=== PATIENT | male | born 2000 | race Caucasian/White ===

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

== ENCOUNTER 2021-01-05 10:45 | Inpatient (IN) | payer MEDICAID ==
[2021-01-05] VITALS (8 sets, daily range): BP systolic 90–137; BP diastolic 51–86
[~2021-01-05] VITALS: Ht 170 cm; Wt 56.5 kg
[~2021-01-05 10:45] MED LIST changes: +ONDA4TAB11 PO
--- NOTE | 2021-01-05 10:53 | ED General ---
General Chief Complaint: Glucose Problems Stated Complaint: DM,N/V Source of Information: Patient, EMS Exam Limitations: No Limitations History of Present Illness Date Seen by Provider: Jan 05, 2021 Time Seen by Provider: 10:45 Initial Comments Patient is a 20-year-old male, type I diabetic who has multiple previous visits to the emergency department with subsequent AMA discharges. Presents today with a chief complaint of epigastric abdominal discomfort, nausea vomiting and blood sugars that are "too high to read". Patient states that his last dose of insulin was missed last evening. He woke up at 4 AM with the above-stated symptoms. Is not Covid vaccinated. Denies any recent URI symptoms/cough/shortness of breath. He states he does have a little chest discomfort but he believes this is from dry heaving. Upon entering the room the patient immediately is asking for ice chips or sips of water. He was not given any antiemetics per EMS. He was started on a liter of normal saline. EMS reports blood sugar 404. Patient denies chronic alcohol use. He does occasionally smoke marijuana. He vapes. No prior abdominal surgeries. Follows with [facility] but does not currently have a provider there as his just left. Denies burning with urination, urinary frequency or hematuria. No concerns for STI. Denies problems with bowel or bladder. No rashes joint pain or swelling. All other review of systems reviewed and negative except as stated. Timing/Duration: 4-6 Hours Severity: Severe Associated Systoms: Chest Pain ("discomfort"), Malaise, Nausea/Vomiting Allergies and Home Medications Allergies Coded Allergies: No Known Drug Allergies (Unverified , 02/10/14) Patient Home Medication List Home Medication List Reviewed: Yes Acetaminophen (Tylenol) 325 Mg Tablet, 650 MG PO Q6H PRN for PAIN-MILD (1-4), (Reported) Entered as Reported by: SANTI MATSON on 01/06/21 100 Last Action: Reviewed Insulin Aspart (Novolog Flexpen) 300 Units/3 Ml Solution, 10-20 UNIT SC TIDWM, (Reported) Entered as Reported by: SANTI MATSON on 01/06/211005 Last Action: Held Insulin Glargine,Hum.rec.anlog (Lantus Solostar) 100 Unit/1 Ml Insuln.pen, 50 UNITS SC DAILY, (Reported) Entered as Reported by: DEJUAN ABURTO on 09/12/18 1228 Last Action: Held Discontinued Medications Glucagon,Human Recombinant (Glucagon Emergency Kit) 1 Mg/Kit Soln, UD PRN for BLOOD SUGAR, (Reported) Discontinued Reason: No Longer Taking Entered as Reported by: DEJUAN ABURTO on 09/12/18 1228 Last Action: Discontinued Insulin Aspart (Insulin Aspart Flexpen) 100 Unit/1 Ml Insuln.pen, 10-20 UNIT SQ 3-4 X DAILY W/ MEALS, (Reported) Discontinued Reason: Duplicate Order Entered as Reported by: PITO WALL on 08/22/19 1328 Last Action: Discontinued Insulin Aspart (Novolog) 300 Units/3 Ml Cartridge, 0 SQ AC, (Reported) Discontinued Reason: Duplicate Order Entered as Reported by: STEPHANIE RAMIREZ on 06/28/20 1349 Last Action: Discontinued Ondansetron (Ondansetron Odt) 4 Mg Tab.rapdis, 4 MG PO Q6H PRN for NA USEA/VOMITING Discontinued Reason: No Longer Taking Prescribed by: FLEX MORAES on 11/02/20 1353 Last Action: Discontinued Review of Systems Review of Systems Constitutional: see HPI, malaise, weakness EENTM: no symptoms reported Respiratory: no symptoms reported Cardiovascular: chest pain Gastrointestinal: nausea, vomiting Genitourinary: no symptoms reported Musculoskeletal: no symptoms reported Skin: no symptoms reported All Other Systems Reviewed Negative Unless Noted: Yes Past Kecruyy-Vmbcff-Qnxtwq Hx Immunizations Up To Date Tetanus Booster (TDap): Less than 5yrs PED Vaccines UTD: Yes Seasonal Allergies Seasonal Allergies: No Past Medical History Surgeries: No Respiratory: No Cardiac: No Neurological: No Genitourinary: No Gastrointestinal: No Musculoskeletal: No Endocrine: Yes (POORLY CONTROLLED TYPE 1 DIABETES) Diabetes, Insulin dep HEENT: No Cancer: No Psychosocial: No Integumentary: No Blood Disorders: No Family Medical History No Pertinent Family Hx Physical Exam Vital Signs Vital Signs - First Documented 01/05/21 10:50 Temp 36.2 Pulse 90 Resp 24 B/P (MAP) 143/84 (103) Capillary Refill : Height, Weight, BMI Height: 5'8.00" Weight: 124lbs. 4.8oz. 56.658302ty; 19.00 BMI Method:Stated General Appearance: Cachetic, Mild Distress Eyes: Bilateral Eye Normal Inspection, Bilateral Eye PERRL, Bilateral Eye EOMI HEENT: Other (DRY oral mucosa) Neck: Full Range of Motion, Normal Inspection, Non Tender, Supple Respiratory: Lungs Clear, Normal Breath Sounds, No Accessory Muscle Use, No Respiratory Distress, Other (borderline Kussmaul breathing) Cardiovascular: Regular Rate, Rhythm, Tachycardia Gastrointestinal: Soft, Tenderness (diffuse mild abdominal tenderness - patient states palpation of the spigastrum makse hoim feel like he needs to vomit.) Back: Normal Inspection Extremity: Normal Capillary Refill, Normal Inspection, Normal Range of Motion Neurologic/Psychiatric: Alert, Oriented x3, No Motor/Sensory Deficits, Normal Mood/Affect Skin: Normal Color, Warm/Dry Progress/Results/Core Measures Suspected Sepsis SIRS Temperature: Pulse: Respiratory Rate: Blood Pressure / Mean: Laboratory Tests 01/05/21 11:41: Total Bilirubin 0.2 Results/Orders Lab Results Laboratory Tests Test 01/05/21 11:00 01/05/21 11:15 01/05/21 11:41 Range/Units White Blood Count 22.3 H 4.3-11.0 10^3/uL Red Blood Count 4.71 4.30-5.52 10^6/uL Hemoglobin 14.4 13.3-17.7 g/dL Hematocrit 45 40-54 % Mean Corpuscular Volume 95 80-99 fL Mean Corpuscular Hemoglobin 31 25-34 pg Mean Corpuscular Hemoglobin Concent 32 32-36 g/dL Red Cell Distribution Width 13.0 10.0-14.5 % Platelet Count 362 130-400 10^3/uL Mean Platelet Volume 12.0 9.0-12.2 fL Immature Granulocyte % (Auto) 8 % Neutrophils (%) (Auto) 75 42-75 % Lymphocytes (%) (Auto) 8 L 12-44 % Monocytes (%) (Auto) 6 0-12 % Eosinophils (%) (Auto) 0 0-10 % Basophils (%) (Auto) 2 0-10 % Neutrophils # (Auto) 16.8 H 1.8-7.8 10^3/uL Lymphocytes # (Auto) 1.8 1.0-4.0 10^3/uL Monocytes # (Auto) 1.4 H 0.0-1.0 10^3/uL Eosinophils # (Auto) 0.1 0.0-0.3 10^3/uL Basophils # (Auto) 0.4 H 0.0-0.1 10^3/uL Immature Granulocyte # (Auto) 1.8 H 0.0-0.1 10^3/uL Neutrophils % (Manual) 68 % Lymphocytes % (Manual) 12 % Monocytes % (Manual) 7 % Metamyelocytes % 4 % Myelocytes % 4 % Band Neutrophils 5 % Blood Morphology Comment NORMAL Urine Color YELLOW Urine Clarity CLEAR Urine pH 5.5 5-9 Urine Specific Holliday >=1.030 1.016-1.022 Urine Protein TRACE H NEGATIVE Urine Glucose (UA) 3+ H NEGATIVE Urine Ketones 3+ H NEGATIVE Urine Nitrite NEGATIVE NEGATIVE Urine Bilirubin NEGATIVE NEGATIVE Urine Urobilinogen 0.2 < = 1.0 MG/DL Urine Leukocyte Esterase NEGATIVE NEGATIVE Urine RBC (Auto) TRACE-I H NEGATIVE Urine RBC NONE /HPF Urine WBC NONE /HPF Urine Squamous Epithelial Cells RARE /HPF Urine Crystals NONE /LPF Urine Bacteria NEGATIVE /HPF Urine Casts PRESENT /LPF Urine Granular Casts RARE /LPF Urine Mucus NEGATIVE /LPF Urine Culture Indicated NO Urine Opiates Screen NEGATIVE NEGATIVE Urine Oxycodone Screen NEGATIVE NEGATIVE Urine Methadone Screen NEGATIVE NEGATIVE Urine Propoxyphene Screen NEGATIVE NEGATIVE Urine Barbiturates Screen NEGATIVE NEGATIVE Ur Tricyclic Antidepressants Screen NEGATIVE NEGATIVE Urine Phencyclidine Screen NEGATIVE NEGATIVE Urine Amphetamines Screen NEGATIVE NEGATIVE Urine Methamphetamines Screen NEGATIVE NEGATIVE Urine Benzodiazepines Screen NEGATIVE NEGATIVE Urine Cocaine Screen NEGATIVE NEGATIVE Urine Cannabinoids Screen POSITIVE H NEGATIVE Blood Gas Puncture Site NA Blood Gas Patient Temperature 36.2 Arterial Blood pH 7.01 *L 7.37-7.43 Arterial Blood Partial Pressure CO2 12 *L 35-45 MMHG Arterial Blood Partial Pressure O2 118 H 79-93 MMHG Arterial Blood HCO3 3 *L 23-27 MMOL/L Arterial Blood Total CO2 3.2 *L 21.0-31.0 MMOL/L Arterial Blood Oxygen Saturation 97 94-100 % Arterial Blood Base Excess -26.5 L -2.5-2.5 MMOL/L Spenser Test NA Blood Gas Ventilator Setting NO Blood Gas Inspired Oxygen NA Sodium Level 133 L 135-145 MMOL/L Potassium Level 5.8 H 3.6-5.0 MMOL/L Chloride Level 101 98-107 MMOL/L Carbon Dioxide Level < 5 *L 21-32 MMOL/L Anion Gap 27 H 5-14 MMOL/L Blood Urea Nitrogen 13 7-18 MG/DL Creatinine 1.41 H 0.60-1.30 MG/DL Estimat Glomerular Filtration Rate 65 BUN/Creatinine Ratio 9 Glucose Level 594 *H 70-105 MG/DL Calcium Level 8.7 8.5-10.1 MG/DL Corrected Calcium 8.5 8.5-10.1 MG/DL Total Bilirubin 0.2 0.1-1.0 MG/DL Aspartate Amino Transf (AST/SGOT) 58 H 5-34 U/L Alanine Aminotransferase (ALT/SGPT) 40 0-55 U/L Alkaline Phosphatase 180 H 40-136 U/L Total Protein 7.5 6.4-8.2 GM/DL Albumin 4.3 3.2-4.5 GM/DL Lipase 10 8-78 U/L Beta-Hydroxybutyrate (Chem panel) 11.50 H 0.00-0.27 MMOL/L My Orders Orders - REMA LIU MD Ed Iv/Invasive Line Start (01/05/21 10:51) Cbc With Automated Diff (01/05/21 10:51) Comprehensive Metabolic Panel (01/05/21 10:51) Lipase (01/05/21 10:51) Ua Culture If Indicated (01/05/21 10:51) Drug Screen Stat (Urine) (01/05/21 10:51) Beta Hydroxybutyrate (01/05/21 10:51) Arterial Blood Gas (01/05/21 10:51) Chest 1 View, Ap/Pa Only (01/05/21 10:51) Ondansetron Injection (Zofran Injectio (01/05/21 11:00) Ns Iv 1000 Ml (Sodium Chloride 0.9%) (01/05/21 11:15) Manual Differential (01/05/21 11:00) Medications Given in ED Vital Signs/I&O 01/05/21 10:50 Temp 36.2 Pulse 90 Resp 24 B/P (MAP) 143/84 (103) Capillary Refill : Progress Note : Time: 11:48 Progress Note Patient's labs rolling back and at this time, white blood cell count 22,000, patient's not anemic, normal platelets. ABG reveals a pH of 7.01 with PCO2 of 12 bicarb of 3. Chemistry still pending at this time. I had a discussion with the patient regarding admission, he states at this time he will not leave AMA and is agreeable for admission. Will bolus him 5 units of regular insulin IV and start him on a drip at 5 units an hour. He is completing 2 L of normal saline IV fluid bolus. We'll switch him to half-normal saline at 250 an hour after this. Will discuss the case with Dr. Squires who is on for [facility]. Admission to the ICU. Diagnostic Imaging Diagonstic Imaging: Xray Plain Films/CT/US/NM/MRI: chest Comments [facility] [place], [place] NAME: RAJIV HARTMANN [facility] REC#: [id number] PT STATUS: REG ER : 2000 PHYSICIAN: REMA LIU MD ADMIT DATE: 01/05/21/ER Draft Date of Exam:01/05/21 CHEST 1 VIEW, AP/PA ONLY EXAM: Portable erect AP chest at 11:21 AM INDICATION: Nausea and vomiting COMPARISON: 12/07/2018. FINDINGS: The heart size is stable when compared to the prior exam. The lungs are clear. There is no evidence for failure, pneumonia or for a pleural effusion. The mediastinum is not widened. The osseous structures are intact. IMPRESSION: There is no evidence for active disease. Dictated on workstation # [id number] Dict: 01/05/21 1134 Trans: 01/05/21 1138 [facility] [id number] Interpreted by: EDWINA MURPHY MD Electronically signed by: Critical Care Note Critical Care Start Time: 10:45 Stop Time: 11:52 Total Time (minutes) 40 minutes critical care time in the evaluation and management of this patient who presents with DKA. Time includes initial fluid resuscitation with normal saline, review and interpretation of laboratory studies, review of the medical record, discussion with admitting provider, management of insulin bolus and insulin drip Departure Communication (Admissions) Time/Spoke to Admitting Phy: 12:[address] Squires Impression Primary Impression: Diabetic ketoacidosis Qualified Codes: E10.10 - Type 1 diabetes mellitus with ketoacidosis without coma Disposition: ADMITTED INPATIENT Condition: Critical Admissions Decision to Admit Reason: Admit from ER (General) Decision to Admit/Date: Jan 05, 2021 Time/Decision to Admit Time: 11:53 Departure-Patient Inst. Referrals: [facility] ([place]P/Family) Primary Care Physician REMA LIU MD Jan 05, 2021 10:53
[2021-01-05] MEDS ORDERED: ONDANSETRON 4 MG/2 ML (SDV) Z0FRAN IVP ONE (11:00)
[2021-01-05] MEDS ORDERED: NS IV 1000 ML 1,000 ML IV SCH (11:15)
[2021-01-05 11:20] LABS: BASOPHILS # (AUTO) 0.4 10^3/uL (0.0-0.1); BASOPHILS % (AUTO) 2 % (0-10); EOSINOPHILS # (AUTO) 0.1 10^3/uL (0.0-0.3); EOSINOPHILS % (AUTO) 0 % (0-10); HEMATOCRIT 45 % (40-54); HEMOGLOBIN 14.4 g/dL (13.3-17.7); LYMPHOCYTES # (AUTO) 1.8 10^3/uL (1.0-4.0); LYMPHOCYTES % (AUTO) 8 % (12-44); MEAN CORPUSCULAR HEMOGLOBIN 31 pg (25-34); MEAN CORPUSCULAR HGB CONC 32 g/dL (32-36); MEAN CORPUSCULAR VOLUME 95 fL (80-99); MONOCYTES # (AUTO) 1.4 10^3/uL (0.0-1.0); MONOCYTES % (AUTO) 6 % (0-12); NEUTROPHILS # (AUTO) 16.8 10^3/uL (1.8-7.8); NEUTROPHILS % (AUTO) 75 % (42-75); PLATELET COUNT 362 10^3/uL (130-400); WHITE BLOOD COUNT 22.3 10^3/uL (4.3-11.0)
[2021-01-05 11:26] LABS: ABG BASE EXCESS -26.5 MMOL/L (-2.5-2.5); ABG OXYGEN SATURATION 97 % (94-100); ABG PO2 118 MMHG (79-93)
[2021-01-05 11:39] LABS: BILIRUBIN,URINE NEGATIVE (NEGATIVE); CLARITY,URINE CLEAR; COLOR,URINE YELLOW; GLUCOSE, URINE (UA) 3+ (NEGATIVE); KETONES,URINE 3+ (NEGATIVE); LEUKOCYTE ESTERASE ,URINE NEGATIVE (NEGATIVE); NITRITE,URINE NEGATIVE (NEGATIVE); PH,URINE 5.5 (5-9); PROTEIN,URINE TRACE (NEGATIVE)
--- NOTE | 2021-01-05 11:39 | Diagnostic Imaging Report ---
EXAM: Portable erect AP chest at 11:21 AM INDICATION: Nausea and vomiting COMPARISON: 12/07/2018. FINDINGS: The heart size is stable when compared to the prior exam. The lungs are clear. There is no evidence for failure, pneumonia or for a pleural effusion. The mediastinum is not widened. The osseous structures are intact. IMPRESSION: There is no evidence for active disease. Dictated by: Dictated on workstation # [id number]
[2021-01-05 11:42] LABS: ABG PCO2 12 MMHG (35-45); ABG TCO2 3.2 MMOL/L (21.0-31.0)
[2021-01-05 11:43] LABS: ABG PH 7.01 (7.37-7.43); PATIENT TEMP 36.2; VENTILATOR NO
[2021-01-05 11:46] LABS: BACTERIA,URINE NEGATIVE /HPF; GRANULAR CASTS,URINE RARE /LPF; SQUAMOUS EPITHELIAL CELL,UR RARE /HPF
[2021-01-05] MEDS ORDERED: inSUlin (REGULAR) HUMAN 1 UNIT/0.01 ML (CHARGE PER UNIT) IV STA (11:50)
[2021-01-05 11:52] LABS: AMPHETAMINE SCREEN, URINE NEGATIVE (NEGATIVE); BARBITURATE SCREEN URINE NEGATIVE (NEGATIVE); BENZODIAZEPINES SCREEN URINE NEGATIVE (NEGATIVE); CANNABINOID SCREEN, URINE POSITIVE (NEGATIVE); COCAINE SCREEN URINE NEGATIVE (NEGATIVE); METHADONE STAT NEGATIVE (NEGATIVE); METHAMPHETAMINE SCREEN URINE S NEGATIVE (NEGATIVE); OPIATE SCREEN URINE NEGATIVE (NEGATIVE); OXYCODONE STAT NEGATIVE (NEGATIVE); PROPOXYPHENE STAT NEGATIVE (NEGATIVE); TRICYCLIC ANTIDEPRESSANTS SCRE NEGATIVE (NEGATIVE)
[2021-01-05 11:59] LABS: ALBUMIN 4.3 GM/DL (3.2-4.5); CHLORIDE 101 MMOL/L (98-107); SODIUM 133 MMOL/L (135-145)
[2021-01-05 12:00] LABS: CALCIUM 8.7 MG/DL (8.5-10.1)
[2021-01-05 12:01] LABS: TOTAL PROTEIN 7.5 GM/DL (6.4-8.2)
[2021-01-05 12:03] LABS: BILIRUBIN,TOTAL 0.2 MG/DL (0.1-1.0)
[2021-01-05 12:05] LABS: ALKALINE PHOSPHATASE 180 U/L (40-136); CREATININE SERUM 1.41 MG/DL (0.60-1.30); GFR ESTIMATED 65
[2021-01-05 12:06] LABS: BUN/CREATININE RATIO 9; CARBON DIOXIDE < 5 MMOL/L (21-32); GLUCOSE 594 MG/DL (70-105)
[2021-01-05 12:07] LABS: POTASSIUM 5.8 MMOL/L (3.6-5.0)
[2021-01-05 12:08] LABS: ALANINE AMINOTRANSFERASE 40 U/L (0-55); LIPASE 10 U/L (8-78)
[2021-01-05 12:16] LABS: BAND NEUTROPHILS 5 %; LYMPHOCYTES % (MANUAL) 12 %; METAMYELOCYTES % 4 %; MONOCYTES % (MANUAL) 7 %; MYELOCYTES % 4 %; NEUTROPHILS % (MANUAL) 68 %; RBC MORPH NORMAL
[2021-01-05] MEDS ORDERED: 1/2 NS IV SOLUTION 1,000 ML IV SCH (13:15)
[2021-01-05] MEDS ORDERED: ONDANSETRON 4 MG/2 ML (SDV) Z0FRAN IV PRN (15:30)
[2021-01-05 15:32] LABS: HEMATOCRIT 47 % (40-54); MEAN CORPUSCULAR HEMOGLOBIN 30 pg (25-34); MEAN CORPUSCULAR HGB CONC 32 g/dL (32-36); MEAN CORPUSCULAR VOLUME 95 fL (80-99); MEAN PLATELET VOLUME 11.2 fL (9.0-12.2); PLATELET COUNT 319 10^3/uL (130-400); WHITE BLOOD COUNT 28.6 10^3/uL (4.3-11.0)
[2021-01-05 15:42] LABS: CHLORIDE 108 MMOL/L (98-107); POTASSIUM 4.5 MMOL/L (3.6-5.0); SODIUM 135 MMOL/L (135-145)
[2021-01-05 15:44] LABS: GLUCOSE 251 MG/DL (70-105)
[2021-01-05 15:48] LABS: GFR ESTIMATED 71
[2021-01-05 15:49] LABS: BUN/CREATININE RATIO 8
[2021-01-05 15:55] LABS: CARBON DIOXIDE < 5 MMOL/L (21-32)
[2021-01-05] MEDS: 1/2 NS IV SOLUTION 1,000 ML IV SCH ×3 (16:00→23:45)
[2021-01-05] MEDS ORDERED: D5 1/2 NS 1000 ML IV SOLUTION 1,000 ML IV ONE (16:44)
[2021-01-05] MEDS: D5 1/2 NS 1000 ML IV SOLUTION 1,000 ML IV SCH ×2 (17:04→21:14)
[2021-01-05 17:33] LABS: POTASSIUM 4.3 MMOL/L (3.6-5.0)
[2021-01-05 17:34] LABS: CALCIUM 8.9 MG/DL (8.5-10.1)
[2021-01-05 17:38] LABS: CREATININE SERUM 1.19 MG/DL (0.60-1.30)
[2021-01-05] MEDS ORDERED: ACETAMINOPHEN 325 MG TABLET ONE (18:05)
[2021-01-05] MEDS ORDERED: ACETAMINOPHEN 325 MG TABLET PO PRN (18:15)
[2021-01-05 18:19] LABS: CLARITY,URINE CLEAR; COLOR,URINE YELLOW; GLUCOSE, URINE (UA) 2+ (NEGATIVE); KETONES,URINE 3+ (NEGATIVE); LEUKOCYTE ESTERASE ,URINE NEGATIVE (NEGATIVE); NITRITE,URINE NEGATIVE (NEGATIVE); PH,URINE 5.5 (5-9); PROTEIN,URINE 1+ (NEGATIVE)
[2021-01-05 18:29] LABS: BACTERIA,URINE NEGATIVE /HPF; BILIRUBIN,URINE 1+ (NEGATIVE); SQUAMOUS EPITHELIAL CELL,UR RARE /HPF
--- NOTE | 2021-01-05 19:45 | History & Physical-Hospitalist ---
History of Present Illness HPI/Chief Complaint Scott Keenan is a 20 year old male with T1DM who presented with nausea and vomiting. He reports that he was feeling sick for a few hours before he came to the ER. He had been in his normal state of health until last night. He has not taken his Lantus for several days. He has a history of nonadherence and diabetic ketoacidosis. He denies fevers and chills. He denies shortness of breath and cough. He denies chest pain. He has had abdominal pain. He denies diarrhea. He uses a vape. He does not drink alcohol. Source: patient Exam Limitations: no limitations Date Seen 01/05/21 Time Seen by a Provider: 14:00 Attending Physician Livan Dean MD [facility]/Replaced By [facility] Referring Physician Date of Admission Jan 05, 2021 at 11:48 Home Medications & Allergies Home Medications Reviewed patient Home Medication Reconciliation performed by pharmacy medication reconciliations critical systems technician and/or nursing. Patients Allergies have been reviewed. Allergies Allergies Coded Allergies No Known Drug Allergies ([id number]/15/14) Past Qjfdhal-Tlcsfi-Aaatkr Hx Patient Social History Tobacco Use?: Yes Use of E-Cig and/or Vaping dev: Yes E-Cig or Vaping type used: Nicotine, Marijuana Use of E-Cig and/or Vaping John: Current Everyday User Substance use?: Yes Substance type: Marijuana Substance frequency: Couple times a week Alcohol Use?: Yes Alcohol type: Beer, Hard Liquor Alcohol Frequency: Rarely Pt feels they are or have been: No Immunizations Up To Date Date of Influenza Vaccine: Jan 29, 2020 Tetanus Booster (TDap): Unknown Hepatitis A: No Hepatitis B: No PED Vaccines UTD: Yes Seasonal Allergies Seasonal Allergies: No Current Status Advance Directives: No Communicates: Verbally Primary Language: Korean Preferred Spoken Language: Korean Is interpretation needed?: No Past Medical History Diabetes, Insulin dep Blood Disorders: No PMHx: DMI Family Medical History No Pertinent Family Hx Review of Systems Constitutional: see HPI EENTM: no symptoms reported Respiratory: no symptoms reported Cardiovascular: no symptoms reported Gastrointestinal: nausea, vomiting Genitourinary: no symptoms reported Musculoskeletal: no symptoms reported Skin: no symptoms reported Psychiatric/Neurological: No Symptoms Reported Physical Exam Physical Exam Vital Signs Vital Signs - First Documented 01/05/21 01/05/21 10:50 13:40 Temp 36.2 Pulse 90 Resp 24 B/P (MAP) 143/84 (103) Pulse Ox 100 O2 Delivery Room Air Capillary Refill : Less Than 3 Seconds Height, Weight, BMI Height: 5'8.00" Weight: 124lbs. 4.8oz. 56.264616sa; 18.68 BMI Method:Stated General Appearance: Mild Distress (tachypnea), Thin HEENT: PERRL/EOMI, Pharynx Normal Neck: Normal Inspection, Supple Respiratory: Lungs Clear, Normal Breath Sounds, No Respiratory Distress Cardiovascular: Regular Rate, Rhythm, No Edema, No Murmur Gastrointestinal: Normal Bowel Sounds, Non Tender, Soft Extremity: Normal Inspection, Non Tender, No Pedal Edema Neurologic/Psychiatric: Alert, Oriented x3, No Motor/Sensory Deficits, Other (irritable) Skin: Normal Color, Warm/Dry Results Results/Procedures Labs Laboratory Tests 01/05/21 11:00 01/05/21 11:41 01/05/21 12:48 01/05/21 15:22 01/05/21 17:16 Patient resulted labs reviewed. Imaging: Reviewed Imaging Report Assessment/Plan Admission Diagnosis T1DM with ketoacidosis Admission Status: Inpatient Order (span 2 midnights) Reason for Inpatient Admission: Insulin drip Assessment and Plan T1DM with ketoacidosis HAY ABG with pH 7, CO2 <5, betahydroxybutyrate 11, blood sugar 594 Started on insulin gtt DKA protocol IV fluids Monitor electrolytes TeleICU consulted DVT prophylaxis: Lovenox Critical Care Critically Ill Patient Diagnosis/Problems Diagnosis/Problems (1) T1DM (type 1 diabetes mellitus) Status: Acute Qualifiers: Diabetes mellitus complication status: with ketoacidosis Diabetes mellitus complication detail: without coma Qualified Codes: E10.10 - Type 1 diabetes mellitus with ketoacidosis without coma (2) HAY (acute kidney injury) Status: Acute LIVAN DEAN MD Jan 05, 2021 19:45
[2021-01-05] MEDS: ENOXAPARIN 30 MG/0.3 ML (LOVENOX) SYR SC SCH (21:14)
[2021-01-05] MEDS ORDERED: POTASSIUM CL 10MEQ/50ML IVPB 50 ML IV ONE (23:39)
[2021-01-06] VITALS (23 sets, daily range): BP systolic 112–142; BP diastolic 69–96
[2021-01-06] MEDS: POTASSIUM CL 10MEQ/50ML IVPB 50 ML IV SCH ×13 (00:13→23:37)
[2021-01-06 00:42] LABS: POTASSIUM 3.6 MMOL/L (3.6-5.0)
[2021-01-06 00:44] LABS: CALCIUM 8.5 MG/DL (8.5-10.1)
[2021-01-06 00:48] LABS: CREATININE SERUM 1.07 MG/DL (0.60-1.30)
[2021-01-06] MEDS: D5 1/2 NS 1000 ML IV SOLUTION 1,000 ML IV SCH ×7 (02:25→23:37)
[2021-01-06] MEDS: 1/2 NS IV SOLUTION 1,000 ML IV SCH ×5 (04:43→19:32)
[2021-01-06 05:01] LABS: POTASSIUM 3.8 MMOL/L (3.6-5.0)
[2021-01-06 05:02] LABS: CALCIUM 8.5 MG/DL (8.5-10.1)
[2021-01-06 05:06] LABS: CREATININE SERUM 1.09 MG/DL (0.60-1.30)
[2021-01-06 05:08] LABS: MAGNESIUM 1.6 MG/DL (1.6-2.4)
[2021-01-06] MEDS: KCL 20 MEQ TAB (K-DUR) PO SCH (05:11)
[2021-01-06] MEDS: MAGNESIUM 1 GM/100 ML IVPB 100 ML IV SCH ×3 (05:54→06:34)
--- NOTE | 2021-01-06 09:30 | Tele-ICU Progress Note ---
Subjective Date Seen by a Provider: Jan 06, 2021 Time Seen by a Provider: 09:30 Sepsis Event Evaluation Height, Weight, BMI Height: 5'8.00" Weight: 124lbs. 4.8oz. 56.675826az; 18.68 BMI Method:Stated Exam Exam Patient acknowledged, consented, and participated in this virtual visit which was conducted using real time audio/video Vital Signs Date Time Temp Pulse Resp B/P (MAP) Pulse Ox O2 Delivery O2 Flow Rate FiO2 01/06/21 09:00 83 15 121/81 (94) 96 Room Air 01/06/21 08:30 Room Air 01/06/21 08:00 82 14 120/75 (90) Room Air 01/06/21 07:52 37.4 01/06/21 07:00 90 15 124/73 (90) Room Air 01/06/21 06:50 86 01/06/21 06:00 85 15 128/82 (97) Room Air 01/06/21 05:00 92 16 127/82 (97) Room Air 01/06/21 04:00 90 15 127/80 (92) Room Air 01/06/21 04:00 99 Room Air 01/06/21 03:00 93 14 115/70 (84) Room Air 01/06/21 02:00 93 16 124/82 (95) Room Air 01/06/21 01:00 94 15 115/73 (84) 98 Room Air 01/06/21 01:00 94 01/06/21 00:00 95 16 120/72 (88) 98 Room Air 01/05/21 23:59 99 Room Air 01/05/21 23:23 36.6 01/05/21 23:00 97 16 123/71 (88) 98 Room Air 01/05/21 22:00 97 16 120/68 (85) 98 Room Air 01/05/21 21:00 99 16 90/51 (60) 98 Room Air 01/05/21 20:00 99 15 109/64 (80) 99 Room Air 01/05/21 20:00 99 Room Air 01/05/21 19:43 36.8 01/05/21 19:00 101 01/05/21 19:00 101 16 125/72 (89) 99 Room Air 01/05/21 18:00 117 19 122/60 (80) 99 Room Air 01/05/21 17:00 107 18 137/78 (97) 99 Room Air 01/05/21 15:59 106 38 132/86 (101) 99 Room Air 01/05/21 15:57 37.4 01/05/21 15:16 109 01/05/21 14:37 37.0 56 22 145/88 100 Room Air 01/05/21 13:40 37.0 56 22 145/88 100 Room Air 01/05/21 10:50 36.2 90 24 143/84 (103) I & O 01/06/21 07:00 Intake Total 5850 ml Output Total 2400 ml Balance 3450 ml Height & Weight Height: 5'8.00" Weight: 124lbs. 4.8oz. 56.071957ns; 18.68 BMI Method:Stated General Appearance: Mild Distress (tachypnea), Thin HEENT: PERRL/EOMI, Pharynx Normal Neck: Normal Inspection, Supple Respiratory: Lungs Clear, Normal Breath Sounds, No Respiratory Distress Cardiovascular: Regular Rate, Rhythm, No Edema, No Murmur Capillary Refill: Less Than 3 Seconds Extremity: Normal Inspection, Non Tender, No Pedal Edema Neurologic/Psychiatric: Alert, Oriented x3, No Motor/Sensory Deficits, Other (irritable) Skin: Normal Color, Warm/Dry Results Lab Laboratory Tests 01/05/21 11:00 01/05/21 11:41 01/05/21 12:48 01/05/21 15:22 01/05/21 17:16 01/06/21 00:25 01/06/21 04:38 Assessment/Plan Assessment/Plan (Tele-ICU Physician , Progress Note ) Available chart/ vitals / labs / Images reviewed Video assessment done using teleICU camera, rest of exam as per RN Discussed with RN , EXAM PER RN Events overnight : Afebrile I/O = pos Drips: insulin gtt Pressors: , hemodynamically stable Consultants: Hospital course: 01/05 - from ER to ICU - DKA A/P DKA *Insulin drip continue to monitor for resolution of acidosis, AG and electrolytes. Continue hydration. *Tx Gastroparesis DM type I HAY - dehydration - normalized - cont IVF - follow closely Hyperkalemia due to HAY - resolved - follow closely Leukocytosis - suspect reactive, chest x-ray was normal , UA unremarkable >off ABX , follow Cannabioids positive Lines : periph (Central Line Necessity Reviewed) [place]: OG: Nutrition: npo Analgesia: Anxiety/ delirim VTE Prophylaxis: lovenox 40 Stress Ulcer Prophylaxis: stating po soon Plans in collaboration with bedside consultants and IM MDs. Discussed with RN to reach out if any questions or concerns A total of 20 minutes of critical care time was devoted to this patient today, required to treat and/or prevent further deterioration of critical care condition ( as above) . JOSE G LOPES MD Jan 06, 2021 09:30
[2021-01-06 09:34] LABS: BASOPHILS # (AUTO) 0.1 10^3/uL (0.0-0.1); BASOPHILS % (AUTO) 1 % (0-10); EOSINOPHILS # (AUTO) 0.1 10^3/uL (0.0-0.3); EOSINOPHILS % (AUTO) 1 % (0-10); HEMATOCRIT 38 % (40-54); LYMPHOCYTES # (AUTO) 1.2 10^3/uL (1.0-4.0); LYMPHOCYTES % (AUTO) 12 % (12-44); MEAN CORPUSCULAR HEMOGLOBIN 31 pg (25-34); MEAN CORPUSCULAR HGB CONC 35 g/dL (32-36); MEAN CORPUSCULAR VOLUME 89 fL (80-99); MEAN PLATELET VOLUME 10.8 fL (9.0-12.2); MONOCYTES # (AUTO) 1.3 10^3/uL (0.0-1.0); MONOCYTES % (AUTO) 12 % (0-12); NEUTROPHILS # (AUTO) 7.4 10^3/uL (1.8-7.8); NEUTROPHILS % (AUTO) 70 % (42-75); PLATELET COUNT 183 10^3/uL (130-400); WHITE BLOOD COUNT 10.5 10^3/uL (4.3-11.0)
[2021-01-06 09:47] LABS: POTASSIUM 3.9 MMOL/L (3.6-5.0)
[2021-01-06 09:48] LABS: CALCIUM 8.5 MG/DL (8.5-10.1)
[2021-01-06] MEDS ORDERED: INSU100I14 SC (10:06)
[2021-01-06] MEDS ORDERED: ACET325T38 PO (10:06)
--- NOTE | 2021-01-06 10:19 | Progress Note ---
Subjective Subjective/Events-last exam States he is feeling much better, is hungry and would like to eat. Objective Exam Last Set of Vital Signs Vital Signs Date Time Temp Pulse Resp B/P (MAP) Pulse Ox O2 Delivery O2 Flow Rate FiO2 01/06/21 09:00 83 15 121/81 (94) 96 Room Air 01/06/21 07:52 37.4 Capillary Refill : Less Than 3 Seconds I&O Intake and Output 01/06/21 00:00 Intake Total 2900 ml Output Total 1075 ml Balance 1825 ml Intake Oral 100 ml IV Total 2800 ml Output Urine Total 1075 ml Daily Weight Change Unsure General: Alert, No Acute Distress Lungs: Clear to Auscultation, Normal Air Movement Heart: Regular Rate, No Murmurs Abdomen: Normal Bowel Sounds, Soft Extremities: No Edema Psych/Mental Status: Other (flat affect) Results/Procedures Lab Laboratory Tests 01/05/21 11:00: White Blood Count 22.3H, Red Blood Count 4.71, Hemoglobin 14.4, Hematocrit 45, Mean Corpuscular Volume 95, Mean Corpuscular Hemoglobin 31, Mean Corpuscular Hemoglobin Concent 32, Red Cell Distribution Width 13.0, Platelet Count 362, Mean Platelet Volume 12.0, Immature Granulocyte % (Auto) 8, Neutrophils (%) (Auto) 75, Lymphocytes (%) (Auto) 8L, Monocytes (%) (Auto) 6, Eosinophils (%) (Auto) 0, Basophils (%) (Auto) 2, Neutrophils # (Auto) 16.8H, Lymphocytes # (Auto) 1.8, Monocytes # (Auto) 1.4H, Eosinophils # (Auto) 0.1, Basophils # (Auto) 0.4H, Immature Granulocyte # (Auto) 1.8H, Neutrophils % (Manual) 68, Lymphocytes % (Manual) 12, Monocytes % (Manual) 7, Metamyelocytes % 4, Myelocytes % 4, Band Neutrophils 5, Blood Morphology Comment NORMAL, Urine Color YELLOW, Urine Clarity CLEAR, Urine pH 5.5, Urine Specific [place] >=1.030, Urine Protein TRACEH, Urine Glucose (UA) 3+H, Urine Ketones 3+H, Urine Nitrite NEGATIVE, Urine Bilirubin NEGATIVE, Urine Urobilinogen 0.2, Urine Leukocyte Esterase NEGATIVE, Urine RBC (Auto) TRACE-IH, Urine RBC NONE, Urine WBC NONE, Urine Squamous Epithelial Cells RARE, Urine Crystals NONE, Urine Bacteria NEGATIVE, Urine Casts PRESENT, Urine Granular Casts RARE, Urine Mucus NEGATIVE, Urine Culture Indicated NO, Urine Opiates Screen NEGATIVE, Urine Oxycodone Screen NEGATIVE, Urine Methadone Screen NEGATIVE, Urine Propoxyphene Screen NEGATIVE, Urine Barbiturates Screen NEGATIVE, Ur Tricyclic Antidepressants Screen NEGATIVE, Urine Phencyclidine Screen NEGATIVE, Urine Amphetamines Screen NEGATIVE, Urine Methamphetamines Screen NEGATIVE, Urine Benzodiazepines Screen NEGATIVE, Urine Cocaine Screen NEGATIVE, Urine Cannabinoids Screen POSITIVEH 01/05/21 11:15: Blood Gas Puncture Site NA, Blood Gas Patient Temperature 36.2, Arterial Blood pH 7.01*L, Arterial Blood Partial Pressure CO2 12*L, Arterial Blood Partial Pressure O2 118H, Arterial Blood HCO3 3*L, Arterial Blood Total CO2 3.2*L, Arterial Blood Oxygen Saturation 97, Arterial Blood Base Excess -26.5L, Spenser Test NA, Blood Gas Ventilator Setting NO, Blood Gas Inspired Oxygen NA 01/05/21 11:41: Sodium Level 133L, Potassium Level 5.8H, Chloride Level 101, Carbon Dioxide L evel < 5*L, Anion Gap 27H, Blood Urea Nitrogen 13, Creatinine 1.41H, Estimat Glomerular Filtration Rate 65, BUN/Creatinine Ratio 9, Glucose Level 594*H, Calcium Level 8.7, Corrected Calcium 8.5, Total Bilirubin 0.2, Aspartate Amino Transf (AST/SGOT) 58H, Alanine Aminotransferase (ALT/SGPT) 40, Alkaline Phosphatase 180H, Total Protein 7.5, Albumin 4.3, Lipase 10, Beta- Hydroxybutyrate (Chem panel) 11.50H 01/05/21 12:48: Potassium Level 5.5H 01/05/21 13:27: Glucometer 167H 01/05/21 14:24: Glucometer 290H 01/05/21 15:21: Glucometer 243H 01/05/21 15:22: White Blood Count 28.6H, Red Blood Count 4.94, Hemoglobin 15.0, Hematocrit 47, Mean Corpuscular Volume 95, Mean Corpuscular Hemoglobin 30, Mean Corpuscular Hemoglobin Concent 32, Red Cell Distribution Width 13.4, Platelet Count 319, Mean Platelet Volume 11.2, Sodium Level 135, Potassium Level 4.5, Chloride Level 108H, Carbon Dioxide Level < 5*L, Anion Gap 22H, Blood Urea Nitrogen 11, Creatinine 1.30, Estimat Glomerular Filtration Rate 71, BUN/Creatinine Ratio 8, Glucose Level 251H, Calcium Level 9.0, Beta-Hydroxybutyrate (Chem panel) 9.10H 01/05/21 16:17: Glucometer 218H 01/05/21 17:16: Glucometer 156H, Sodium Level 134L, Potassium Level 4.3, Chloride Level 110H, Carbon Dioxide Level 5*L, Anion Gap 19H, Blood Urea Nitrogen 10, Creatinine 1.19, Estimat Glomerular Filtration Rate 79, BUN/Creatinine Ratio 8, Glucose Level 156H, Calcium Level 8.9 01/05/21 18:10: Urine Color YELLOW, Urine Clarity CLEAR, Urine pH 5.5, Urine Specific [place] >=1.030, Urine Protein 1+H, Urine Glucose (UA) 2+H, Urine Ketones 3+H, Urine Nitrite NEGATIVE, Urine Bilirubin 1+H, Urine Urobilinogen 0.2, Urine Leukocyte Esterase NEGATIVE, Urine RBC (Auto) TRACE-IH, Urine RBC NONE, Urine WBC NONE, Urine Squamous Epithelial Cells RARE, Urine Crystals NONE, Urine Bacteria NEGATIVE, Urine Casts PRESENT, Urine Granular Casts 2-5H, Urine Mucus NEGATIVE, Urine Culture Indicated NO 01/05/21 18:32: Glucometer 207H 01/05/21 19:11: Glucometer 196H 01/05/21 20:13: Glucometer 203H 01/05/21 21:15: Glucometer 176H 01/05/21 22:20: Glucometer 157H 01/05/21 23:07: Glucometer 141H 01/06/21 00:11: Glucometer 135H 01/06/21 00:25: Sodium Level 134L, Potassium Level 3.6, Chloride Level 111H, Carbon Dioxide Level 14L, Anion Gap 9, Blood Urea Nitrogen 8, Creatinine 1.07, Estimat Glomerular Filtration Rate 89, BUN/Creatinine Ratio 7, Glucose Level 118H, Calcium Level 8.5 01/06/21 01:04: Glucometer 99 01/06/21 02:13: Glucometer 123H 01/06/21 03:03: Glucometer 116H 01/06/21 04:18: Glucometer 147H 01/06/21 04:38: Sodium Level 133L, Potassium Level 3.8, Chloride Level 110H, Carbon Dioxide Level 14L, Anion Gap 9, Blood Urea Nitrogen 8, Creatinine 1.09, Estimat Glomerular Filtration Rate 87, BUN/Creatinine Ratio 7, Glucose Level 142H, Calc ium Level 8.5, Magnesium Level 1.6 01/06/21 06:14: Glucometer 161H 01/06/21 07:28: Glucometer 186H 01/06/21 08:27: Glucometer 174H 01/06/21 09:25: White Blood Count 10.5, Red Blood Count 4.22L, Hemoglobin 13.0L, Hematocrit 38L, Mean Corpuscular Volume 89, Mean Corpuscular Hemoglobin 31, Mean Corpuscular Hemoglobin Concent 35, Red Cell Distribution Width 12.6, Platelet Count 183, Mean Platelet Volume 10.8, Immature Granulocyte % (Auto) 4, Neutrophils (%) (Auto) 70, Lymphocytes (%) (Auto) 12, Monocytes (%) (Auto) 12, Eosinophils (%) (Auto) 1, Basophils (%) (Auto) 1, Neutrophils # (Auto) 7.4, Lymphocytes # (Auto) 1.2, Monocytes # (Auto) 1.3H, Eosinophils # (Auto) 0.1, Basophils # (Auto) 0.1, Immature Granulocyte # (Auto) 0.5H, Sodium Level 133L, Potassium Level 3.9, Chloride Level 109H, Carbon Dioxide Level 15L, Anion Gap 9, Blood Urea Nitrogen 6L, Creatinine 1.00, Estimat Glomerular Filtration Rate 96, BUN/Creatinine Ratio 6, Glucose Level 196H, Calcium Level 8.5 01/06/21 09:29: Glucometer 200H Microbiology 01/05/21 MRSA Screen - Final, Complete MRSA not isolated Assessment/Plan Assessment/Plan (1) T1DM (type 1 diabetes mellitus) Status: Chronic Assessment & Plan: Anion gap closed, CO2 improved but still low. Beta hydroxybutyrate still high last check, will continue drip, repeat lab. Diabetic diet. Qualifiers: Qualified Codes: E10.10 - Type 1 diabetes mellitus with ketoacidosis without coma (2) Diabetic ketoacidosis Status: Acute Qualifiers: Qualified Codes: E10.10 - Type 1 diabetes mellitus with ketoacidosis without coma (3) Hyponatremia Status: Acute Assessment & Plan: Due to hyperglycemia (4) Leukocytosis Status: Resolved (5) HAY (acute kidney injury) Status: Resolved (6) DVT prophylaxis Status: Acute Assessment & Plan: Enoxaparin COURTNEY COLES MD Jan 06, 2021 10:19
[2021-01-06 17:25] LABS: POTASSIUM 3.1 MMOL/L (3.6-5.0)
[2021-01-06 17:26] LABS: CALCIUM 8.7 MG/DL (8.5-10.1)
[2021-01-06 17:31] LABS: CREATININE SERUM 0.98 MG/DL (0.60-1.30)
[2021-01-06] MEDS: ENOXAPARIN 30 MG/0.3 ML (LOVENOX) SYR SC SCH (19:34)
[2021-01-07] VITALS (13 sets, daily range): BP systolic 114–141; BP diastolic 69–97
[2021-01-07] MEDS: 1/2 NS IV SOLUTION 1,000 ML IV SCH ×3 (00:19→07:30)
[2021-01-07] MEDS: POTASSIUM CL 10MEQ/50ML IVPB 50 ML IV SCH ×4 (02:16→06:27)
[2021-01-07] MEDS: D5 1/2 NS 1000 ML IV SOLUTION 1,000 ML IV SCH ×2 (03:55→07:47)
[2021-01-07 05:01] LABS: HEMATOCRIT 38 % (40-54); HEMOGLOBIN 12.9 g/dL (13.3-17.7); MEAN CORPUSCULAR HEMOGLOBIN 30 pg (25-34); MEAN CORPUSCULAR HGB CONC 34 g/dL (32-36); MEAN CORPUSCULAR VOLUME 88 fL (80-99); MEAN PLATELET VOLUME 11.6 fL (9.0-12.2); PLATELET COUNT 162 10^3/uL (130-400); WHITE BLOOD COUNT 5.9 10^3/uL (4.3-11.0)
[2021-01-07 05:12] LABS: POTASSIUM 3.4 MMOL/L (3.6-5.0)
[2021-01-07 05:13] LABS: CALCIUM 8.5 MG/DL (8.5-10.1)
[2021-01-07] MEDS: KCL 20 MEQ TAB (K-DUR) PO SCH (05:15)
[2021-01-07 05:17] LABS: CREATININE SERUM 0.75 MG/DL (0.60-1.30)
[2021-01-07 05:20] LABS: MAGNESIUM 1.5 MG/DL (1.6-2.4)
[2021-01-07] MEDS: MAGNESIUM 1 GM/100 ML IVPB 100 ML IV SCH ×3 (06:41→08:06)
[2021-01-07] MEDS ORDERED: KCL 20 MEQ TAB (K-DUR) PO ONE (07:30)
--- NOTE | 2021-01-07 10:39 | Tele-ICU Progress Note ---
Subjective Date Seen by a Provider: Jan 07, 2021 Time Seen by a Provider: 10:36 Sepsis Event Evaluation Height, Weight, BMI Height: 5'8.00" Weight: 124lbs. 4.8oz. 56.032617do; 18.68 BMI Method:Stated Exam Exam Patient acknowledged, consented, and participated in this virtual visit which was conducted using real time audio/video Vital Signs Date Time Temp Pulse Resp B/P (MAP) Pulse Ox O2 Delivery O2 Flow Rate FiO2 01/07/21 08:00 Room Air 01/07/21 07:56 37.0 01/07/21 07:00 81 01/07/21 06:00 77 16 119/75 (90) 94 Room Air 01/07/21 05:00 64 16 124/76 (91) 96 Room Air 01/07/21 04:00 Room Air 01/07/21 04:00 36.6 01/07/21 04:00 80 16 140/78 (103) 89 Room Air 01/07/21 03:00 70 15 135/84 (95) 95 Room Air 01/07/21 02:00 77 38 133/69 (94) 94 Room Air 01/07/21 01:00 80 01/07/21 01:00 80 16 139/82 (94) 97 Room Air 01/07/21 00:00 70 27 114/89 (97) 96 Room Air 01/07/21 00:00 36.4 01/06/21 23:59 Room Air 01/06/21 23:00 79 16 116/76 (89) 93 Room Air 01/06/21 22:00 80 18 128/87 (96) 99 Room Air 01/06/21 21:00 90 18 132/77 (91) 96 Room Air 01/06/21 20:00 84 20 142/92 (107) 97 Room Air 01/06/21 20:00 Room Air 01/06/21 19:44 36.7 01/06/21 19:00 82 17 142/90 (107) 98 Room Air 01/06/21 19:00 82 01/06/21 18:00 80 16 128/78 (95) 98 Room Air 01/06/21 17:00 96 14 136/96 (109) 100 Room Air 01/06/21 16:45 37.2 01/06/21 16:08 Room Air 01/06/21 16:00 82 17 96 Room Air 01/06/21 15:00 78 15 112/69 (83) 96 Room Air 01/06/21 14:00 82 15 118/75 (89) 96 Room Air 01/06/21 13:11 37.4 01/06/21 13:00 81 16 121/74 (90) 97 Room Air 01/06/21 12:43 Room Air 01/06/21 12:38 84 01/06/21 12:00 94 13 124/82 (96) 99 Room Air 01/06/21 11:00 79 132/89 (103) 100 Room Air I & O 01/07/21 07:00 Intake Total 18505 ml Output Total 5775 ml Balance 4520 ml Height & Weight Height: 5'8.00" Weight: 124lbs. 4.8oz. 56.632115tl; 18.68 BMI Method:Stated General Appearance: Cachetic, Mild Distress HEENT: Other (DRY oral mucosa) Neck: Full Range of Motion, Normal Inspection, Non Tender, Supple Respiratory: Lungs Clear, Normal Breath Sounds, No Accessory Muscle Use, No R espiratory Distress, Other (borderline Kussmaul breathing) Cardiovascular: Regular Rate, Rhythm, Tachycardia Capillary Refill: Less Than 3 Seconds Extremity: Normal Capillary Refill, Normal Inspection, Normal Range of Motion Neurologic/Psychiatric: Alert, Oriented x3, No Motor/Sensory Deficits, Normal Mood/Affect Skin: Normal Color, Warm/Dry Results Lab Laboratory Tests 01/05/21 11:00 01/05/21 11:41 01/05/21 12:48 01/05/21 15:22 01/05/21 17:16 01/06/21 00:25 01/06/21 04:38 01/06/21 09:25 01/06/21 17:10 01/07/21 04:34 Assessment/Plan Assessment/Plan (Tele-ICU Physician , Progress Note ) Available chart/ vitals / labs / Images reviewed Video assessment done using teleICU camera, rest of exam as per RN Discussed with RN , EXAM PER RN Events overnight : febrile 37 I/O = pos 5L Drips: insulin gtt Pressors: , hemodynamically stable Consultants: Hospital course: 01/05 - from ER to ICU - DKA A/P DKA *Insulin drip to stop , resume long acting DM type I HAY - dehydration - normalized - cont IVF - follow closely Hyperkalemia due to HAY - resolved - follow closely Leukocytosis - suspect reactive, chest x-ray was normal , UA unremarkable >off ABX , follow Cannabioids positive Lines : periph (Central Line Necessity Reviewed) [place]: OG: Nutrition: npo Analgesia: Anxiety/ delirim VTE Prophylaxis: lovenox 40 Stress Ulcer Prophylaxis: stating po soon Plans in collaboration with bedside consultants and IM MDs. Discussed with RN to reach out if any questions or concerns A total of 10 minutes of critical care time was devoted to this patient today, required to treat and/or prevent further deterioration of critical care condition ( as above) . JOSE G LOPES MD Jan 07, 2021 10:39
[2021-01-07] MEDS ORDERED: inSUlin ASPART (NovoLOG) 1 UNIT/0.01 ML (CHARGE PER UNIT) SC SCH ×2 (11:00→12:00)
[2021-01-07 12:28] LABS: POTASSIUM 3.2 MMOL/L (3.6-5.0)
[2021-01-07 12:29] LABS: CALCIUM 8.5 MG/DL (8.5-10.1)
[2021-01-07 12:33] LABS: CREATININE SERUM 0.75 MG/DL (0.60-1.30)
[2021-01-07] MEDS ORDERED: KCL 20 MEQ TAB (K-DUR) PO NR (13:15)
--- NOTE | 2021-01-07 13:26 | Discharge Summary ---
Discharge Summary Hospital Course Problems/Diagnosis: (1) T1DM (type 1 diabetes mellitus) Status: Chronic Assessment & Plan: Insulin drip initiated, Anion gap closed, CO2 improved to 20 by time of d/c. Beta hydroxybutyrate still slightly elevated, but patient strongly requesting discharge and tolerating diet and with no hyperglycemia off of insulin drip. Resumed home insulin. Qualifiers: Qualified Codes: E10.10 - Type 1 diabetes mellitus with ketoacidosis without coma (2) Diabetic ketoacidosis Status: Resolved Resolution Date/Time: 01/07/21 @ 13:25 Qualifiers: Qualified Codes: E10.10 - Type 1 diabetes mellitus with ketoacidosis without coma (3) Hyponatremia Status: Resolved Resolution Date/Time: 01/07/21 @ 13:25 Assessment & Plan: Due to hyperglycemia (4) Leukocytosis Status: Resolved Resolution Date/Time: 01/06/21 @ 13:54 (5) HAY (acute kidney injury) Status: Resolved Resolution Date/Time: 01/05/21 @ 13:54 Hospital Course Date of Admission: Jan 05, 2021 at 11:48 Admission Diagnosis : See problem list Family [facility] Date of Discharge: 01/07/21 Discharge Diagnosis: See problem list Hospital Course: See problem list Labs and Pending Lab Test: Laboratory Tests 01/06/21 13:28: Glucometer 168H 01/06/21 14:37: Glucometer 159H 01/06/21 15:26: Glucometer 152H 01/06/21 16:05: Glucometer 138H 01/06/21 17:10: Sodium Level 135, Potassium Level 3.1L, Chloride Level 108H, Carbon Dioxide Level 17L, Anion Gap 10, Blood Urea Nitrogen 4L, Creatinine 0.98, Estimat Glomerular Filtration Rate 99, BUN/Creatinine Ratio 4, Glucose Level 115H, Calcium Level 8.7 01/06/21 17:19: Glucometer 113H 01/06/21 18:19: Glucometer 137H 01/06/21 19:22: Glucometer 145H 01/06/21 20:21: Glucometer 160H 01/06/21 21:21: Glucometer 171H 01/06/21 22:26: Glucometer 188H 01/06/21 23:17: Glucometer 183H 01/07/21 00:21: Glucometer 117H 01/07/21 01:17: Glucometer 185H 01/07/21 02:14: Glucometer 174H 01/07/21 03:48: Glucometer 126H 01/07/21 04:27: Glucometer 169H 01/07/21 04:34: White Blood Count 5.9, Red Blood Count 4.30, Hemoglobin 12.9L, Hematocrit 38L, Mean Corpuscular Volume 88, Mean Corpuscular Hemoglobin 30, Mean Corpuscular Hemoglobin Concent 34, Red Cell Distribution Width 12.6, Platelet Count 162, Mean Platelet Volume 11.6, Sodium Level 136, Potassium Level 3.4L, Chloride Level 108H, Carbon Dioxide Level 16L, Anion Gap 12, Blood Urea Nitrogen 3L, Creatinine 0.75, Estimat Glomerular Filtration Rate 134, BUN/Creatinine Ratio 4, Glucose Level 185H, Calcium Level 8.5, Phosphorus Level 2.0L, Magnesium Level 1.5L, Beta-Hydroxybutyrate (Chem panel) 0.82H 01/07/21 05:31: Glucometer 197H 01/07/21 06:25: Glucometer 172H 01/07/21 07:16: Glucometer 155H 01/07/21 08:17: Glucometer 157H 01/07/21 09:18: Glucometer 144H 01/07/21 10:34: Glucometer 141H 01/07/21 11:18: Glucometer 127H 01/07/21 12:00: Sodium Level 135, Potassium Level 3.2L, Chloride Level 105, Carbon Dioxide Level 20L, Anion Gap 10, Blood Urea Nitrogen 2L, Creatinine 0.75, Estimat Glomerular Filtration Rate 134, BUN/Creatinine Ratio 3, Glucose Level 141H, Calcium Level 8.5 01/07/21 12:16: Glucometer 123H Microbiology 01/05/21 MRSA Screen - Final, Complete MRSA not isolated Home Meds Active Reported Tylenol (Acetaminophen) 325 Mg Tablet 650 Mg PO Q6H PRN Novolog Flexpen (Insulin Aspart) 300 Units/3 Ml Solution 10-20 Unit SC TIDWM Lantus Solostar (Insulin Glargine,Hum.rec.anlog) 100 Unit/1 Ml Insuln.pen 50 Units SC DAILY Assessment/Pt DC Instructions Follow up with primary provider within a few days of discharge. Discharge Diet: ADA Diet Activity as Tolerated: Yes Discharge Physical Examination Allergies: Coded Allergies: No Known Drug Allergies (Unverified , 02/10/14) General Appearance: No Apparent Distress, WD/WN Respiratory: Lungs Clear, Normal Breath Sounds Cardiovascular: Regular Rate, Rhythm, No Murmur Gastrointestinal: Normal Bowel Sounds, Non Tender, Soft Extremity: No Pedal Edema Skin: Normal Color, Warm/Dry Neurologic/Psychiatric: Alert, Normal Mood/Affect COURTNEY COLES MD Jan 07, 2021 13:26
[2021-01-07] MEDS ORDERED: ENOXAPARIN 40 MG/0.4 ML (LOVENOX) SYR SC SCH (20:00)
== END 2021-01-07 14:16 | disposition home or self-care (01) | DRG 638 ==
LOC: ER 10:45 → ICU 11:48
PROVIDERS: ADMIT Internal Medicine; ATTEND Family Medicine
DX: E10.10 Type 1 diabetes mellitus with ketoacidosis without coma (principal); N17.9 Acute kidney failure, unspecified; E87.1 Hypo-osmolality and hyponatremia; E87.5 Hyperkalemia; Z79.4 Long term (current) use of insulin; F17.290 Nicotine dependence, other tobacco product, uncomplicated; F12.90 Cannabis use, unspecified, uncomplicated
CPT/HCPCS: 36415; 71045; 80048; 80053; 80306; 81000; 82010; 82805; 82947; 83036; 83690; 83735; 84100; 84132; 85007; 85025; 85027; 87081; 99291

== ENCOUNTER 2021-01-23 09:47 | Inpatient (IN) | payer MEDICAID ==
[~2021-01-23] VITALS: Ht 170 cm; Wt 59.6 kg
[~2021-01-23 09:47] MED LIST changes: +ACET325T38 PO
[2021-01-23] MEDS ORDERED: inSUlin (REGULAR) HUMAN 1 UNIT/0.01 ML (CHARGE PER UNIT) SC ONE (10:00)
[2021-01-23] MEDS ORDERED: NS IV 1000 ML 1,000 ML IV SCH (10:00)
--- NOTE | 2021-01-23 10:04 | ED General ---
General Chief Complaint: Glucose Problems Stated Complaint: HIGH BLOOD SUGAR Source of Information: Patient Exam Limitations: No Limitations History of Present Illness Date Seen by Provider: Jan 23, 2021 Time Seen by Provider: 09:46 Initial Comments Patient to the ER by EMS from home with his mother accompanying him. He has chief complaint of shortness of air and being in DKA, his sugar read high. He missed 1 dose of NovoLog. He says he started becoming symptomatic about 3:00 in the morning with nausea vomiting. He has not had any fevers or sick contacts. He has not been vaccinated for COVID-19 or influenza. He is not having a cough. He was recently in the ICU and dismissed less than 2 weeks ago for DKA. He is working on setting up for a pump for his insulin however it has been 30 days since he was told it would be sent and he has not received it. He states he does not know who his primary care doctor is. EMS reports that he was initially not wanting to come to the emergency room despite their's and his mother's insistence. He did finally agreed to come as long as she could go with him. His mother relates that it has been 6 months without a pump. He was following with a Yolanda at the [facility] however she does not know if he has been there since that time. She does not know the status of his pump and since he has cut her out of his healthcare decisions when he turned 19 she has not been able to help him follow-up to get the pump. He used to have a Dexcom glucose monitor which was helping him maintain regular blood sugars however he removed it himself several months ago and since then has been challenged with multiple episodes of DKA and poor control of his blood sugars. She is not sure if he is actually taking or logging his blood sugar on a routine basis. She says he is delirious as he has been talking about how he is in the competition with his [id number]-cug to see which one of them can get first and other bizarre statements. His mother states he does not know what day of the week it is. She does not think he has ever bounced back from his last inpatient admission from 2 weeks ago. He does not have an time study technician. Allergies and Home Medications Allergies Coded Allergies: No Known Drug Allergies (Unverified , 02/10/14) Patient Home Medication List Home Medication List Reviewed: Yes Acetaminophen (Tylenol) 325 Mg Tablet, 650 MG PO Q6H PRN for PAIN-MILD (1-4), (Reported) Entered as Reported by: SANTI MATSON on 01/06/21 1006 Insulin Aspart (Novolog Flexpen) 300 Units/3 Ml Solution, 10-20 UNIT SC TIDWM, (Reported) Entered as Reported by: SANTI MATSON on 01/06/21 1006 Insulin Glargine,Hum.rec.anlog (Lantus Solostar) 100 Unit/1 Ml Insuln.pen, 50 UNITS SC DAILY, (Reported) Entered as Reported by: DEJUAN ABURTO on 09/12/18 1228 Review of Systems Review of Systems Constitutional: No chills, No diaphoresis EENTM: No ear discharge, No ear pain Respiratory: see HPI; No cough; short of breath Cardiovascular: No chest pain, No palpitations Gastrointestinal: abdominal pain, nausea, vomiting Genitourinary: No discharge, No dysuria Musculoskeletal: see HPI (Body ache); No back pain, No joint pain Skin: No pruritus, No rash Psychiatric/Neurological: Denies Headache, Denies Numbness All Other Systems Reviewed Negative Unless Noted: Yes Past Gyzwhpl-Squnmb-Xzltxw Hx Patient Social History Tobacco Use?: No Use of E-Cig and/or Vaping dev: No Substance use?: No Immunizations Up To Date Tetanus Booster (TDap): Less than 5yrs PED Vaccines UTD: Yes Seasonal Allergies Seasonal Allergies: No Past Medical History Surgeries: No Respiratory: No Cardiac: No Neurological: No Genitourinary: No Gastrointestinal: No Musculoskeletal: No Endocrine: Yes (POORLY CONTROLLED TYPE 1 DIABETES) Diabetes, Insulin dep HEENT: No Cancer: No Psychosocial: No Integumentary: No Blood Disorders: No Family Medical History No Pertinent Family Hx Physical Exam Vital Signs Vital Signs - First Documented 01/23/21 09:50 Temp 36.6 Pulse 134 Resp 36 B/P (MAP) 148/97 (114) Pulse Ox 100 Capillary Refill : Height, Weight, BMI Height: 5'8.00" Weight: 124lbs. 4.8oz. [id number]; 18.68 BMI Method:Stated General Appearance: Chronically ill, Severe Distress, Thin, Other (Cool to touch) Eyes: Bilateral Eye Normal Inspection, Bilateral Eye PERRL, Bilateral Eye EOMI HEENT: PERRL/EOMI, Pharynx Normal, Moist Mucous Membranes Neck: Full Range of Motion, Normal Inspection, Non Tender, Supple Respiratory: Lungs Clear, Normal Breath Sounds, Accessory Muscle Use, Respirat ory Distress (Kussmaul breathing) Cardiovascular: Regular Rate, Rhythm, No Edema, Normal Peripheral Pulses Gastrointestinal: No Organomegaly, No Pulsatile Mass; No Guarding; Tenderness (All 4 quadrants mildly tender to palpation) Extremity: Normal Capillary Refill, Normal Inspection, No Pedal Edema Neurologic/Psychiatric: Alert, Other (Irritable but more or less cooperative. Oriented times person and place.) Reflexes: 4+ Bicep (R), 4+ Bicep (L), 4+ Tricep (R) Skin: Normal Color, Warm/Dry Progress/Results/Core Measures Suspected Sepsis SIRS Temperature: Pulse: Respiratory Rate: Laboratory Tests 01/23/21 10:20: White Blood Count 34.6*H Blood Pressure / Mean: Laboratory Tests 01/23/21 10:20: Creatinine 0.78, Platelet Count 269, Total Bilirubin 0.2 Results/Orders Lab Results Laboratory Tests Test 01/23/21 10:20 01/23/21 10:25 01/23/21 11:42 Range/Units White Blood Count 34.6 *H 4.3-11.0 10^3/uL Red Blood Count 3.46 L 4.30-5.52 10^6/uL Hemoglobin 10.5 L 13.3-17.7 g/dL Hematocrit 33 L 40-54 % Mean Corpuscular Volume 96 80-99 fL Mean Corpuscular Hemoglobin 30 25-34 pg Mean Corpuscular Hemoglobin Concent 32 32-36 g/dL Red Cell Distribution Width 12.6 10.0-14.5 % Platelet Count 269 130-400 10^3/uL Mean Platelet Volume 11.9 9.0-12.2 fL Immature Granulocyte % (Auto) 10 % Neutrophils (%) (Auto) 60 42-75 % Lymphocytes (%) (Auto) 19 12-44 % Monocytes (%) (Auto) 10 0-12 % Eosinophils (%) (Auto) 0 0-10 % Basophils (%) (Auto) 1 0-10 % Neutrophils # (Auto) 20.7 H 1.8-7.8 10^3/uL Lymphocytes # (Auto) 6.6 H 1.0-4.0 10^3/uL Monocytes # (Auto) 3.3 H 0.0-1.0 10^3/uL Eosinophils # (Auto) 0.1 0.0-0.3 10^3/uL Basophils # (Auto) 0.5 H 0.0-0.1 10^3/uL Immature Granulocyte # (Auto) 3.5 H 0.0-0.1 10^3/uL Neutrophils % (Manual) 56 % Lymphocytes % (Manual) 15 % Monocytes % (Manual) 4 % Eosinophils % (Manual) 0 % Basophils % (Manual) 0 % Metamyelocytes % 10 % Myelocytes % 4 % Band Neutrophils 11 % Blood Morphology Comment NORMAL Sodium Level 131 L 135-145 MMOL/L Potassium Level 3.7 3.6-5.0 MMOL/L Chloride Level 108 H 98-107 MMOL/L Carbon Dioxide Level < 5 *L 21-32 MMOL/L Anion Gap 18 H 5-14 MMOL/L Blood Urea Nitrogen 13 7-18 MG/DL Creatinine 0.78 0.60-1.30 MG/DL Estimat Glomerular Filtration Rate 128 BUN/Creatinine Ratio 17 Glucose Level 620 *H 70-105 MG/DL Calcium Level 5.3 *L 8.5-10.1 MG/DL Corrected Calcium 6.5 L 8.5-10.1 MG/DL Magnesium Level 1.2 L 1.6-2.4 MG/DL Total Bilirubin 0.2 0.1-1.0 MG/DL Aspartate Amino Transf (AST/SGOT) 29 5-34 U/L Alanine Aminotransferase (ALT/SGPT) 25 0-55 U/L Alkaline Phosphatase 90 40-136 U/L C-Reactive Protein High Sensitivity 0.03 0.00-0.50 MG/DL Total Protein 4.0 L 6.4-8.2 GM/DL Albumin 2.5 L 3.2-4.5 GM/DL Lipase 8 8-78 U/L Urine Color YELLOW Urine Clarity CLEAR Urine pH 5.5 5-9 Urine Specific Perley 1.020 1.016-1.022 Urine Protein TRACE H NEGATIVE Urine Glucose (UA) 3+ H NEGATIVE Urine Ketones 2+ H NEGATIVE Urine Nitrite NEGATIVE NEGATIVE Urine Bilirubin NEGATIVE NEGATIVE Urine Urobilinogen 0.2 < = 1.0 MG/DL Urine Leukocyte Esterase NEGATIVE NEGATIVE Urine RBC (Auto) TRACE-I H NEGATIVE Urine RBC NONE /HPF Urine WBC NONE /HPF Urine Squamous Epithelial Cells NONE /HPF Urine Crystals NONE /LPF Urine Bacteria NEGATIVE /HPF Urine Casts NONE /LPF Urine Mucus NEGATIVE /LPF Urine Culture Indicated NO Influenza Type A (RT-PCR) Not Detected Not Detecte Influenza Type B (RT-PCR) Not Detected Not Detecte SARS-CoV-2 RNA (RT-PCR) Not Detected Not Detecte My Orders Orders - CAMILLE SHAH Ed Iv/Invasive Line Start (01/23/21 09:54) Ns Iv 1000 Ml (Sodium Chloride 0.9%) (01/23/21 10:00) Chest 1 View, Ap/Pa Only (01/23/21 09:54) Cbc With Automated Diff (01/23/21 09:54) Comprehensive Metabolic Panel (01/23/21 09:54) Hs C Reactive Protein (01/23/21 09:54) Ua Culture If Indicated (01/23/21 09:54) Aubree Valdez (01/23/21 09:54) Covid 19 Inhouse Test (01/23/21 09:54) Influenza A And B By Pcr (01/23/21 09:54) Insulin (Regular) Human (Novolin R (Per (01/23/21 10:00) Lipase (01/23/21 09:54) Magnesium (01/23/21 10:00) Fentanyl Inj (Sublimaze Injection) (01/23/21 10:15) Ondansetron Injection (Zofran Injectio (01/23/21 10:15) Accucheck Stat ONCE (01/23/21 10:09) Manual Differential (01/23/21 10:20) Ionized Calcium (01/23/21 11:09) Medications Given in ED Current Medications Medications Dose Ordered Sig/Francisco Javier Route Start Time Stop Time Status Last Admin Dose Admin Fentanyl Citrate 75 mcg ONCE ONCE IVP 01/23/21 10:15 01/23/21 10:16 DC 01/23/21 10:19 75 MCG Insulin Human Regular 5 unit ONCE ONCE SC 01/23/21 10:00 01/23/21 10:01 DC 01/23/21 10:17 5 UNIT Ondansetron HCl 8 mg ONCE ONCE IVP 01/23/21 10:15 01/23/21 10:16 DC 01/23/21 10:18 8 MG Vital Signs/I&O 01/23/21 09:50 Temp 36.6 Pulse 134 Resp 36 B/P (MAP) 148/97 (114) Pulse Ox 100 Capillary Refill : Progress Note : Time: 10:07 Progress Note Patient appears to be in diabetic ketoacidosis with a CBG reading high. We will give him 5 units of regular insulin and a second liter of fluids in addition to the first liter of fluids initiated by EMS. He is cool so we put a aubree hugger on him. Covid and influenza swabs, chest x-ray. The patient has declined an ABG. Diagnostic Imaging Diagonstic Imaging: Xray Plain Films/CT/US/NM/MRI: chest Comments NAME: RAJIV HARTMANN MED REC#: [id number] PT STATUS: REG ER : 2001 PHYSICIAN: CAMILLE SHAH MD ADMIT DATE: 01/23/21/ER Draft Date of Exam:01/23/21 CHEST 1 VIEW, AP/PA ONLY INDICATION: Dyspnea. COMPARISON: 01/05/2021. TECHNIQUE/COMPARISON: An AP view of the chest was obtained with comparison made to the study of 01/05/2021. FINDINGS: Heart size and pulmonary vascularity are within normal limits. The lungs are clear bilaterally. IMPRESSION: Unremarkable chest. Dictated on workstation # [id number] Dict: 01/23/21 1035 Trans: 01/23/21 1037 [id number] Interpreted by: GLORIA FERGUSON MD Electronically signed by: Reviewed: Reviewed by Me Departure Communication (Admissions) Time/Spoke to Admitting Phy: 11:[address] Best. 1145: Discussed the case with Dr. Best who is in agreement with admission to the ICU on an insulin drip for DKA. Impression Primary Impression: DKA, type 1 Qualified Codes: E10.10 - Type 1 diabetes mellitus with ketoacidosis without coma Disposition: HOME, SELF-CARE Condition: Stable Admissions Decision to Admit Reason: Admit from ER (General) Decision to Admit/Date: Jan 23, 2021 Time/Decision to Admit Time: 10:08 Departure-Patient Inst. Referrals: [facility] (PCP/Family) Primary Care Physician CAMILLE SHAH Jan 23, 2021 10:04
[2021-01-23] MEDS ORDERED: fentaNYL INJ 100 MCG/2 ML AMP IVP ONE (10:15)
[2021-01-23] MEDS ORDERED: ONDANSETRON 4 MG/2 ML (SDV) Z0FRAN IVP ONE (10:15)
[2021-01-23 10:33] LABS: BASOPHILS # (AUTO) 0.5 10^3/uL (0.0-0.1); BASOPHILS % (AUTO) 1 % (0-10); EOSINOPHILS # (AUTO) 0.1 10^3/uL (0.0-0.3); EOSINOPHILS % (AUTO) 0 % (0-10); HEMATOCRIT 33 % (40-54); HEMOGLOBIN 10.5 g/dL (13.3-17.7); LYMPHOCYTES # (AUTO) 6.6 10^3/uL (1.0-4.0); LYMPHOCYTES % (AUTO) 19 % (12-44); MEAN CORPUSCULAR HEMOGLOBIN 30 pg (25-34); MEAN CORPUSCULAR HGB CONC 32 g/dL (32-36); MEAN CORPUSCULAR VOLUME 96 fL (80-99); MEAN PLATELET VOLUME 11.9 fL (9.0-12.2); MONOCYTES # (AUTO) 3.3 10^3/uL (0.0-1.0); MONOCYTES % (AUTO) 10 % (0-12); NEUTROPHILS # (AUTO) 20.7 10^3/uL (1.8-7.8); NEUTROPHILS % (AUTO) 60 % (42-75); PLATELET COUNT 269 10^3/uL (130-400)
[2021-01-23 10:36] LABS: WHITE BLOOD COUNT 34.6 10^3/uL (4.3-11.0)
[2021-01-23 10:37] LABS: BILIRUBIN,URINE NEGATIVE (NEGATIVE); CLARITY,URINE CLEAR; COLOR,URINE YELLOW; GLUCOSE, URINE (UA) 3+ (NEGATIVE); KETONES,URINE 2+ (NEGATIVE); LEUKOCYTE ESTERASE ,URINE NEGATIVE (NEGATIVE); NITRITE,URINE NEGATIVE (NEGATIVE); PH,URINE 5.5 (5-9); PROTEIN,URINE TRACE (NEGATIVE)
--- NOTE | 2021-01-23 10:38 | Diagnostic Imaging Report ---
INDICATION: Dyspnea. COMPARISON: 01/05/2021. TECHNIQUE/COMPARISON: An AP view of the chest was obtained with comparison made to the study of 01/05/2021. FINDINGS: Heart size and pulmonary vascularity are within normal limits. The lungs are clear bilaterally. IMPRESSION: Unremarkable chest. Dictated by: Dictated on workstation # [id number]
[2021-01-23 10:46] LABS: BACTERIA,URINE NEGATIVE /HPF
[2021-01-23 10:48] LABS: ALBUMIN 2.5 GM/DL (3.2-4.5)
[2021-01-23 10:49] LABS: CHLORIDE 108 MMOL/L (98-107); POTASSIUM 3.7 MMOL/L (3.6-5.0); SODIUM 131 MMOL/L (135-145)
[2021-01-23 10:52] LABS: BAND NEUTROPHILS 11 %; BASOPHILS % (MANUAL) 0 %; EOSINOPHILS % (MANUAL) 0 %; LYMPHOCYTES % (MANUAL) 15 %; METAMYELOCYTES % 10 %; MONOCYTES % (MANUAL) 4 %; MYELOCYTES % 4 %; NEUTROPHILS % (MANUAL) 56 %; RBC MORPH NORMAL
[2021-01-23 10:53] LABS: BILIRUBIN,TOTAL 0.2 MG/DL (0.1-1.0)
[2021-01-23 10:55] LABS: ALKALINE PHOSPHATASE 90 U/L (40-136); CREATININE SERUM 0.78 MG/DL (0.60-1.30); GFR ESTIMATED 128
[2021-01-23 10:56] LABS: BUN/CREATININE RATIO 17
[2021-01-23 10:58] LABS: ALANINE AMINOTRANSFERASE 25 U/L (0-55); MAGNESIUM 1.2 MG/DL (1.6-2.4)
[2021-01-23 10:59] LABS: LIPASE 8 U/L (8-78)
[2021-01-23 11:06] LABS: CALCIUM 5.3 MG/DL (8.5-10.1); CARBON DIOXIDE < 5 MMOL/L (21-32); GLUCOSE 620 MG/DL (70-105)
[2021-01-23 12:26] VITALS: BP 151/80
[2021-01-23] MEDS ORDERED: fentaNYL INJ 100 MCG/2 ML AMP IV PRN (12:45)
[2021-01-23] MEDS ORDERED: 1/2 NS IV SOLUTION 1,000 ML IV ONE (12:45)
[2021-01-23] MEDS ORDERED: LORazepam INJ 2 MG/ML (ATIVAN) VIAL IV PRN (12:45)
[2021-01-23] MEDS ORDERED: POTASSIUM CL 10MEQ/50ML IVPB 50 ML IV ONE (12:45)
[2021-01-23] MEDS ORDERED: PROMETHAZINE INJ 25 MG/ML (PHENERGAN) AMP IV PRN (12:45)
[2021-01-23] MEDS ORDERED: ONDANSETRON 4 MG/2 ML (SDV) Z0FRAN IVP PRN (12:45)
[2021-01-23] MEDS ORDERED: ACETAMINOPHEN 500 MG TAB (TYLENOL) PO PRN (12:45)
[2021-01-23] MEDS: POTASSIUM CL 10MEQ/50ML IVPB 50 ML IV SCH ×3 (13:13→21:05)
[2021-01-23] MEDS: 1/2 NS IV SOLUTION 1,000 ML IV SCH ×2 (13:13→18:55)
[2021-01-23 14:16] LABS: BASOPHILS # (AUTO) 0.4 10^3/uL (0.0-0.1); BASOPHILS % (AUTO) 1 % (0-10); EOSINOPHILS # (AUTO) 0.1 10^3/uL (0.0-0.3); EOSINOPHILS % (AUTO) 0 % (0-10); HEMATOCRIT 41 % (40-54); HEMOGLOBIN 13.6 g/dL (13.3-17.7); LYMPHOCYTES # (AUTO) 5.3 10^3/uL (1.0-4.0); LYMPHOCYTES % (AUTO) 15 % (12-44); MEAN CORPUSCULAR HEMOGLOBIN 30 pg (25-34); MEAN CORPUSCULAR HGB CONC 33 g/dL (32-36); MEAN CORPUSCULAR VOLUME 91 fL (80-99); MEAN PLATELET VOLUME 11.7 fL (9.0-12.2); MONOCYTES # (AUTO) 3.2 10^3/uL (0.0-1.0); MONOCYTES % (AUTO) 9 % (0-12); NEUTROPHILS # (AUTO) 22.3 10^3/uL (1.8-7.8); NEUTROPHILS % (AUTO) 63 % (42-75); PLATELET COUNT 286 10^3/uL (130-400)
[2021-01-23 14:29] LABS: POTASSIUM 4.5 MMOL/L (3.6-5.0)
[2021-01-23 14:30] LABS: CALCIUM 8.6 MG/DL (8.5-10.1)
[2021-01-23 14:35] LABS: CREATININE SERUM 1.37 MG/DL (0.60-1.30)
[2021-01-23 14:42] LABS: WHITE BLOOD COUNT 35.2 10^3/uL (4.3-11.0)
--- NOTE | 2021-01-23 15:52 | Tele-ICU Progress Note ---
Progress Note Video assessment done , Hemodynamically stable Available charting reviewed NO TELE-ICU CONSULT REQUESTED CONTINUE TO MONITOR PER USUAL TELE-ICU PROTOCOL No need for Tele-ICU interventions Plans as delineated by bedside physicians / consultants DKA *Insulin drip DM type I HAY - dehydration - cont IVF - follow closely Leukocytosis - suspect reactive, chest x-ray was normal , UA unremarkable >off ABX Focused Exam Height, Weight, BMI Height: 5'8.00" Weight: 124lbs. 4.8oz. [id number]; 18.68 BMI Method:Stated JOSE G LOPES MD Jan 23, 2021 15:52
[2021-01-23] MEDS: D5 1/2 NS 1000 ML IV SOLUTION 1,000 ML IV SCH ×2 (15:55→21:06)
[2021-01-23 18:00] LABS: POTASSIUM 5.2 MMOL/L (3.6-5.0)
[2021-01-23 18:01] LABS: CALCIUM 8.5 MG/DL (8.5-10.1)
[2021-01-23 18:06] LABS: CREATININE SERUM 1.09 MG/DL (0.60-1.30)
[2021-01-23 21:22] LABS: POTASSIUM 4.4 MMOL/L (3.6-5.0)
[2021-01-23 21:23] LABS: CALCIUM 8.3 MG/DL (8.5-10.1)
[2021-01-23 21:27] LABS: CREATININE SERUM 1.16 MG/DL (0.60-1.30)
[2021-01-24] MEDS: 1/2 NS IV SOLUTION 1,000 ML IV SCH ×4 (00:59→11:43)
[2021-01-24] MEDS: POTASSIUM CL 10MEQ/50ML IVPB 50 ML IV SCH ×2 (04:10→09:47)
[2021-01-24 04:58] LABS: BASOPHILS % (AUTO) 0 % (0-10); EOSINOPHILS # (AUTO) 0.1 10^3/uL (0.0-0.3); EOSINOPHILS % (AUTO) 0 % (0-10); HEMATOCRIT 34 % (40-54); HEMOGLOBIN 12.1 g/dL (13.3-17.7); LYMPHOCYTES # (AUTO) 1.6 10^3/uL (1.0-4.0); LYMPHOCYTES % (AUTO) 13 % (12-44); MEAN CORPUSCULAR HEMOGLOBIN 30 pg (25-34); MEAN CORPUSCULAR HGB CONC 35 g/dL (32-36); MEAN CORPUSCULAR VOLUME 86 fL (80-99); MEAN PLATELET VOLUME 11.4 fL (9.0-12.2); MONOCYTES # (AUTO) 1.4 10^3/uL (0.0-1.0); MONOCYTES % (AUTO) 11 % (0-12); NEUTROPHILS # (AUTO) 8.8 10^3/uL (1.8-7.8); NEUTROPHILS % (AUTO) 72 % (42-75); PLATELET COUNT 183 10^3/uL (130-400); WHITE BLOOD COUNT 12.4 10^3/uL (4.3-11.0)
[2021-01-24 05:18] LABS: POTASSIUM 3.5 MMOL/L (3.6-5.0)
[2021-01-24 05:19] LABS: CALCIUM 8.2 MG/DL (8.5-10.1)
[2021-01-24 05:24] LABS: CREATININE SERUM 0.83 MG/DL (0.60-1.30)
[2021-01-24 09:35] LABS: POTASSIUM 3.9 MMOL/L (3.6-5.0)
[2021-01-24 09:36] LABS: CALCIUM 8.3 MG/DL (8.5-10.1)
[2021-01-24 09:40] LABS: CREATININE SERUM 0.86 MG/DL (0.60-1.30)
[2021-01-24] MEDS: inSUlin ASPART (NovoLOG) 1 UNIT/0.01 ML (CHARGE PER UNIT) SC SCH ×3 (11:44→20:58)
--- NOTE | 2021-01-24 12:49 | History & Physical ---
HPI History of Present Illness: 20 yo M with known DMI that presented with DKA. Patient states that he had not been taking his insulin appropriately. States that he is suppose to be getting a pump and CGM but has not got it yet. Denies any fever or chills. This AM states that he feels much better and would like to eat. Source: patient Date seen by provider: Jan 24, 2021 Time Seen by Provider: 09:45 Attending Physician Nba Best MD [facility] [place] Consult Date of Admission Jan 23, 2021 at 11:54 Home Medications Home Medications Reviewed patient Home Medication Reconciliation performed by pharmacy medication reconciliations reuse technician and/or nursing. Patients Allergies have been reviewed. Allergies Coded Allergies: No Known Drug Allergies (Unverified , 02/10/14) YUA-Mqmzeh-Fqxuhm Hx Patient Social History Drug of Choice: THC Smoking Status: Never a Smoker Recent Hopitalizations: No Alcohol Use?: Yes Have you traveled recently?: No Immunizations Up To Date Tetanus Booster (TDap): Less than 5yrs Date of Influenza Vaccine: Jan 29, 2020 Past Medical History PMHx: DMI Family Medical History Significant Family History: No Pertinent Family Hx Review of Systems ([facility]C) Constitutional: No chills, No fever; malaise, weakness EENTM: no symptoms reported Respiratory: no symptoms reported; No cough, No dyspnea on exertion, No short of breath Cardiovascular: no symptoms reported; No chest pain, No edema, No palpitations Gastrointestinal: abdominal pain; No constipation, No diarrhea, No loss of appetite, No nausea, No vomiting Genitourinary: No dysuria; frequency; No hematuria Musculoskeletal: no symptoms reported; No back pain, No joint pain, No muscle pain Skin: no symptoms reported Psychiatric/Neurological: No Symptoms Reported Reviewed Test Results Reviewed Test Results Lab Laboratory Tests Test 01/23/21 13:35 01/23/21 13:53 01/23/21 14:39 01/23/21 15:40 Range/Units White Blood Count 35.2 *H 4.3-11.0 10^3/uL Red Blood Count 4.52 4.30-5.52 10^6/uL Hemoglobin 13.6 # 13.3-17.7 g/dL Hematocrit 41 40-54 % Mean Corpuscular Volume 91 80-99 fL Mean Corpuscular Hemoglobin 30 25-34 pg Mean Corpuscular Hemoglobin Concent 33 32-36 g/dL Red Cell Distribution Width 12.4 10.0-14.5 % Platelet Count 286 130-400 10^3/uL Mean Platelet Volume 11.7 9.0-12.2 fL Immature Granulocyte % (Auto) 11 % Neutrophils (%) (Auto) 63 42-75 % Lymphocytes (%) (Auto) 15 12-44 % Monocytes (%) (Auto) 9 0-12 % Eosinophils (%) (Auto) 0 0-10 % Basophils (%) (Auto) 1 0-10 % Neutrophils # (Auto) 22.3 H 1.8-7.8 10^3/uL Lymphocytes # (Auto) 5.3 H 1.0-4.0 10^3/uL Monocytes # (Auto) 3.2 H 0.0-1.0 10^3/uL Eosinophils # (Auto) 0.1 0.0-0.3 10^3/uL Basophils # (Auto) 0.4 H 0.0-0.1 10^3/uL Immature Granulocyte # (Auto) 3.9 H 0.0-0.1 10^3/uL Sodium Level 130 L 135-145 MMOL/L Potassium Level 4.5 3.6-5.0 MMOL/L Chloride Level 101 98-107 MMOL/L Carbon Dioxide Level 5 *L 21-32 MMOL/L Anion Gap 24 H 5-14 MMOL/L Blood Urea Nitrogen 15 7-18 MG/DL Creatinine 1.37 H 0.60-1.30 MG/DL Estimat Glomerular Filtration Rate 67 BUN/Creatinine Ratio 11 Glucose Level 414 *H 70-105 MG/DL Mean Blood Glucose 387 H <=126 mg/dL Hemoglobin A1c 15.1 H 4.0-5.6 % Calcium Level 8.6 8.5-10.1 MG/DL Glucometer 325 H 289 H 191 H 70-110 MG/DL Test 01/23/21 16:42 01/23/21 17:35 01/23/21 17:43 01/23/21 18:31 Range/Units Glucometer 280 H 183 H 246 H 70-110 MG/DL Sodium Level 131 L 135-145 MMOL/L Potassium Level 5.2 H 3.6-5.0 MMOL/L Chloride Level 105 98-107 MMOL/L Carbon Dioxide Level 10 L 21-32 MMOL/L Anion Gap 16 H 5-14 MMOL/L Blood Urea Nitrogen 11 7-18 MG/DL Creatinine 1.09 0.60-1.30 MG/DL Estimat Glomerular Filtration Rate 87 BUN/Creatinine Ratio 10 Glucose Level 196 H 70-105 MG/DL Calcium Level 8.5 8.5-10.1 MG/DL Test 01/23/21 19:39 01/23/21 20:48 01/23/21 21:04 01/24/21 00:28 Range/Units Glucometer 300 H 200 H 422 *H 70-110 MG/DL Sodium Level 131 L 135-145 MMOL/L Potassium Level 4.4 3.6-5.0 MMOL/L Chloride Level 104 98-107 MMOL/L Carbon Dioxide Level 15 L 21-32 MMOL/L Anion Gap 12 5-14 MMOL/L Blood Urea Nitrogen 8 7-18 MG/DL Creatinine 1.16 0.60-1.30 MG/DL Estimat Glomerular Filtration Rate 81 BUN/Creatinine Ratio 7 Glucose Level 223 H 70-105 MG/DL Calcium Level 8.3 L 8.5-10.1 MG/DL Test 01/24/21 04:32 01/24/21 05:10 01/24/21 07:22 01/24/21 08:26 Range/Units White Blood Count 12.4 H 4.3-11.0 10^3/uL Red Blood Count 3.98 L 4.30-5.52 10^6/uL Hemoglobin 12.1 L 13.3-17.7 g/dL Hematocrit 34 L 40-54 % Mean Corpuscular Volume 86 80-99 fL Mean Corpuscular Hemoglobin 30 25-34 pg Mean Corpuscular Hemoglobin Concent 35 32-36 g/dL Red Cell Distribution Width 12.1 10.0-14.5 % Platelet Count 183 130-400 10^3/uL Mean Platelet Volume 11.4 9.0-12.2 fL Immature Granulocyte % (Auto) 4 % Neutrophils (%) (Auto) 72 42-75 % Lymphocytes (%) (Auto) 13 12-44 % Monocytes (%) (Auto) 11 0-12 % Eosinophils (%) (Auto) 0 0-10 % Basophils (%) (Auto) 0 0-10 % Neutrophils # (Auto) 8.8 H 1.8-7.8 10^3/uL Lymphocytes # (Auto) 1.6 1.0-4.0 10^3/uL Monocytes # (Auto) 1.4 H 0.0-1.0 10^3/uL Eosinophils # (Auto) 0.1 0.0-0.3 10^3/uL Basophils # (Auto) 0.0 0.0-0.1 10^3/uL Immature Granulocyte # (Auto) 0.5 H 0.0-0.1 10^3/uL Sodium Level 133 L 135-145 MMOL/L Potassium Level 3.5 L 3.6-5.0 MMOL/L Chloride Level 105 98-107 MMOL/L Carbon Dioxide Level 15 L 21-32 MMOL/L Anion Gap 13 5-14 MMOL/L Blood Urea Nitrogen 7 7-18 MG/DL Creatinine 0.83 0.60-1.30 MG/DL Estimat Glomerular Filtration Rate 119 BUN/Creatinine Ratio 8 Glucose Level 174 H 70-105 MG/DL Calcium Level 8.2 L 8.5-10.1 MG/DL Glucometer 125 H 337 H 217 H 70-110 MG/DL Test 01/24/21 09:00 01/24/21 10:03 01/24/21 11:00 Range/Units Sodium Level 130 L 135-145 MMOL/L Potassium Level 3.9 3.6-5.0 MMOL/L Chloride Level 102 98-107 MMOL/L Carbon Dioxide Level 15 L 21-32 MMOL/L Anion Gap 13 5-14 MMOL/L Blood Urea Nitrogen 7 7-18 MG/DL Creatinine 0.86 0.60-1.30 MG/DL Estimat Glomerular Filtration Rate 115 BUN/Creatinine Ratio 8 Glucose Level 202 H 70-105 MG/DL Calcium Level 8.3 L 8.5-10.1 MG/DL Glucometer 222 H 183 H 70-110 MG/DL Physical Exam-(CHC) Physical Exam Vital Signs VS - Last 72 Hours, by Label 01/23/21 01/23/21 01/23/21 01/23/21 09:50 12:26 12:39 13:00 Temp 36.6 37.3 Pulse 134 133 122 125 Resp 36 25 22 B/P (MAP) 148/97 (114) 151/80 146/76 Pulse Ox 100 97 99 O2 Delivery Room Air Room Air 10/2801/23/21 01/23/21 01/23/21 13:00 13:17 14:00 15:00 Pulse 124 128 130 Resp 21 44 22 B/P (MAP) 121/68 104/52 108/59 Pulse Ox 98 98 99 100 O2 Delivery Room Air Room Air Room Air Room Air 01/23/21 01/23/21 01/23/21 01/23/21 16:00 16:02 16:05 17:00 Temp 37.7 Pulse 117 123 Resp 17 12 B/P (MAP) 117/62 116/61 Pulse Ox 97 97 98 O2 Delivery Room Air Room Air Room Air 01/23/21 01/23/21 01/23/21 01/23/21 18:00 18:00 19:00 19:00 Pulse 108 108 118 118 Resp 30 30 21 B/P (MAP) 118/73 118/73 132/68 Pulse Ox 98 98 99 O2 Delivery Room Air Room Air Room Air 01/23/21 01/23/21 01/23/21 01/23/21 19:48 20:00 21:00 21:00 Temp 38.6 Pulse 112 114 104 Resp 28 26 18 B/P (MAP) 105/68 102/58 97/49 Pulse Ox 98 100 100 97 O2 Delivery Room Air Room Air Room Air Room Air 01/23/21 01/23/21 01/24/21 01/24/21 22:00 23:00 00:00 01:00 Pulse 102 100 95 100 Resp 17 16 18 B/P (MAP) 112/71 110/59 95/57 Pulse Ox 100 97 99 O2 Delivery Room Air Room Air Room Air 01/24/21 01/24/21 01/24/21 01/24/21 01:00 02:00 03:00 04:00 Pulse 99 94 95 92 Resp 18 16 15 21 B/P (MAP) 106/56 95/55 101/63 106/61 Pulse Ox 100 97 98 97 O2 Delivery Room Air Room Air Room Air Room Air 01/24/21 01/24/21 01/24/21 01/24/21 04:00 05:00 06:00 07:00 Pulse 106 93 98 Resp 16 16 16 B/P (MAP) 126/75 102/63 112/71 Pulse Ox 97 99 97 97 O2 Delivery Room Air Room Air Room Air Room Air 10/2901/24/21 01/24/21 01/24/21 07:00 07:44 08:00 08:52 Temp 37.3 Pulse 91 85 Resp 16 B/P (MAP) 116/76 Pulse Ox 98 98 O2 Delivery Room Air Room Air 01/24/21 01/24/21 01/24/21 01/24/21 09:00 10:00 11:00 12:00 Pulse 80 89 92 96 Resp 20 02 06 29 B/P (MAP) 113/63 118/85 121/81 123/81 Pulse Ox 98 97 100 99 O2 Delivery Room Air Room Air Room Air Room Air Capillary Refill : Less Than 3 Seconds General Appearance: WD/WN, thin HEENT: PERRL/EOMI Neck: non-tender, full range of motion, supple Respiratory: chest non-tender, lungs clear, normal breath sounds, no respiratory distress, no accessory muscle use Cardiovascular: normal peripheral pulses, regular rate, rhythm, no edema, no murmur Gastrointestinal: normal bowel sounds, non tender, soft Back: no CVA tenderness, no vertebral tenderness Extremities: normal range of motion, non-tender, normal inspection, no pedal edema, no calf tenderness, normal capillary refill Neurologic/Psychiatric: oven tender bagels II-XII nml as tested, no motor/sensory deficits, alert, normal mood/affect, oriented x 3 Skin: normal color, warm/dry Lymphatic: no adenopathy Assessment/Plan Assessment/Plan Admission Status: Inpatient Order (span 2 midnights) Reason for Inpatient Admission: Needs close monitoring and labs in ICU (1) DKA, type 1 Status: Acute Assessment & Plan: - Admit to ICU, started on insulin drip, Gap 15 this AM, patient wanting to try and eat lunch, will transition to subcutaneous insulin and then turn off drip 1 hr after levemir given, start SSI C, labs ordered for AM Qualifiers: Qualified Codes: E10.10 - Type 1 diabetes mellitus with ketoacidosis without coma (2) Hyperglycemia due to type 1 diabetes mellitus Status: Acute Assessment & Plan: - A1c 15.1, patient is severely uncontrolled (3) Nausea and vomiting Status: Resolved NBA BEST MD Jan 24, 2021 12:49
[2021-01-24] MEDS: NS IV 1000 ML 1,000 ML IV SCH ×2 (13:05→22:42)
[2021-01-24] MEDS ORDERED: ACETAMINOPHEN 325 MG TABLET PO PRN (18:30)
[2021-01-25 06:37] LABS: BASOPHILS # (AUTO) 0.1 10^3/uL (0.0-0.1); BASOPHILS % (AUTO) 1 % (0-10); EOSINOPHILS # (AUTO) 0.1 10^3/uL (0.0-0.3); EOSINOPHILS % (AUTO) 1 % (0-10); HEMATOCRIT 34 % (40-54); HEMOGLOBIN 11.8 g/dL (13.3-17.7); LYMPHOCYTES # (AUTO) 1.8 10^3/uL (1.0-4.0); LYMPHOCYTES % (AUTO) 25 % (12-44); MEAN CORPUSCULAR HEMOGLOBIN 31 pg (25-34); MEAN CORPUSCULAR HGB CONC 35 g/dL (32-36); MEAN CORPUSCULAR VOLUME 88 fL (80-99); MEAN PLATELET VOLUME 11.1 fL (9.0-12.2); MONOCYTES # (AUTO) 0.8 10^3/uL (0.0-1.0); MONOCYTES % (AUTO) 11 % (0-12); NEUTROPHILS # (AUTO) 4.4 10^3/uL (1.8-7.8); NEUTROPHILS % (AUTO) 61 % (42-75); PLATELET COUNT 145 10^3/uL (130-400); WHITE BLOOD COUNT 7.3 10^3/uL (4.3-11.0)
[2021-01-25 06:51] LABS: ALBUMIN 3.2 GM/DL (3.2-4.5)
[2021-01-25 06:53] LABS: CALCIUM 8.2 MG/DL (8.5-10.1)
[2021-01-25 06:54] LABS: TOTAL PROTEIN 5.2 GM/DL (6.4-8.2)
[2021-01-25 06:55] LABS: BILIRUBIN,TOTAL 0.5 MG/DL (0.1-1.0)
[2021-01-25 06:57] LABS: CREATININE SERUM 0.66 MG/DL (0.60-1.30)
[2021-01-25] MEDS: inSUlin ASPART (NovoLOG) 1 UNIT/0.01 ML (CHARGE PER UNIT) SC SCH (06:57)
[2021-01-25] MEDS ORDERED: MAGNESIUM 1 GM/100 ML IVPB 100 ML IV ONE (07:00)
[2021-01-25] MEDS ORDERED: POTASSIUM CL 10MEQ/50ML IVPB 50 ML IV SCH (07:00)
[2021-01-25] MEDS: NS IV 1000 ML 1,000 ML IV SCH (08:12)
--- NOTE | 2021-01-25 12:19 | Discharge Summary ---
Discharge Summary Hospital Course Was the Problem List Reviewed?: Yes Problems/Dx: (1) Diabetic ketoacidosis Status: Resolved (2) HAY (acute kidney injury) Status: Resolved Hospital Course Date of Admission: Jan 23, 2021 at 11:54 Admission Diagnosis : Family Physician/Provider: [facility] Date of Discharge: 01/25/21 Discharge Diagnosis: DKA Hospital Course: Patient had a brief hospital course when he was admitted to the ICU for DKA. Insulin infusion and IV fluids initiated. Patient left AGAINST MEDICAL ADVICE. Labs and Pending Lab Test: Laboratory Tests 01/24/21 15:24: Glucometer 113H 01/24/21 17:24: Glucometer 64L 01/24/21 18:00: Glucometer 109 01/24/21 20:43: Glucometer 170H 01/25/21 06:04: White Blood Count 7.3, Red Blood Count 3.86L, Hemoglobin 11.8L, Hematocrit 34L, Mean Corpuscular Volume 88, Mean Corpuscular Hemoglobin 31, Mean Corpuscular Hemoglobin Concent 35, Red Cell Distribution Width 12.7, Platelet Count 145, Mean Platelet Volume 11.1, Immature Granulocyte % (Auto) 1, Neutrophils (%) (Auto) 61, Lymphocytes (%) (Auto) 25, Monocytes (%) (Auto) 11, Eosinophils (%) (Auto) 1, Basophils (%) (Auto) 1, Neutrophils # (Auto) 4.4, Lymphocytes # (Auto) 1.8, Monocytes # (Auto) 0.8, Eosinophils # (Auto) 0.1, Basophils # (Auto) 0.1, Immature Granulocyte # (Auto) 0.1, Sodium Level 137, Potassium Level 3.0L, Chloride Level 102, Carbon Dioxide Level 24, Anion Gap 11, Blood Urea Nitrogen 6L, Creatinine 0.66, Estimat Glomerular Filtration Rate 155, BUN/Creatinine Ratio 9, Glucose Level 105, Calcium Level 8.2L, Corrected Calcium 8.8, Magnesium Level 1.6, Total Bilirubin 0.5, Aspartate Amino Transf (AST/SGOT) 31, Alanine Aminotransferase (ALT/SGPT) 24, Alkaline Phosphatase 77, Total Protein 5.2L, Albumin 3.2, Beta-Hydroxybutyrate (Chem panel) 0.94H 01/25/21 06:46: Glucometer 136H Microbiology 01/23/21 MRSA Screen - Final, Complete MRSA not isolated Home Meds Active Reported Tylenol (Acetaminophen) 325 Mg Tablet 650 Mg PO Q6H PRN Novolog Flexpen (Insulin Aspart) 300 Units/3 Ml Solution 10-20 Unit SC AC Lantus Solostar (Insulin Glargine,Hum.rec.anlog) 100 Unit/1 Ml Insuln.pen 50 Units SC HS Assessment/Pt Instructions Left AGAINST MEDICAL ADVICE Discharge Planning: <30 minutes discharge planning Discharge Instructions Discharge Diet: ADA Diet Discharge Physical Examination Vital Signs Vital Signs Date Time Temp Pulse Resp B/P (MAP) Pulse Ox O2 Delivery O2 Flow Rate FiO2 01/25/21 04:48 100 Room Air 01/25/21 04:00 37.2 88 20 133/82 General Appearance: No Apparent Distress, WD/WN Allergies: Coded Allergies: No Known Drug Allergies (Unverified , 02/10/14) Discharge Summary Date of Admission Jan 23, 2021 at 11:54 Date of Discharge Jan 25, 2021 at 09:45 ANDREW HUFF DO Jan 25, 2021 12:19
== END 2021-01-25 09:45 | disposition left against medical advice (07) | DRG 638 ==
LOC: EDUNIT# 09:47 → ER 09:49 → ICU 11:54
PROVIDERS: ADMIT Family Medicine; ATTEND Family Medicine
DX: E10.10 Type 1 diabetes mellitus with ketoacidosis without coma (principal); N17.9 Acute kidney failure, unspecified; E86.0 Dehydration; D72.829 Elevated white blood cell count, unspecified; Z79.4 Long term (current) use of insulin; Z20.822 Contact with and (suspected) exposure to COVID-19
CPT/HCPCS: 36415; 71045; 80048; 80053; 81000; 82010; 82330; 82947; 83036; 83690; 83735; 85007; 85025; 85027; 86141; 87081; 87636; 96372; 96374; 96375

== ENCOUNTER 2021-04-19 13:42 | Emergency (ER) | payer MEDICAID ==
[~2021-04-19] VITALS: Ht 170 cm; Wt 54.0 kg
[2021-04-19 14:15] LABS: BILIRUBIN,URINE NEGATIVE (NEGATIVE); CLARITY,URINE CLEAR; COLOR,URINE YELLOW; GLUCOSE, URINE (UA) 3+ (NEGATIVE); KETONES,URINE 3+ (NEGATIVE); LEUKOCYTE ESTERASE ,URINE NEGATIVE (NEGATIVE); NITRITE,URINE NEGATIVE (NEGATIVE); PH,URINE 5.5 (5-9); PROTEIN,URINE NEGATIVE (NEGATIVE)
[2021-04-19] MEDS ORDERED: NS IV 1000 ML 1,000 ML IV SCH (14:15)
[2021-04-19] MEDS ORDERED: inSUlin (REGULAR) HUMAN 1 UNIT/0.01 ML (CHARGE PER UNIT) IV STA (14:24)
--- NOTE | 2021-04-19 14:29 | ED General ---
General Chief Complaint: Glucose Problems Stated Complaint: DKA Nursing Triage Note: ARRIVED VIA EMS FROM HOME. PT'S BLOOD SUGAR READING HIGH. PT LETHARGIC ET KUSSMAUL RESPERATIONS NOTED. ALERT ET TALKING. SHIVERING. Source of Information: Patient Exam Limitations: No Limitations History of Present Illness Date Seen by Provider: Apr 19, 2021 Time Seen by Provider: 14:10 Initial Comments 20-year-old male with history of type 1 diabetes for the last 5 years presents to the emergency room by EMS with a chief complaint of diffuse abdominal cramping/discomfort, nausea and vomiting onset this morning, Blood sugar "to high to read".. Patient states that he took one of his doses of insulin this morning but did not take his regular acting insulin. He denies any associated illness complaints such as runny nose, fevers, headache. No sore throat, cough or congestion. No diarrhea. He is nauseous. Has been unable to hold down fluids. No difficulty urinating no burning with urination. No rashes, joints or swelling. No open sores. Denies recent alcohol use. Occasionally smokes marijuana. Is not vaccinated for COVID. But no known positive contacts. Has had multiple visits to the emergency department in the past for similar complaints, frequently signed out AGAINST MEDICAL ADVICE. 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 Heart rate in the 130s. Oxygen saturations 100% on room air. Appears to be in some distress Timing/Duration: 1-3 Hours Severity: Severe Associated Systoms: Fever/Chills (chills), Nausea/Vomiting, Shortness of Air, Weakness Allergies and Home Medications Allergies Coded Allergies: No Known Drug Allergies (Unverified , 02/10/14) Patient Home Medication List Home Medication List Reviewed: Yes Acetaminophen (Tylenol) 325 Mg Tablet, 650 MG PO Q6H PRN for PAIN-MILD (1-4), (Reported) Entered as Reported by: SANTI MATSON on 01/06/211005 Insulin Aspart (Novolog Flexpen) 300 Units/3 Ml Solution, 10-20 UNIT SC AC, (Reported) Entered as Reported by: SANTI MATSON on 01/06/211005 Insulin Glargine,Hum.rec.anlog (Lantus Solostar) 100 Unit/1 Ml Insuln.pen, 50 UNITS SC HS, (Reported) Entered as Reported by: DEJUAN ABURTO on 09/12/18 1228 Review of Systems Review of Systems Constitutional: see HPI EENTM: other (dry mouth) Respiratory: short of breath Cardiovascular: no symptoms reported Gastrointestinal: no symptoms reported Genitourinary: no symptoms reported Musculoskeletal: no symptoms reported Skin: no symptoms reported All Other Systems Reviewed Negative Unless Noted: Yes Past Cbhogqq-Tnqfvw-Umnudr Hx Patient Social History Tobacco Use?: No Substance use?: No Alcohol Use?: No Immunizations Up To Date Tetanus Booster (TDap): Less than 5yrs PED Vaccines UTD: Yes Seasonal Allergies Seasonal Allergies: No Past Medical History Surgeries: No Respiratory: No Cardiac: No Neurological: No Genitourinary: No Gastrointestinal: No Musculoskeletal: No Endocrine: Yes (POORLY CONTROLLED TYPE 1 DIABETES) Diabetes, Insulin dep HEENT: No Cancer: No Psychosocial: No Integumentary: No Blood Disorders: No Family Medical History No Pertinent Family Hx Physical Exam Vital Signs Vital Signs - First Documented 04/19/21 13:42 Temp 36.5 Pulse 129 Resp 16 B/P (MAP) 121/68 (85) Pulse Ox 100 O2 Delivery Room Air Capillary Refill : Less Than 3 Seconds Height, Weight, BMI Height: 5'8.00" Weight: 124lbs. 4.8oz. 56.271237en; 18.00 BMI Method:Stated General Appearance: Anxious, Moderate Distress Eyes: Bilateral Eye Normal Inspection, Bilateral Eye PERRL, Bilateral Eye EOMI HEENT: Other (dry oral mucosa) Neck: Normal Inspection Respiratory: Lungs Clear, Normal Breath Sounds, No Accessory Muscle Use, No Respiratory Distress, Other (kussmaul respirations) Cardiovascular: Regular Rate, Rhythm, Tachycardia (130's) Gastrointestinal: Non Tender, Soft, Abnormal Bowel Sounds (hyperactive) Extremity: Normal Inspection, Normal Range of Motion, Non Tender, No Calf Tenderness Neurologic/Psychiatric: Alert, Oriented x3, No Motor/Sensory Deficits, 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 Norm as Tested, Other (anxious) Skin: Normal Color, Warm/Dry Progress/Results/Core Measures Suspected Sepsis SIRS Temperature: Pulse: 129 Respiratory Rate: 16 Laboratory Tests 04/19/21 14:30: White Blood Count 60.3*H Blood Pressure 121 /68 Mean: 85 Laboratory Tests 04/19/21 14:30: Creatinine 2.50H, Platelet Count 378, Total Bilirubin 0.3 04/19/21 16:48: Creatinine 2.03H Results/Orders Lab Results Laboratory Tests Test 04/19/21 13:49 04/19/21 14:12 04/19/21 14:30 04/19/21 15:10 Range/Units Glucometer > 600 *H 70-110 MG/DL Urine Color YELLOW Urine Clarity CLEAR Urine pH 5.5 5-9 Urine Specific Lowry 1.015 L 1.016-1.022 Urine Protein NEGATIVE NEGATIVE Urine Glucose (UA) 3+ H NEGATIVE Urine Ketones 3+ H NEGATIVE Urine Nitrite NEGATIVE NEGATIVE Urine Bilirubin NEGATIVE NEGATIVE Urine Urobilinogen 0.2 < = 1.0 MG/DL Urine Leukocyte Esterase NEGATIVE NEGATIVE Urine RBC (Auto) TRACE-I H NEGATIVE Urine RBC NONE /HPF Urine WBC 2-5 /HPF Urine Crystals PRESENT H /LPF Urine Amorphous Sediment FEW LILIANA URATES H /LPF Urine Bacteria TRACE /HPF Urine Casts NONE /LPF Urine Mucus NEGATIVE /LPF Urine Culture Indicated NO White Blood Count 60.3 *H 4.3-11.0 10^3/uL Red Blood Count 5.05 4.30-5.52 10^6/uL Hemoglobin 15.0 13.3-17.7 g/dL Hematocrit 49 40-54 % Mean Corpuscular Volume 97 80-99 fL Mean Corpuscular Hemoglobin 30 25-34 pg Mean Corpuscular Hemoglobin Concent 31 L 32-36 g/dL Red Cell Distribution Width 11.9 10.0-14.5 % Platelet Count 378 130-400 10^3/uL Mean Platelet Volume 12.9 H 9.0-12.2 fL Immature Granulocyte % (Auto) 10 % Neutrophils (%) (Auto) 60 42-75 % Lymphocytes (%) (Auto) 19 12-44 % Monocytes (%) (Auto) 10 0-12 % Eosinophils (%) (Auto) 0 0-10 % Basophils (%) (Auto) 0 0-10 % Neutrophils # (Auto) 36.4 H 1.8-7.8 10^3/uL Lymphocytes # (Auto) 11.6 H 1.0-4.0 10^3/uL Monocytes # (Auto) 5.7 H 0.0-1.0 10^3/uL Eosinophils # (Auto) 0.2 0.0-0.3 10^3/uL Basophils # (Auto) 0.2 H 0.0-0.1 10^3/uL Immature Granulocyte # (Auto) 6.3 H 0.0-0.1 10^3/uL Neutrophils % (Manual) 56 % Lymphocytes % (Manual) 16 % Monocytes % (Manual) 10 % Metamyelocytes % 4 % Myelocytes % 8 % Band Neutrophils 6 % Percent Immature Platelet Fraction 10.5 H 0.0-7.6 % Blood Morphology Comment NORMAL Absolute Reticulocyte Count 113 H 24-90 10e9/uL Percent Reticulocyte Count 2.25 0.50-2.40 % Sodium Level 112 *L 135-145 MMOL/L Potassium Level 7.1 #*H 3.6-5.0 MMOL/L Chloride Level 74 L 98-107 MMOL/L Carbon Dioxide Level < 5 *L 21-32 MMOL/L Anion Gap 33 H 5-14 MMOL/L Blood Urea Nitrogen 29 H 7-18 MG/DL Creatinine 2.50 H 0.60-1.30 MG/DL Estimat Glomerular Filtration Rate 37 BUN/Creatinine Ratio 12 Glucose Level 1001 *H 70-105 MG/DL Calcium Level 8.8 8.5-10.1 MG/DL Corrected Calcium 8.4 L 8.5-10.1 MG/DL Total Bilirubin 0.3 0.1-1.0 MG/DL Aspartate Amino Transf (AST/SGOT) 39 H 5-34 U/L Alanine Aminotransferase (ALT/SGPT) 24 0-55 U/L Alkaline Phosphatase 173 H 40-136 U/L Total Protein 7.9 6.4-8.2 GM/DL Albumin 4.5 3.2-4.5 GM/DL Lipase 104 H 8-78 U/L Beta-Hydroxybutyrate (Chem panel) 13.81 H 0.00-0.27 MMOL/L Smear Scan Influenza Type A (RT-PCR) Not Detected Not Detecte Influenza Type B (RT-PCR) Not Detected Not Detecte SARS-CoV-2 RNA (RT-PCR) Not Detected Not Detecte Test 04/19/21 15:24 04/19/21 16:48 Range/Units Blood Gas Puncture Site RIGHT RADIAL Blood Gas Patient Temperature 36.5 Arterial Blood pH 7.05 *L 7.37-7.43 Arterial Blood Partial Pressure CO2 18 *L 35-45 MMHG Arterial Blood Partial Pressure O2 57 L 79-93 MMHG Arterial Blood HCO3 5 *L 23-27 MMOL/L Arterial Blood Total CO2 5.2 *L 21.0-31.0 MMOL/L Arterial Blood Oxygen Saturation 82 L 94-100 % Arterial Blood Base Excess -23.9 L -2.5-2.5 MMOL/L Spenser Test YES-POS Blood Gas Ventilator Setting NO Blood Gas Inspired Oxygen ROOM AIR Sodium Level 128 L 135-145 MMOL/L Potassium Level 4.9 3.6-5.0 MMOL/L Chloride Level 95 L 98-107 MMOL/L Carbon Dioxide Level < 5 *L 21-32 MMOL/L Anion Gap 28 H 5-14 MMOL/L Blood Urea Nitrogen 26 H 7-18 MG/DL Creatinine 2.03 H 0.60-1.30 MG/DL Estimat Glomerular Filtration Rate 48 BUN/Creatinine Ratio 13 Glucose Level 608 *H 70-105 MG/DL Calcium Level 8.9 8.5-10.1 MG/DL My Orders Orders - REMA LIU MD Ed Iv/Invasive Line Start (04/19/21 14:06) Cbc With Automated Diff (04/19/21 14:06) Comprehensive Metabolic Panel (04/19/21 14:06) Lipase (04/19/21 14:06) Ua Culture If Indicated (04/19/21 14:06) Chest 1 View, Ap/Pa Only (04/19/21 14:06) Beta Hydroxybutyrate (04/19/21 14:06) Ns Iv 1000 Ml (Sodium Chloride 0.9%) (04/19/21 14:15) Insulin (Regular) Human (Novolin R (Per (04/19/21 14:24) Insulin Regular Drip (Myxredlin 100 Unit (04/19/21 14:30) Covid 19 Inhouse Test (04/19/21 15:05) Influenza A And B By Pcr (04/19/21 15:05) Isolation Central Supply Req (04/19/21 15:05) Ekg Tracing (04/19/21 15:13) Cbc And Manual Diff (04/19/21 14:30) Immature Platelet Fraction (04/19/21 14:30) Reticulocyte Count (04/19/21 14:30) Arterial Blood Gas (04/19/21 15:17) 1/2 Ns Iv Solution (0.45% Sodium Chlorid (04/19/21 15:45) Basic Metabolic Panel (04/19/21 16:32) Vital Signs/I&O 04/19/21 13:42 Temp 36.5 Pulse 129 Resp 16 B/P (MAP) 121/68 (85) Pulse Ox 100 O2 Delivery Room Air Capillary Refill : Less Than 3 Seconds Blood Pressure Mean: 85 Point of Care Testing Finger Stick Blood Glucose: 600 Blood Glucose Action Taken: >600, METER READ HIGH, RN NOTIFIED Progress Note #1: Time: 14:[address] took call from the lab on critical WBC in this patient - 60K. I called the lab to enquire about a peripheral smear - it has to be ordered separately from the manual diff. is not automatically plated. Progress Note #2: Time: 15:50 Progress Note Spoke with Dr Costello at 1505 - she declines secondary to new onset renal failure and critical labs Spoke with Alfonzo in [place] @ 1508 no availability Spoke with Karen Eduardo/Trey @ 1511 no availability Spoke with @ 1514 They will review and call back. XI called back at 1547, they will accept - accepting physician is Dr Turner; I advised we will fly him. She stated they will call back with a room number at which time we can arrange flight. Talked with the patient again, he refuses to let me talk to his mother. He states he will call her. I advised him of the extremely critical nature of his current situation, and at first he stated he would not go to ; I advised him he was to sick to stay here and he could possibly without more specialized care for his DM and kidneys, He consents to transfer. Progress Note #3: Time: 17:32 Progress Note second chemistry reviewed - sodium has improved. Potassium is much improved. Slight improvement in creatinine. He still has CO2<5 on chem. Getting 1/2NS at 250/hr. on insulin drip at the moment at 5u/hr. Patient seems to be acting a little better; states he feels better. ECG Initial ECG Impression Date: Apr 19, 2021 Initial ECG Impression Time: 15:55 Initial ECG Rate: 135 Initial ECG Rhythm: S.Tach Initial ECG Intervals MS 139 QRS 93 QTc 434 Comment peaked T waves noted anterior leads Diagnostic Imaging Diagonstic Imaging: Xray Plain Films/CT/US/NM/MRI: chest Comments NAME: RAJIV HARTMANN MED REC#: [id number] PT STATUS: REG ER : 2001 PHYSICIAN: REMA LIU MD ADMIT DATE: 04/19/21/ER Draft Date of Exam:04/19/21 CHEST 1 VIEW, AP/PA ONLY INDICATION: Shortness of breath. COMPARISON: 01/15/2021. FINDINGS: The heart size, mediastinal configuration, and pulmonary vascularity are within normal limits. There is no pleural effusion, pneumothorax, or pneumonia. The osseous structures are unremarkable. IMPRESSION: No acute cardiopulmonary abnormality. Dictated on workstation # [id number] Dict: 04/19/21 1438 Trans: 04/19/21 1444 [facility] [id number] Interpreted by: TRAE MORRELL MD Electronically signed by: Critical Care Note Critical Care Start Time: 14:10 Departure Impression Primary Impression: DKA, type 1 Qualified Codes: E10.10 - Type 1 diabetes mellitus with ketoacidosis without coma Additional Impressions: Neutrophilia Acute renal failure Qualified Codes: N17.9 - Acute kidney failure, unspecified Disposition: SHT-TRM HOSP Condition: Critical Transfer Transfer Reason: Exceeds level of care Time Spoke to Accepting Phy: 15:47 Transfer Progress Notes Spoke with transfer Center - Dr Turner accepting Transfer Facility: [facility] Method of Transfer: Air Departure-Patient Inst. Referrals: [facility] (PCP/Family) Primary Care Physician REMA LIU MD Apr 19, 2021 14:29
[2021-04-19 14:33] LABS: BACTERIA,URINE TRACE /HPF
[2021-04-19 14:35] LABS: AMORPHOUS SEDIMENT,UR FEW AMOR URATES /LPF
[2021-04-19 14:43] LABS: BASOPHILS # (AUTO) 0.2 10^3/uL (0.0-0.1); BASOPHILS % (AUTO) 0 % (0-10); EOSINOPHILS # (AUTO) 0.2 10^3/uL (0.0-0.3); EOSINOPHILS % (AUTO) 0 % (0-10); HEMATOCRIT 49 % (40-54); LYMPHOCYTES # (AUTO) 11.6 10^3/uL (1.0-4.0); LYMPHOCYTES % (AUTO) 19 % (12-44); MEAN CORPUSCULAR HEMOGLOBIN 30 pg (25-34); MEAN CORPUSCULAR HGB CONC 31 g/dL (32-36); MEAN CORPUSCULAR VOLUME 97 fL (80-99); MEAN PLATELET VOLUME 12.9 fL (9.0-12.2); MONOCYTES # (AUTO) 5.7 10^3/uL (0.0-1.0); MONOCYTES % (AUTO) 10 % (0-12); NEUTROPHILS # (AUTO) 36.4 10^3/uL (1.8-7.8); NEUTROPHILS % (AUTO) 60 % (42-75); PLATELET COUNT 378 10^3/uL (130-400)
[2021-04-19 14:44] LABS: WHITE BLOOD COUNT 60.3 10^3/uL (4.3-11.0)
--- NOTE | 2021-04-19 14:45 | Diagnostic Imaging Report ---
INDICATION: Shortness of breath. COMPARISON: 01/15/2021. FINDINGS: The heart size, mediastinal configuration, and pulmonary vascularity are within normal limits. There is no pleural effusion, pneumothorax, or pneumonia. The osseous structures are unremarkable. IMPRESSION: No acute cardiopulmonary abnormality. Dictated by: Dictated on workstation # [id number]
[2021-04-19 14:54] LABS: ALBUMIN 4.5 GM/DL (3.2-4.5); CHLORIDE 74 MMOL/L (98-107)
[2021-04-19 14:56] LABS: CALCIUM 8.8 MG/DL (8.5-10.1)
[2021-04-19 14:57] LABS: TOTAL PROTEIN 7.9 GM/DL (6.4-8.2)
[2021-04-19 14:59] LABS: BILIRUBIN,TOTAL 0.3 MG/DL (0.1-1.0)
[2021-04-19 15:00] LABS: ALKALINE PHOSPHATASE 173 U/L (40-136); GFR ESTIMATED 37
[2021-04-19 15:01] LABS: BUN/CREATININE RATIO 12
[2021-04-19 15:03] LABS: ALANINE AMINOTRANSFERASE 24 U/L (0-55); SODIUM 112 MMOL/L (135-145)
[2021-04-19 15:04] LABS: CARBON DIOXIDE < 5 MMOL/L (21-32); LIPASE 104 U/L (8-78); POTASSIUM 7.1 MMOL/L (3.6-5.0)
[2021-04-19 15:07] LABS: GLUCOSE 1001 MG/DL (70-105)
[2021-04-19 15:25] LABS: BAND NEUTROPHILS 6 %; LYMPHOCYTES % (MANUAL) 16 %; METAMYELOCYTES % 4 %; MONOCYTES % (MANUAL) 10 %; MYELOCYTES % 8 %; NEUTROPHILS % (MANUAL) 56 %; RBC MORPH NORMAL
[2021-04-19 15:30] LABS: ABSOLUTE RETIC # 113 10e9/uL (24-90); RETICULOCYTE % 2.25 % (0.50-2.40)
[2021-04-19 15:33] LABS: ABG BASE EXCESS -23.9 MMOL/L (-2.5-2.5); ABG OXYGEN SATURATION 82 % (94-100); ABG PO2 57 MMHG (79-93)
[2021-04-19 15:38] LABS: ABG PCO2 18 MMHG (35-45); ABG PH 7.05 (7.37-7.43); ABG TCO2 5.2 MMOL/L (21.0-31.0)
[2021-04-19 15:39] LABS: ALLENS TEST YES-POS; INSPIRED O2 ROOM AIR; PATIENT TEMP 36.5; VENTILATOR NO
[2021-04-19] MEDS ORDERED: 1/2 NS IV SOLUTION 1,000 ML IV SCH (15:45)
[2021-04-19 17:09] LABS: CHLORIDE 95 MMOL/L (98-107); POTASSIUM 4.9 MMOL/L (3.6-5.0); SODIUM 128 MMOL/L (135-145)
[2021-04-19 17:10] LABS: CALCIUM 8.9 MG/DL (8.5-10.1)
[2021-04-19 17:14] LABS: CREATININE SERUM 2.03 MG/DL (0.60-1.30); GFR ESTIMATED 48
[2021-04-19 17:15] LABS: BUN/CREATININE RATIO 13
[2021-04-19 17:22] LABS: CARBON DIOXIDE < 5 MMOL/L (21-32); GLUCOSE 608 MG/DL (70-105)
[2021-04-19 18:30] VITALS: BP 128/91
== END 2021-04-19 18:30 | disposition short-term general hospital (02) ==
LOC: ER 13:42
DX: E10.10 Type 1 diabetes mellitus with ketoacidosis without coma (principal); D72.0 Genetic anomalies of leukocytes; N17.9 Acute kidney failure, unspecified; Z20.822 Contact with and (suspected) exposure to COVID-19
CPT/HCPCS: 36415; 71045; 80048; 80053; 81000; 82010; 82805; 82947; 83690; 85007; 85027; 85045; 85055; 87636; 93005

== ENCOUNTER 2021-08-22 13:10 | Inpatient (IN) | payer MEDICAID ==
[~2021-08-22] VITALS: Ht 172.7 cm; Wt 53.6 kg
[2021-08-22] MEDS ORDERED: LACTATED RINGERS 1,000 ML IV STA ×2 (13:16→15:05)
--- NOTE | 2021-08-22 13:28 | ED General ---
General Chief Complaint: Glucose Problems Stated Complaint: HYPERGLYCEMIA Source of Information: Patient Exam Limitations: No Limitations History of Present Illness Date Seen by Provider: August 22, 2021 Time Seen by Provider: 13:13 Initial Comments 21-year-old male with type 1 diabetes coming in via EMS from home because he is concerned he is in DKA. He started vomiting around 18 hours ago nonbloody nonbilious. He says this is typically what happens when he is in DKA. He has 27 units of Lantus at night that he felt last night. He gives us 8 units of short acting earlier today. He has had nothing to eat today. EMS reports his glucose was too high to read. He says he has been able to keep anything down and he feels very dehydrated. Denies any chest pain, shortness of breath, abdominal pain, fever, weakness, numbness, dysuria, or any other concerns. Allergies and Home Medications Allergies Coded Allergies: No Known Drug Allergies (Unverified , 02/10/14) Patient Home Medication List Home Medication List Reviewed: Yes Acetaminophen (Tylenol) 325 Mg Tablet, 650 MG PO Q6H PRN for PAIN-MILD (1-4), ( Reported) Entered as Reported by: SANTI MATSON on 01/06/21 1006 Insulin Aspart (Novolog Flexpen) 300 Units/3 Ml Solution, 10-20 UNIT SC AC, (Reported) Entered as Reported by: SANTI MATSON on 01/06/21 1006 Insulin Glargine,Hum.rec.anlog (Lantus Solostar) 100 Unit/1 Ml Insuln.pen, 50 UNITS SC HS, (Reported) Entered as Reported by: DEJUAN ABURTO on 09/12/18 1228 Review of Systems Review of Systems Constitutional: No chills, No fever EENTM: No blurred vision Respiratory: No cough Cardiovascular: No chest pain Gastrointestinal: nausea, vomiting Genitourinary: no symptoms reported Musculoskeletal: no symptoms reported Skin: no symptoms reported Psychiatric/Neurological: No Symptoms Reported Hematologic/Lymphatic: No Symptoms Reported Immunological/Allergic: no symptoms reported All Other Systems Reviewed Negative Unless Noted: Yes Past Leamxty-Hturrh-Uybnvo Hx Patient Social History Tobacco Use?: No Use of E-Cig and/or Vaping dev: Yes E-Cig or Vaping type used: Nicotine Use of E-Cig and/or Vaping John: Current Everyday User Substance use?: No Alcohol Use?: No Pt feels they are or have been: No Immunizations Up To Date Tetanus Booster (TDap): Less than 5yrs PED Vaccines UTD: Yes Seasonal Allergies Seasonal Allergies: No Past Medical History Surgery/Hospitalization HX: TYPE 1 DM, Surgeries: No Respiratory: No Cardiac: No Neurological: No Genitourinary: No Gastrointestinal: No Musculoskeletal: No Endocrine: Yes (POORLY CONTROLLED TYPE 1 DIABETES) Diabetes, Insulin dep HEENT: No Cancer: No Psychosocial: No Integumentary: No Blood Disorders: No Family Medical History No Pertinent Family Hx Physical Exam Vital Signs Vital Signs - First Documented 08/22/21 13:23 Temp 37.6 Pulse 137 Resp 22 B/P (MAP) 124/65 (84) Pulse Ox 99 O2 Delivery Room Air Capillary Refill : Height, Weight, BMI Height: 5'8.00" Weight: 124lbs. 4.8oz. 56.110522ll; 18.00 BMI Method:Stated General Appearance: Thin, Other (Actively vomiting) Eyes: Bilateral Eye Normal Inspection HEENT: PERRL/EOMI, Normal ENT Inspection, Pharynx Normal Neck: Full Range of Motion, Normal Inspection, Non Tender, Supple Respiratory: Chest Non Tender, Lungs Clear, Normal Breath Sounds, No Accessory Muscle Use, No Respiratory Distress Cardiovascular: Regular Rate, Rhythm, No Edema, Normal Peripheral Pulses Gastrointestinal: Normal Bowel Sounds, Non Tender, Soft Back: Normal Inspection, No CVA Tenderness, No Vertebral Tenderness Extremity: Normal Capillary Refill, Normal Inspection, Normal Range of Motion, Non Tender, No Calf Tenderness, No Pedal Edema Neurologic/Psychiatric: Alert, Oriented x3, No Motor/Sensory Deficits, Normal Mood/Affect Skin: Normal Color, Warm/Dry Lymphatic: No Adenopathy Progress/Results/Core Measures Suspected Sepsis SIRS Temperature: Pulse: Respiratory Rate: Laboratory Tests 08/22/21 13:25: White Blood Count 43.6*H Blood Pressure / Mean: Laboratory Tests 08/22/21 13:25: Creatinine 2.11H, Platelet Count 333, Total Bilirubin 0.5 08/22/21 14:57: Creatinine 1.66H Results/Orders Lab Results Laboratory Tests Test 08/22/21 13:25 08/22/21 13:35 08/22/21 13:50 08/22/21 14:04 Range/Units White Blood Count 43.6 *H 4.3-11.0 10^3/uL Red Blood Count 5.23 4.30-5.52 10^6/uL Hemoglobin 15.5 13.3-17.7 g/dL Hematocrit 46 40-54 % Mean Corpuscular Volume 89 80-99 fL Mean Corpuscular Hemoglobin 30 25-34 pg Mean Corpuscular Hemoglobin Concent 33 32-36 g/dL Red Cell Distribution Width 11.8 10.0-14.5 % Platelet Count 333 130-400 10^3/uL Mean Platelet Volume 12.0 9.0-12.2 fL Immature Granulocyte % (Auto) 8 % Neutrophils (%) (Auto) 66 42-75 % Lymphocytes (%) (Auto) 15 12-44 % Monocytes (%) (Auto) 9 0-12 % Eosinophils (%) (Auto) 0 0-10 % Basophils (%) (Auto) 1 0-10 % Neutrophils # (Auto) 28.8 H 1.8-7.8 10^3/uL Lymphocytes # (Auto) 6.6 H 1.0-4.0 10^3/uL Monocytes # (Auto) 4.0 H 0.0-1.0 10^3/uL Eosinophils # (Auto) 0.1 0.0-0.3 10^3/uL Basophils # (Auto) 0.6 H 0.0-0.1 10^3/uL Immature Granulocyte # (Auto) 3.6 H 0.0-0.1 10^3/uL Neutrophils % (Manual) 57 % Lymphocytes % (Manual) 18 % Monocytes % (Manual) 1 % Eosinophils % (Manual) 1 % Basophils % (Manual) 1 % Metamyelocytes % 4 % Myelocytes % 6 % Band Neutrophils 12 % Smudge Cells MOD Blood Morphology Comment NORMAL Sodium Level 119 *L 135-145 MMOL/L Potassium Level 6.3 H 3.6-5.0 MMOL/L Chloride Level 80 L 98-107 MMOL/L Carbon Dioxide Level 6 *L 21-32 MMOL/L Anion Gap 33 H 5-14 MMOL/L Blood Urea Nitrogen 21 H 7-18 MG/DL Creatinine 2.11 H 0.60-1.30 MG/DL Estimat Glomerular Filtration Rate 45 BUN/Creatinine Ratio 10 Glucose Level 788 *H 70-105 MG/DL Calcium Level 10.1 8.5-10.1 MG/DL Corrected Calcium 8.5-10.1 MG/DL Total Bilirubin 0.5 0.1-1.0 MG/DL Aspartate Amino Transf (AST/SGOT) 29 5-34 U/L Alanine Aminotransferase (ALT/SGPT) 27 0-55 U/L Alkaline Phosphatase 151 H 40-136 U/L Total Protein 8.1 6.4-8.2 GM/DL Albumin 4.8 H 3.2-4.5 GM/DL Lipase 14 8-78 U/L Beta-Hydroxybutyrate (Chem panel) 12.43 H 0.00-0.27 MMOL/L Blood Gas Puncture Site LT RADIAL Blood Gas Patient Temperature 37.6 Arterial Blood pH 7.17 *L 7.37-7.43 Arterial Blood Partial Pressure CO2 20 L 35-45 MMHG Arterial Blood Partial Pressure O2 35 *L 79-93 MMHG Arterial Blood HCO3 7 *L 23-27 MMOL/L Arterial Blood Total CO2 7.6 *L 21.0-31.0 MMOL/L Arterial Blood Oxygen Saturation 48 L 94-100 % Arterial Blood Base Excess -20.0 L -2.5-2.5 MMOL/L Spenser Test YES-POS Blood Gas Ventilator Setting NO Blood Gas Inspired Oxygen ROOM AIR Influenza Type A (RT-PCR) Not Detected Not Detecte Influenza Type B (RT-PCR) Not Detected Not Detecte SARS-CoV-2 RNA (RT-PCR) Not Detected Not Detecte Urine Color YELLOW Urine Clarity CLEAR Urine pH 5.0 5-9 Urine Specific [place] 1.015 L 1.016-1.022 Urine Protein NEGATIVE NEGATIVE Urine Glucose (UA) 3+ H NEGATIVE Urine Ketones 3+ H NEGATIVE Urine Nitrite NEGATIVE NEGATIVE Urine Bilirubin NEGATIVE NEGATIVE Urine Urobilinogen 0.2 < = 1.0 MG/DL Urine Leukocyte Esterase NEGATIVE NEGATIVE Urine RBC (Auto) NEGATIVE NEGATIVE Urine RBC NONE /HPF Urine WBC RARE /HPF Urine Squamous Epithelial Cells RARE /HPF Urine Crystals NONE /LPF Urine Bacteria NEGATIVE /HPF Urine Casts NONE /LPF Urine Mucus NEGATIVE /LPF Urine Other FEW SPERM H /HPF Urine Culture Indicated NO Test 08/22/21 14:57 Range/Units Sodium Level 125 *L 135-145 MMOL/L Potassium Level 5.3 H 3.6-5.0 MMOL/L Chloride Level 90 L 98-107 MMOL/L Carbon Dioxide Level 8 *L 21-32 MMOL/L Anion Gap 27 H 5-14 MMOL/L Blood Urea Nitrogen 21 H 7-18 MG/DL Creatinine 1.66 H 0.60-1.30 MG/DL Estimat Glomerular Filtration Rate 60 BUN/Creatinine Ratio 13 Glucose Level 630 *H 70-105 MG/DL Calcium Level 9.4 8.5-10.1 MG/DL My Orders Orders - NEENA GUAJARDO MD Arterial Blood Gas (08/22/21 13:16) Cbc With Automated Diff (08/22/21 13:16) Comprehensive Metabolic Panel (08/22/21 13:16) Lipase (08/22/21 13:16) Ua Culture If Indicated (08/22/21 13:16) Influenza A And B By Pcr (08/22/21 13:16) Ondansetron Injection (Zofran Injectio (08/22/21 13:30) Lactated Ringers (Lr 1000 Ml Iv Solution (08/22/21 13:16) Ed Iv/Invasive Line Start (08/22/21 13:16) Covid 19 Inhouse Test (08/22/21 13:16) Beta Hydroxybutyrate (08/22/21 13:23) Manual Differential (08/22/21 13:25) Insulin (Regular) Human (Novolin R (Per (08/22/21 13:54) Lactated Ringers (Lr 1000 Ml Iv Solution (08/22/21 13:54) Ekg Tracing (08/22/21 13:54) Basic Metabolic Panel (08/22/21 14:45) Promethazine Injection (Phenergan Injec (08/22/21 14:45) Lactated Ringers (Lr 1000 Ml Iv Solution (08/22/21 15:05) Medications Given in ED Current Medications Medications Dose Ordered Sig/Francisco Javier Route Start Time Stop Time Status Last Admin Dose Admin Ondansetron HCl 4 mg ONCE ONCE IVP 08/22/21 13:30 08/22/21 13:31 DC 08/22/21 13:30 4 MG Promethazine HCl 25 mg ONCE PRN IVP 08/22/21 14:45 08/22/21 15:03 25 MG Vital Signs/I&O 08/22/21 13:23 Temp 37.6 Pulse 137 Resp 22 B/P (MAP) 124/65 (84) Pulse Ox 99 O2 Delivery Room Air Capillary Refill : Progress Note : Progress Note 21-year-old male with above history coming in in DKA. He was tachycardic on presentation but vitals otherwise stable with normal blood pressure. An IV was placed and basic labs obtained and are consistent with DKA. Glucose greater than 700 initially, potassium greater than 6, creatinine greater than 2, bicarb 5, and ketones in his urine. His pH was 7.17. He was given 2 L of IV fluids followed by 10 units of insulin regular. Repeat glucose in the 600s, bicarb 8, potassium has come down around 5-1/2, creatinine has improved significantly less than 2. Contacted Dr. Costello who will admit him under inpatient status to the intensive care unit for further evaluation and management ECG Initial ECG Impression Date: August 22, 2021 Initial ECG Impression Time: 14:26 Initial ECG Rate: 132 Initial ECG Rhythm: S.Tach Comment Narrow QRS, normal axis, no significant ST changes or T wave inversions, tall T waves in the precordial leads Departure Impression Primary Impression: Diabetic ketoacidosis Qualified Codes: E10.10 - Type 1 diabetes mellitus with ketoacidosis without coma Disposition: ADMITTED INPATIENT Condition: Stable Admissions Decision to Admit Reason: Admit from ER (General) Decision to Admit/Date: August 22, 2021 Time/Decision to Admit Time: 14:50 Departure-Patient Inst. Referrals: [facility] (PCP/Family) Primary Care Physician NEENA GUAJARDO MD August 22, 2021 13:28
[2021-08-22 13:30] LABS: BASOPHILS # (AUTO) 0.6 10^3/uL (0.0-0.1); BASOPHILS % (AUTO) 1 % (0-10); EOSINOPHILS # (AUTO) 0.1 10^3/uL (0.0-0.3); EOSINOPHILS % (AUTO) 0 % (0-10); HEMATOCRIT 46 % (40-54); HEMOGLOBIN 15.5 g/dL (13.3-17.7); LYMPHOCYTES # (AUTO) 6.6 10^3/uL (1.0-4.0); LYMPHOCYTES % (AUTO) 15 % (12-44); MEAN CORPUSCULAR HEMOGLOBIN 30 pg (25-34); MEAN CORPUSCULAR HGB CONC 33 g/dL (32-36); MEAN CORPUSCULAR VOLUME 89 fL (80-99); MONOCYTES % (AUTO) 9 % (0-12); NEUTROPHILS # (AUTO) 28.8 10^3/uL (1.8-7.8); NEUTROPHILS % (AUTO) 66 % (42-75); PLATELET COUNT 333 10^3/uL (130-400)
[2021-08-22] MEDS ORDERED: ONDANSETRON 4 MG/2 ML (SDV) Z0FRAN IVP ONE (13:30)
[2021-08-22 13:35] LABS: WHITE BLOOD COUNT 43.6 10^3/uL (4.3-11.0)
[2021-08-22 13:44] LABS: ALBUMIN 4.8 GM/DL (3.2-4.5); CHLORIDE 80 MMOL/L (98-107); POTASSIUM 6.3 MMOL/L (3.6-5.0)
[2021-08-22 13:45] LABS: CALCIUM 10.1 MG/DL (8.5-10.1)
[2021-08-22 13:46] LABS: ABG OXYGEN SATURATION 48 % (94-100); ABG PCO2 20 MMHG (35-45)
[2021-08-22 13:47] LABS: TOTAL PROTEIN 8.1 GM/DL (6.4-8.2)
[2021-08-22 13:48] LABS: BILIRUBIN,TOTAL 0.5 MG/DL (0.1-1.0)
[2021-08-22 13:49] LABS: ABG PH 7.17 (7.37-7.43); ABG PO2 35 MMHG (79-93)
[2021-08-22 13:50] LABS: ABG TCO2 7.6 MMOL/L (21.0-31.0); ALLENS TEST YES-POS; INSPIRED O2 ROOM AIR; PATIENT TEMP 37.6; VENTILATOR NO
[2021-08-22 13:50] LABS: ALKALINE PHOSPHATASE 151 U/L (40-136); CREATININE SERUM 2.11 MG/DL (0.60-1.30); GFR ESTIMATED 45
[2021-08-22 13:51] LABS: BUN/CREATININE RATIO 10
[2021-08-22 13:53] LABS: ALANINE AMINOTRANSFERASE 27 U/L (0-55)
[2021-08-22 13:54] LABS: LIPASE 14 U/L (8-78)
[2021-08-22] MEDS ORDERED: inSUlin (REGULAR) HUMAN 1 UNIT/0.01 ML (CHARGE PER UNIT) IV STA (13:54)
[2021-08-22 14:02] LABS: CARBON DIOXIDE 6 MMOL/L (21-32); GLUCOSE 788 MG/DL (70-105); SODIUM 119 MMOL/L (135-145)
[2021-08-22 14:11] LABS: BILIRUBIN,URINE NEGATIVE (NEGATIVE); CLARITY,URINE CLEAR; COLOR,URINE YELLOW; GLUCOSE, URINE (UA) 3+ (NEGATIVE); KETONES,URINE 3+ (NEGATIVE); LEUKOCYTE ESTERASE ,URINE NEGATIVE (NEGATIVE); NITRITE,URINE NEGATIVE (NEGATIVE); PROTEIN,URINE NEGATIVE (NEGATIVE)
[2021-08-22] MEDS: LACTATED RINGERS 1,000 ML IV STA (14:19)
[2021-08-22 14:22] LABS: BACTERIA,URINE NEGATIVE /HPF; SQUAMOUS EPITHELIAL CELL,UR RARE /HPF; URINE OTHER FEW SPERM /HPF; WBC,URINE RARE /HPF
[2021-08-22 14:33] LABS: BAND NEUTROPHILS 12 %; BASOPHILS % (MANUAL) 1 %; EOSINOPHILS % (MANUAL) 1 %; LYMPHOCYTES % (MANUAL) 18 %; METAMYELOCYTES % 4 %; MONOCYTES % (MANUAL) 1 %; MYELOCYTES % 6 %; NEUTROPHILS % (MANUAL) 57 %; RBC MORPH NORMAL
[2021-08-22] MEDS ORDERED: PROMETHAZINE INJ 25 MG/ML (PHENERGAN) AMP IVP PRN (14:45)
[2021-08-22 15:11] LABS: POTASSIUM 5.3 MMOL/L (3.6-5.0)
[2021-08-22 15:12] LABS: CALCIUM 9.4 MG/DL (8.5-10.1)
[2021-08-22 15:16] LABS: CREATININE SERUM 1.66 MG/DL (0.60-1.30)
[2021-08-22] MEDS ORDERED: PROMETHAZINE INJ 25 MG/ML (PHENERGAN) AMP IM PRN (16:30)
[2021-08-22] MEDS ORDERED: BISACODYL 10 MG SUPP (DULCOLAX) PR PRN (16:30)
[2021-08-22] MEDS ORDERED: ONDANSETRON 4 MG/2 ML (SDV) Z0FRAN IV PRN (16:30)
[2021-08-22] MEDS ORDERED: ONDANSETRON 4 MG (ZOFRAN) ORAL DISSOLVE TAB PO PRN (16:30)
[2021-08-22] MEDS ORDERED: diphenhydrAMINE 25 MG TAB (BENADRYL) PO PRN (16:30)
[2021-08-22] MEDS ORDERED: NS IV 1000 ML 1,000 ML IV SCH (16:30)
[2021-08-22] MEDS ORDERED: ACETAMINOPHEN 325 MG TABLET PO PRN (16:30)
[2021-08-22] MEDS ORDERED: diphenhydrAMINE 50 MG/ML INJ (BENADRYL) IVP PRN (16:30)
[2021-08-22] MEDS ORDERED: LORazepam INJ 2 MG/ML (ATIVAN) VIAL IVP PRN (16:30)
[2021-08-22] MEDS ORDERED: MELATONIN 3 MG TABLET PO PRN (16:30)
[2021-08-22] MEDS ORDERED: HYDROmorphone 2 MG/ML VIAL (DILAUDID) IVP PRN (16:30)
[2021-08-22] MEDS ORDERED: PATIENT MAY USE OWN MEDS, ALL PO SCH (16:30)
[2021-08-22] MEDS ORDERED: LACTULOSE SYRUP 10GM/15ML (ENULOSE) 30ML UDC PO PRN (16:30)
[2021-08-22] MEDS ORDERED: polyethylene glycoL POWDER 17 GM (MIRALAX) PACK PO PRN (16:30)
[2021-08-22] MEDS ORDERED: MILK OF MAGNESIA 400 MG/5 ML 30 ML UDC PO PRN (16:30)
[2021-08-22] MEDS ORDERED: CALCIUM CARBONATE 500 MG (TUMS) TAB.CHEW PO PRN (16:30)
[2021-08-22] MEDS ORDERED: ANTACID SUSP 30 ML UDC (MYLANTA) PO PRN (16:30)
[2021-08-22 16:40] VITALS: BP 132/77
[2021-08-22] MEDS ORDERED: RT-ALBUTEROL SULF 2.5 MG/3 ML PRE-MIX VIAL INH PRN (16:45)
[2021-08-22 16:58] LABS: ABG BASE EXCESS -17.1 MMOL/L (-2.5-2.5); ABG OXYGEN SATURATION 89 % (94-100); ABG PO2 59 MMHG (79-93)
[2021-08-22 17:01] LABS: ABG PCO2 19 MMHG (35-45); ABG PH 7.28 (7.37-7.43)
[2021-08-22 17:02] LABS: ABG TCO2 9.1 MMOL/L (21.0-31.0); ALLENS TEST YES-POS; INSPIRED O2 ROOM AIR; PATIENT TEMP 37.1; VENTILATOR NO
[2021-08-22] MEDS: 1/2 NS IV SOLUTION 1,000 ML IV SCH ×2 (17:28→21:32)
[2021-08-22 17:30] LABS: POTASSIUM 5.5 MMOL/L (3.6-5.0)
[2021-08-22 17:35] LABS: CREATININE SERUM 1.69 MG/DL (0.60-1.30)
[2021-08-22] MEDS: POTASSIUM CL 10MEQ/50ML IVPB 50 ML IV SCH ×5 (17:37→22:38)
[2021-08-22] MEDS ORDERED: SODIUM BICARB 8.4% 50 MEQ/50 ML (ABBOTT) SYR IV ONE ×2 (18:30→19:00)
--- NOTE | 2021-08-22 18:51 | Diagnostic Imaging Report ---
Indication: Leukocytosis Single AP view of the chest is obtained with comparison made study of 04/19/2021 FINDINGS: Heart size and pulmonary vasculature are within normal limits, and the lungs are clear, bilaterally. IMPRESSION: Unremarkable chest. Dictated by: Dictated on workstation # [id number]
[2021-08-22] MEDS ORDERED: SODIUM BICARB 8.4% 50 MEQ/50 ML (ABBOTT) SYR ONE ×2 (19:47→19:55)
[2021-08-22] MEDS: PANTOPRAZOLE 40 MG (PROTONIX) VIAL IV SCH (20:05)
[2021-08-22] MEDS: SENNOSIDES 8.6 MG (SENOKOT) TAB PO SCH (20:07)
[2021-08-22] MEDS: DOCUSATE SODIUM 100 MG (COLACE) CAP PO SCH (20:07)
[2021-08-22 20:41] LABS: POTASSIUM 4.3 MMOL/L (3.6-5.0)
[2021-08-22 20:42] LABS: CALCIUM 9.3 MG/DL (8.5-10.1)
[2021-08-22 20:47] LABS: CREATININE SERUM 1.35 MG/DL (0.60-1.30)
[2021-08-22] MEDS: D5 1/2 NS 1000 ML IV SOLUTION 1,000 ML IV SCH (21:32)
[2021-08-23] MEDS: POTASSIUM CL 10MEQ/50ML IVPB 50 ML IV SCH ×3 (00:31→08:50)
[2021-08-23] MEDS: D5 1/2 NS 1000 ML IV SOLUTION 1,000 ML IV SCH ×5 (00:31→18:05)
[2021-08-23 05:07] LABS: BASOPHILS # (AUTO) 0.1 10^3/uL (0.0-0.1); BASOPHILS % (AUTO) 0 % (0-10); EOSINOPHILS % (AUTO) 0 % (0-10); HEMATOCRIT 38 % (40-54); HEMOGLOBIN 13.5 g/dL (13.3-17.7); LYMPHOCYTES # (AUTO) 1.8 10^3/uL (1.0-4.0); LYMPHOCYTES % (AUTO) 9 % (12-44); MEAN CORPUSCULAR HEMOGLOBIN 29 pg (25-34); MEAN CORPUSCULAR HGB CONC 35 g/dL (32-36); MEAN CORPUSCULAR VOLUME 83 fL (80-99); MEAN PLATELET VOLUME 11.6 fL (9.0-12.2); MONOCYTES # (AUTO) 1.8 10^3/uL (0.0-1.0); MONOCYTES % (AUTO) 9 % (0-12); NEUTROPHILS # (AUTO) 16.6 10^3/uL (1.8-7.8); NEUTROPHILS % (AUTO) 80 % (42-75); PLATELET COUNT 237 10^3/uL (130-400); WHITE BLOOD COUNT 20.9 10^3/uL (4.3-11.0)
[2021-08-23] MEDS: 1/2 NS IV SOLUTION 1,000 ML IV SCH ×2 (05:12→08:51)
[2021-08-23 05:17] LABS: ALBUMIN 3.7 GM/DL (3.2-4.5); POTASSIUM 3.7 MMOL/L (3.6-5.0)
[2021-08-23 05:18] LABS: CALCIUM 9.2 MG/DL (8.5-10.1)
[2021-08-23 05:20] LABS: TOTAL PROTEIN 6.2 GM/DL (6.4-8.2)
[2021-08-23 05:21] LABS: BILIRUBIN,TOTAL 0.4 MG/DL (0.1-1.0)
[2021-08-23 05:23] LABS: CREATININE SERUM 1.02 MG/DL (0.60-1.30); PHOSPHORUS 1.9 MG/DL (2.3-4.7)
[2021-08-23 05:26] LABS: MAGNESIUM 1.7 MG/DL (1.6-2.4)
[2021-08-23] MEDS ORDERED: MAGNESIUM 1 GM/100 ML IVPB 100 ML IV SCH (06:00)
[2021-08-23] MEDS ORDERED: KCL 20 MEQ TAB (K-DUR) PO SCH (06:00)
[2021-08-23] MEDS ORDERED: POTASSIUM CL 10MEQ/50ML IVPB 50 ML IV SCH (06:00)
--- NOTE | 2021-08-23 06:43 | History & Physical-Hospitalist ---
History of Present Illness HPI/Chief Complaint Chief complaint: DKA History of present illness: This is a 21-year-old male known to me from multiple hospital stays for DKA who presented to the ER with complaints of nausea and vomiting found to be in DKA. He reports he is unsure really what happened and caused DKA but he was started on insulin drip per protocol and now much improved. Source: patient Exam Limitations: clinical condition Date Seen 08/23/21 Time Seen by a Provider: 09:45 Attending Physician [facility] PCP Admitting Physician: Pepper Costello DO Attending Physician: Pepper Costello DO Referring Physician Date of Admission August 22, 2021 at 15:36 Home Medications & Allergies Home Medications Reviewed patient Home Medication Reconciliation performed by pharmacy medication reconciliations testing and regulating technician and/or nursing. Patients Allergies have been reviewed. Allergies Allergies Coded Allergies No Known Drug Allergies (Axkfbzldjq54/15/14) Past Jnfhzsl-Jsoreb-Fdonmd Hx Patient Social History Marrital Status: single Employed/Student: unemployed Tobacco Use?: No Use of E-Cig and/or Vaping dev: Yes E-Cig or Vaping type used: Nicotine Use of E-Cig and/or Vaping John: Current Everyday User Substance use?: No Alcohol Use?: Yes Alcohol Frequency: Couple times a week Pt feels they are or have been: No Immunizations Up To Date Date of Influenza Vaccine: Jan 29, 2020 Tetanus Booster (TDap): Unknown Hepatitis A: No Hepatitis B: No PED Vaccines UTD: Yes Seasonal Allergies Seasonal Allergies: No Current Status Advance Directives: No Communicates: Verbally Primary Language: Prydeinig Preferred Spoken Language: Prydeinig Is interpretation needed?: No Implanted or Applied Medical D: None Past Medical History Diabetes, Insulin dep Blood Disorders: No PMHx: DMI Family Medical History No Pertinent Family Hx Review of Systems Constitutional: see HPI Physical Exam Physical Exam Vital Signs Vital Signs - First Documented 08/22/21 08/23/21 13:23 08:01 Temp 37.6 Pulse 137 Resp 22 B/P (MAP) 124/65 (84) Pulse Ox 99 O2 Delivery Room Air O2 Flow Rate 0.00 Capillary Refill : Less Than 3 Seconds Height, Weight, BMI Height: 5'8.00" Weight: 124lbs. 4.8oz. 56.806118qn; 18.03 BMI Method:Stated General Appearance: No Apparent Distress, Chronically ill, Thin Respiratory: Lungs Clear, Normal Breath Sounds Cardiovascular: Regular Rate, Rhythm Neurologic/Psychiatric: Alert, Oriented x3 Results Results/Procedures Labs Laboratory Tests 08/22/21 13:25 08/22/21 14:57 08/22/21 17:09 08/22/21 20:23 08/23/21 04:12 08/23/21 08:00 08/24/21 05:14 Patient resulted labs reviewed. Assessment/Plan Admission Diagnosis Assessment: DKA Leukocytosis without septic source Acute kidney injury Plan: Insulin protocol Transfer to fourth floor Supportive care Admission Status: Inpatient Order (span 2 midnights) Reason for Inpatient Admission: DKA Diagnosis/Problems Diagnosis/Problems (1) Diabetic ketoacidosis Status: Resolved Qualifiers: Diabetes mellitus type: type 1 Diabetes mellitus complication detail: without coma Qualified Codes: E10.10 - Type 1 diabetes mellitus with ketoacidosis without coma Resolution Date/Time: 01/07/21 @ 13:25 (2) HAY (acute kidney injury) Status: Resolved Resolution Date/Time: 01/05/21 @ 13:54 (3) Nausea and vomiting Status: Resolved Resolution Date/Time: 01/24/21 @ 12:49 (4) Leukocytosis Status: Resolved Resolution Date/Time: 01/06/21 @ 13:54 (5) Hyponatremia Status: Resolved Resolution Date/Time: 01/07/21 @ 13:25 (6) DVT prophylaxis Status: Acute PEPPER COSTELLO DO August 23, 2021 06:43
[2021-08-23 08:18] LABS: POTASSIUM 3.6 MMOL/L (3.6-5.0)
[2021-08-23 08:19] LABS: CALCIUM 8.8 MG/DL (8.5-10.1)
--- NOTE | 2021-08-23 08:22 | Diagnostic Imaging Report ---
INDICATION: Dyspnea COMPARISON: 08/22/2021 TECHNIQUE: Single radiograph of the chest dated 08/23/2021. FINDINGS: The cardiac silhouette is within normal limits in size. No significant pulmonary vascular congestion. The lungs are hyperinflated though clear. No pleural effusion. No pneumothorax. No acute osseous abnormality. IMPRESSION: Mild pulmonary hyperinflation without additional superimposed acute cardiopulmonary abnormality. Dictated by: Dictated on workstation # [id number]
[2021-08-23 08:23] LABS: CREATININE SERUM 0.9 MG/DL (0.60-1.30)
[2021-08-23] MEDS: PANTOPRAZOLE 40 MG (PROTONIX) VIAL IV SCH (08:50)
[2021-08-23] MEDS: SENNOSIDES 8.6 MG (SENOKOT) TAB PO SCH ×2 (08:51→20:44)
[2021-08-23] MEDS: DOCUSATE SODIUM 100 MG (COLACE) CAP PO SCH ×2 (08:51→20:44)
--- NOTE | 2021-08-23 09:02 | Tele-ICU Progress Note ---
Progress Note video rounds completed 21 y/o male with DKA On insulin drip Overall doing well VSS CO2 20 Glu 164 PLAN: transition to sliding scale and normal diabetic regimin Focused Exam Height, Weight, BMI Height: 5'8.00" Weight: 124lbs. 4.8oz. 56.159889si; 18.03 BMI Method:Stated Laboratory Tests 08/22/21 13:25 08/22/21 14:57 08/22/21 17:09 08/22/21 20:23 08/23/21 04:12 08/23/21 08:00 Results Results/Procedures Lab Laboratory Tests 08/22/21 13:25 08/22/21 14:57 08/22/21 17:09 08/22/21 20:23 08/23/21 04:12 08/23/21 08:00 Results Labs Labs Laboratory Tests 08/22/21 13:25: White Blood Count 43.6*H, Red Blood Count 5.23, Hemoglobin 15.5, Hematocrit 46, Mean Corpuscular Volume 89, Mean Corpuscular Hemoglobin 30, Mean Corpuscular Hemoglobin Concent 33, Red Cell Distribution Width 11.8, Platelet Count 333, Mean Platelet Volume 12.0, Immature Granulocyte % (Auto) 8, Neutrophils (%) (Auto) 66, Lymphocytes (%) (Auto) 15, Monocytes (%) (Auto) 9, Eosinophils (%) (Auto) 0, Basophils (%) (Auto) 1, Neutrophils # (Auto) 28.8H, Lymphocytes # (Auto) 6.6H, Monocytes # (Auto) 4.0H, Eosinophils # (Auto) 0.1, Basophils # (Auto) 0.6H, Immature Granulocyte # (Auto) 3.6H, Neutrophils % (Manual) 57, Lymphocytes % (Manual) 18, Monocytes % (Manual) 1, Eosinophils % (Manual) 1, Basophils % (Manual) 1, Metamyelocytes % 4, Myelocytes % 6, Band Neutrophils 12, Smudge Cells MOD, Blood Morphology Comment NORMAL, Sodium Level 119*L, Potassium Level 6.3H, Chloride Level 80L, Carbon Dioxide Level 6*L, Anion Gap 33H, Blood Urea Nitrogen 21H, Creatinine 2.11H, Estimat Glomerular Filtration Rate 45, BUN/Creatinine Ratio 10, Glucose Level 788*H, Calcium Level 10.1, Corrected Calcium , Total Bilirubin 0.5, Aspartate Amino Transf (AST/SGOT) 29, Alanine Aminotransferase (ALT/SGPT) 27, Alkaline Phosphatase 151H, Total Protein 8.1, Albumin 4.8H, Lipase 14, Beta-Hydroxybutyrate (Chem panel) 12.43H 08/22/21 13:35: Blood Gas Puncture Site LT RADIAL, Blood Gas Patient Temperature 37.6, Arterial Blood pH 7.17*L, Arterial Blood Partial Pressure CO2 20L, Arterial Blood Partial Pressure O2 35*L, Arterial Blood HCO3 7*L, Arterial Blood Total CO2 7.6*L, Arterial Blood Oxygen Saturation 48L, Arterial Blood Base Excess -20.0L, Spenser Test YES-POS, Blood Gas Ventilator Setting NO, Blood Gas Inspired Oxygen ROOM AIR 08/22/21 13:50: Influenza Type A (RT-PCR) Not Detected, Influenza Type B (RT-PCR) Not Detected, SARS-CoV-2 RNA (RT-PCR) Not Detected 08/22/21 14:04: Urine Color YELLOW, Urine Clarity CLEAR, Urine pH 5.0, Urine Specific [place] 1.015L, Urine Protein NEGATIVE, Urine Glucose (UA) 3+H, Urine Ketones 3+H, Urine Nitrite NEGATIVE, Urine Bilirubin NEGATIVE, Urine Urobilinogen 0.2, Urine Leukocyte Esterase NEGATIVE, Urine RBC (Auto) NEGATIVE, Urine RBC NONE, Urine WBC RARE, Urine Squamous Epithelial Cells RARE, Urine Crystals NONE, Urine Bacteria NEGATIVE, Urine Casts NONE, Urine Mucus NEGATIVE, Urine Other FEW SPERMH, Urine Culture Indicated NO 08/22/21 14:57: Sodium Level 125*L, Potassium Level 5.3H, Chloride Level 90L, Carbon Dioxide Level 8*L, Anion Gap 27H, Blood Urea Nitrogen 21H, Creatinine 1.66H, Estimat Glomerular Filtration Rate 60, BUN/Creatinine Ratio 13, Glucose Level 630*H, Calcium Level 9.4 08/22/21 16:47: Glucometer 487*H 08/22/21 16:50: Blood Gas Puncture Site L RADIAL, Blood Gas Patient Temperature 37.1, Arterial Blood pH 7.28*L, Arterial Blood Partial Pressure CO2 19*L, Arterial Blood Partial Pressure O2 59L, Arterial Blood HCO3 9*L, Arterial Blood Total CO2 9.1*L , Arterial Blood Oxygen Saturation 89L, Arterial Blood Base Excess -17.1L, Spenser Test YES-POS, Blood Gas Ventilator Setting NO, Blood Gas Inspired Oxygen ROOM AIR 08/22/21 17:09: Sodium Level 131L, Potassium Level 5.5H, Chloride Level 94L, Carbon Dioxide Level 9*L, Anion Gap 28H, Blood Urea Nitrogen 19H, Creatinine 1.69H, Estimat Glomerular Filtration Rate 59, BUN/Creatinine Ratio 11, Glucose Level 588*H, Calcium Level 10.0, Beta-Hydroxybutyrate (Chem panel) 11.25H 08/22/21 17:30: Glucometer 489*H 08/22/21 18:33: Glucometer 471*H 08/22/21 19:27: Glucometer 392H 08/22/21 20:23: Glucometer 307H, Sodium Level 135, Potassium Level 4.3, Chloride Level 100, Carbon Dioxide Level 11L, Anion Gap 24H, Blood Urea Nitrogen 16, Creatinine 1.35H, Estimat Glomerular Filtration Rate 77, BUN/Creatinine Ratio 12, Glucose Level 309H, Calcium Level 9.3 08/22/21 21:24: Glucometer 204H 08/22/21 22:33: Glucometer 262H 08/22/21 23:31: Glucometer 291H 08/23/21 00:26: Glucometer 240H 08/23/21 01:25: Glucometer 209H 08/23/21 02:34: Glucometer 164H 08/23/21 04:11: Glucometer 124H 08/23/21 04:12: White Blood Count 20.9H, Red Blood Count 4.61, Hemoglobin 13.5, Hematocrit 38L, Mean Corpuscular Volume 83, Mean Corpuscular Hemoglobin 29, Mean Corpuscular Hemoglobin Concent 35, Red Cell Distribution Width 11.6, Platelet Count 237, Mean Platelet Volume 11.6, Immature Granulocyte % (Auto) 3, Neutrophils (%) (Auto) 80H, Lymphocytes (%) (Auto) 9L, Monocytes (%) (Auto) 9, Eosinophils (%) (Auto) 0, Basophils (%) (Auto) 0, Neutrophils # (Auto) 16.6H, Lymphocytes # (Auto) 1.8, Monocytes # (Auto) 1.8H, Eosinophils # (Auto) 0.0, Basophils # (Auto) 0.1, Immature Granulocyte # (Auto) 0.6H, Sodium Level 137, Potassium Level 3.7, Chloride Level 105, Carbon Dioxide Level 19L, Anion Gap 13, Blood Urea Nitrogen 9, Creatinine 1.02, Estimat Glomerular Filtration Rate 108, BUN/Creatinine Ratio 9, Glucose Level 114H, Calcium Level 9.2, Corrected Calcium 9.4, Phosphorus Level 1.9L, Magnesium Level 1.7, Total Bilirubin 0.4, Aspartate Amino Transf (AST/SGOT) 20, Alanine Aminotransferase (ALT/SGPT) 20, Alkaline Phosphatase 93, Total Protein 6.2L, Albumin 3.7, Beta-Hydroxybutyrate (Chem panel) 0.81H 08/23/21 05:31: Glucometer 151H 08/23/21 06:41: Glucometer 176H 08/23/21 07:16: Glucometer 173H 08/23/21 08:00: Sodium Level 135, Potassium Level 3.6, Chloride Level 104, Carbon Dioxide Level 20L, Anion Gap 11, Blood Urea Nitrogen 7, Creatinine 0.90, Estimat Glomerular Filtration Rate 125, BUN/Creatinine Ratio 8, Glucose Level 192H, Calcium Level 8.8 08/23/21 08:33: Glucometer 164H SAMANTHA NEVES MD August 23, 2021 09:02
[2021-08-23] MEDS ORDERED: inSUlin ASPART (NovoLOG) 1 UNIT/0.01 ML (CHARGE PER UNIT) SC SCH (12:00)
[2021-08-23] MEDS: inSUlin ASPART (NovoLOG) 1 UNIT/0.01 ML (CHARGE PER UNIT) SC SCH ×2 (16:28→20:44)
[2021-08-24 05:38] LABS: BASOPHILS % (AUTO) 0 % (0-10); EOSINOPHILS % (AUTO) 0 % (0-10); HEMATOCRIT 35 % (40-54); HEMOGLOBIN 12.5 g/dL (13.3-17.7); LYMPHOCYTES # (AUTO) 2.1 10^3/uL (1.0-4.0); LYMPHOCYTES % (AUTO) 21 % (12-44); MEAN CORPUSCULAR HEMOGLOBIN 30 pg (25-34); MEAN CORPUSCULAR HGB CONC 35 g/dL (32-36); MEAN CORPUSCULAR VOLUME 84 fL (80-99); MEAN PLATELET VOLUME 11.7 fL (9.0-12.2); MONOCYTES # (AUTO) 0.8 10^3/uL (0.0-1.0); MONOCYTES % (AUTO) 8 % (0-12); NEUTROPHILS # (AUTO) 6.7 10^3/uL (1.8-7.8); NEUTROPHILS % (AUTO) 69 % (42-75); PLATELET COUNT 161 10^3/uL (130-400); WHITE BLOOD COUNT 9.8 10^3/uL (4.3-11.0)
[2021-08-24 05:42] LABS: ALBUMIN 3.3 GM/DL (3.2-4.5); POTASSIUM 3.2 MMOL/L (3.6-5.0)
[2021-08-24 05:45] LABS: TOTAL PROTEIN 5.6 GM/DL (6.4-8.2)
[2021-08-24 05:46] LABS: BILIRUBIN,TOTAL 0.5 MG/DL (0.1-1.0)
[2021-08-24 05:48] LABS: CREATININE SERUM 0.74 MG/DL (0.60-1.30); PHOSPHORUS 2.5 MG/DL (2.3-4.7)
[2021-08-24 05:51] LABS: MAGNESIUM 1.8 MG/DL (1.6-2.4)
[2021-08-24] MEDS: inSUlin ASPART (NovoLOG) 1 UNIT/0.01 ML (CHARGE PER UNIT) SC SCH ×2 (06:06→11:49)
[2021-08-24] MEDS ORDERED: POTASSIUM CL 10MEQ/50ML IVPB 50 ML IV SCH ×3 (06:45→13:30)
[2021-08-24] MEDS ORDERED: MAGNESIUM 1 GM/100 ML IVPB 100 ML IV ONE (06:45)
--- NOTE | 2021-08-24 06:59 | Progress Note - Hospitalist ---
Subjective HPI/CC On Admission Date Seen by Provider: August 24, 2021 Time Seen by Provider: 11:00 Chief complaint: DKA History of present illness: This is a 21-year-old male known to me from multiple hospital stays for DKA who presented to the ER with complaints of nausea and vomiting found to be in DKA. He reports he is unsure really what happened and caused DKA but he was started on insulin drip per protocol and now much improved. Objective Exam Vital Signs Vital Signs Date Time Temp Pulse Resp B/P (MAP) Pulse Ox O2 Delivery O2 Flow Rate FiO2 08/24/21 11:35 37.4 89 16 134/87 98 Room Air 08/23/21 08:01 0.00 Capillary Refill : Less Than 3 Seconds Results/Procedures Lab Laboratory Tests 08/24/21 05:14 08/24/21 12:35 Patient resulted labs reviewed. Diagnosis/Problems Diagnosis/Problems (1) Diabetic ketoacidosis Status: Resolved Qualifiers: Diabetes mellitus type: type 1 Diabetes mellitus complication detail: without coma Qualified Codes: E10.10 - Type 1 diabetes mellitus with ketoacidosis without coma Resolution Date/Time: 01/07/21 @ 13:25 (2) HAY (acute kidney injury) Status: Resolved Resolution Date/Time: 01/05/21 @ 13:54 (3) Nausea and vomiting Status: Resolved Resolution Date/Time: 01/24/21 @ 12:49 (4) Leukocytosis Status: Resolved Resolution Date/Time: 01/06/21 @ 13:54 (5) Hyponatremia Status: Resolved Resolution Date/Time: 01/07/21 @ 13:25 (6) DVT prophylaxis Status: Acute ANDREW HUFF DO August 24, 2021 06:59
[2021-08-24] MEDS: D5 1/2 NS 1000 ML IV SOLUTION 1,000 ML IV SCH (08:49)
[2021-08-24] MEDS ORDERED: PANTOPRAZOLE 40 MG (PROTONIX) TAB PO SCH (09:00)
[2021-08-24] MEDS: SENNOSIDES 8.6 MG (SENOKOT) TAB PO SCH (09:14)
[2021-08-24] MEDS: DOCUSATE SODIUM 100 MG (COLACE) CAP PO SCH (09:14)
[2021-08-24] MEDS ORDERED: KCL 20 MEQ TAB (K-DUR) PO ONE ×2 (09:15→12:00)
[2021-08-24 12:50] LABS: POTASSIUM 3.2 MMOL/L (3.6-5.0)
--- NOTE | 2021-08-24 12:54 | Discharge Summary ---
Discharge Summary Hospital Course Was the Problem List Reviewed?: Yes Problems/Dx: (1) Diabetic ketoacidosis Status: Resolved Qualifiers: Qualified Codes: E10.10 - Type 1 diabetes mellitus with ketoacidosis without coma (2) HAY (acute kidney injury) Status: Resolved (3) Nausea and vomiting Status: Resolved (4) Leukocytosis Status: Resolved (5) Hyponatremia Status: Resolved (6) DVT prophylaxis Status: Acute Hospital Course Date of Admission: August 22, 2021 at 15:36 Admission Diagnosis : Family Physician/Provider: [facility] Date of Discharge: 08/24/21 Discharge Diagnosis: DKA Hospital Course: Brief course after admitted for DKA. Protocol maintained. Patient left AMA after he was found to be back in DKA and refused to be moved to ICU. Labs and Pending Lab Test: Laboratory Tests 08/23/21 16:24: Glucometer 125H 08/23/21 20:37: Glucometer 84 08/24/21 00:03: Glucometer 120H 08/24/21 05:14: White Blood Count 9.8, Red Blood Count 4.21L, Hemoglobin 12.5L, Hematocrit 35L, Mean Corpuscular Volume 84, Mean Corpuscular Hemoglobin 30, Mean Corpuscular Hemoglobin Concent 35, Red Cell Distribution Width 11.9, Platelet Count 161, Mean Platelet Volume 11.7, Immature Granulocyte % (Auto) 1, Neutrophils (%) (Auto) 69, Lymphocytes (%) (Auto) 21, Monocytes (%) (Auto) 8, Eosinophils (%) (Auto) 0, Basophils (%) (Auto) 0, Neutrophils # (Auto) 6.7, Lymphocytes # (Auto) 2.1, Monocytes # (Auto) 0.8, Eosinophils # (Auto) 0.0, Basophils # (Auto) 0.0, Immature Granulocyte # (Auto) 0.1, Sodium Level 137, Potassium Level 3.2L, Chloride Level 101, Carbon Dioxide Level 24, Anion Gap 12, Blood Urea Nitrogen 5L, Creatinine 0.74, Estimat Glomerular Filtration Rate 133, BUN/Creatinine Ratio 7, Glucose Level 168H, Calcium Level 9.0, Corrected Calcium 9.6, Phosphorus Level 2.5, Magnesium Level 1.8, Total Bilirubin 0.5, Aspartate Amino Transf (AST/SGOT) 35H, Alanine Aminotransferase (ALT/SGPT) 22, Alkaline Phosphatase 81, Total Protein 5.6L, Albumin 3.3 08/24/21 05:42: Glucometer 189H 08/24/21 11:22: Glucometer 402*H 08/24/21 11:24: Glucometer 399H 08/24/21 12:35: Sodium Level 132L, Potassium Level 3.2L, Chloride Level 93L, Carbon Dioxide Level 23, Anion Gap 16H, Blood Urea Nitrogen [Pending], Creatinine [Pending], BUN/Creatinine Ratio [Pending], Glucose Level 385H, Calcium Level 9.0, Beta- Hydroxybutyrate (Chem panel) [Pending] Home Meds Active Reported Tylenol (Acetaminophen) 325 Mg Tablet 650 Mg PO Q6H PRN Novolog Flexpen (Insulin Aspart) 300 Units/3 Ml Solution 10-20 Unit SC AC Lantus Solostar (Insulin Glargine,Hum.rec.anlog) 100 Unit/1 Ml Insuln.pen 50 Units SC HS Assessment/Pt Instructions PCP 1 week Discharge Planning: <30 minutes discharge planning Discharge Instructions Discharge Diet: ADA Diet Discharge Physical Examination Vital Signs Vital Signs Date Time Temp Pulse Resp B/P (MAP) Pulse Ox O2 Delivery O2 Flow Rate FiO2 08/24/21 11:35 37.4 89 16 134/87 98 Room Air 08/23/21 08:01 0.00 General Appearance: No Apparent Distress, WD/WN, Chronically ill Allergies: Coded Allergies: No Known Drug Allergies (Unverified , 02/10/14) Discharge Summary Date of Admission August 22, 2021 at 15:36 Date of Discharge Discharge Date: August 24, 2021 Admission Diagnosis Assessment: DKA Leukocytosis without septic source Acute kidney injury Plan: Insulin protocol Transfer to fourth floor Supportive care Discharge Diagnosis (1) Diabetic ketoacidosis Status: Resolved Qualifiers: Qualified Codes: E10.10 - Type 1 diabetes mellitus with ketoacidosis without coma (2) HAY (acute kidney injury) Status: Resolved (3) Nausea and vomiting Status: Resolved (4) Leukocytosis Status: Resolved (5) Hyponatremia Status: Resolved (6) DVT prophylaxis Status: Acute ANDREW HUFF DO August 24, 2021 12:54
[2021-08-24 12:55] LABS: CREATININE SERUM 0.85 MG/DL (0.60-1.30)
[2021-08-24] MEDS ORDERED: NS IV 1000 ML 1,000 ML IV SCH (13:30)
[2021-08-24] MEDS ORDERED: 1/2 NS IV SOLUTION 1,000 ML IV SCH (13:30)
[2021-08-24] MEDS ORDERED: D5 1/2 NS 1000 ML IV SOLUTION 1,000 ML IV SCH (13:30)
== END 2021-08-24 13:50 | disposition left against medical advice (07) | DRG 638 ==
LOC: EDUNIT# 13:10 → ER 13:12 → ICU 15:36 → 4TH 08-23 14:38
PROVIDERS: ADMIT Internal Medicine; ATTEND Internal Medicine
DX: E10.10 Type 1 diabetes mellitus with ketoacidosis without coma (principal); N17.9 Acute kidney failure, unspecified; E87.1 Hypo-osmolality and hyponatremia; R11.2 Nausea with vomiting, unspecified; D72.829 Elevated white blood cell count, unspecified; F17.210 Nicotine dependence, cigarettes, uncomplicated; Z79.4 Long term (current) use of insulin; Z20.822 Contact with and (suspected) exposure to COVID-19
CPT/HCPCS: 36415; 71045; 80048; 80053; 81000; 82010; 82805; 82947; 83036; 83690; 83735; 84100; 84145; 85007; 85025; 85027; 87636; 99291

== ENCOUNTER 2021-11-21 20:49 | Emergency (ER) | payer MEDICAID ==
[~2021-11-21] VITALS: Ht 173 cm; Wt 56.7 kg
[2021-11-21 20:56] VITALS: BP 106/83
[2021-11-21] MEDS ORDERED: INSU100I76 (21:04)
[2021-11-21] MEDS ORDERED: GABA100C PO (21:42)
--- NOTE | 2021-11-21 21:43 | ED Lower Extremity ---
General Chief Complaint: Lower Extremity Stated Complaint: FEET/LEG PAIN, DIABETIC Nursing Triage Note: c/o worsening bilateral leg/feet pain x 1.5 months. denies injury. also c/o difficulty starting urinary stream this week. Source: patient Exam Limitations: no limitations History of Present Illness Date Seen by Provider: Nov 21, 2021 Time Seen by Provider: 21:39 Initial Comments To ER with reports of bilateral lower extremity pain that is symmetric. This is a deep aching burning pain. He is a poorly controlled diabetic and has had multiple admissions for DKA. He has had symptoms for 1.5 months. Has had some troubles initiating urine stream as well. Denies any burning denies any nu mbness of his genitals. Onset: just prior to arrival Severity: moderate Pain/Injury Location: bilateral foot, bilateral ankle, bilateral heel Method of Injury: unknown Allergies and Home Medications Allergies Coded Allergies: No Known Drug Allergies (Unverified , 02/10/14) Patient Home Medication List Home Medication List Reviewed: Yes Acetaminophen (Tylenol) 325 Mg Tablet, 650 MG PO Q6H PRN for PAIN-MILD (1-4), (Reported) Entered as Reported by: SANTI MATSON on 01/06/21 1006 Gabapentin (Neurontin) 100 Mg Capsule, 200 MG PO BID Prescribed by: MILTON BOOTHE on 11/21/212141 Insulin Aspart (Novolog Flexpen) 300 Units/3 Ml Solution, 10-20 UNIT SC AC, (Reported) Entered as Reported by: SANTI MATSON on 01/06/21 1006 Insulin Glargine,Hum.rec.anlog (Lantus Solostar) 100 Unit/1 Ml Insuln.pen, 50 UNITS SC HS, (Reported) Entered as Reported by: DEJUAN ABURTO on 09/12/18 1228 Insulin Glargine-Yfgn (Insulin Glargine-Yfgn) 100 Unit/Ml (3 Ml) Insuln.pen, (Reported) Entered as Reported by: RAJIV OVIEDO on 11/21/212103 Last Action: New Order Review of Systems Constitutional: see HPI EENTM: see HPI Respiratory: no symptoms reported Cardiovascular: no symptoms reported Genitourinary: no symptoms reported Musculoskeletal: see HPI Skin: no symptoms reported Psychiatric/Neurological: No Symptoms Reported Past Uynktvg-Efuomb-Lmdggk Hx Patient Social History Tobacco Use?: Yes Substance use?: No Alcohol Use?: No Pt feels they are or have been: No Immunizations Up To Date Tetanus Booster (TDap): Less than 5yrs PED Vaccines UTD: Yes First/Initial COVID19 Vaccinat: na Seasonal Allergies Seasonal Allergies: No Past Medical History Surgery/Hospitalization HX: iddm, Surgeries: No Respiratory: No Cardiac: No Neurological: No Genitourinary: No Gastrointestinal: No Musculoskeletal: No Endocrine: Yes (POORLY CONTROLLED TYPE 1 DIABETES) Diabetes, Insulin dep HEENT: No Cancer: No Psychosocial: No Integumentary: No Blood Disorders: No Family Medical History No Pertinent Family Hx Physical Exam Vital Signs Vital Signs - First Documented 11/21/21 20:56 Temp 36.8 Pulse 116 Resp 12 B/P (MAP) 106/83 (91) Pulse Ox 96 O2 Delivery Room Air Capillary Refill : Less Than 3 Seconds Height, Weight, BMI Height: 5'8.00" Weight: 124lbs. 4.8oz. 56.047580wq; 18.00 BMI Method:Stated General Appearance: WD/WN, no apparent distress HEENT: PERRL/EOMI, normal ENT inspection Neck: non-tender, full range of motion Respiratory: no respiratory distress, no accessory muscle use Hips: bilateral hip non-tender, bilateral hip normal inspection, bilateral hip normal range of motion Legs: bilateral leg non-tender, bilateral leg normal inspection, bilateral leg normal range of motion Knees: bilateral knee non-tender, bilateral knee normal inspection, bilateral knee normal range of motion Ankles: bilateral ankle non-tender, bilateral ankle normal inspection, bilateral ankle normal range of motion Feet: bilateral foot non-tender, bilateral foot normal inspection, bilateral foot normal range of motion Neurologic/Psychiatric: alert, normal mood/affect, oriented x 3 Skin: normal color, warm/dry Bilateral lower extremities are pink warm and well-perfused. Progress/Results/Core Measures Results/Orders My Orders Orders - MILTON BOOTHE APRN Ua Culture If Indicated (11/21/21 21:11) Drug Screen Stat (Urine) (11/21/21 21:22) Gabapentin Capsule/Tablet (Neurontin Cap (11/21/21 21:45) Vital Signs/I&O 11/21/21 20:56 Temp 36.8 Pulse 116 Resp 12 B/P (MAP) 106/83 (91) Pulse Ox 96 O2 Delivery Room Air Blood Pressure Mean: 91 Departure Impression Primary Impression: Peripheral neuropathy Disposition: 01 HOME, SELF-CARE Condition: Stable Departure-Patient Inst. Decision time for Depature: 21:41 Referrals: [facility] (PCP/Family) Primary Care Physician Patient Instructions: Peripheral Neuropathy Add. Discharge Instructions: 1. Medication as directed. Return to ER for any concerns. Follow-up with your doctor next week. All discharge instructions reviewed with patient and/or family. Voiced understanding. Scripts Gabapentin (Neurontin) 100 Mg Capsule 200 MG PO BID, #30 CAP Prov: MILTON BOOTHE APRN 11/21/21 MILTON BOOTHE APRN Nov 21, 2021 21:42
[2021-11-21] MEDS ORDERED: GABAPENTIN 100 MG (NEURONTIN) CAP PO ONE (21:45)
== END 2021-11-21 21:55 | disposition home or self-care (01) ==
LOC: EDUNIT# 20:49 → ER 20:51
DX: E10.42 Type 1 diabetes mellitus with diabetic polyneuropathy (principal); E10.65 Type 1 diabetes mellitus with hyperglycemia; Z72.0 Tobacco use; Z28.310 Unvaccinated for COVID-19; Z79.4 Long term (current) use of insulin
CPT/HCPCS: 99283

== ENCOUNTER 2021-11-23 16:20 | Emergency (ER) | payer MEDICAID ==
[~2021-11-23] VITALS: Ht 172.7 cm; Wt 56.6 kg
[~2021-11-23 16:20] MED LIST changes: +GABA100C PO; +INSU100I76
[2021-11-23] MEDS ORDERED: fentaNYL INJ 100 MCG/2 ML AMP IVP ONE (17:15)
[2021-11-23] MEDS ORDERED: ONDANSETRON 4 MG/2 ML (SDV) Z0FRAN IVP ONE (17:15)
--- NOTE | 2021-11-23 17:17 | ED Lower Extremity ---
General Chief Complaint: Lower Extremity Stated Complaint: BILAT FEET PAIN Nursing Triage Note: PT ARRIVED WITH MOTHER VIA WHEELCHAIR WITH COMPLAINTS OF FEET AND LEG PAIN. PT STATES HE IS A TYPE 1 DIABETIC. Source: patient, old records Exam Limitations: no limitations History of Present Illness Date Seen by Provider: Nov 23, 2021 Time Seen by Provider: 17:04 Initial Comments This is a 21-year-old male with a history of poorly controlled type 1 diabetes who presented to the ER with complaints of bilateral feet pain x1 month. States that over the past month he has been having increasing pain in both of his feet, describes as tingling, "hammering" pain. he was diagnosed approxi-5 years ago with type 1 diabetes, states that he had decent control for the first 2 years and then he "let himself go and has had poorly controlled diabetes with significant weight loss. 5 months ago he changed to Dexcom for diabetes monitoring and he is working toward improving his overall health and managing his diabetes. He has follow-up with [facility] on December 03 for his feet pain. However he states the pain is so significant he is unable to walk around at home and is requiring assistance from his mother and spouse due to severity of symptoms. He was evaluated and treated here for peripheral neuropathy about 2 days ago. He was started on gabapentin at that time. States he has been taking 200 mg of gabapentin twice a day and has not seen any improvement of his symptoms. Over the past 3 days he has had poor oral intake and generalized not feeling well. States his blood sugar is currently reading high. Mother is concerned he may be going into DKA. States that he took his long-acting insulin around noon and has taken his short acting insulin twice thus far with the last dose approximately 5 hours ago. States he is only been able to eat small amounts of food due to nausea. He denies any fever, chills, cough, shortness of breath, emesis, abdominal pain, dysuria or hematuria. No falls or injury to his lower extremity. Allergies and Home Medications Allergies Coded Allergies: No Known Drug Allergies (Unverified , 02/10/14) Patient Home Medication List Home Medication List Reviewed: Yes Acetaminophen (Tylenol) 325 Mg Tablet, 650 MG PO Q6H PRN for PAIN-MILD (1-4), (Reported) Entered as Reported by: SANTI MATSON on 01/06/21 1006 Gabapentin (Neurontin) 100 Mg Capsule, 200 MG PO BID Prescribed by: MILTON BOOTHE on 11/21/212141 Insulin Aspart (Novolog Flexpen) 300 Units/3 Ml Solution, 10-20 UNIT SC AC, (Reported) Entered as Reported by: SANTI MATSON on 01/06/21 1006 Insulin Glargine,Hum.rec.anlog (Lantus Solostar) 100 Unit/1 Ml Insuln.pen, 50 UNITS SC HS, (Reported) Entered as Reported by: DEJUAN ABURTO on 09/12/18 1228 Insulin Glargine-Yfgn (Insulin Glargine-Yfgn) 100 Unit/Ml (3 Ml) Insuln.pen, (Reported) Entered as Reported by: RAJIV OVIEDO on 11/21/212103 Review of Systems Constitutional: see HPI EENTM: no symptoms reported Respiratory: no symptoms reported Cardiovascular: no symptoms reported Gastrointestinal: see HPI Genitourinary: no symptoms reported Musculoskeletal: see HPI Skin: see HPI Psychiatric/Neurological: See HPI Past Fciwqwd-Yxgtzp-Zbzwon Hx Patient Social History Tobacco Use?: Yes E-Cig or Vaping type used: Nicotine Substance use?: Yes Substance type: Marijuana Alcohol Use?: No Immunizations Up To Date Tetanus Booster (TDap): Less than 5yrs PED Vaccines UTD: Yes Influenza Vaccine Up-to-Date: Yes; Up-to-Date First/Initial COVID19 Vaccinat: na Second COVID19 Vaccination [place]: na Third COVID19 Vaccination Date: na Seasonal Allergies Seasonal Allergies: No Past Medical History Surgery/Hospitalization HX: iddm, Surgeries: No Respiratory: No Cardiac: No Neurological: No Genitourinary: No Gastrointestinal: No Musculoskeletal: No Endocrine: Yes (POORLY CONTROLLED TYPE 1 DIABETES) Diabetes, Insulin dep HEENT: No Cancer: No Psychosocial: No Integumentary: No Blood Disorders: No Family Medical History No Pertinent Family Hx Physical Exam Vital Signs Vital Signs - First Documented 11/23/21 16:32 Temp 37.1 Pulse 89 Resp 16 B/P (MAP) 121/86 (98) Pulse Ox 97 O2 Delivery Room Air Capillary Refill : Less Than 3 Seconds Height, Weight, BMI Height: 5'8.00" Weight: 124lbs. 4.8oz. 56.057372ps; 18.00 BMI Method:Stated General Appearance: WD/WN, thin HEENT: normal ENT inspection, pharynx normal Neck: full range of motion, normal inspection Cardiovascular: regular rate, rhythm, no murmur Respiratory: lungs clear, normal breath sounds, no respiratory distress, no accessory muscle use Gastrointestinal: normal bowel sounds, non tender, soft (flat) Back: normal inspection, no vertebral tenderness Hips: bilateral hip non-tender, bilateral hip normal inspection, bilateral hip normal range of motion Legs: bilateral leg non-tender, bilateral leg normal inspection, bilateral leg normal range of motion Knees: bilateral knee non-tender, bilateral knee normal inspection, bilateral knee normal range of motion Ankles: bilateral ankle non-tender, bilateral ankle normal inspection, bilateral ankle normal range of motion Feet: bilateral foot pain, bilateral foot other (decreased sensation ) Neurologic/Psychiatric: no motor/sensory deficits, alert, normal mood/affect, oriented x 3 Skin: normal color, warm/dry Progress/Results/Core Measures Results/Orders Lab Results Laboratory Tests Test 11/23/21 17:20 11/23/21 17:30 Range/Units White Blood Count 5.8 4.3-11.0 10^3/uL Red Blood Count 5.14 4.30-5.52 10^6/uL Hemoglobin 14.9 13.3-17.7 g/dL Hematocrit 42 40-54 % Mean Corpuscular Volume 83 80-99 fL Mean Corpuscular Hemoglobin 29 25-34 pg Mean Corpuscular Hemoglobin Concent 35 32-36 g/dL Red Cell Distribution Width 11.9 10.0-14.5 % Platelet Count 206 130-400 10^3/uL Mean Platelet Volume 11.1 9.0-12.2 fL Immature Granulocyte % (Auto) 0 % Neutrophils (%) (Auto) 46 42-75 % Lymphocytes (%) (Auto) 42 12-44 % Monocytes (%) (Auto) 9 0-12 % Eosinophils (%) (Auto) 1 0-10 % Basophils (%) (Auto) 1 0-10 % Neutrophils # (Auto) 2.7 1.8-7.8 10^3/uL Lymphocytes # (Auto) 2.5 1.0-4.0 10^3/uL Monocytes # (Auto) 0.5 0.0-1.0 10^3/uL Eosinophils # (Auto) 0.1 0.0-0.3 10^3/uL Basophils # (Auto) 0.1 0.0-0.1 10^3/uL Immature Granulocyte # (Auto) 0.0 0.0-0.1 10^3/uL Sodium Level 135 135-145 MMOL/L Potassium Level 4.2 3.6-5.0 MMOL/L Chloride Level 96 L 98-107 MMOL/L Carbon Dioxide Level 29 21-32 MMOL/L Anion Gap 10 5-14 MMOL/L Blood Urea Nitrogen 9 7-18 MG/DL Creatinine 0.77 0.60-1.30 MG/DL Estimat Glomerular Filtration Rate 131 BUN/Creatinine Ratio 12 Glucose Level 289 H 70-105 MG/DL Calcium Level 9.3 8.5-10.1 MG/DL Corrected Calcium 9.3 8.5-10.1 MG/DL Total Bilirubin 0.6 0.1-1.0 MG/DL Aspartate Amino Transf (AST/SGOT) 10 5-34 U/L Alanine Aminotransferase (ALT/SGPT) 8 0-55 U/L Alkaline Phosphatase 57 40-136 U/L Total Protein 6.4 6.4-8.2 GM/DL Albumin 4.0 3.2-4.5 GM/DL Urine Color YELLOW Urine Clarity CLEAR Urine pH 6.0 5-9 Urine Specific [place] 1.020 1.016-1.022 Urine Protein NEGATIVE NEGATIVE Urine Glucose (UA) 3+ H NEGATIVE Urine Ketones NEGATIVE NEGATIVE Urine Nitrite NEGATIVE NEGATIVE Urine Bilirubin NEGATIVE NEGATIVE Urine Urobilinogen 2.0 < = 1.0 MG/DL Urine Leukocyte Esterase NEGATIVE NEGATIVE Urine RBC (Auto) NEGATIVE NEGATIVE Urine RBC NONE /HPF Urine WBC 0-2 /HPF Urine Squamous Epithelial Cells 0-2 /HPF Urine Renal Epithelial Cells NONE /HPF Urine Crystals NONE /LPF Urine Bacteria NEGATIVE /HPF Urine Casts NONE /LPF Urine Mucus LARGE H /LPF Urine Culture Indicated NO My Orders Orders - CHERELLE MEDRANO FOSTER CARE THERAPIST Cbc With Automated Diff (11/23/21 17:09) Comprehensive Metabolic Panel (11/23/21 17:09) Ua Culture If Indicated (11/23/21 17:09) Ed Iv/Invasive Line Start (11/23/21 17:09) Accucheck Stat ONCE (11/23/21 17:09) Ondansetron Injection (Zofran Injectio (11/23/21 17:15) Fentanyl Inj (Sublimaze Injection) (11/23/21 17:15) Medications Given in ED Current Medications Medications Dose Ordered Sig/Francisco Javier Route Start Time Stop Time Status Last Admin Dose Admin Fentanyl Citrate 25 mcg ONCE ONCE IVP 11/23/21 17:15 11/23/21 17:16 DC 11/23/21 17:36 25 MCG Ondansetron HCl 4 mg ONCE ONCE IVP 11/23/21 17:15 11/23/21 17:16 DC 11/23/21 17:35 4 MG Vital Signs/I&O 11/23/21 16:32 Temp 37.1 Pulse 89 Resp 16 B/P (MAP) 121/86 (98) Pulse Ox 97 O2 Delivery Room Air Blood Pressure Mean: 98 Progress Progress Note : Progress Note Patient examined and in no acute distress. We will go ahead and check blood gl ucose, CBC, CMP. Orders given for Zofran 4 mg IV push and fentanyl 25 mcg IV push for pain and nausea, will reevaluate. Departure Impression Primary Impression: Hyperglycemia due to type 1 diabetes mellitus Additional Impression: Peripheral neuropathy Disposition: 01 HOME, SELF-CARE Condition: Improved Departure-Patient Inst. Decision time for Depature: 18:15 Referrals: [facility] [place] (PCP/Family) Primary Care Physician Patient Instructions: Peripheral Neuropathy (DC) Add. Discharge Instructions: Plan: 1. Follow up with your primary care provider as previously scheduled. 2. Continue taking your Gabapentin as directed as this will help with your nerve pain. 3. May take Gosai-tab as needed every 6 hours for severe or breakthrough pain. 4. Return for any new, concerning, or worsening symptoms. All discharge instructions reviewed with patient and/or family. Voiced understanding. Scripts Hydrocodone/Acetaminophen (Hydrocodone-Acetamin 5-325 mg) 5 Mg-325 Mg Tablet 1 TAB PO Q6H PRN for PAIN-MODERATE (5-7), #14 TAB 0 Refills Prov: CHERELLE MEDRANO FOSTER CARE THERAPIST 11/23/21 CHERELLE MEDRANO FOSTER CARE THERAPIST Nov 23, 2021 17:17
[2021-11-23 17:27] LABS: BASOPHILS # (AUTO) 0.1 10^3/uL (0.0-0.1); BASOPHILS % (AUTO) 1 % (0-10); EOSINOPHILS # (AUTO) 0.1 10^3/uL (0.0-0.3); EOSINOPHILS % (AUTO) 1 % (0-10); HEMATOCRIT 42 % (40-54); HEMOGLOBIN 14.9 g/dL (13.3-17.7); LYMPHOCYTES # (AUTO) 2.5 10^3/uL (1.0-4.0); LYMPHOCYTES % (AUTO) 42 % (12-44); MEAN CORPUSCULAR HEMOGLOBIN 29 pg (25-34); MEAN CORPUSCULAR HGB CONC 35 g/dL (32-36); MEAN CORPUSCULAR VOLUME 83 fL (80-99); MEAN PLATELET VOLUME 11.1 fL (9.0-12.2); MONOCYTES # (AUTO) 0.5 10^3/uL (0.0-1.0); MONOCYTES % (AUTO) 9 % (0-12); NEUTROPHILS # (AUTO) 2.7 10^3/uL (1.8-7.8); NEUTROPHILS % (AUTO) 46 % (42-75); PLATELET COUNT 206 10^3/uL (130-400); WHITE BLOOD COUNT 5.8 10^3/uL (4.3-11.0)
[2021-11-23 17:36] LABS: POTASSIUM 4.2 MMOL/L (3.6-5.0)
[2021-11-23 17:37] LABS: CALCIUM 9.3 MG/DL (8.5-10.1)
[2021-11-23 17:38] LABS: TOTAL PROTEIN 6.4 GM/DL (6.4-8.2)
[2021-11-23 17:39] LABS: BILIRUBIN,URINE NEGATIVE (NEGATIVE); CLARITY,URINE CLEAR; COLOR,URINE YELLOW; GLUCOSE, URINE (UA) 3+ (NEGATIVE); KETONES,URINE NEGATIVE (NEGATIVE); LEUKOCYTE ESTERASE ,URINE NEGATIVE (NEGATIVE); NITRITE,URINE NEGATIVE (NEGATIVE); PROTEIN,URINE NEGATIVE (NEGATIVE)
[2021-11-23 17:40] LABS: BILIRUBIN,TOTAL 0.6 MG/DL (0.1-1.0)
[2021-11-23 17:42] LABS: CREATININE SERUM 0.77 MG/DL (0.60-1.30)
[2021-11-23 17:46] LABS: BACTERIA,URINE NEGATIVE /HPF; SQUAMOUS EPITHELIAL CELL,UR 0-2 /HPF; WBC,URINE 0-2 /HPF
[2021-11-23] MEDS ORDERED: ACHD5005 PO (18:21)
[2021-11-23 18:43] VITALS: BP 135/92
== END 2021-11-23 18:45 | disposition home or self-care (01) ==
LOC: EDUNIT# 16:20 → ER 16:21
DX: E10.42 Type 1 diabetes mellitus with diabetic polyneuropathy (principal); E11.65 Type 2 diabetes mellitus with hyperglycemia; Z79.4 Long term (current) use of insulin; Z28.310 Unvaccinated for COVID-19
CPT/HCPCS: 36415; 80053; 81000; 85025

== ENCOUNTER 2022-01-05 20:09 | Emergency (ER) | payer MEDICAID ==
[~2022-01-05 20:09] MED LIST changes: +ACHD5005 PO
[2022-01-05] MEDS ORDERED: NS IV 1000 ML 1,000 ML IV ONE (20:15)
[2022-01-05 20:29] LABS: BASOPHILS # (AUTO) 0.1 10^3/uL (0.0-0.1); BASOPHILS % (AUTO) 2 % (0-10); EOSINOPHILS % (AUTO) 1 % (0-10); HEMATOCRIT 46 % (40-54); HEMOGLOBIN 16.2 g/dL (13.3-17.7); LYMPHOCYTES % (AUTO) 22 % (12-44); MEAN CORPUSCULAR HEMOGLOBIN 29 pg (25-34); MEAN CORPUSCULAR HGB CONC 35 g/dL (32-36); MEAN CORPUSCULAR VOLUME 83 fL (80-99); MEAN PLATELET VOLUME 10.5 fL (9.0-12.2); MONOCYTES # (AUTO) 0.6 10^3/uL (0.0-1.0); MONOCYTES % (AUTO) 7 % (0-12); NEUTROPHILS % (AUTO) 68 % (42-75); PLATELET COUNT 263 10^3/uL (130-400); WHITE BLOOD COUNT 8.9 10^3/uL (4.3-11.0)
--- NOTE | 2022-01-05 20:33 | ED General ---
General Stated Complaint: BLOOD SUGAR ISSUES Source of Information: Patient Exam Limitations: No Limitations History of Present Illness Date Seen by Provider: Jan 05, 2022 Time Seen by Provider: 20:14 Initial Comments Here by EMS with report of blood sugar issues and diarrhea. Apparently he is a long-term diabetic type I and has not had his insulin for 3 days because he is moving and could not find it. He did take it this morning. He has not been able to check his blood sugar because his glucometer is missing. Has had history of DKA and is concerned about COVID due to diarrhea and his doctor told him that that may be one of the symptoms. Complains of being cold and having nausea. Blood sugar was 214 by EMS. No ketones noted on glucometer per them. Denies fever, cough, sore throat, runny nose, breathing problems but does feel weak, nauseated and had diarrhea. States he felt like his blood sugar was quite high this morning but does not know what the level was. Timing/Duration: 2-3 Days, Changing Over Time, Getting Worse Severity: Mild, Moderate Associated Systoms: No Chest Pain, No Cough, No Diaphoresis; Nausea/Vomiting; No Shortness of Air; Weakness Allergies and Home Medications Allergies Coded Allergies: No Known Drug Allergies (Unverified , 02/10/14) Patient Home Medication List Home Medication List Reviewed: Yes Acetaminophen (Tylenol) 325 Mg Tablet, 650 MG PO Q6H PRN for PAIN-MILD (1-4), (Reported) Entered as Reported by: SANTI MATSON on 01/06/21 100 Gabapentin (Neurontin) 100 Mg Capsule, 200 MG PO BID Prescribed by: MILTON BOOTHE on 11/21/212141 Hydrocodone/Acetaminophen (Hydrocodone-Acetamin 5-325 mg) 5 Mg-325 Mg Tablet, 1 TAB PO Q6H PRN for PAIN-MODERATE (5-7) Prescribed by: CHERELLE MEDRANO on 11/23/21 182 Insulin Aspart (Novolog Flexpen) 300 Units/3 Ml Solution, 10-20 UNIT SC AC, (Reported) Entered as Reported by: SANTI MATSON on 01/06/21 1006 Insulin Glargine,Hum.rec.anlog (Lantus Solostar) 100 Unit/1 Ml Insuln.pen, 50 UNITS SC HS, (Reported) Entered as Reported by: DEJUAN ABURTO on 09/12/18 1228 Insulin Glargine-Yfgn (Insulin Glargine-Yfgn) 100 Unit/Ml (3 Ml) Insuln.pen, (Reported) Entered as Reported by: RAJIV OVIEDO on 11/21/21 2104 Review of Systems Review of Systems Constitutional: see HPI, chills; No fever; weakness EENTM: No nose congestion, No throat pain Respiratory: No cough, No short of breath Cardiovascular: no symptoms reported Gastrointestinal: diarrhea, nausea; No vomiting Genitourinary: No dysuria, No pain Musculoskeletal: no symptoms reported Skin: no symptoms reported Psychiatric/Neurological: No Symptoms Reported All Other Systems Reviewed Negative Unless Noted: Yes Past Sdnfooo-Svqjdu-Pluzqb Hx Patient Social History Tobacco Use?: No Use of E-Cig and/or Vaping dev: Yes E-Cig or Vaping type used: Nicotine Use of E-Cig and/or Vaping John: Current Everyday User Substance use?: Yes Substance type: Marijuana Substance frequency: Once in a while Alcohol Use?: No Pt feels they are or have been: No Immunizations Up To Date Tetanus Booster (TDap): Less than 5yrs PED Vaccines UTD: Yes First/Initial COVID19 Vaccinat: na Second COVID19 Vaccination [place]: na Third COVID19 Vaccination Date: na Seasonal Allergies Seasonal Allergies: No Past Medical History Surgery/Hospitalization HX: iddm, Surgeries: No Respiratory: No Cardiac: No Neurological: No Genitourinary: No Gastrointestinal: No Musculoskeletal: No Endocrine: Yes (POORLY CONTROLLED TYPE 1 DIABETES) Diabetes, Insulin dep HEENT: No Cancer: No Psychosocial: No Integumentary: No Blood Disorders: No Family Medical History Reviewed Nursing Family Hx No Pertinent Family Hx Physical Exam Vital Signs Vital Signs - First Documented 01/05/22 20:11 Temp 36.5 Pulse 96 Resp 20 B/P (MAP) 148/97 (114) Pulse Ox 100 O2 Delivery Room Air Capillary Refill : Height, Weight, BMI Height: 5'8.00" Weight: 124lbs. 4.8oz. 56.620869hm; 18.00 BMI Method:Stated General Appearance: No Apparent Distress, WD/WN HEENT: PERRL/EOMI, Pharynx Normal Neck: Non Tender, Supple Respiratory: Lungs Clear, Normal Breath Sounds Cardiovascular: Regular Rate, Rhythm, No Murmur Gastrointestinal: Non Tender, Soft Back: Normal Inspection, No CVA Tenderness, No Vertebral Tenderness Extremity: Normal Range of Motion, Non Tender Neurologic/Psychiatric: Alert, Oriented x3 Skin: Normal Color, Warm/Dry Progress/Results/Core Measures Suspected Sepsis SIRS Temperature: Pulse: Respiratory Rate: Laboratory Tests 01/05/22 20:20: White Blood Count 8.9 Blood Pressure / Mean: Laboratory Tests 01/05/22 20:20: Creatinine 0.86, Platelet Count 263, Total Bilirubin 1.3H Results/Orders Lab Results Laboratory Tests Test 01/05/22 20:20 01/05/22 20:30 01/05/22 21:44 Range/Units White Blood Count 8.9 4.3-11.0 10^3/uL Red Blood Count 5.56 H 4.30-5.52 10^6/uL Hemoglobin 16.2 13.3-17.7 g/dL Hematocrit 46 40-54 % Mean Corpuscular Volume 83 80-99 fL Mean Corpuscular Hemoglobin 29 25-34 pg Mean Corpuscular Hemoglobin Concent 35 32-36 g/dL Red Cell Distribution Width 12.4 10.0-14.5 % Platelet Count 263 130-400 10^3/uL Mean Platelet Volume 10.5 9.0-12.2 fL Immature Granulocyte % (Auto) 1 % Neutrophils (%) (Auto) 68 42-75 % Lymphocytes (%) (Auto) 22 12-44 % Monocytes (%) (Auto) 7 0-12 % Eosinophils (%) (Auto) 1 0-10 % Basophils (%) (Auto) 2 0-10 % Neutrophils # (Auto) 6.0 1.8-7.8 10^3/uL Lymphocytes # (Auto) 2.0 1.0-4.0 10^3/uL Monocytes # (Auto) 0.6 0.0-1.0 10^3/uL Eosinophils # (Auto) 0.0 0.0-0.3 10^3/uL Basophils # (Auto) 0.1 0.0-0.1 10^3/uL Immature Granulocyte # (Auto) 0.0 0.0-0.1 10^3/uL Sodium Level 135 135-145 MMOL/L Potassium Level 4.1 3.6-5.0 MMOL/L Chloride Level 96 L 98-107 MMOL/L Carbon Dioxide Level 22 21-32 MMOL/L Anion Gap 17 H 5-14 MMOL/L Blood Urea Nitrogen 16 7-18 MG/DL Creatinine 0.86 0.60-1.30 MG/DL Estimat Glomerular Filtration Rate 127 BUN/Creatinine Ratio 19 Glucose Level 247 H 70-105 MG/DL Calcium Level 9.9 8.5-10.1 MG/DL Corrected Calcium 8.5-10.1 MG/DL Total Bilirubin 1.3 H 0.1-1.0 MG/DL Aspartate Amino Transf (AST/SGOT) 15 5-34 U/L Alanine Aminotransferase (ALT/SGPT) 19 0-55 U/L Alkaline Phosphatase 71 40-136 U/L C-Reactive Protein High Sensitivity 0.01 0.00-0.50 MG/DL Total Protein 7.3 6.4-8.2 GM/DL Albumin 4.6 H 3.2-4.5 GM/DL Influenza Type A (RT-PCR) Not Detected Not Detecte Influenza Type B (RT-PCR) Not Detected Not Detecte SARS-CoV-2 RNA (RT-PCR) Not Detected Not Detecte Urine Color YELLOW Urine Clarity CLEAR Urine pH 5.5 5-9 Urine Specific [place] 1.010 L 1.016-1.022 Urine Protein NEGATIVE NEGATIVE Urine Glucose (UA) 2+ H NEGATIVE Urine Ketones 3+ H NEGATIVE Urine Nitrite NEGATIVE NEGATIVE Urine Bilirubin NEGATIVE NEGATIVE Urine Urobilinogen 0.2 < = 1.0 MG/DL Urine Leukocyte Esterase NEGATIVE NEGATIVE Urine RBC (Auto) TRACE-I H NEGATIVE Urine RBC NONE /HPF Urine WBC 0-2 /HPF Urine Squamous Epithelial Cells RARE /HPF Urine Renal Epithelial Cells NONE /HPF Urine Crystals NONE /LPF Urine Bacteria NEGATIVE /HPF Urine Casts NONE /LPF Urine Mucus NEGATIVE /LPF Urine Culture Indicated NO My Orders Orders - FLEX MORAES MD Cbc With Automated Diff (01/05/22 20:14) Comprehensive Metabolic Panel (01/05/22 20:14) Hs C Reactive Protein (01/05/22 20:14) Ua Culture If Indicated (01/05/22 20:14) Ed Iv/Invasive Line Start (01/05/22 20:14) Ns Iv 1000 Ml (Sodium Chloride 0.9%) (01/05/22 20:15) Influenza A And B By Pcr (01/05/22 20:14) Covid 19 Inhouse Test (01/05/22 20:14) Ns Iv 1000 Ml (Sodium Chloride 0.9%) (01/05/22 21:34) Beta Hydroxybutyrate (01/05/22 22:08) Insulin (Regular) Human (Novolin R (Per (01/05/22 22:08) Arterial Blood Gas (01/05/22 22:10) Medications Given in ED Current Medications Medications Dose Ordered Sig/Francisco Javier Route Start Time Stop Time Status Last Admin Dose Admin Sodium Chloride 1,000 ml @ 0 mls/hr Q0M ONCE IV 01/05/22 20:15 01/05/22 20:17 DC 01/05/22 20:26 0 MLS/HR Vital Signs/I&O 01/05/22 01/05/22 20:11 20:11 Temp 36.5 Pulse 96 Resp 20 B/P (MAP) 148/97 (114) Pulse Ox 100 O2 Delivery Room Air Room Air Capillary Refill : Progress Note : Progress Note Seen and evaluated. IV, labs, UA, normal saline 1 L bolus ordered. Offered Zofran but patient declined for nausea and states that never works. We will see how he does with fluids. There is concerns for DKA. He had no ketones on EMS fingerstick but we will see what that shows and urine. Monitor patient. 2224: UA obtained after second liter of fluid. He does have ketones in his urine. We will recheck his blood sugar now. He had insulin ordered but has not been given yet. We will see what his blood sugars and make decisions from there. Patient does not want ABG and or further blood draws to evaluate for ketones and blood via beta hydroxybutyrate. He just wants to go home. He states he has insulin at home. Discharged home with return precautions. Patient verbalized understanding instructions and agreement with plan. Blood sugar at time of discharge was 142 so we will hold the insulin. Patient informed from Departure Impression Primary Impression: Uncontrolled type 1 diabetes mellitus Qualified Codes: E10.65 - Type 1 diabetes mellitus with hyperglycemia Additional Impression: Dehydration Disposition: 01 HOME, SELF-CARE Condition: Stable Departure-Patient Inst. Decision time for Depature: 22:27 Referrals: [facility] [place]) Primary Care Physician Patient Instructions: Diabetes Type 1, Adult (DC), Dehydration, Adult ED Add. Discharge Instructions: Carefully manage her blood sugars. Check your blood sugar as previously prescribed and continue insulin as previously prescribed. Return for fever, ch ills, nausea, vomiting, weakness, breathing problems, uncontrolled blood sugars or other concerns as needed. Follow-up with your doctor in the next few days for recheck and further evaluation. FLEX MORAES MD Jan 05, 2022 20:32
[2022-01-05 20:46] LABS: ALANINE AMINOTRANSFERASE 19 U/L (0-55); ALBUMIN 4.6 GM/DL (3.2-4.5); ALKALINE PHOSPHATASE 71 U/L (40-136); BILIRUBIN,TOTAL 1.3 MG/DL (0.1-1.0); BUN/CREATININE RATIO 19; CALCIUM 9.9 MG/DL (8.5-10.1); CARBON DIOXIDE 22 MMOL/L (21-32); CHLORIDE 96 MMOL/L (98-107); CREATININE SERUM 0.86 MG/DL (0.60-1.30); GFR ESTIMATED 127; GLUCOSE 247 MG/DL (70-105); POTASSIUM 4.1 MMOL/L (3.6-5.0); SODIUM 135 MMOL/L (135-145); TOTAL PROTEIN 7.3 GM/DL (6.4-8.2)
[2022-01-05] MEDS ORDERED: NS IV 1000 ML 1,000 ML IV STA (21:34)
[2022-01-05 21:49] LABS: BILIRUBIN,URINE NEGATIVE (NEGATIVE); CLARITY,URINE CLEAR; COLOR,URINE YELLOW; GLUCOSE, URINE (UA) 2+ (NEGATIVE); KETONES,URINE 3+ (NEGATIVE); LEUKOCYTE ESTERASE ,URINE NEGATIVE (NEGATIVE); NITRITE,URINE NEGATIVE (NEGATIVE); PH,URINE 5.5 (5-9); PROTEIN,URINE NEGATIVE (NEGATIVE)
[2022-01-05 21:56] LABS: BACTERIA,URINE NEGATIVE /HPF; SQUAMOUS EPITHELIAL CELL,UR RARE /HPF; WBC,URINE 0-2 /HPF
[2022-01-05] MEDS ORDERED: inSUlin (REGULAR) HUMAN 1 UNIT/0.01 ML (CHARGE PER UNIT) IV STA (22:08)
[2022-01-05] MEDS ORDERED: BLOO-1482 MC (22:32)
[2022-01-05 22:35] VITALS: BP 138/88
== END 2022-01-05 22:35 | disposition home or self-care (01) ==
LOC: EDUNIT# 20:09 → ER 20:10
DX: E10.65 Type 1 diabetes mellitus with hyperglycemia (principal); E86.0 Dehydration; R11.0 Nausea; F17.290 Nicotine dependence, other tobacco product, uncomplicated; Z20.822 Contact with and (suspected) exposure to COVID-19; Z28.310 Unvaccinated for COVID-19
CPT/HCPCS: 36415; 80053; 81000; 82010; 82947; 85025; 86141; 87636

== ENCOUNTER 2022-04-01 19:22 | Inpatient (IN) | payer MEDICAID ==
[~2022-04-01] VITALS: Ht 172.7 cm; Wt 47.0 kg
[~2022-04-01 19:22] MED LIST changes: +BLOO-1482 MC
[2022-04-01] MEDS ORDERED: NS IV 1000 ML 1,000 ML IV SCH ×2 (19:30→22:45)
[2022-04-01] MEDS ORDERED: ONDANSETRON 4 MG/2 ML (SDV) Z0FRAN IVP ONE (19:30)
--- NOTE | 2022-04-01 19:35 | ED General ---
General Chief Complaint: Glucose Problems Stated Complaint: HYPERGLYCEMIA Nursing Triage Note: PT TO ED BY EMS WITH C/O HYPERGLYCEMIA, N/V. PT REPORTS HE RAN OUT OF LEVIMIR TWO DAYS AGO, N/V BEGAN TODAY. BG 318 WITH KETONES PER EMS. PT HAS NOT HAD ANYTHING TO EAT TODAY. DENIES FEVER. Source of Information: Patient, EMS, Old Records History of Present Illness Date Seen by Provider: Apr 01, 2022 Time Seen by Provider: 19:24 Initial Comments PT ARRIVES VIA EMS FROM HOME PT IS TYPE 1 DIABETIC, STATES HE RAN OUT OF LEVEMIR 2 DAYS AGO, AND HAS NOT ATTEMPTED TO GET MORE. HAS NOT CHECKED HIS BLOOD SUGAR RECENTLY ACCUCHECK 318 WITH KETONES BY EMS ACCUCHECK 321 ON ARRIVAL TO ER STATES HE HAS HAD NAUSEA AND VOMITING ALL DAY TODAY. HAD 1 LOOSE STOOL THIS AM, STOOL IS NOW SOLID AND NORMAL URINATING NORMALLY NO FEVER NO COUGH OR URI SYMPTOMS NO ABDOMINAL PAIN PT WITH LONG HISTORY OF NON-COMPLIANCE AND A MULTITUDE OF VISITS TO ER, AND ADMITS--ESSENTIALLY ALL FOR DKA/DIABETIC COMPLAINTS. 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 PCP: WERNER MIMS--WAS AT [facility], NOW AT [facility] Allergies and Home Medications Allergies Coded Allergies: No Known Drug Allergies (Unverified , 02/10/14) Patient Home Medication List Home Medication List Reviewed: Yes Acetaminophen (Tylenol) 325 Mg Tablet, 650 MG PO Q6H PRN for PAIN-MILD (1-4), (Reported) Entered as Reported by: SANTI MATSON on 01/06/21 1006 Blood Sugar Diagnostic (Test Strips) 1 Each Strip, 1 EACH MC TID Prescribed by: FLEX MORAES on 01/05/222231 Gabapentin (Neurontin) 100 Mg Capsule, 200 MG PO BID Prescribed by: MILTON BOOTHE on 11/21/212141 Hydrocodone/Acetaminophen (Hydrocodone-Acetamin 5-325 mg) 5 Mg-325 Mg Tablet, 1 TAB PO Q6H PRN for PAIN-MODERATE (5-7) Prescribed by: CHERELLE MEDRANO on 11/23/21 1821 Insulin Aspart (Novolog Flexpen) 300 Units/3 Ml Solution, 10-20 UNIT SC AC, (Reported) Entered as Reported by: SANTI MATSON on 01/06/21 1006 Insulin Glargine,Hum.rec.anlog (Lantus Solostar) 100 Unit/1 Ml Insuln.pen, 50 UNITS SC HS, (Reported) Entered as Reported by: DEJUAN ABURTO on 09/12/18 1228 Insulin Glargine-Yfgn (Insulin Glargine-Yfgn) 100 Unit/Ml (3 Ml) Insuln.pen, (Reported) Entered as Reported by: RAJIV OVIEDO on 11/21/212103 Review of Systems Review of Systems Constitutional: no symptoms reported EENTM: no symptoms reported Respiratory: no symptoms reported Cardiovascular: no symptoms reported Gastrointestinal: see HPI; No abdominal pain; diarrhea, loss of appetite, nausea, vomiting Genitourinary: no symptoms reported Musculoskeletal: no symptoms reported Skin: no symptoms reported Psychiatric/Neurological: No Symptoms Reported Hematologic/Lymphatic: No Symptoms Reported Immunological/Allergic: no symptoms reported Past Tevdngn-Oamjrc-Mgykuf Hx Patient Social History Tobacco Use?: Yes Tobacco type used: Cigarettes Smoking Status: Current Everyday Smoker Use of E-Cig and/or Vaping dev: Yes E-Cig or Vaping type used: Nicotine Use of E-Cig and/or Vaping John: Current Everyday User Substance use?: Yes Substance type: Methamphetamine, Marijuana Substance frequency: Couple times a week Alcohol Use?: No Pt feels they are or have been: No Immunizations Up To Date Tetanus Booster (TDap): Less than 5yrs PED Vaccines UTD: Yes Influenza Vaccine Up-to-Date: Yes; Up-to-Date First/Initial COVID19 Vaccinat: na Second COVID19 Vaccination [place]: na Third COVID19 Vaccination Date: na Seasonal Allergies Seasonal Allergies: No Past Medical History Surgery/Hospitalization HX: TYPE 1 DIABETES Surgeries: No Respiratory: No Cardiac: No Neurological: No Genitourinary: No Gastrointestinal: No Musculoskeletal: No Endocrine: Yes (POORLY CONTROLLED TYPE 1 DIABETES;NON-COMPLIANT; DKA MULT TIMES) Diabetes, Insulin dep HEENT: No Cancer: No Psychosocial: No Integumentary: No Blood Disorders: No Family Medical History No Pertinent Family Hx SOCIAL HISTORY: -SMOKES 1 PPD AND VAPES NICOTINE -ETOH--"OCCASIONAL" USE -DRUGS--ADMITS TO THC USE ON REGULAR BASIS, UDS + FOR METH ON 04/01/22--PT DENIES USE--"MAYBE THEY PUT IT IN MY MARIJUANA" Physical Exam Vital Signs Vital Signs - First Documented 04/01/22 19:25 Temp 36.3 Pulse 103 Resp 18 B/P (MAP) 138/91 (107) Pulse Ox 99 O2 Delivery Room Air Capillary Refill : Less Than 3 Seconds Height, Weight, BMI Height: 5'8.00" Weight: 124lbs. 4.8oz. 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 Norm as Tested Skin: Warm/Dry, Pallor Focused Exam Lactate Level 04/01/22 19:32: Lactic Acid Level 2.33*H Lactic Acid Level Laboratory Tests Test 04/01/22 19:32 Lactic Acid Level 2.33 MMOL/L (0.50-2.00) *H Progress/Results/Core Measures Suspected Sepsis SIRS Temperature: Pulse: 103 Respiratory Rate: 18 Laboratory Tests 04/01/22 19:32: White Blood Count 11.5H Blood Pressure 138 /91 Mean: 107 04/01/22 19:32: Lactic Acid Level 2.33*H Laboratory Tests 04/01/22 19:32: Creatinine 0.90, Platelet Count 299, Total Bilirubin 0.8 Results/Orders Lab Results Laboratory Tests Test 04/01/22 19:32 04/01/22 19:55 04/01/22 20:28 Range/Units White Blood Count 11.5 H 4.3-11.0 10^3/uL Red Blood Count 5.20 4.30-5.52 10^6/uL Hemoglobin 15.1 13.3-17.7 g/dL Hematocrit 45 40-54 % Mean Corpuscular Volume 86 80-99 fL Mean Corpuscular Hemoglobin 29 25-34 pg Mean Corpuscular Hemoglobin Concent 34 32-36 g/dL Red Cell Distribution Width 12.4 10.0-14.5 % Platelet Count 299 130-400 10^3/uL Mean Platelet Volume 11.3 9.0-12.2 fL Immature Granulocyte % (Auto) 1 % Neutrophils (%) (Auto) 85 H 42-75 % Lymphocytes (%) (Auto) 10 L 12-44 % Monocytes (%) (Auto) 4 0-12 % Eosinophils (%) (Auto) 0 0-10 % Basophils (%) (Auto) 1 0-10 % Neutrophils # (Auto) 9.8 H 1.8-7.8 10^3/uL Lymphocytes # (Auto) 1.2 1.0-4.0 10^3/uL Monocytes # (Auto) 0.4 0.0-1.0 10^3/uL Eosinophils # (Auto) 0.0 0.0-0.3 10^3/uL Basophils # (Auto) 0.1 0.0-0.1 10^3/uL Immature Granulocyte # (Auto) 0.1 0.0-0.1 10^3/uL Sodium Level 136 135-145 MMOL/L Potassium Level 4.4 3.6-5.0 MMOL/L Chloride Level 97 L 98-107 MMOL/L Carbon Dioxide Level 17 L 21-32 MMOL/L Anion Gap 22 H 5-14 MMOL/L Blood Urea Nitrogen 18 7-18 MG/DL Creatinine 0.90 0.60-1.30 MG/DL Estimat Glomerular Filtration Rate 125 BUN/Creatinine Ratio 20 Glucose Level 375 H 70-105 MG/DL Lactic Acid Level 2.33 *H 0.50-2.00 MMOL/L Calcium Level 10.2 H 8.5-10.1 MG/DL Corrected Calcium 8.5-10.1 MG/DL Magnesium Level 1.8 1.6-2.4 MG/DL Total Bilirubin 0.8 0.1-1.0 MG/DL Aspartate Amino Transf (AST/SGOT) 19 5-34 U/L Alanine Aminotransferase (ALT/SGPT) 28 0-55 U/L Alkaline Phosphatase 132 40-136 U/L Total Protein 7.8 6.4-8.2 GM/DL Albumin 4.8 H 3.2-4.5 GM/DL Amylase Level 32 25-125 U/L Lipase 4 L 8-78 U/L Serum Alcohol < 10 <10 MG/DL Blood Gas Puncture Site R BRACH Blood Gas Patient Temperature 96.3 Arterial Blood pH 7.36 L 7.37-7.43 Arterial Blood Partial Pressure CO2 31 L 35-45 MMHG Arterial Blood Partial Pressure O2 100 H 79-93 MMHG Arterial Blood HCO3 17 *L 23-27 MMOL/L Arterial Blood Total CO2 18.1 L 21.0-31.0 MMOL/L Arterial Blood Oxygen Saturation 99 94-100 % Arterial Blood Base Excess -7.4 L -2.5-2.5 MMOL/L Spenser Test YES-POS Blood Gas Ventilator Setting NO Blood Gas Inspired Oxygen ROOM AIR Urine Color YELLOW Urine Clarity CLEAR Urine pH 5.5 5-9 Urine Specific [place] >=1.030 1.016-1.022 Urine Protein NEGATIVE NEGATIVE Urine Glucose (UA) 2+ H NEGATIVE Urine Ketones 3+ H NEGATIVE Urine Nitrite NEGATIVE NEGATIVE Urine Bilirubin NEGATIVE NEGATIVE Urine Urobilinogen 0.2 < = 1.0 MG/DL Urine Leukocyte Esterase NEGATIVE NEGATIVE Urine RBC (Auto) NEGATIVE NEGATIVE Urine RBC NONE /HPF Urine WBC NONE /HPF Urine Squamous Epithelial Cells NONE /HPF Urine Crystals NONE /LPF Urine Bacteria TRACE /HPF Urine Casts NONE /LPF Urine Mucus NEGATIVE /LPF Urine Culture Indicated NO Urine Opiates Screen NEGATIVE NEGATIVE Urine Oxycodone Screen NEGATIVE NEGATIVE Urine Methadone Screen NEGATIVE NEGATIVE Urine Propoxyphene Screen NEGATIVE NEGATIVE Urine Barbiturates Screen NEGATIVE NEGATIVE Ur Tricyclic Antidepressants Screen NEGATIVE NEGATIVE Urine Phencyclidine Screen NEGATIVE NEGATIVE Urine Amphetamines Screen NEGATIVE NEGATIVE Urine Methamphetamines Screen POSITIVE H NEGATIVE Urine Benzodiazepines Screen NEGATIVE NEGATIVE Urine Cocaine Screen NEGATIVE NEGATIVE Urine Cannabinoids Screen POSITIVE H NEGATIVE Influenza Type A (RT-PCR) Not Detected Not Detecte Influenza Type B (RT-PCR) Not Detected Not Detecte SARS-CoV-2 RNA (RT-PCR) Not Detected Not Detecte My Orders Orders - DEMIAN MARSHALL DO Accucheck Stat ONCE (04/01/22 19:28) Ed Iv/Invasive Line Start (04/01/22 19:28) Monitor-Rhythm Ecg Trace Only (04/01/22 19:28) Alcohol (04/01/22 19:28) Amylase (04/01/22 19:28) Cbc With Automated Diff (04/01/22 19:28) Comprehensive Metabolic Panel (04/01/22 19:28) Drug Screen Stat (Urine) (04/01/22 19:28) Lactic Acid Analyzer (04/01/22 19:28) Lipase (04/01/22 19:28) Magnesium (04/01/22 19:28) Ua Culture If Indicated (04/01/22 19:28) Ed Iv/Invasive Line Start (04/01/22 19:28) Ns Iv 1000 Ml (Sodium Chloride 0.9%) (04/01/22 19:30) Ondansetron Injection (Zofran Injectio (04/01/22 19:30) Covid 19 Inhouse Test (04/01/22 19:28) Influenza A And B By Pcr (04/01/22 19:28) Isolation Central Supply Req (04/01/22 19:28) Beta Hydroxybutyrate (04/01/22 19:28) Hemoglobin A1c (04/01/22 19:28) Arterial Blood Gas (04/01/22 19:42) Medications Given in ED Current Medications Medications Dose Ordered Sig/Francisco Javier Route Start Time Stop Time Status Last Admin Dose Admin Ondansetron HCl 4 mg ONCE ONCE IVP 04/01/22 19:30 04/01/22 19:31 DC 04/01/22 19:34 4 MG Vital Signs/I&O 04/01/22 19:25 Temp 36.3 Pulse 103 Resp 18 B/P (MAP) 138/91 (107) Pulse Ox 99 O2 Delivery Room Air Capillary Refill : Less Than 3 Seconds Blood Pressure Mean: 107 Progress Note : Progress Note GIVEN IV FLUIDS AND ZOFRAN UNEVENTFUL ER STAY VITALS STABLE, HR COMING DOWN TO AROUND 100. BP STABLE NO FURTHER C/O NAUSEA AND NO VOMITING. NO FURTHER COMPLAINTS DURING ER STAY, OTHER THAN BEING COLD. ADDITIONAL BLANKETS GIVEN. WILL START ON INSULIN DRIP WHEN HE GETS UP TO ICU. REVIEWED MULTIPLE OLD RECORDS, INCLUDING PRIOR H&P'S, CONSULTATIONS, AND DISCHARGE SUMMARIES. Departure Communication (Admissions) 2017--SPOKE WITH DR. COLES, [facility]PER[facility] FOR [facility], ACCEPTS PT FOR ADMIT. Impression Primary Impression: DKA Additional Impressions: Type 1 diabetes mellitus Poorly controlled diabetes mellitus Non-compliance Methamphetamine use Marijuana use Smoker Disposition: 09 ADMITTED INPATIENT Condition: Stable Admissions Decision to Admit Reason: Admit from ER (General) Decision to Admit/Date: Apr 01, 2022 Time/Decision to Admit Time: 20:20 Departure-Patient Inst. Referrals: [facility] (PCP/Family) Primary Care Physician DEMIAN MARSHALL DO Apr 01, 2022 19:35
[2022-04-01 19:50] LABS: BASOPHILS # (AUTO) 0.1 10^3/uL (0.0-0.1); BASOPHILS % (AUTO) 1 % (0-10); EOSINOPHILS % (AUTO) 0 % (0-10); HEMATOCRIT 45 % (40-54); HEMOGLOBIN 15.1 g/dL (13.3-17.7); LYMPHOCYTES # (AUTO) 1.2 10^3/uL (1.0-4.0); LYMPHOCYTES % (AUTO) 10 % (12-44); MEAN CORPUSCULAR HEMOGLOBIN 29 pg (25-34); MEAN CORPUSCULAR HGB CONC 34 g/dL (32-36); MEAN CORPUSCULAR VOLUME 86 fL (80-99); MEAN PLATELET VOLUME 11.3 fL (9.0-12.2); MONOCYTES # (AUTO) 0.4 10^3/uL (0.0-1.0); MONOCYTES % (AUTO) 4 % (0-12); NEUTROPHILS # (AUTO) 9.8 10^3/uL (1.8-7.8); NEUTROPHILS % (AUTO) 85 % (42-75); PLATELET COUNT 299 10^3/uL (130-400); WHITE BLOOD COUNT 11.5 10^3/uL (4.3-11.0)
[2022-04-01 20:02] LABS: ABG BASE EXCESS -7.4 MMOL/L (-2.5-2.5); ABG OXYGEN SATURATION 99 % (94-100); ABG PCO2 31 MMHG (35-45); ABG PH 7.36 (7.37-7.43); ABG PO2 100 MMHG (79-93); ABG TCO2 18.1 MMOL/L (21.0-31.0)
[2022-04-01 20:04] LABS: ALLENS TEST YES-POS; INSPIRED O2 ROOM AIR; PATIENT TEMP 96.3; VENTILATOR NO
[2022-04-01 20:12] LABS: ALANINE AMINOTRANSFERASE 28 U/L (0-55); ALBUMIN 4.8 GM/DL (3.2-4.5); ALKALINE PHOSPHATASE 132 U/L (40-136); AMYLASE 32 U/L (25-125); BILIRUBIN,TOTAL 0.8 MG/DL (0.1-1.0); BUN/CREATININE RATIO 20; CALCIUM 10.2 MG/DL (8.5-10.1); CARBON DIOXIDE 17 MMOL/L (21-32); CHLORIDE 97 MMOL/L (98-107); GFR ESTIMATED 125; GLUCOSE 375 MG/DL (70-105); LIPASE 4 U/L (8-78); MAGNESIUM 1.8 MG/DL (1.6-2.4); POTASSIUM 4.4 MMOL/L (3.6-5.0); SODIUM 136 MMOL/L (135-145); TOTAL PROTEIN 7.8 GM/DL (6.4-8.2)
[2022-04-01 20:36] LABS: BILIRUBIN,URINE NEGATIVE (NEGATIVE); CLARITY,URINE CLEAR; COLOR,URINE YELLOW; GLUCOSE, URINE (UA) 2+ (NEGATIVE); KETONES,URINE 3+ (NEGATIVE); LEUKOCYTE ESTERASE ,URINE NEGATIVE (NEGATIVE); NITRITE,URINE NEGATIVE (NEGATIVE); PH,URINE 5.5 (5-9); PROTEIN,URINE NEGATIVE (NEGATIVE)
[2022-04-01 20:43] LABS: BACTERIA,URINE TRACE /HPF
[2022-04-01 20:49] LABS: AMPHETAMINE SCREEN, URINE NEGATIVE (NEGATIVE); BARBITURATE SCREEN URINE NEGATIVE (NEGATIVE); BENZODIAZEPINES SCREEN URINE NEGATIVE (NEGATIVE); CANNABINOID SCREEN, URINE POSITIVE (NEGATIVE); COCAINE SCREEN URINE NEGATIVE (NEGATIVE); METHADONE STAT NEGATIVE (NEGATIVE); OPIATE SCREEN URINE NEGATIVE (NEGATIVE); OXYCODONE STAT NEGATIVE (NEGATIVE); PROPOXYPHENE STAT NEGATIVE (NEGATIVE); TRICYCLIC ANTIDEPRESSANTS SCRE NEGATIVE (NEGATIVE)
[2022-04-01 22:15] VITALS: BP 123/85
--- NOTE | 2022-04-01 22:15 | Tele-ICU Progress Note ---
Subjective Date Seen by a Provider: Apr 01, 2022 Subjective/Events-last exam This virtual visit was conducted using real time audio/video. Thank you for asking us to see this patient for DKA and urine tox screen positive for cannabis/meth. PMH: DM1/poor compliance. SH: smoking history: current PE: Thin. VSS. O2 sat 99% on RA HEENT: No obvious masses, adenopathy or JVD. Chest: clear to auscultation. CV: RRR S1 S2 No murmur or added sounds. Abd: Non-tender. Bowel sounds Y. : Unremarkable. [place]roal N. FIELD OPERATIONS MANAGER/psychiatric: Grossly intact. No obvious focal findings. Extremities: No edema. Capillary refill < 3 seconds. Skin: unremarkable. Results: Elevated BG 375, AG 22, Lactate 2.33, WCC 11.5. AB.36/31/100 on RA.. Available chart/ vitals / labs / images reviewed. Video assessment done using teleICU camera, rest of exam as per RN. A/P: Critical Care: critically ill patient. Cont. IVF, insulin monitor K. Discussed with RN Brook. Asked RN to reach out to eICU if any questions or concerns later. Time spent with patient/coordination of care with other health professionals (mins): 15 Sepsis Event Evaluation Height, Weight, BMI Height: 5'8.00" Weight: 124lbs. 4.8oz. 56.153635ol; 18.00 BMI Method:Stated Focused Exam Lactate Level 04/01/22 19:32: Lactic Acid Level 2.33*H 04/01/22 21:42: Lactic Acid Level 1.56 Lactic Acid Level Laboratory Tests Test 04/01/22 19:32 04/01/22 21:42 Lactic Acid Level 2.33 MMOL/L (0.50-2.00) *H 1.56 MMOL/L (0.50-2.00) Exam Exam Patient acknowledged, consented, and participated in this virtual visit which was conducted using real time audio/video Vital Signs Date Time Temp Pulse Resp B/P (MAP) Pulse Ox O2 Delivery O2 Flow Rate FiO2 04/01/22 19:25 36.3 103 18 138/91 (107) 99 Room Air Height & Weight Height: 5'8.00" Weight: 124lbs. 4.8oz. 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 Critical Care: Critically Ill Patient KEN DUMONT MD Apr 01, 2022 22:15
[2022-04-01] MEDS ORDERED: ACETAMINOPHEN 500 MG TAB (TYLENOL) PO PRN (22:45)
[2022-04-01] MEDS ORDERED: ONDANSETRON 4 MG/2 ML (SDV) Z0FRAN IV PRN (22:45)
[2022-04-01] MEDS: 1/2 NS IV SOLUTION 1,000 ML IV SCH (23:07)
[2022-04-01] MEDS: D5 1/2 NS 1000 ML IV SOLUTION 1,000 ML IV SCH (23:07)
[2022-04-02] MEDS: POTASSIUM CL 10MEQ/50ML IVPB 50 ML IV SCH ×8 (00:03→14:28)
[2022-04-02 01:22] LABS: CALCIUM 9.2 MG/DL (8.5-10.1); CREATININE SERUM 0.75 MG/DL (0.60-1.30); POTASSIUM 4.2 MMOL/L (3.6-5.0)
[2022-04-02] MEDS: 1/2 NS IV SOLUTION 1,000 ML IV SCH ×3 (03:27→10:48)
[2022-04-02 03:41] LABS: CALCIUM 9.3 MG/DL (8.5-10.1); CREATININE SERUM 0.74 MG/DL (0.60-1.30); POTASSIUM 4.3 MMOL/L (3.6-5.0)
[2022-04-02 05:19] LABS: BASOPHILS # (AUTO) 0.1 10^3/uL (0.0-0.1); BASOPHILS % (AUTO) 1 % (0-10); EOSINOPHILS % (AUTO) 0 % (0-10); HEMATOCRIT 40 % (40-54); HEMOGLOBIN 13.6 g/dL (13.3-17.7); LYMPHOCYTES # (AUTO) 2.1 10^3/uL (1.0-4.0); LYMPHOCYTES % (AUTO) 11 % (12-44); MEAN CORPUSCULAR HEMOGLOBIN 29 pg (25-34); MEAN CORPUSCULAR HGB CONC 34 g/dL (32-36); MEAN CORPUSCULAR VOLUME 85 fL (80-99); MEAN PLATELET VOLUME 10.9 fL (9.0-12.2); MONOCYTES # (AUTO) 1.5 10^3/uL (0.0-1.0); MONOCYTES % (AUTO) 8 % (0-12); NEUTROPHILS # (AUTO) 15.3 10^3/uL (1.8-7.8); NEUTROPHILS % (AUTO) 80 % (42-75); PLATELET COUNT 285 10^3/uL (130-400); WHITE BLOOD COUNT 19.2 10^3/uL (4.3-11.0)
[2022-04-02 05:42] LABS: ALBUMIN 3.9 GM/DL (3.2-4.5); BILIRUBIN,TOTAL 0.5 MG/DL (0.1-1.0); CALCIUM 9.3 MG/DL (8.5-10.1); CREATININE SERUM 0.75 MG/DL (0.60-1.30); MAGNESIUM 1.6 MG/DL (1.6-2.4); PHOSPHORUS 2.7 MG/DL (2.3-4.7); POTASSIUM 4.5 MMOL/L (3.6-5.0); TOTAL PROTEIN 6.1 GM/DL (6.4-8.2)
[2022-04-02 05:43] LABS: BAND NEUTROPHILS 1 %; LYMPHOCYTES % (MANUAL) 15 %; MONOCYTES % (MANUAL) 6 %; NEUTROPHILS % (MANUAL) 78 %
[2022-04-02 05:44] LABS: BURR CELLS SLIGHT; MICROCYTOSIS SLIGHT
[2022-04-02] MEDS: D5 1/2 NS 1000 ML IV SOLUTION 1,000 ML IV SCH ×2 (08:09→12:14)
--- NOTE | 2022-04-02 09:17 | History & Physical ---
HPI History of Present Illness: 21 yo male presented to ER with concern for DKA, he had nausea and vomiting and chest pain yesterday, called ambulance. He feels a lot better this morning, is tolerating clear liquids. He ran out of Levemir, had some family issues and was unable to get his med, has been out for 2 days. Source: patient Date seen by provider: Apr 02, 2022 Time Seen by Provider: 09:12 [facility]ending [facility] PCP Admitting Physician: Shanna Kennedy MD Attending Physician: Shanna Kennedy MD Consult Date of Admission Apr 01, 2022 at 20:18 Home Medications Home Medications Reviewed patient Home Medication Reconciliation performed by pharmacy medication reconciliations bench repair technician and/or nursing. Patients Allergies have been reviewed. Allergies Coded Allergies: No Known Drug Allergies (Unverified , 02/10/14) [id number] Hx Patient Social History Drug of Choice: THC a couple of times per week Smoking Status: Never a Smoker (vapes nicotine, 2 pack of pods lasts about a week) Recent Hopitalizations: No Alcohol Use?: No Substance type: Nicotine, Marijuana Have you traveled recently?: No Immunizations Up To Date Tetanus Booster (TDap): Less than 5yrs Influenza Vaccine Up-to-Date: Yes; Up-to-Date First/Initial COVID19 Vaccinat: na Second COVID19 Vaccination [place]: na Third COVID19 Vaccination Date: na Past Medical History PMHx: DMI SurgHx: Denies Family Medical History Significant Family History: Cancer (mother cervical and breast, grandfather lung, grandmother breast), Diabetes (great aunt type I, paternal grea tgrandfather type I DM), Stroke (Uncle) Other Significan Family Hx: Review of Systems ([facility]) Constitutional: No fever Respiratory: No short of breath Cardiovascular: chest pain (on admission, resolved) Gastrointestinal: abdominal pain, constipation, diarrhea, nausea, vomiting Genitourinary: No dysuria Psychiatric/Neurological: Headache (mild early this morning) Reviewed Test Results Reviewed Test Results Lab Laboratory Tests Test 04/01/22 19:32 04/01/22 19:55 04/01/22 20:28 04/01/22 21:42 Range/Units White Blood Count 11.5 H 4.3-11.0 10^3/uL Red Blood Count 5.20 4.30-5.52 10^6/uL Hemoglobin 15.1 13.3-17.7 g/dL Hematocrit 45 40-54 % Mean Corpuscular Volume 86 80-99 fL Mean Corpuscular Hemoglobin 29 25-34 pg Mean Corpuscular Hemoglobin Concent 34 32-36 g/dL Red Cell Distribution Width 12.4 10.0-14.5 % Platelet Count 299 130-400 10^3/uL Mean Platelet Volume 11.3 9.0-12.2 fL Immature Granulocyte % (Auto) 1 % Neutrophils (%) (Auto) 85 H 42-75 % Lymphocytes (%) (Auto) 10 L 12-44 % Monocytes (%) (Auto) 4 0-12 % Eosinophils (%) (Auto) 0 0-10 % Basophils (%) (Auto) 1 0-10 % Neutrophils # (Auto) 9.8 H 1.8-7.8 10^3/uL Lymphocytes # (Auto) 1.2 1.0-4.0 10^3/uL Monocytes # (Auto) 0.4 0.0-1.0 10^3/uL Eosinophils # (Auto) 0.0 0.0-0.3 10^3/uL Basophils # (Auto) 0.1 0.0-0.1 10^3/uL Immature Granulocyte # (Auto) 0.1 0.0-0.1 10^3/uL Sodium Level 136 135-145 MMOL/L Potassium Level 4.4 3.6-5.0 MMOL/L Chloride Level 97 L 98-107 MMOL/L Carbon Dioxide Level 17 L 21-32 MMOL/L Anion Gap 22 H 5-14 MMOL/L Blood Urea Nitrogen 18 7-18 MG/DL Creatinine 0.90 0.60-1.30 MG/DL Estimat Glomerular Filtration Rate 125 BUN/Creatinine Ratio 20 Glucose Level 375 H 70-105 MG/DL Lactic Acid Level 2.33 *H 1.56 0.50-2.00 MMOL/L Calcium Level 10.2 H 8.5-10.1 MG/DL Corrected Calcium 8.5-10.1 MG/DL Magnesium Level 1.8 1.6-2.4 MG/DL Total Bilirubin 0.8 0.1-1.0 MG/DL Aspartate Amino Transf (AST/SGOT) 19 5-34 U/L Alanine Aminotransferase (ALT/SGPT) 28 0-55 U/L Alkaline Phosphatase 132 40-136 U/L Total Protein 7.8 6.4-8.2 GM/DL Albumin 4.8 H 3.2-4.5 GM/DL Amylase Level 32 25-125 U/L Lipase 4 L 8-78 U/L Beta-Hydroxybutyrate (Chem panel) 5.02 H 0.00-0.27 MMOL/L Serum Alcohol < 10 <10 MG/DL Blood Gas Puncture Site R BRACH Blood Gas Patient Temperature 96.3 Arterial Blood pH 7.36 L 7.37-7.43 Arterial Blood Partial Pressure CO2 31 L 35-45 MMHG Arterial Blood Partial Pressure O2 100 H 79-93 MMHG Arterial Blood HCO3 17 *L 23-27 MMOL/L Arterial Blood Total CO2 18.1 L 21.0-31.0 MMOL/L Arterial Blood Oxygen Saturation 99 94-100 % Arterial Blood Base Excess -7.4 L -2.5-2.5 MMOL/L Spenser Test YES-POS Blood Gas Ventilator Setting NO Blood Gas Inspired Oxygen ROOM AIR Urine Color YELLOW Urine Clarity CLEAR Urine pH 5.5 5-9 Urine Specific [place] >=1.030 1.016-1.022 Urine Protein NEGATIVE NEGATIVE Urine Glucose (UA) 2+ H NEGATIVE Urine Ketones 3+ H NEGATIVE Urine Nitrite NEGATIVE NEGATIVE Urine Bilirubin NEGATIVE NEGATIVE Urine Urobilinogen 0.2 < = 1.0 MG/DL Urine Leukocyte Esterase NEGATIVE NEGATIVE Urine RBC (Auto) NEGATIVE NEGATIVE Urine RBC NONE /HPF Urine WBC NONE /HPF Urine Squamous Epithelial Cells NONE /HPF Urine Crystals NONE /LPF Urine Bacteria TRACE /HPF Urine Casts NONE /LPF Urine Mucus NEGATIVE /LPF Urine Culture Indicated NO Urine Opiates Screen NEGATIVE NEGATIVE Urine Oxycodone Screen NEGATIVE NEGATIVE Urine Methadone Screen NEGATIVE NEGATIVE Urine Propoxyphene Screen NEGATIVE NEGATIVE Urine Barbiturates Screen NEGATIVE NEGATIVE Ur Tricyclic Antidepressants Screen NEGATIVE NEGATIVE Urine Phencyclidine Screen NEGATIVE NEGATIVE Urine Amphetamines Screen NEGATIVE NEGATIVE Urine Methamphetamines Screen POSITIVE H NEGATIVE Urine Benzodiazepines Screen NEGATIVE NEGATIVE Urine Cocaine Screen NEGATIVE NEGATIVE Urine Cannabinoids Screen POSITIVE H NEGATIVE Influenza Type A (RT-PCR) Not Detected Not Detecte Influenza Type B (RT-PCR) Not Detected Not Detecte SARS-CoV-2 RNA (RT-PCR) Not Detected Not Detecte Test 04/01/22 22:28 04/01/22 23:26 04/02/22 00:09 04/02/22 00:51 Range/Units Glucometer 310 H 346 H 260 H 70-110 MG/DL Sodium Level 136 135-145 MMOL/L Potassium Level 4.2 3.6-5.0 MMOL/L Chloride Level 106 98-107 MMOL/L Carbon Dioxide Level 16 L 21-32 MMOL/L Anion Gap 14 5-14 MMOL/L Blood Urea Nitrogen 13 7-18 MG/DL Creatinine 0.75 0.60-1.30 MG/DL Estimat Glomerular Filtration Rate 132 BUN/Creatinine Ratio 17 Glucose Level 268 H 70-105 MG/DL Calcium Level 9.2 8.5-10.1 MG/DL Test 04/02/22 00:56 04/02/22 02:06 04/02/22 03:13 04/02/22 03:14 Range/Units Glucometer 254 H 192 H 152 H 70-110 MG/DL Sodium Level 138 135-145 MMOL/L Potassium Level 4.3 3.6-5.0 MMOL/L Chloride Level 108 H 98-107 MMOL/L Carbon Dioxide Level 19 L 21-32 MMOL/L Anion Gap 11 5-14 MMOL/L Blood Urea Nitrogen 11 7-18 MG/DL Creatinine 0.74 0.60-1.30 MG/DL Estimat Glomerular Filtration Rate 133 BUN/Creatinine Ratio 15 Glucose Level 163 H 70-105 MG/DL Calcium Level 9.3 8.5-10.1 MG/DL Test 04/02/22 04:09 04/02/22 05:07 04/02/22 05:09 04/02/22 06:05 Range/Units Glucometer 116 H 212 H 209 H 70-110 MG/DL White Blood Count 19.2 H 4.3-11.0 10^3/uL Red Blood Count 4.64 4.30-5.52 10^6/uL Hemoglobin 13.6 13.3-17.7 g/dL Hematocrit 40 40-54 % Mean Corpuscular Volume 85 80-99 fL Mean Corpuscular Hemoglobin 29 25-34 pg Mean Corpuscular Hemoglobin Concent 34 32-36 g/dL Red Cell Distribution Width 12.2 10.0-14.5 % Platelet Count 285 130-400 10^3/uL Mean Platelet Volume 10.9 9.0-12.2 fL Immature Granulocyte % (Auto) 1 % Neutrophils (%) (Auto) 80 H 42-75 % Lymphocytes (%) (Auto) 11 L 12-44 % Monocytes (%) (Auto) 8 0-12 % Eosinophils (%) (Auto) 0 0-10 % Basophils (%) (Auto) 1 0-10 % Neutrophils # (Auto) 15.3 H 1.8-7.8 10^3/uL Lymphocytes # (Auto) 2.1 1.0-4.0 10^3/uL Monocytes # (Auto) 1.5 H 0.0-1.0 10^3/uL Eosinophils # (Auto) 0.0 0.0-0.3 10^3/uL Basophils # (Auto) 0.1 0.0-0.1 10^3/uL Immature Granulocyte # (Auto) 0.2 H 0.0-0.1 10^3/uL Neutrophils % (Manual) 78 % Lymphocytes % (Manual) 15 % Monocytes % (Manual) 6 % Band Neutrophils 1 % Microcytosis SLIGHT [place] Cells SLIGHT Sodium Level 136 135-145 MMOL/L Potassium Level 4.5 3.6-5.0 MMOL/L Chloride Level 106 98-107 MMOL/L Carbon Dioxide Level 17 L 21-32 MMOL/L Anion Gap 13 5-14 MMOL/L Blood Urea Nitrogen 10 7-18 MG/DL Creatinine 0.75 0.60-1.30 MG/DL Estimat Glomerular Filtration Rate 132 BUN/Creatinine Ratio 13 Glucose Level 212 H 70-105 MG/DL Calcium Level 9.3 8.5-10.1 MG/DL Corrected Calcium 9.4 8.5-10.1 MG/DL Phosphorus Level 2.7 2.3-4.7 MG/DL Magnesium Level 1.6 1.6-2.4 MG/DL Total Bilirubin 0.5 0.1-1.0 MG/DL Aspartate Amino Transf (AST/SGOT) 13 5-34 U/L Alanine Aminotransferase (ALT/SGPT) 22 0-55 U/L Alkaline Phosphatase 94 40-136 U/L Total Protein 6.1 L 6.4-8.2 GM/DL Albumin 3.9 3.2-4.5 GM/DL Beta-Hydroxybutyrate (Chem panel) 2.36 H 0.00-0.27 MMOL/L Test 04/02/22 07:20 04/02/22 08:07 Range/Units Glucometer 220 H 220 H 70-110 MG/DL Physical Exam-([facility]C) Physical Exam Vital Signs VS - Last 72 Hours, by Label 04/01/22 04/01/22 04/01/22 04/01/22 19:25 22:15 22:25 22:46 Temp 36.3 37.2 Pulse 103 114 122 121 Resp 18 16 20 B/P (MAP) 138/91 (107) 123/85 143/97 (112) Pulse Ox 99 98 99 O2 Delivery Room Air Room Air Room Air 04/01/22 04/02/22 04/02/22 04/02/22 23:00 00:00 00:00 00:00 Temp 37.4 Pulse 124 106 Resp 16 18 B/P (MAP) Pulse Ox 98 99 97 O2 Delivery Room Air Room Air Room Air 04/02/22 04/02/22 04/02/22 04/02/22 00:25 01:00 01:00 02:00 Pulse 113 113 110 Resp 19 18 B/P (MAP) Pulse Ox 99 95 97 O2 Delivery Room Air Room Air Room Air 04/02/22 04/02/22 04/02/22 04/02/22 03:00 04:00 04:00 04:00 Temp 36.8 Pulse 116 108 Resp 17 20 B/P (MAP) 126/77 (93) 124/68 (86) Pulse Ox 96 97 97 O2 Delivery Room Air Room Air Room Air 04/02/22 04/02/22 04/02/22 04/02/22 05:00 06:00 07:00 07:00 Pulse 118 106 105 105 Resp 20 17 40 B/P (MAP) 111/62 (78) 107/63 (78) 109/69 (82) Pulse Ox 96 96 98 O2 Delivery Room Air Room Air Room Air 04/02/22 04/02/22 04/02/22 04/02/22 07:30 08:00 08:00 09:00 Temp 37.5 Pulse 103 99 Resp 18 20 B/P (MAP) 120/67 (84) 126/77 (93) Pulse Ox 99 96 97 O2 Delivery Room Air Room Air Room Air 04/02/22 04/02/22 04/02/22 04/02/22 10:00 11:00 11:54 12:00 Temp 36.6 Pulse 110 112 101 Resp 12 19 17 B/P (MAP) 128/78 (95) 147/111 (123) 120/71 (87) Pulse Ox 97 98 97 O2 Delivery Room Air Room Air Room Air Capillary Refill : Less Than 3 Seconds General Appearance: no apparent distress, thin Respiratory: lungs clear, normal breath sounds Cardiovascular: regular rate, rhythm, no murmur Gastrointestinal: normal bowel sounds, non tender, soft Extremities: no pedal edema Neurologic/Psychiatric: alert, normal mood/affect Skin: normal color, warm/dry Assessment/Plan Assessment/Plan Admission Status: Inpatient Order (span 2 midnights) Reason for Inpatient Admission: DKA requiring insulin drip Assessment & Plan DKA (1) DKA, type 1 Status: Acute Assessment & Plan: Suspect secondary to being out of long acting insulin last 2 days. Gap closed and CO2 near normal, tolerating clear liquids well, will resume home long-acting and d/c drip. Qualifiers: Qualified Codes: E10.10 - Type 1 diabetes mellitus with ketoacidosis without coma (2) Marijuana use Status: Chronic Assessment & Plan: Urine positive for methamphetamines, denies use, discussed possibility of contamination. (3) DVT prophylaxis Status: Acute Assessment & Plan: Enoxaparin SHANNA KENNEDY MD Apr 02, 2022 09:17
[2022-04-02] MEDS ORDERED: INSU100I29 SC (11:18)
[2022-04-02] MEDS ORDERED: ENOXAPARIN INJECTION 30 MG/0.3 ML SYR SC SCH (13:00)
[2022-04-02 13:49] LABS: CREATININE SERUM 0.72 MG/DL (0.60-1.30); POTASSIUM 3.9 MMOL/L (3.6-5.0)
--- NOTE | 2022-04-02 14:55 | Tele-ICU Progress Note ---
Subjective Date Seen by a Provider: Apr 02, 2022 Time Seen by a Provider: 14:54 Subjective/Events-last exam (Tele-ICU Physician , consultation) Available chart/ vitals / labs / Images reviewed H&P is from ER notes Patient's information available about PMH, allergy reviewed in EMR. ROS as per chart and RN report Video assessment done using teleICU camera, rest of exam as per RN Discussed with RN. Mr. Keenan presented via emergency room as he has been having nausea vomiting chest pain yesterday. He admits that he is long-acting insulin for 2 days due to some family issues. He is known to have a type 1 diabetes mellitus. In the emergency room he is found to have a mild diabetic ketoacidosis with dehydration hence he is admitted to ICU and started on insulin drip and IV fluids. Today he is feeling much better. Still slightly tacky cardiac. Denies any abdominal pain. No fever present. He has a history of fall marijuana abuse and nicotine abuse. Impression 1. Diabetic ketoacidosis due to noncompliance with insulin 2. Dehydration. Recommendations 1. At this point his anion gap is closed hence I would suggest to restart on his a long-acting insulin with additional a sliding scale with coverage. 2. Hydration with IV fluids per DKA protocol. From critical care point of view he may be transferred out to medical floor sometime this evening. Sepsis Event Evaluation Height, Weight, BMI Height: 5'8.00" Weight: 124lbs. 4.8oz. 56.433507oz; 15.75 BMI Method:Stated Focused Exam Lactate Level 04/01/22 19:32: Lactic Acid Level 2.33*H 04/01/22 21:42: Lactic Acid Level 1.56 Exam Exam Patient acknowledged, consented, and participated in this virtual visit which was conducted using real time audio/video Vital Signs Date Time Temp Pulse Resp B/P (MAP) Pulse Ox O2 Delivery O2 Flow Rate FiO2 04/02/22 13:00 104 04/02/22 12:00 99 Room Air 04/02/22 12:00 101 17 120/71 (87) 97 Room Air 04/02/22 11:54 36.6 04/02/22 11:00 112 19 147/111 (123) 98 Room Air 04/02/22 10:00 110 12 128/78 (95) 97 Room Air 04/02/22 09:00 99 20 126/77 (93) 97 Room Air 04/02/22 08:00 37.5 04/02/22 08:00 103 18 120/67 (84) 96 Room Air 04/02/22 07:30 99 Room Air 04/02/22 07:00 105 40 109/69 (82) 98 Room Air 04/02/22 07:00 105 04/02/22 06:00 106 17 107/63 (78) 96 Room Air 04/02/22 05:00 118 20 111/62 (78) 96 Room Air 04/02/22 04:00 36.8 04/02/22 04:00 108 20 124/68 (86) 97 Room Air 04/02/22 04:00 97 Room Air 04/02/22 03:00 116 17 126/77 (93) 96 Room Air 04/02/22 02:00 110 18 97 Room Air 04/02/22 01:00 113 04/02/22 01:00 113 19 95 Room Air 04/02/22 00:25 99 Room Air 04/02/22 00:00 106 18 97 Room Air 04/02/22 00:00 99 Room Air 04/02/22 00:00 37.4 04/01/22 23:00 124 16 98 Room Air 04/01/22 22:46 37.2 121 20 143/97 (112) 99 Room Air 04/01/22 22:25 122 04/01/22 22:15 114 16 123/85 98 Room Air 04/01/22 19:25 36.3 103 18 138/91 (107) 99 Room Air I & O 04/02/22 07:00 Intake Total 4480 ml Output Total 820 ml Balance 3660 ml Height & Weight Height: 5'8.00" Weight: 124lbs. 4.8oz. 56.910285hq; 15.75 BMI Method:Stated General Appearance: No Apparent Distress, WD/WN, Thin HEENT: PERRL/EOMI, Other (ORAL MUCOSA MILDLY DRY) Neck: Normal Inspection Respiratory: Normal Breath Sounds, No Accessory Muscle Use, No Respiratory Distress Cardiovascular: No Murmur, Tachycardia Capillary Refill: Less Than 3 Seconds Gastrointestinal: normal bowel sounds, non tender, soft Extremity: Normal Inspection Neurologic/Psychiatric: Alert, Oriented x3, No Motor/Sensory Deficits, Normal M ood/Affect, fitting supervisor II-XII Norm as Tested Skin: Warm/Dry, Pallor Results Lab Laboratory Tests 04/01/22 19:32 04/02/22 00:51 04/02/22 03:14 04/02/22 05:09 04/02/22 13:20 Assessment/Plan Assessment/Plan as above Critical Care: Critically Ill Patient Time spent with patient (mins): 15 DAVE YAP MD Apr 02, 2022 14:55
[2022-04-02] MEDS: inSUlin ASPART (NovoLOG) 1 UNIT/0.01 ML (CHARGE PER UNIT) SC SCH ×3 (15:00→19:57)
[2022-04-03 05:42] LABS: BASOPHILS # (AUTO) 0.1 10^3/uL (0.0-0.1); BASOPHILS % (AUTO) 1 % (0-10); EOSINOPHILS % (AUTO) 0 % (0-10); HEMATOCRIT 45 % (40-54); HEMOGLOBIN 15.4 g/dL (13.3-17.7); LYMPHOCYTES # (AUTO) 1.6 10^3/uL (1.0-4.0); LYMPHOCYTES % (AUTO) 15 % (12-44); MEAN CORPUSCULAR HEMOGLOBIN 29 pg (25-34); MEAN CORPUSCULAR HGB CONC 34 g/dL (32-36); MEAN CORPUSCULAR VOLUME 86 fL (80-99); MEAN PLATELET VOLUME 11.1 fL (9.0-12.2); MONOCYTES # (AUTO) 0.7 10^3/uL (0.0-1.0); MONOCYTES % (AUTO) 7 % (0-12); NEUTROPHILS # (AUTO) 8.2 10^3/uL (1.8-7.8); NEUTROPHILS % (AUTO) 76 % (42-75); PLATELET COUNT 276 10^3/uL (130-400); WHITE BLOOD COUNT 10.7 10^3/uL (4.3-11.0)
[2022-04-03 06:10] LABS: ALBUMIN 4.5 GM/DL (3.2-4.5); BILIRUBIN,TOTAL 0.4 MG/DL (0.1-1.0); CALCIUM 9.8 MG/DL (8.5-10.1); CREATININE SERUM 0.71 MG/DL (0.60-1.30); MAGNESIUM 1.8 MG/DL (1.6-2.4); PHOSPHORUS 3.2 MG/DL (2.3-4.7); POTASSIUM 2.7 MMOL/L (3.6-5.0); TOTAL PROTEIN 7.5 GM/DL (6.4-8.2)
[2022-04-03] MEDS: inSUlin ASPART (NovoLOG) 1 UNIT/0.01 ML (CHARGE PER UNIT) SC SCH ×2 (06:31→06:32)
[2022-04-03] MEDS ORDERED: DEXTROSE 50% 50 ML (IMS) SYR ONE (06:56)
[2022-04-03] MEDS ORDERED: DEXTROSE 50% 50 ML (IMS) SYR IV ONE (07:00)
[2022-04-03] MEDS ORDERED: D5 1/2 NS 1000 ML IV SOLUTION 1,000 ML IV SCH (08:00)
[2022-04-03] MEDS ORDERED: KCL 20 MEQ TAB (K-DUR) PO ONE ×2 (08:00→09:45)
[2022-04-03] MEDS: POTASSIUM CL 10MEQ/50ML IVPB 50 ML IV SCH ×2 (09:39→09:40)
--- NOTE | 2022-04-03 10:02 | Discharge Summary ---
Discharge Summary Hospital Course Problems/Diagnosis: (1) DKA, type 1 Status: Resolved Resolution Date/Time: 04/02/22 @ 15:17 Assessment & Plan: Suspect secondary to being out of long acting insulin last 2 days. Gap closed and CO2 near normal, tolerating clear liquids well, resumed home long-acting and mealtime insulin. He did have very low glucose on morning of d/c and refused food, D50 or IVF fluid and glucose did come up to above 70 before d/c. He stated he would leave AMA if not discharged. Qualifiers: Qualified Codes: E10.10 - Type 1 diabetes mellitus with ketoacidosis without coma (2) Marijuana use Status: Chronic Assessment & Plan: Urine positive for methamphetamines, denies use, discussed possibility of contamination. Hospital Course Date of Admission: Apr 01, 2022 at 20:18 Admission Diagnosis : Family Physician/Provider: [place] Date of Discharge: 04/03/22 Discharge Diagnosis: See problem list Hospital Course: See problem list Labs and Pending Lab Test: Laboratory Tests 04/02/22 11:05: Glucometer 118H 04/02/22 12:12: Glucometer 129H 04/02/22 13:14: Glucometer 146H 04/02/22 13:20: Sodium Level 137, Potassium Level 3.9, Chloride Level 106, Carbon Dioxide Level 26, Anion Gap 5, Blood Urea Nitrogen 6L, Creatinine 0.72, Estimat Glomerular Filtration Rate 134, BUN/Creatinine Ratio 8, Glucose Level 134H, Calcium Level 9.0 04/02/22 14:24: Glucometer 125H 04/02/22 16:58: Glucometer 101 04/02/22 19:30: Glucometer 77 04/03/22 05:07: White Blood Count 10.7, Red Blood Count 5.24, Hemoglobin 15.4, Hematocrit 45, Mean Corpuscular Volume 86, Mean Corpuscular Hemoglobin 29, Mean Corpuscular Hemoglobin Concent 34, Red Cell Distribution Width 12.4, Platelet Count 276, Mean Platelet Volume 11.1, Immature Granulocyte % (Auto) 1, Neutrophils (%) (Auto) 76H, Lymphocytes (%) (Auto) 15, Monocytes (%) (Auto) 7, Eosinophils (%) (Auto) 0, Basophils (%) (Auto) 1, Neutrophils # (Auto) 8.2H, Lymphocytes # (Auto) 1.6, Monocytes # (Auto) 0.7, Eosinophils # (Auto) 0.0, Basophils # (Auto) 0.1, Immature Granulocyte # (Auto) 0.1, Sodium Level 141, Potassium Level 2.7L, Chloride Level 101, Carbon Dioxide Level 28, Anion Gap 12, Blood Urea Nitrogen 6L, Creatinine 0.71, Estimat Glomerular Filtration Rate 135, BUN/Creatinine Ratio 8, Glucose Level 44*L, Calcium Level 9.8, Corrected Calcium 9.4, Phosphorus Level 3.2, Magnesium Level 1.8, Total Bilirubin 0.4, Aspartate Amino Transf (AST/SGOT) 17, Alanine Aminotransferase (ALT/SGPT) 22, Alkaline Phosphatase 93, Total Protein 7.5, Albumin 4.5, Beta-Hydroxybutyrate (Chem panel) 0.58H 04/03/22 07:23: Glucometer 33*L 04/03/22 07:38: Glucometer 38*L 04/03/22 08:44: Glucometer 78 Home Meds Active Reported Levemir Flextouch (Insulin Detemir) 100 Unit/Ml (3 Ml) Insuln.pen 30 Units SC HS Novolog Flexpen (Insulin Aspart) 100 Unit/Ml (3 Ml) Solution Unit SC AC MDD 45 UNITS Assessment/Pt DC Instructions Follow up with primary provider within a week. supervisor metal cans your levemir immediately after discharge. Discharge Diet: ADA Diet Activity as Tolerated: Yes Discharge Physical Examination Allergies: Coded Allergies: No Known Drug Allergies (Unverified , 02/10/14) General Appearance: No Apparent Distress, Thin Respiratory: Lungs Clear, Normal Breath Sounds Cardiovascular: Regular Rate, Rhythm, No Murmur Skin: Warm/Dry Neurologic/Psychiatric: Alert, Other (irritable) COURTNEY COLES MD Apr 03, 2022 10:02
== END 2022-04-03 10:15 | disposition home or self-care (01) | DRG 639 ==
LOC: EDUNIT# 19:22 → ER 19:25 → ICU 20:18 → CSD 04-02 16:30
PROVIDERS: ADMIT Family Medicine; ATTEND Family Medicine
DX: E10.10 Type 1 diabetes mellitus with ketoacidosis without coma (principal); F12.90 Cannabis use, unspecified, uncomplicated; E86.0 Dehydration; F17.210 Nicotine dependence, cigarettes, uncomplicated; F15.90 Other stimulant use, unspecified, uncomplicated; Z20.822 Contact with and (suspected) exposure to COVID-19
CPT/HCPCS: 36415; 80048; 80053; 80306; 80320; 81000; 82010; 82150; 82805; 82947; 83036; 83605; 83690; 83735; 84100; 85007; 85025; 85027; 87636

== ENCOUNTER 2022-06-27 08:33 | Emergency (ER) | payer MEDICAID ==
[~2022-06-27] VITALS: Ht 170.1 cm; Wt 58.9 kg
[~2022-06-27 08:33] MED LIST changes: +INSU100I29 SC
[2022-06-27] MEDS ORDERED: ONDANSETRON 4 MG/2 ML (SDV) Z0FRAN IVP ONE (08:45)
[2022-06-27 08:55] LABS: BASOPHILS # (AUTO) 0.1 10^3/uL (0.0-0.1); BASOPHILS % (AUTO) 1 % (0-10); EOSINOPHILS % (AUTO) 0 % (0-10); HEMATOCRIT 43 % (40-54); HEMOGLOBIN 14.8 g/dL (13.3-17.7); LYMPHOCYTES % (AUTO) 8 % (12-44); MEAN CORPUSCULAR HEMOGLOBIN 29 pg (25-34); MEAN CORPUSCULAR HGB CONC 34 g/dL (32-36); MEAN CORPUSCULAR VOLUME 85 fL (80-99); MEAN PLATELET VOLUME 11.7 fL (9.0-12.2); MONOCYTES # (AUTO) 0.5 10^3/uL (0.0-1.0); MONOCYTES % (AUTO) 4 % (0-12); NEUTROPHILS # (AUTO) 10.7 10^3/uL (1.8-7.8); NEUTROPHILS % (AUTO) 86 % (42-75); PLATELET COUNT 209 10^3/uL (130-400); WHITE BLOOD COUNT 12.3 10^3/uL (4.3-11.0)
[2022-06-27 08:58] LABS: ALBUMIN 4.6 GM/DL (3.2-4.5); CHLORIDE 96 MMOL/L (98-107)
[2022-06-27 08:59] LABS: SODIUM 135 MMOL/L (135-145)
[2022-06-27 09:00] LABS: CALCIUM 9.8 MG/DL (8.5-10.1)
[2022-06-27 09:01] LABS: GLUCOSE 388 MG/DL (70-105); TOTAL PROTEIN 7.3 GM/DL (6.4-8.2)
[2022-06-27 09:02] LABS: CARBON DIOXIDE 20 MMOL/L (21-32)
[2022-06-27 09:04] LABS: ALKALINE PHOSPHATASE 113 U/L (40-136); CREATININE SERUM 0.89 MG/DL (0.60-1.30); GFR ESTIMATED 126
[2022-06-27 09:05] LABS: BUN/CREATININE RATIO 15
[2022-06-27 09:07] LABS: ALANINE AMINOTRANSFERASE 19 U/L (0-55)
[2022-06-27 09:08] LABS: MAGNESIUM 1.7 MG/DL (1.6-2.4)
--- NOTE | 2022-06-27 09:26 | Diagnostic Imaging Report ---
INDICATION: Nausea, abdominal pain, chest pain TECHNIQUE: Single view chest with supine and upright radiograph of the abdomen. CORRELATION STUDY: Chest 08/23/2021 FINDINGS: Frontal radiograph of the chest demonstrates no acute abnormality. Supine and upright radiographs of the abdomen demonstrates the bowel gas pattern to be mild prominent. However, no evidence for obstruction. No free air is seen under the diaphragms. No pathologic intraabdominal calcifications. IMPRESSION: 1. Negative for acute cardiopulmonary abnormality. 2. Prominent gas distention throughout the gastrointestinal track without obstructive feature. Dictated by: Dictated on workstation # [id number]
[2022-06-27 09:56] LABS: BILIRUBIN,URINE NEGATIVE (NEGATIVE); CLARITY,URINE CLEAR; COLOR,URINE YELLOW; GLUCOSE, URINE (UA) 3+ (NEGATIVE); KETONES,URINE 1+ (NEGATIVE); LEUKOCYTE ESTERASE ,URINE NEGATIVE (NEGATIVE); NITRITE,URINE NEGATIVE (NEGATIVE); PROTEIN,URINE NEGATIVE (NEGATIVE)
[2022-06-27] MEDS ORDERED: NS IV 1000 ML 1,000 ML IV SCH (10:00)
[2022-06-27] MEDS ORDERED: inSUlin (REGULAR) HUMAN 1 UNIT/0.01 ML (CHARGE PER UNIT) SC ONE (10:00)
[2022-06-27 10:07] LABS: BACTERIA,URINE NEGATIVE /HPF; SQUAMOUS EPITHELIAL CELL,UR RARE /HPF
--- NOTE | 2022-06-27 10:43 | ED General ---
General Chief Complaint: Glucose Problems Stated Complaint: BLOOD SUGAR ISSUES Nursing Triage Note: ARRIVES VIA EMS TO ROOM 3 WITH C/O NAUSEA AND VOMITING SINCE LAST NIGHT AND ELEVATED GLUCOSE OF 331. Source of Information: Patient Exam Limitations: No Limitations History of Present Illness Date Seen by Provider: Jun 27, 2022 Time Seen by Provider: 08:49 Allergies and Home Medications Allergies Coded Allergies: No Known Drug Allergies (Unverified , 02/10/14) Patient Home Medication List Insulin Aspart (Novolog Flexpen) 100 Unit/Ml (3 Ml) Solution, UNIT SC AC, (Reported) Entered as Reported by: SANTI MATSON on 01/06/21 1006 Insulin Detemir (Levemir Flextouch) 100 Unit/Ml (3 Ml) Insuln.pen, 30 UNITS SC HS, (Reported) Entered as Reported by: PITO WALL on 04/02/22 1118 Past Uwdfaub-Qebogi-Qhikvs Hx Patient Social History Tobacco Use?: No Use of E-Cig and/or Vaping dev: Yes E-Cig or Vaping type used: Nicotine Substance use?: Yes Substance type: Marijuana Alcohol Use?: No Immunizations Up To Date Tetanus Booster (TDap): Less than 5yrs PED Vaccines UTD: Yes Influenza Vaccine Up-to-Date: Yes; Up-to-Date First/Initial COVID19 Vaccinat: declined Second COVID19 Vaccination Irving: na Third COVID19 Vaccination Date: na Seasonal Allergies Seasonal Allergies: No Past Medical History Surgery/Hospitalization HX: IDDM DENIES SX HX Surgeries: No Respiratory: No Cardiac: No Neurological: No Genitourinary: No Gastrointestinal: No Musculoskeletal: No Endocrine: Yes (POORLY CONTROLLED TYPE 1 DIABETES;NON-COMPLIANT; DKA MULT TIMES) Diabetes, Insulin dep HEENT: No Cancer: No Psychosocial: No Integumentary: No Blood Disorders: No Family Medical History Cancer, Diabetes, Stroke Physical Exam Vital Signs Vital Signs - First Documented 06/27/22 08:35 Temp 35.9 Pulse 95 Resp 18 B/P (MAP) 140/82 (101) Pulse Ox 100 O2 Delivery Room Air Capillary Refill : Less Than 3 Seconds Height, Weight, BMI Height: 5'8.00" Weight: 124lbs. 4.8oz. [id number]; 20.00 BMI Method:Stated Focused Exam Lactate Level 06/27/22 09:45: Lactic Acid Level 1.46 Lactic Acid Level Laboratory Tests Test 06/27/22 09:45 Lactic Acid Level 1.46 MMOL/L (0.50-2.00) Progress/Results/Core Measures Suspected Sepsis SIRS Temperature: Pulse: 95 Respiratory Rate: 18 Laboratory Tests 06/27/22 08:40: White Blood Count 12.3H Blood Pressure 140 /82 Mean: 101 06/27/22 09:45: Lactic Acid Level 1.46 Laboratory Tests 06/27/22 08:40: Creatinine 0.89, Platelet Count 209, Total Bilirubin 1.0 Results/Orders Lab Results Laboratory Tests Test 06/27/22 08:38 06/27/22 08:40 06/27/22 09:45 06/27/22 09:51 Range/Units Glucometer 369 H 302 H 70-110 MG/DL White Blood Count 12.3 H 4.3-11.0 10^3/uL Red Blood Count 5.10 4.30-5.52 10^6/uL Hemoglobin 14.8 13.3-17.7 g/dL Hematocrit 43 40-54 % Mean Corpuscular Volume 85 80-99 fL Mean Corpuscular Hemoglobin 29 25-34 pg Mean Corpuscular Hemoglobin Concent 34 32-36 g/dL Red Cell Distribution Width 12.8 10.0-14.5 % Platelet Count 209 130-400 10^3/uL Mean Platelet Volume 11.7 9.0-12.2 fL Immature Granulocyte % (Auto) 1 % Neutrophils (%) (Auto) 86 H 42-75 % Lymphocytes (%) (Auto) 8 L 12-44 % Monocytes (%) (Auto) 4 0-12 % Eosinophils (%) (Auto) 0 0-10 % Basophils (%) (Auto) 1 0-10 % Neutrophils # (Auto) 10.7 H 1.8-7.8 10^3/uL Lymphocytes # (Auto) 1.0 1.0-4.0 10^3/uL Monocytes # (Auto) 0.5 0.0-1.0 10^3/uL Eosinophils # (Auto) 0.0 0.0-0.3 10^3/uL Basophils # (Auto) 0.1 0.0-0.1 10^3/uL Immature Granulocyte # (Auto) 0.1 0.0-0.1 10^3/uL Sodium Level 135 135-145 MMOL/L Potassium Level 4.0 3.6-5.0 MMOL/L Chloride Level 96 L 98-107 MMOL/L Carbon Dioxide Level 20 L 21-32 MMOL/L Anion Gap 19 H 5-14 MMOL/L Blood Urea Nitrogen 13 7-18 MG/DL Creatinine 0.89 0.60-1.30 MG/DL Estimat Glomerular Filtration Rate 126 BUN/Creatinine Ratio 15 Glucose Level 388 H 70-105 MG/DL Calcium Level 9.8 8.5-10.1 MG/DL Corrected Calcium 8.5-10.1 MG/DL Magnesium Level 1.7 1.6-2.4 MG/DL Total Bilirubin 1.0 0.1-1.0 MG/DL Aspartate Amino Transf (AST/SGOT) 13 5-34 U/L Alanine Aminotransferase (ALT/SGPT) 19 0-55 U/L Alkaline Phosphatase 113 40-136 U/L Total Protein 7.3 6.4-8.2 GM/DL Albumin 4.6 H 3.2-4.5 GM/DL Amylase Level 40 25-125 U/L Lipase < 4 L 8-78 U/L Lactic Acid Level 1.46 0.50-2.00 MMOL/L Urine Color YELLOW Urine Clarity CLEAR Urine pH 6.0 5-9 Urine Specific [place] >=1.030 1.016-1.022 Urine Protein NEGATIVE NEGATIVE Urine Glucose (UA) 3+ H NEGATIVE Urine Ketones 1+ H NEGATIVE Urine Nitrite NEGATIVE NEGATIVE Urine Bilirubin NEGATIVE NEGATIVE Urine Urobilinogen 0.2 < = 1.0 MG/DL Urine Leukocyte Esterase NEGATIVE NEGATIVE Urine RBC (Auto) NEGATIVE NEGATIVE Urine RBC NONE /HPF Urine WBC NONE /HPF Urine Squamous Epithelial Cells RARE /HPF Urine Crystals NONE /LPF Urine Bacteria NEGATIVE /HPF Urine Casts NONE /LPF Urine Mucus NEGATIVE /LPF Urine Culture Indicated NO Test 06/27/22 11:01 Range/Units Glucometer 219 H 70-110 MG/DL My Orders Orders - CLAU WASSERMAN MD Cbc With Automated Diff (06/27/22 08:49) Comprehensive Metabolic Panel (06/27/22 08:49) Magnesium (06/27/22 08:49) Ed Iv/Invasive Line Start (06/27/22 08:49) Accucheck Stat ONCE (06/27/22 08:49) Amylase (06/27/22 08:45) Lipase (06/27/22 08:45) Ua Culture If Indicated (06/27/22 08:45) Acute Abd Series (06/27/22 08:45) Ondansetron Injection (Zofran Injectio (06/27/22 08:45) Lactic Acid Analyzer (06/27/22 09:40) Ns Iv 1000 Ml (Sodium Chloride 0.9%) (06/27/22 10:00) Insulin (Regular) Human (Novolin R (Per (06/27/22 10:00) Accucheck Stat ONCE (06/27/22 10:12) Accucheck Prn UD (06/27/22 10:25) Pantoprazole Tablet (Protonix Tablet) (06/27/22 11:30) Medications Given in ED Current Medications Medications Dose Ordered Sig/Francisco Javier Route Start Time Stop Time Status Last Admin Dose Admin Insulin Human Regular 5 unit ONCE ONCE SC 06/27/22 10:00 06/27/22 10:01 DC 06/27/22 10:23 5 UNIT Ondansetron HCl 4 mg ONCE ONCE IVP 06/27/22 08:45 06/27/22 08:52 DC 06/27/22 08:58 4 MG Vital Signs/I&O 06/27/22 08:35 Temp 35.9 Pulse 95 Resp 18 B/P (MAP) 140/82 (101) Pulse Ox 100 O2 Delivery Room Air Capillary Refill : Less Than 3 Seconds Blood Pressure Mean: 101 Point of Care Testing Finger Stick Blood Glucose: 302 Blood Glucose Action Taken: NOTIFIED Progress Note : Progress Note Patient states he smokes marijuana because no one will treat his pain. He states that Woody Jackson at [facility] advised him to continue smoking marijuana and refused to address his pain. I offered him a short-term prescription for gabapentin if he would commit to stopping marijuana use. He declined this offer. Departure Impression Primary Impression: Nausea and vomiting Qualified Codes: R11.2 - Nausea with vomiting, unspecified Additional Impressions: Type 1 diabetes mellitus Qualified Codes: E10.69 - Type 1 diabetes mellitus with other specified complication Hyperglycemia due to type 1 diabetes mellitus Marijuana use Disposition: HOME, SELF-CARE Condition: Improved Departure-Patient Inst. Decision time for Depature: 11:19 Referrals: [facility] (PCP/Family) Primary Care Physician Patient Instructions: Diabetes Type 1, Adult (DC) Add. Discharge Instructions: Start with a clear liquid diet and gradually advance your diet with small quantities of bland food as tolerated. You may need to adjust your insulin doses to accommodate. Monitor your blood sugar very closely today, no less than every 4 hours. Contact your sap bobj developer on Wednesday for further direction. Use the Zofran (ondansetron) as prescribed for nausea or vomiting. Use omeprazole as prescribed for gastroesophageal acid reduction. Discontinue use of marijuana as marijuana is known to cause severe gastrointestinal problems such as persistent vomiting, abdominal pain, bowel cramping, etc. in certain individuals. You must abstain from marijuana for several months to determine if it is a contributing factor. Return to the emergency room if condition is worsening despite following these instructions or if you have any other problems or concerns All discharge instructions reviewed with patient and/or family. Voiced underst anding. Scripts Omeprazole (Omeprazole) 20 Mg Capsule. 20 MG PO DAILY, #30 CAP Prov: CLAU WASSERMAN MD 06/27/22 Ondansetron (Ondansetron Odt) 4 Mg Tab.rapdis 4 MG SL Q4H PRN for NAUSEA/VOMITING, #10 TAB Prov: CLAU WASSERMAN MD 06/27/22 CLAU WASSERMAN MD Jun 27, 2022 10:43
[2022-06-27] MEDS ORDERED: ONDA4TAB11 SL (11:23)
[2022-06-27] MEDS ORDERED: OMEP20CA18 PO (11:23)
[2022-06-27] MEDS ORDERED: PANTOPRAZOLE 40 MG (PROTONIX) TAB PO ONE (11:30)
[2022-06-27 11:33] VITALS: BP 139/85
== END 2022-06-27 11:33 | disposition home or self-care (01) ==
LOC: EDUNIT# 08:33 → ER 08:34
DX: E10.65 Type 1 diabetes mellitus with hyperglycemia (principal); F12.90 Cannabis use, unspecified, uncomplicated; F17.290 Nicotine dependence, other tobacco product, uncomplicated; Z28.310 Unvaccinated for COVID-19
CPT/HCPCS: 36415; 74022; 80053; 81000; 82150; 82947; 83605; 83690; 83735; 85025

== ENCOUNTER 2022-08-12 12:22 | Inpatient (IN) | payer MEDICAID ==
[~2022-08-12] VITALS: Ht 172 cm; Wt 51.0 kg
[~2022-08-12 12:22] MED LIST changes: -INSU100I29 SC; +INSU100I30 SC; +OMEP20CA18 PO; +ONDA4TAB11 SL
[2022-08-12] MEDS ORDERED: NS IV 1000 ML 1,000 ML IV STA (12:28)
--- NOTE | 2022-08-12 12:32 | ED General ---
General Chief Complaint: Glucose Problems Stated Complaint: HIGH BLOOD SUGAR Nursing Triage Note: PT ARRIVED PER EMS, PT SUGAR TOO HIGH TO READ. PT STATES HAS BEEN VOMITING FOR 2 DAYS. PT HAS IV SL #18 IN L AC BY EMS APPROX 700CC NS INFUSED. DENIES PAIN AT THIS X. PT CO OF WEAKNESS AND VOMITING. ZOFRAN 4MG IV BY EMS Source of Information: Patient Exam Limitations: No Limitations History of Present Illness Date Seen by Provider: August 12, 2022 Time Seen by Provider: 12:29 Initial Comments Patient is a 21-year-old male with a history of type 1 diabetes who presents the ED for elevated blood sugar. Patient states his glucometer at home read high. Patient states he took his last dose of Levemir or NovoLog yesterday morning. Has been vomiting since yesterday. Generalized abdominal pain yesterday but that has improved. Has not been able to eat or drink over the past 2 days. Patient contacted EMS was brought to the ER for further evaluation. States he feels like he is in DKA. Denies of any chest pain, shortness of breath, diarrhea, cough, sore throat, visual changes, headache. Reports frequent urination. Denies of any drug use or alcohol use. EMS states glucometer read high. He has associated weakness fatigue. Allergies and Home Medications Allergies Coded Allergies: No Known Drug Allergies (Unverified , 02/10/14) Patient Home Medication List Home Medication List Reviewed: Yes Insulin Aspart (Novolog Flexpen) 100 Unit/Ml (3 Ml) Solution, UNIT SC AC, (Reported) Entered as Reported by: SANTI MATSON on 01/06/21 1006 Insulin Detemir (Levemir Flextouch) 100 Unit/Ml (3 Ml) Insuln.pen, 30 UNITS SC HS, (Reported) Entered as Reported by: PITO WALL on 04/02/22 1118 Omeprazole (Omeprazole) 20 Mg Capsule.dr, 20 MG PO DAILY Prescribed by: CLAU WONG on 06/27/22 1123 Ondansetron (Ondansetron Odt) 4 Mg Tab.rapdis, 4 MG SL Q4H PRN for NAUSEA/VOMITING Prescribed by: CLAU WONG on 06/27/22 1123 Review of Systems Review of Systems Constitutional: No chills, No diaphoresis; malaise, weakness EENTM: No ear pain, No blurred vision, No double vision, No mouth pain Respiratory: No cough, No dyspnea on exertion, No short of breath Gastrointestinal: abdominal pain; No diarrhea; nausea, vomiting Genitourinary: No decreased output, No discharge, No dysuria; frequency Musculoskeletal: No back pain, No joint pain Skin: No change in color, No change in hair/nails All Other Systems Reviewed Negative Unless Noted: Yes Past Zyzkbjr-Sspzrh-Pfdnma Hx Patient Social History Tobacco Use?: No Use of E-Cig and/or Vaping dev: Yes E-Cig or Vaping type used: Nicotine Use of E-Cig and/or Vaping John: Current Everyday User Substance use?: Yes Substance type: Marijuana Substance frequency: Couple times a week Alcohol Use?: No Pt feels they are or have been: No Immunizations Up To Date Tetanus Booster (TDap): Less than 5yrs PED Vaccines UTD: Yes Influenza Vaccine Up-to-Date: No; Not Current First/Initial COVID19 Vaccinat: declined Second COVID19 Vaccination Irving: declined Third COVID19 Vaccination Date: declined Seasonal Allergies Seasonal Allergies: No Past Medical History Surgery/Hospitalization HX: IDDM DENIES SX HX Surgeries: No Respiratory: No Cardiac: No Neurological: No Genitourinary: No Gastrointestinal: No Musculoskeletal: No Endocrine: Yes (POORLY CONTROLLED TYPE 1 DIABETES;NON-COMPLIANT; DKA MULT TI MES) Diabetes, Insulin dep HEENT: No Cancer: No Psychosocial: No Integumentary: No Blood Disorders: No Family Medical History Cancer, Diabetes, Stroke Physical Exam Vital Signs Vital Signs - First Documented 08/12/22 12:23 Temp 35.5 Pulse 111 Resp 18 B/P (MAP) 128/78 (95) Capillary Refill : Less Than 3 Seconds Height, Weight, BMI Height: 5'8.00" Weight: 124lbs. 4.8oz. 56.987659zj; 19.00 BMI Method:Stated General Appearance: No Apparent Distress, WD/WN Eyes: Bilateral Eye Normal Inspection, Bilateral Eye PERRL, Bilateral Eye EOMI HEENT: PERRL/EOMI, TMs Normal, Normal ENT Inspection, Pharynx Normal Neck: Full Range of Motion, Normal Inspection, Non Tender, Supple Respiratory: Chest Non Tender, Lungs Clear, Normal Breath Sounds, No Accessory Muscle Use, No Respiratory Distress Cardiovascular: No Edema, No Gallop, No JVD, Tachycardia Gastrointestinal: Normal Bowel Sounds, No Organomegaly, No Pulsatile Mass, Non Tender, Soft Back: Normal Inspection, No CVA Tenderness, No Vertebral Tenderness Extremity: Normal Capillary Refill, Normal Inspection, Normal Range of Motion, Non Tender Neurologic/Psychiatric: Alert, Oriented x3, No Motor/Sensory Deficits, Normal Mood/Affect, building serviceman II-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 Norm as Tested Skin: Normal Color, Warm/Dry Focused Exam Lactate Level 08/12/22 12:25: Lactic Acid Level 3.31*H Lactic Acid Level Laboratory Tests Test 08/12/22 12:25 Lactic Acid Level 3.31 MMOL/L (0.50-2.00) *H Progress/Results/Core Measures Suspected Sepsis SIRS Temperature: Pulse: 111 Respiratory Rate: 18 Laboratory Tests 08/12/22 12:25: White Blood Count 36.1*H Blood Pressure 128 /78 Mean: 95 08/12/22 12:25: Lactic Acid Level 3.31*H Laboratory Tests 08/12/22 12:25: Creatinine 1.28, Platelet Count 300, Total Bilirubin 0.5 Results/Orders Lab Results Laboratory Tests Test 08/12/22 12:25 08/12/22 12:27 08/12/22 12:43 08/12/22 13:40 Range/Units White Blood Count 36.1 *H 4.3-11.0 10^3/uL Red Blood Count 4.70 4.30-5.52 10^6/uL Hemoglobin 13.8 13.3-17.7 g/dL Hematocrit 42 40-54 % Mean Corpuscular Volume 89 80-99 fL Mean Corpuscular Hemoglobin 29 25-34 pg Mean Corpuscular Hemoglobin Concent 33 32-36 g/dL Red Cell Distribution Width 12.7 10.0-14.5 % Platelet Count 300 130-400 10^3/uL Mean Platelet Volume 12.3 H 9.0-12.2 fL Immature Granulocyte % (Auto) 9 % Neutrophils (%) (Auto) 73 42-75 % Lymphocytes (%) (Auto) 9 L 12-44 % Monocytes (%) (Auto) 8 0-12 % Eosinophils (%) (Auto) 0 0-10 % Basophils (%) (Auto) 1 0-10 % Neutrophils # (Auto) 26.3 H 1.8-7.8 10^3/uL Lymphocytes # (Auto) 3.2 1.0-4.0 10^3/uL Monocytes # (Auto) 2.8 H 0.0-1.0 10^3/uL Eosinophils # (Auto) 0.1 0.0-0.3 10^3/uL Basophils # (Auto) 0.5 H 0.0-0.1 10^3/uL Immature Granulocyte # (Auto) 3.3 H 0.0-0.1 10^3/uL Neutrophils % (Manual) 73 % Lymphocytes % (Manual) 8 % Monocytes % (Manual) 5 % Myelocytes % 6 % Band Neutrophils 6 % Reactive Lymphocytes 2 % Blood Morphology Comment NORMAL Venous Blood pH 7.10 L 7.31-7.41 Venous Blood Partial Pressure CO2 22 L 40-52 MMHG Venous Blood HCO3 7 L 22-28 MMOL/L Sodium Level 130 L 135-145 MMOL/L Potassium Level 5.3 H 3.6-5.0 MMOL/L Chloride Level 96 L 98-107 MMOL/L Carbon Dioxide Level 5 *L 21-32 MMOL/L Anion Gap 29 H 5-14 MMOL/L Blood Urea Nitrogen 19 H 7-18 MG/DL Creatinine 1.28 0.60-1.30 MG/DL Estimat Glomerular Filtration Rate 82 BUN/Creatinine Ratio 15 Glucose Level 623 *H 70-105 MG/DL Lactic Acid Level 3.31 *H 0.50-2.00 MMOL/L Calcium Level 9.1 8.5-10.1 MG/DL Corrected Calcium 8.9 8.5-10.1 MG/DL Magnesium Level 2.0 1.6-2.4 MG/DL Total Bilirubin 0.5 0.1-1.0 MG/DL Aspartate Amino Transf (AST/SGOT) 16 5-34 U/L Alanine Aminotransferase (ALT/SGPT) 20 0-55 U/L Alkaline Phosphatase 118 40-136 U/L Total Protein 6.8 6.4-8.2 GM/DL Albumin 4.3 3.2-4.5 GM/DL Lipase < 4 L 8-78 U/L Beta-Hydroxybutyrate (Chem panel) 10.62 H 0.00-0.27 MMOL/L Glucometer 533 *H 490 *H 70-110 MG/DL Urine Color YELLOW Urine Clarity CLEAR Urine pH 5.5 5-9 Urine Specific [place] 1.025 H 1.016-1.022 Urine Protein NEGATIVE NEGATIVE Urine Glucose (UA) 3+ H NEGATIVE Urine Ketones 3+ H NEGATIVE Urine Nitrite NEGATIVE NEGATIVE Urine Bilirubin NEGATIVE NEGATIVE Urine Urobilinogen 0.2 < = 1.0 MG/DL Urine Leukocyte Esterase NEGATIVE NEGATIVE Urine RBC (Auto) NEGATIVE NEGATIVE Urine RBC RARE /HPF Urine WBC RARE /HPF Urine Squamous Epithelial Cells 5-10 /HPF Urine Crystals NONE /LPF Urine Bacteria FEW H /HPF Urine Casts PRESENT /LPF Urine Granular Casts 0-2 H /LPF Urine Mucus NEGATIVE /LPF Urine Culture Indicated YES Urine Opiates Screen NEGATIVE NEGATIVE Urine Oxycodone Screen NEGATIVE NEGATIVE Urine Methadone Screen NEGATIVE NEGATIVE Urine Propoxyphene Screen NEGATIVE NEGATIVE Urine Barbiturates Screen NEGATIVE NEGATIVE Ur Tricyclic Antidepressants Screen NEGATIVE NEGATIVE Urine Phencyclidine Screen NEGATIVE NEGATIVE Urine Amphetamines Screen NEGATIVE NEGATIVE Urine Methamphetamines Screen NEGATIVE NEGATIVE Urine Benzodiazepines Screen NEGATIVE NEGATIVE Urine Cocaine Screen NEGATIVE NEGATIVE Urine Cannabinoids Screen POSITIVE H NEGATIVE My Orders Orders - NEENA PILLAI Cbc With Automated Diff (08/12/22 12:28) Comprehensive Metabolic Panel (08/12/22 12:28) Ua Culture If Indicated (08/12/22 12:28) Drug Screen Stat (Urine) (08/12/22 12:28) Beta Hydroxybutyrate (08/12/22 12:28) Magnesium (08/12/22 12:28) Lactic Acid Analyzer (08/12/22 12:28) Ns Iv 1000 Ml (Sodium Chloride 0.9%) (08/12/22 12:28) Venous Blood Gas (08/12/22 12:32) Manual Differential (08/12/22 12:25) Urine Culture (08/12/22 12:43) Insulin (Regular) Human (Novolin R (Per (08/12/22 13:15) Ondansetron Injection (Zofran Injectio (08/12/22 13:30) Ed Admission (Communication) (08/12/22 13:35) Lactated Ringers (Lr 1000 Ml Iv Solution (08/12/22 13:36) Lipase (08/12/22 13:38) Medications Given in ED Current Medications Medications Dose Ordered Sig/Francisco Javier Route Start Time Stop Time Status Last Admin Dose Admin Insulin Human Regular 10 unit ONCE ONCE IV 08/12/22 13:15 08/12/22 13:16 DC 08/12/22 13:21 10 UNIT Ondansetron HCl 4 mg ONCE ONCE IVP 08/12/22 13:30 08/12/22 13:31 DC 08/12/22 13:26 4 MG Vital Signs/I&O 08/12/22 12:23 Temp 35.5 Pulse 111 Resp 18 B/P (MAP) 128/78 (95) Capillary Refill : Less Than 3 Seconds Blood Pressure Mean: 95 Critical Care Note Critical Care Start Time: 12:40 Stop Time: 13:10 Total Time (minutes) 30 Progress DKA requiring insulin drip, fluid resuscitation Departure Communication (PCP) Reviewed previous ER visits, H&P, lab testing. History of DKA. Last dose of her insulin was yesterday morning. Vomiting not eating. Patient was given 4 mg IV Zofran in route by EMS. On arrival nauseous was given a second dose of Zofran 4 mg. Started on a liter of fluid normal saline. Patient was slightly tachycardic. Alert and oriented x3. GCS of 15. Did have some abdominal pain yesterday no abdominal pain today. No cough, fever, chest pain, visual changes or headache. General lab work, beta hydroxybutyrate, VBG, urinalysis was ordered. White blood count 36.1 likely reactive. Chemistry showed sodium 130, chloride 96, potassium 5.3, anion gap of 29, bicarb of 7. Normal kidney function. Beta hydroxybutyrate 10. Ketones protein in the urine. Urinalysis was negative for infection. Positive for THC. Was given 10 units of regular insulin. Started on LR second liter. Concern for DKA. Patient was discussed with Dr. Costello hospitalist accepts patient to the ICU for further evaluation. Patient agrees with admission. Patient will be started on a insulin drip. Critical care time 30 minutes total secondary to DKA require fluid resuscitation, insulin drip Impression Primary Impression: DKA, type 1 Disposition: ADMITTED INPATIENT Condition: Stable Admissions Decision to Admit Reason: Admit from ER (General) Decision to Admit/Date: August 12, 2022 Time/Decision to Admit Time: 13:23 Departure-Patient Inst. Referrals: [facility] (PCP/Family) Primary Care Physician NEENA PILLAI August 12, 2022 12:32
[2022-08-12 12:47] LABS: BASOPHILS # (AUTO) 0.5 10^3/uL (0.0-0.1); BASOPHILS % (AUTO) 1 % (0-10); EOSINOPHILS # (AUTO) 0.1 10^3/uL (0.0-0.3); EOSINOPHILS % (AUTO) 0 % (0-10); HEMATOCRIT 42 % (40-54); HEMOGLOBIN 13.8 g/dL (13.3-17.7); LYMPHOCYTES # (AUTO) 3.2 10^3/uL (1.0-4.0); LYMPHOCYTES % (AUTO) 9 % (12-44); MEAN CORPUSCULAR HEMOGLOBIN 29 pg (25-34); MEAN CORPUSCULAR HGB CONC 33 g/dL (32-36); MEAN CORPUSCULAR VOLUME 89 fL (80-99); MEAN PLATELET VOLUME 12.3 fL (9.0-12.2); MONOCYTES # (AUTO) 2.8 10^3/uL (0.0-1.0); MONOCYTES % (AUTO) 8 % (0-12); NEUTROPHILS # (AUTO) 26.3 10^3/uL (1.8-7.8); NEUTROPHILS % (AUTO) 73 % (42-75); PLATELET COUNT 300 10^3/uL (130-400)
[2022-08-12 12:48] LABS: ALBUMIN 4.3 GM/DL (3.2-4.5)
[2022-08-12 12:49] LABS: POTASSIUM 5.3 MMOL/L (3.6-5.0)
[2022-08-12 12:50] LABS: CALCIUM 9.1 MG/DL (8.5-10.1)
[2022-08-12 12:51] LABS: TOTAL PROTEIN 6.8 GM/DL (6.4-8.2)
[2022-08-12 12:51] LABS: BILIRUBIN,URINE NEGATIVE (NEGATIVE); CLARITY,URINE CLEAR; COLOR,URINE YELLOW; GLUCOSE, URINE (UA) 3+ (NEGATIVE); KETONES,URINE 3+ (NEGATIVE); LEUKOCYTE ESTERASE ,URINE NEGATIVE (NEGATIVE); NITRITE,URINE NEGATIVE (NEGATIVE); PH,URINE 5.5 (5-9); PROTEIN,URINE NEGATIVE (NEGATIVE)
[2022-08-12 12:52] LABS: WHITE BLOOD COUNT 36.1 10^3/uL (4.3-11.0)
[2022-08-12 12:53] LABS: BILIRUBIN,TOTAL 0.5 MG/DL (0.1-1.0)
[2022-08-12 12:54] LABS: CREATININE SERUM 1.28 MG/DL (0.60-1.30)
[2022-08-12 13:03] LABS: BACTERIA,URINE FEW /HPF; GRANULAR CASTS,URINE 0-2 /LPF; RBC,URINE RARE /HPF; WBC,URINE RARE /HPF
[2022-08-12 13:04] LABS: AMPHETAMINE SCREEN, URINE NEGATIVE (NEGATIVE); BARBITURATE SCREEN URINE NEGATIVE (NEGATIVE); BENZODIAZEPINES SCREEN URINE NEGATIVE (NEGATIVE); CANNABINOID SCREEN, URINE POSITIVE (NEGATIVE); COCAINE SCREEN URINE NEGATIVE (NEGATIVE); METHADONE STAT NEGATIVE (NEGATIVE); OPIATE SCREEN URINE NEGATIVE (NEGATIVE); OXYCODONE STAT NEGATIVE (NEGATIVE); PROPOXYPHENE STAT NEGATIVE (NEGATIVE); TRICYCLIC ANTIDEPRESSANTS SCRE NEGATIVE (NEGATIVE)
[2022-08-12] MEDS ORDERED: inSUlin (REGULAR) HUMAN 1 UNIT/0.01 ML (CHARGE PER UNIT) IV ONE (13:15)
[2022-08-12 13:19] LABS: BAND NEUTROPHILS 6 %; LYMPHOCYTES % (MANUAL) 8 %; MONOCYTES % (MANUAL) 5 %; MYELOCYTES % 6 %; NEUTROPHILS % (MANUAL) 73 %; RBC MORPH NORMAL; REACTIVE LYMPHOCYTES 2 %
[2022-08-12] MEDS ORDERED: ONDANSETRON 4 MG/2 ML (SDV) Z0FRAN IVP ONE (13:30)
[2022-08-12] MEDS ORDERED: LACTATED RINGERS 1,000 ML IV STA (13:36)
--- NOTE | 2022-08-12 14:04 | History & Physical-Hospitalist ---
History of Present Illness HPI/Chief Complaint CC: DKA HPI: This is a 21yoWM clinic patient of [facility] who has multiple episodes of DKA who presented to the ER with N/V and DKA. IVF initiated along with insulin drip so he will be admitted to ICU. Source: patient Exam Limitations: clinical condition Date Seen 08/12/22 Time Seen by a Provider: 18:00 Attending Physician [place] PCP Admitting Physician: Pepper Costello DO Attending Physician: Pepper Costello DO Referring Physician Date of Admission August 12, 2022 at 14:00 Home Medications & Allergies Home Medications Reviewed patient Home Medication Reconciliation performed by pharmacy medication reconciliations automation technician and/or nursing. Patients Allergies have been reviewed. Allergies Allergies Coded Allergies No Known Drug Allergies (Yhvnilglwz28/15/14) Past Bwurttc-Wstdhv-Nwlqxy Hx Patient Social History Marrital Status: single Employed/Student: unemployed Tobacco Use?: No Smoking Status: Former Smoker Use of E-Cig and/or Vaping dev: Yes E-Cig or Vaping type used: Nicotine Use of E-Cig and/or Vaping John: Current Everyday User Substance use?: Yes Substance type: Marijuana Substance frequency: Couple times a week Alcohol Use?: No Pt feels they are or have been: No Immunizations Up To Date Date of Influenza Vaccine: Jan 29, 2020 First/Initial COVID19 Vaccinat: declined Second COVID19 Vaccination Irving: declined Tetanus Booster (TDap): Unknown Hepatitis A: No Hepatitis B: No PED Vaccines UTD: Yes Seasonal Allergies Seasonal Allergies: No Current Status Advance Directives: No Primary Language: Tamazight Implanted or Applied Medical D: None Past Medical History Diabetes, Insulin dep Blood Disorders: No PMHx: DMI SurgHx: Denies Family Medical History Cancer, Diabetes, Stroke Review of Systems Constitutional: see HPI Gastrointestinal: nausea, vomiting Physical Exam Physical Exam Vital Signs Vital Signs - First Documented 08/12/22 08/12/22 08/12/22 12:23 14:02 15:04 Temp 35.5 Pulse 111 Resp 18 B/P (MAP) 128/78 (95) Pulse Ox 99 O2 Delivery Room Air FiO2 21 Capillary Refill : Less Than 3 Seconds Height, Weight, BMI Height: 5'8.00" Weight: 124lbs. 4.8oz. 56.883011xe; 19.00 BMI Method:Stated General Appearance: No Apparent Distress, Chronically ill, Thin Eyes: Right Eye Normal Inspection, Right Eye PERRL HEENT: PERRL/EOMI, Normal ENT Inspection, Pharynx Normal, Moist Mucous Membranes Neck: Full Range of Motion, Normal Inspection, Non Tender Respiratory: Chest Non Tender, Lungs Clear, Normal Breath Sounds, No Accessory Muscle Use, No Respiratory Distress Cardiovascular: Regular Rate, Rhythm, No Edema, No Gallop, No JVD, No Murmur, Normal Peripheral Pulses Gastrointestinal: Normal Bowel Sounds, No Organomegaly, No Pulsatile Mass, Non Tender, Soft Back: Normal Inspection, No CVA Tenderness, No Vertebral Tenderness Extremity: Normal Capillary Refill, Normal Inspection, Normal Range of Motion, Non Tender, No Calf Tenderness, No Pedal Edema Neurologic/Psychiatric: Alert, Oriented x3, No Motor/Sensory Deficits, Normal Mood/Affect Skin: Normal Color, Warm/Dry Lymphatic: No Adenopathy Results Results/Procedures Labs Laboratory Tests 08/12/22 12:25 08/12/22 14:36 08/12/22 16:11 08/12/22 22:10 08/13/22 04:38 Patient resulted labs reviewed. Assessment/Plan Admission Diagnosis Assessment: DKA HAY Plan: Insulin drip Admission Status: Inpatient Order (span 2 midnights) Reason for Inpatient Admission: dka PEPPER COSTELLO DO August 12, 2022 14:04
[2022-08-12] MEDS ORDERED: ACETAMINOPHEN 325 MG TABLET PO PRN (14:15)
[2022-08-12] MEDS ORDERED: NS IV 1000 ML 1,000 ML IV SCH (14:15)
[2022-08-12] MEDS ORDERED: BISACODYL 10 MG SUPP (DULCOLAX) PR PRN (14:15)
[2022-08-12] MEDS ORDERED: ONDANSETRON 4 MG (ZOFRAN) ORAL DISSOLVE TAB PO PRN (14:15)
[2022-08-12] MEDS ORDERED: CALCIUM CARBONATE 500 MG (TUMS) TAB.CHEW PO PRN (14:15)
[2022-08-12] MEDS ORDERED: LACTULOSE SYRUP 10GM/15ML (ENULOSE) 30ML UDC PO PRN (14:15)
[2022-08-12] MEDS ORDERED: NS IV 500 ML 500 ML IV PRN (14:15)
[2022-08-12] MEDS ORDERED: HYDROmorphone 2 MG/ML VIAL (DILAUDID) IV PRN (14:15)
[2022-08-12] MEDS ORDERED: diphenhydrAMINE 50 MG/ML INJ (BENADRYL) IVP PRN (14:15)
[2022-08-12] MEDS ORDERED: MELATONIN 3 MG TABLET PO PRN (14:15)
[2022-08-12] MEDS ORDERED: ANTACID SUSP 30 ML UDC (MYLANTA) PO PRN (14:15)
[2022-08-12] MEDS ORDERED: MILK OF MAGNESIA 400 MG/5 ML 30 ML UDC PO PRN (14:15)
[2022-08-12] MEDS ORDERED: diphenhydrAMINE 25 MG TAB (BENADRYL) PO PRN (14:15)
[2022-08-12] MEDS ORDERED: ONDANSETRON 4 MG/2 ML (SDV) Z0FRAN IV PRN (14:15)
[2022-08-12] MEDS ORDERED: polyethylene glycoL POWDER 17 GM (MIRALAX) PACK PO PRN (14:15)
[2022-08-12] MEDS: POTASSIUM CL 10MEQ/50ML IVPB 50 ML IV SCH ×7 (15:01→23:52)
[2022-08-12] MEDS: 1/2 NS IV SOLUTION 1,000 ML IV SCH ×3 (15:02→22:48)
[2022-08-12 15:03] LABS: CALCIUM 8.7 MG/DL (8.5-10.1); CREATININE SERUM 1.2 MG/DL (0.60-1.30); POTASSIUM 4.4 MMOL/L (3.6-5.0)
[2022-08-12 15:04] VITALS: BP 128/78
[2022-08-12] MEDS ORDERED: INSU100I88 SC (15:18)
[2022-08-12] MEDS ORDERED: SUCR1TAB PO (15:18)
[2022-08-12] MEDS ORDERED: PANT40TA52 PO (15:18)
[2022-08-12] MEDS ORDERED: RT-ALBUTEROL SULF 2.5 MG/3 ML PRE-MIX VIAL INH PRN (15:30)
[2022-08-12 16:31] LABS: POTASSIUM 4.7 MMOL/L (3.6-5.0)
[2022-08-12 16:32] LABS: CALCIUM 8.5 MG/DL (8.5-10.1)
[2022-08-12 16:36] LABS: CREATININE SERUM 1.01 MG/DL (0.60-1.30)
[2022-08-12] MEDS: D5 1/2 NS 1000 ML IV SOLUTION 1,000 ML IV SCH ×2 (18:14→22:34)
--- NOTE | 2022-08-12 18:33 | Tele-ICU Consult ---
History of Present Illness History of Present Illness Date Seen by Provider: August 12, 2022 Time Seen by Provider: 18:33 Date of Admission History of Present Illness (Tele-ICU Physician , consultation as per request of PCP Service provided via interactive audio and video tele[employer] E-CARE system to a patient admitted to ICU bed in [facility]. Available chart/ vitals / labs / Images reviewed H&P is from ER notes Patient's information available about PMH, Shx, Fhx allergy reviewed inEMR. ROS as per chart and RN report Now in ICU, hemodynamically stable Video assessment done using teleICU camera, rest of exam as per RN Discussed with RN. Hospital course: (08/12) 21 y/o M - DKA - Insulin Drip. A/P DKA ( with DM tI - reports last dose of Levemir or NovoLog yesterday morning) *Insulin drip DM type I HAY - dehydration - cont IVF - follow closely Leukocytosis WBC 36K - suspect reactive, , UA unremarkable >off ABX +cannabioids Lines : , (Central Line Necessity Reviewed) [place]: OG: Nutrition: Analgesia: Anxiety/ delirium VTE Prophylaxis: tristian 40 Stress Ulcer Prophylaxis: Plans in collaboration with bedside consultants and IM MDs. Discussed with RN to reach out if any questions or concerns A total of 15 minutes of critical care time was devoted to this patient today, required to treat and/or prevent further deterioration of critical care condition ( as above ) . I am remotely monitoring this patient from another state. I am unable to do the bedside exam, and history/physical and pertinent information is taken from other notes in the computer and bedside staff. . Allergies and Home Medications Allergies Coded Allergies: No Known Drug Allergies (Unverified , 02/10/14) Home Medications Insulin Aspart 100 Unit/Ml (3 Ml) Solution, UNIT SC AC, (Reported) Insulin Detemir 100 Unit/Ml (3 Ml) Insuln.pen, 30 UNITS SC DAILY, (Reported) Pantoprazole Sodium 40 Mg Tablet.dr, 40 MG PO DAILY, (Reported) Sucralfate 1 Gram Tablet, 1 GM PO TIDAC, (Reported) Past Medical/Social/Family Hx Patient Social History Tobacco Use?: No Smoking Status: Never a Smoker Smokeless Tobacco Frequency: Never a User Use of E-Cig and/or Vaping dev: Yes E-Cig or Vaping type used: Nicotine E-Cig and/or Vaping Freq: Current Everyday User Substance use?: Yes Substance type: Marijuana Substance frequency: Several times a month Alcohol Use?: No Pt stated abuse/neglect: No Immunizations Up To Date Influenza Vaccine Up-to-Date: No; Not Current First/Initial COVID19 Vaccinat: declined Second COVID19 Vaccination [place]: declined Tetanus Booster (TDap): Unknown Hepatitis A: No Hepatitis B: No TB Skin Test: None Current Status Advance Directives: No Communicates: Verbally Primary Language: Polish Preferred Spoken Language: Polish Is interpretation needed?: No Implanted or Applied Medical D: None Past Medical History PMHx: DMI SurgHx: Denies Review of Systems Constitutional: see HPI Focused Exam Lactate Level 08/12/22 12:25: Lactic Acid Level 3.31*H 08/12/22 14:36: Lactic Acid Level 2.42*H 08/12/22 16:11: Lactic Acid Level 1.30 Height, Weight, BMI Height: 5'8.00" Weight: 124lbs. 4.8oz. 56.560420ss; 19.90 BMI Method:Stated Lactic Acid Level Laboratory Tests Test 08/12/22 14:36 08/12/22 16:11 Lactic Acid Level 2.42 MMOL/L (0.50-2.00) *H 1.30 MMOL/L (0.50-2.00) Exam Exam Patient acknowledged, consented, and participated in this virtual visit which was conducted using real time audio/video Vital Signs Date Time Temp Pulse Resp B/P (MAP) Pulse Ox O2 Delivery O2 Flow Rate FiO2 08/12/22 17:00 124 20 109/67 (81) 97 Room Air 08/12/22 16:00 117 19 90/50 (63) 99 Room Air 08/12/22 15:30 116 18 105/53 (72) 97 Room Air 08/12/22 15:25 99 Room Air 08/12/22 15:15 114 22 109/58 (75) 98 Room Air 08/12/22 15:04 35.5 111 99 21 08/12/22 15:00 111 19 104/53 (71) 98 Room Air 08/12/22 14:45 117 13 100/56 (71) 82 Room Air 5/17/23 14:15 36.5 115 17 109/67 (83) 98 Room Air 08/12/22 14:02 35.6 122 18 124/65 99 Room Air 08/12/22 12:23 35.5 111 18 128/78 (95) Height & Weight Height: 5'8.00" Weight: 124lbs. 4.8oz. 56.424933hw; 19.90 BMI Method:Stated General Appearance: No Apparent Distress, WD/WN HEENT: PERRL/EOMI, TMs Normal, Normal ENT Inspection, Pharynx Normal Neck: Full Range of Motion, Normal Inspection, Non Tender, Supple Respiratory: Chest Non Tender, Lungs Clear, Normal Breath Sounds, No Accessory Muscle Use, No Respiratory Distress Cardiovascular: No Edema, No Gallop, No JVD, Tachycardia Capillary Refill: Less Than 3 Seconds Extremity: Normal Capillary Refill, Normal Inspection, Normal Range of Motion, Non Tender Neurologic/Psychiatric: Alert, Oriented x3, No Motor/Sensory Deficits, Normal Mood/Affect, compensation consulting manager II-XII Norm as Tested Skin: Normal Color, Warm/Dry Results Lab Laboratory Tests 08/12/22 12:25 08/12/22 14:36 08/12/22 16:11 Assessment/Plan Assessment/Plan 1 JOSE G LOPES MD August 12, 2022 18:33
[2022-08-12] MEDS: ENOXAPARIN 40 MG/0.4 ML (LOVENOX) SYR SC SCH ×2 (21:20→21:46)
[2022-08-12] MEDS: SENNOSIDES 8.6 MG (SENOKOT) TAB PO SCH (21:46)
[2022-08-12] MEDS: DOCUSATE SODIUM 100 MG (COLACE) CAP PO SCH (21:46)
[2022-08-12 22:30] LABS: POTASSIUM 4.4 MMOL/L (3.6-5.0)
[2022-08-12 22:35] LABS: CREATININE SERUM 0.95 MG/DL (0.60-1.30)
[2022-08-13] MEDS: POTASSIUM CL 10MEQ/50ML IVPB 50 ML IV SCH ×3 (01:56→06:00)
[2022-08-13] MEDS: 1/2 NS IV SOLUTION 1,000 ML IV SCH ×2 (02:15→05:45)
[2022-08-13] MEDS: D5 1/2 NS 1000 ML IV SOLUTION 1,000 ML IV SCH ×2 (02:48→06:38)
[2022-08-13 04:52] LABS: BASOPHILS # (AUTO) 0.1 10^3/uL (0.0-0.1); BASOPHILS % (AUTO) 0 % (0-10); EOSINOPHILS # (AUTO) 0.1 10^3/uL (0.0-0.3); EOSINOPHILS % (AUTO) 0 % (0-10); HEMATOCRIT 35 % (40-54); HEMOGLOBIN 12.2 g/dL (13.3-17.7); LYMPHOCYTES % (AUTO) 11 % (12-44); MEAN CORPUSCULAR HEMOGLOBIN 29 pg (25-34); MEAN CORPUSCULAR HGB CONC 35 g/dL (32-36); MEAN CORPUSCULAR VOLUME 84 fL (80-99); MEAN PLATELET VOLUME 11.2 fL (9.0-12.2); MONOCYTES # (AUTO) 1.6 10^3/uL (0.0-1.0); MONOCYTES % (AUTO) 9 % (0-12); NEUTROPHILS # (AUTO) 13.3 10^3/uL (1.8-7.8); NEUTROPHILS % (AUTO) 76 % (42-75); PLATELET COUNT 234 10^3/uL (130-400); WHITE BLOOD COUNT 17.6 10^3/uL (4.3-11.0)
--- NOTE | 2022-08-13 05:12 | Progress Note - Hospitalist ---
Subjective HPI/CC On Admission Date Seen by Provider: August 13, 2022 Time Seen by Provider: 11:00 CC: DKA HPI: This is a 21yoWM clinic patient of [facility] who has multiple episodes of DKA who presented to the ER with N/V and DKA. IVF initiated along with insulin drip so he will be admitted to ICU. Focused Exam Lactate Level 08/12/22 12:25: Lactic Acid Level 3.31*H 08/12/22 14:36: Lactic Acid Level 2.42*H 08/12/22 16:11: Lactic Acid Level 1.30 Objective Exam Vital Signs Vital Signs Date Time Temp Pulse Resp B/P (MAP) Pulse Ox O2 Delivery O2 Flow Rate FiO2 08/13/22 09:00 100 9 122/82 (95) 99 Room Air 08/13/22 07:37 36.8 08/12/22 15:04 21 Capillary Refill : Less Than 3 Seconds Results/Procedures Lab Laboratory Tests 08/12/22 12:25 08/12/22 14:36 08/12/22 16:11 08/12/22 22:10 08/13/22 04:38 Patient resulted labs reviewed. ANDREW HUFF DO August 13, 2022 05:12
[2022-08-13 05:18] LABS: ALBUMIN 3.7 GM/DL (3.2-4.5); BILIRUBIN,TOTAL 0.5 MG/DL (0.1-1.0); CALCIUM 9.1 MG/DL (8.5-10.1); CREATININE SERUM 0.85 MG/DL (0.60-1.30); MAGNESIUM 1.9 MG/DL (1.6-2.4); PHOSPHORUS 1.6 MG/DL (2.3-4.7); TOTAL PROTEIN 5.7 GM/DL (6.4-8.2)
[2022-08-13] MEDS ORDERED: 1/2 NS IV SOLUTION 1,000 ML IV SCH (05:46)
[2022-08-13] MEDS ORDERED: KCL 20 MEQ TAB (K-DUR) PO SCH (06:00)
[2022-08-13] MEDS ORDERED: POTASSIUM CL 10MEQ/50ML IVPB 50 ML IV SCH (06:00)
[2022-08-13] MEDS ORDERED: MAGNESIUM 1 GM/100 ML IVPB 100 ML IV SCH (06:00)
[2022-08-13] MEDS: inSUlin ASPART (NovoLOG) 1 UNIT/0.01 ML (CHARGE PER UNIT) SQ SCH ×2 (07:31→11:07)
[2022-08-13] MEDS: SENNOSIDES 8.6 MG (SENOKOT) TAB PO SCH (08:37)
[2022-08-13] MEDS: DOCUSATE SODIUM 100 MG (COLACE) CAP PO SCH (08:37)
--- NOTE | 2022-08-13 10:29 | Discharge Summary ---
Discharge Summary Hospital Course Was the Problem List Reviewed?: Yes Problems/Dx: (1) Diabetic ketoacidosis Status: Resolved (2) HAY (acute kidney injury) Status: Resolved Hospital Course Date of Admission: August 12, 2022 at 14:00 Admission Diagnosis : Family Physician/Provider: [facility] Date of Discharge: 08/13/22 Discharge Diagnosis: [ ] Hospital Course: Short course following insulin drip whcih resolved DKA and patient was stable for DC. Labs and Pending Lab Test: Laboratory Tests 08/12/22 12:25: White Blood Count 36.1*H, Red Blood Count 4.70, Hemoglobin 13.8, Hematocrit 42, Mean Corpuscular Volume 89, Mean Corpuscular Hemoglobin 29, Mean Corpuscular Hemoglobin Concent 33, Red Cell Distribution Width 12.7, Platelet Count 300, Mean Platelet Volume 12.3H, Immature Granulocyte % (Auto) 9, Neutrophils (%) (Auto) 73, Lymphocytes (%) (Auto) 9L, Monocytes (%) (Auto) 8, Eosinophils (%) (Auto) 0, Basophils (%) (Auto) 1, Neutrophils # (Auto) 26.3H, Lymphocytes # (Auto) 3.2, Monocytes # (Auto) 2.8H, Eosinophils # (Auto) 0.1, Basophils # (Auto) 0.5H, Immature Granulocyte # (Auto) 3.3H, Neutrophils % (Manual) 73, Lymphocytes % (Manual) 8, Monocytes % (Manual) 5, Myelocytes % 6, Band Neutrophils 6, Reactive Lymphocytes 2, Blood Morphology Comment NORMAL, Venous Blood pH 7.10L, Venous Blood Partial Pressure CO2 22L, Venous Blood HCO3 7L, Sodium Level 130L, Potassium Level 5.3H, Chloride Level 96L, Carbon Dioxide Level 5*L, Anion Gap 29H, Blood Urea Nitrogen 19H, Creatinine 1.28, Estimat Glomerular Filtration Rate 82, BUN/Creatinine Ratio 15, Glucose Level 623*H, Mean Blood Glucose 217H, Hemoglobin A1c 9.2H, Lactic Acid Level 3.31*H, Calcium Level 9.1, Corrected Calcium 8.9, Magnesium Level 2.0, Total Bilirubin 0.5, Aspartate Amino Transf (AST/SGOT) 16, Alanine Aminotransferase (ALT/SGPT) 20, Alkaline Phosphatase 118, Total Protein 6.8, Albumin 4.3, Lipase < 4L, Beta- Hydroxybutyrate (Chem panel) 10.62H 08/12/22 12:27: Glucometer 533*H 08/12/22 12:43: Urine Color YELLOW, Urine Clarity CLEAR, Urine pH 5.5, Urine Specific Section 1.025H, Urine Protein NEGATIVE, Urine Glucose (UA) 3+H, Urine Ketones 3+H, Urine Nitrite NEGATIVE, Urine Bilirubin NEGATIVE, Urine Urobilinogen 0.2, Urine Leukocyte Esterase NEGATIVE, Urine RBC (Auto) NEGATIVE, Urine RBC RARE, Urine WBC RARE, Urine Squamous Epithelial Cells 5-10, Urine Crystals NONE, Urine Bacteria FEWH, Urine Casts PRESENT, Urine Granular Casts 0-2H, Urine Mucus NEGATIVE, Urine Culture Indicated YES, Urine Opiates Screen NEGATIVE, Urine Oxycodone Screen NEGATIVE, Urine Methadone Screen NEGATIVE, Urine Propoxyphene Screen NEGATIVE, Urine Barbiturates Screen NEGATIVE, Ur Tricyclic Antidepressants Screen NEGATIVE, Urine Phencyclidine Screen NEGATIVE, Urine Amphetamines Screen NEGATIVE, Urine Methamphetamines Screen NEGATIVE, Urine Benzodiazepines Screen NEGATIVE, Urine Cocaine Screen NEGATIVE, Urine Canna binoids Screen POSITIVEH 08/12/22 13:40: Glucometer 490*H 08/12/22 14:21: Glucometer 422*H 08/12/22 14:36: Sodium Level 131L, Potassium Level 4.4, Chloride Level 103, Carbon Dioxide Level 9*L, Anion Gap 19H, Blood Urea Nitrogen 18, Creatinine 1.20, Estimat Glomerular Filtration Rate 89, BUN/Creatinine Ratio 15, Glucose Level 411*H, Lactic Acid Level 2.42*H, Calcium Level 8.7, Beta-Hydroxybutyrate (Chem panel) 9.19H 08/12/22 15:18: Glucometer 358H 08/12/22 16:04: Glucometer 270H 08/12/22 16:11: Sodium Level 132L, Potassium Level 4.7, Chloride Level 106, Carbon Dioxide Level 7*L, Anion Gap 19H, Blood Urea Nitrogen 16, Creatinine 1.01, Estimat Glomerular Filtration Rate 109, BUN/Creatinine Ratio 16, Glucose Level 315H, Lactic Acid Level 1.30, Calcium Level 8.5 08/12/22 16:57: Glucometer 257H 08/12/22 18:12: Glucometer 199H 08/12/22 19:20: Glucometer 234H 08/12/22 20:19: Glucometer 228H 08/12/22 21:24: Glucometer 218H 08/12/22 22:10: Sodium Level 134L, Potassium Level 4.4, Chloride Level 106, Carbon Dioxide Level 18L, Anion Gap 10, Blood Urea Nitrogen 9, Creatinine 0.95, Estimat Glomerular Filtration Rate 118, BUN/Creatinine Ratio 9, Glucose Level 202H, Calcium Level 9.0 08/12/22 22:31: Glucometer 188H 08/12/22 23:30: Glucometer 161H 08/13/22 00:31: Glucometer 145H 08/13/22 01:30: Glucometer 130H 08/13/22 02:38: Glucometer 120H 08/13/22 03:41: Glucometer 144H 08/13/22 04:38: White Blood Count 17.6H, Red Blood Count 4.23L, Hemoglobin 12.2L, Hematocrit 35L , Mean Corpuscular Volume 84, Mean Corpuscular Hemoglobin 29, Mean Corpuscular Hemoglobin Concent 35, Red Cell Distribution Width 12.7, Platelet Count 234, Mean Platelet Volume 11.2, Immature Granulocyte % (Auto) 3, Neutrophils (%) (Auto) 76H, Lymphocytes (%) (Auto) 11L, Monocytes (%) (Auto) 9, Eosinophils (%) (Auto) 0, Basophils (%) (Auto) 0, Neutrophils # (Auto) 13.3H, Lymphocytes # (Auto) 2.0, Monocytes # (Auto) 1.6H, Eosinophils # (Auto) 0.1, Basophils # (Auto) 0.1, Immature Granulocyte # (Auto) 0.6H, Sodium Level 136, Potassium Leve l 4.0, Chloride Level 107, Carbon Dioxide Level 21, Anion Gap 8, Blood Urea Nitrogen 7, Creatinine 0.85, Estimat Glomerular Filtration Rate 128, BUN/Creatinine Ratio 8, Glucose Level 144H, Calcium Level 9.1, Corrected Calcium 9.3, Phosphorus Level 1.6L, Magnesium Level 1.9, Total Bilirubin 0.5, Aspartate Amino Transf (AST/SGOT) 11, Alanine Aminotransferase (ALT/SGPT) 9, Alkaline Phosphatase 86, Total Protein 5.7L, Albumin 3.7 08/13/22 04:39: Glucometer 137H 08/13/22 05:38: Glucometer 152H 08/13/22 06:40: Glucometer 164H 08/13/22 07:23: Glucometer 180H 08/13/22 08:25: Glucometer 193H 08/13/22 09:08: Glucometer 194H Home Meds Active Reported Levemir Flexpen (Insulin Detemir) 100 Unit/Ml (3 Ml) Insuln.pen 30 Units SC DAILY Pantoprazole Sodium 40 Mg Tablet.dr 40 Mg PO DAILY Sucralfate 1 Gram Tablet 1 Gm PO TIDAC Novolog Flexpen (Insulin Aspart) 100 Unit/Ml (3 Ml) Solution Unit SC AC Assessment/Pt Instructions PCP 1 week Discharge Planning: <30 minutes discharge planning Discharge Instructions Discharge Diet: ADA Diet Activity as Tolerated: Yes Discharge Physical Examination Vital Signs Vital Signs Date Time Temp Pulse Resp B/P (MAP) Pulse Ox O2 Delivery O2 Flow Rate FiO2 08/13/22 09:00 100 9 122/82 (95) 99 Room Air 08/13/22 07:37 36.8 08/12/22 15:04 21 General Appearance: No Apparent Distress, WD/WN, Chronically ill, Thin Respiratory: Lungs Clear, Normal Breath Sounds Cardiovascular: Regular Rate, Rhythm Neurologic/Psychiatric: Alert, Oriented x3, No Motor/Sensory Deficits, Normal Mood/Affect Allergies: Coded Allergies: No Known Drug Allergies (Unverified , 02/10/14) Discharge Summary Date of Admission August 12, 2022 at 14:00 Date of Discharge Discharge Date: August 13, 2022 Admission Diagnosis Assessment: DKA HAY Plan: Insulin ANDREW Gomes DO August 13, 2022 10:29
--- NOTE | 2022-08-13 10:34 | Tele-ICU Progress Note ---
Subjective Date Seen by a Provider: August 13, 2022 Time Seen by a Provider: 10:33 Subjective/Events-last exam (Tele-ICU Physician , Progress Note ) Service provided via interactive audio and video telecommunications E-CARE system to a patient admitted to ICU bed in [facility]. Patient is seen today due to persistent need of ICU care Available chart/ vitals / labs / Images reviewed Video assessment done using teleICU camera, rest of exam as per RN Discussed with RN Events overnight : Afebrile hemodynamically stable Respiratory - I/O = Drips: Pressors- no Hospital course: (08/12) 21 y/o M - DKA - Insulin Drip. A/P DKA ( with DM tI - reports last dose of Levemir or NovoLog yesterday morning) - resolved *Insulin drip to stop , follow DM type I HAY - very mild - dehydration - resolved Leukocytosis WBC 36K - suspect reactive, , UA unremarkable >off ABX, WBC improving +cannabioids Lines : , (Central Line Necessity Reviewed) [place]: OG: Nutrition: Analgesia: Anxiety/ delirium VTE Prophylaxis: tristian 40 Stress Ulcer Prophylaxis: Plans in collaboration with bedside consultants and IM MDs. Discussed with RN to reach out if any questions or concerns A total of 5 minutes of critical care time was devoted to this patient today, required to treat and/or prevent further deterioration of critical care condition ( as above ) . I am remotely monitoring this patient from another state. I am unable to do the bedside exam, and history/physical and pertinent information is taken from other notes in the computer and bedside staff. . Sepsis Event Evaluation Height, Weight, BMI Height: 5'8.00" Weight: 124lbs. 4.8oz. 56.605470tv; 17.23 BMI Method:Stated Focused Exam Lactate Level 08/12/22 12:25: Lactic Acid Level 3.31*H 08/12/22 14:36: Lactic Acid Level 2.42*H 08/12/22 16:11: Lactic Acid Level 1.30 Exam Exam Patient acknowledged, consented, and participated in this virtual visit which was conducted using real time audio/video Vital Signs Date Time Temp Pulse Resp B/P (MAP) Pulse Ox O2 Delivery O2 Flow Rate FiO2 08/13/22 09:00 100 9 122/82 (95) 99 Room Air 08/13/22 08:00 98 Room Air 08/13/22 08:00 93 12 110/63 (79) 95 Room Air 08/13/22 07:37 36.8 08/13/22 07:35 85 08/13/22 07:00 86 15 122/81 (95) 96 Room Air 08/13/22 06:00 92 15 101/63 (76) 96 Room Air 08/13/22 05:00 89 16 101/60 (74) 97 Room Air 08/13/22 04:00 100 18 118/76 (90) 97 Room Air 08/13/22 03:35 99 Room Air 08/13/22 03:00 96 16 126/79 (95) 97 Room Air 08/13/22 02:00 100 18 112/77 (89) 97 Room Air 08/13/22 01:00 98 15 111/74 (86) 97 Room Air 08/13/22 01:00 100 08/13/22 00:00 37.1 08/13/22 00:00 105 18 116/72 (87) 97 Room Air 08/13/22 00:00 98 Room Air 08/12/22 23:00 108 17 120/71 (87) 97 Room Air 08/12/22 22:00 108 22 116/73 (87) 98 Room Air 08/12/22 21:00 109 17 91/53 (66) 96 Room Air 08/12/22 20:00 100 Room Air 08/12/22 20:00 36.8 08/12/22 20:00 112 12 111/71 (84) 97 Room Air 08/12/22 19:00 111 13 108/58 (75) 96 Room Air 08/12/22 19:00 120 08/12/22 18:00 116 17 106/70 (82) 97 Room Air 08/12/22 17:00 124 20 109/67 (81) 97 Room Air 08/12/22 16:00 117 19 90/50 (63) 99 Room Air 08/12/22 15:30 116 18 105/53 (72) 97 Room Air 08/12/22 15:25 99 Room Air 08/12/22 15:15 114 22 109/58 (75) 98 Room Air 08/12/22 15:04 35.5 111 99 21 08/12/22 15:00 111 19 104/53 (71) 98 Room Air 08/12/22 14:45 117 13 100/56 (71) 82 Room Air 08/12/22 14:15 36.5 115 17 109/67 (83) 98 Room Air 08/12/22 14:02 35.6 122 18 124/65 99 Room Air 08/12/22 12:23 35.5 111 18 128/78 (95) I & O 08/13/22 07:00 Intake Total 9250 ml Output Total 6350 ml Balance 2900 ml Height & Weight Height: 5'8.00" Weight: 124lbs. 4.8oz. 56.876356pw; 17.23 BMI Method:Stated General Appearance: No Apparent Distress, Chronically ill, Thin HEENT: PERRL/EOMI, Normal ENT Inspection, Pharynx Normal, Moist Mucous Membranes Neck: Full Range of Motion, Normal Inspection, Non Tender Respiratory: Chest Non Tender, Lungs Clear, Normal Breath Sounds, No Accessory Muscle Use, No Respiratory Distress Cardiovascular: Regular Rate, Rhythm, No Edema, No Gallop, No JVD, No Murmur, Normal Peripheral Pulses Capillary Refill: Less Than 3 Seconds Extremity: Normal Capillary Refill, Normal Inspection, Normal Range of Motion, Non Tender, No Calf Tenderness, No Pedal Edema Neurologic/Psychiatric: Alert, Oriented x3, No Motor/Sensory Deficits, Normal Mood/Affect Skin: Normal Color, Warm/Dry Lymphatic: No Adenopathy Results Lab Laboratory Tests 08/12/22 12:25 08/12/22 14:36 08/12/22 16:11 08/12/22 22:10 08/13/22 04:38 Assessment/Plan Assessment/Plan 1 JOSE G LOPES MD August 13, 2022 10:33
[2022-08-13] MEDS ORDERED: SUCRALFATE 1 GM (CARAFATE) TAB PO SCH (12:00)
[2022-08-13 12:30] VITALS: BP 132/86
[2022-08-14] MEDS ORDERED: PANTOPRAZOLE 40 MG (PROTONIX) TAB PO SCH (09:00)
== END 2022-08-13 12:30 | disposition home or self-care (01) | DRG 638 ==
LOC: EDUNIT# 12:22 → ER 12:23 → ICU 14:00
PROVIDERS: ADMIT Internal Medicine; ATTEND Internal Medicine
DX: E10.10 Type 1 diabetes mellitus with ketoacidosis without coma (principal); N17.9 Acute kidney failure, unspecified; Z79.4 Long term (current) use of insulin; E86.0 Dehydration; F12.90 Cannabis use, unspecified, uncomplicated; Z87.891 Personal history of nicotine dependence; D72.829 Elevated white blood cell count, unspecified
CPT/HCPCS: 36415; 80048; 80053; 80306; 81000; 82010; 82805; 82947; 83036; 83605; 83690; 83735; 84100; 85007; 85025; 85027; 87088

== ENCOUNTER 2022-09-27 18:00 | Emergency (ER) | payer MEDICAID ==
[~2022-09-27] VITALS: Ht 172 cm; Wt 49.0 kg
[~2022-09-27 18:00] MED LIST changes: +INSU100I88 SC; +PANT40TA52 PO; +SUCR1TAB PO
[2022-09-27 18:23] LABS: BASOPHILS # (AUTO) 0.2 10^3/uL (0.0-0.1); BASOPHILS % (AUTO) 1 % (0-10); EOSINOPHILS % (AUTO) 0 % (0-10); HEMATOCRIT 46 % (40-54); HEMOGLOBIN 15.3 g/dL (13.3-17.7); LYMPHOCYTES # (AUTO) 3.4 10^3/uL (1.0-4.0); LYMPHOCYTES % (AUTO) 15 % (12-44); MEAN CORPUSCULAR HEMOGLOBIN 29 pg (25-34); MEAN CORPUSCULAR HGB CONC 34 g/dL (32-36); MEAN CORPUSCULAR VOLUME 87 fL (80-99); MEAN PLATELET VOLUME 11.8 fL (9.0-12.2); MONOCYTES # (AUTO) 1.3 10^3/uL (0.0-1.0); MONOCYTES % (AUTO) 6 % (0-12); NEUTROPHILS # (AUTO) 16.3 10^3/uL (1.8-7.8); NEUTROPHILS % (AUTO) 74 % (42-75); PLATELET COUNT 305 10^3/uL (130-400); WHITE BLOOD COUNT 22.1 10^3/uL (4.3-11.0)
[2022-09-27] MEDS ORDERED: ONDANSETRON 4 MG/2 ML (SDV) Z0FRAN IVP ONE ×2 (18:30→20:45)
[2022-09-27] MEDS ORDERED: NS IV 1000 ML 1,000 ML IV SCH (18:30)
[2022-09-27] MEDS ORDERED: PANTOPRAZOLE 40 MG (PROTONIX) VIAL IV ONE (18:30)
[2022-09-27 18:33] LABS: ALBUMIN 5.1 GM/DL (3.2-4.5)
[2022-09-27 18:34] LABS: CHLORIDE 95 MMOL/L (98-107); POTASSIUM 4.7 MMOL/L (3.6-5.0); SODIUM 133 MMOL/L (135-145)
--- NOTE | 2022-09-27 18:34 | ED General ---
General Chief Complaint: Abdominal/GI Problems Stated Complaint: VOMITING Nursing Triage Note: ARRIVED VIA EMS FROM HOME WITH VOMITING THAT STARTED AT 1999 YESTERDAY. HX OF DIABETES. EMS REPORTS A BLOOD SUGAR OF 268. Source of Information: Patient Exam Limitations: No Limitations History of Present Illness Date Seen by Provider: Sep 27, 2022 Time Seen by Provider: 18:06 Initial Comments This 22-year-old young man with diabetes type 1 and celiac disease presents to the emergency room with nearly 24 hours of vomiting, nausea, dizziness, and "tunnel vision." He reports blood sugars at home have been in the 400s, but they have been in the 200s for EMS and ER staff. He has been taking his long- acting insulin but not his short acting since he cannot keep any food or fluid down orally. Stools have been loose. He denies any fever or respiratory problems. He does admit to using THC with last use about 4 days ago. He rarely drinks alcohol. He reports abstaining from THC for several months and it did not seem to improve his frequent GI problems. He has celiac disease but does not recall consuming any bleeding products yesterday. He is mildly tachycardic but vital signs are otherwise stable at this time. He has mild epigastric tenderness on palpation. He sees a mid level developer and states he has "perforations all over my stomach." Allergies and Home Medications Allergies Coded Allergies: gluten (Verified Adverse Reaction, Unknown, 09/27/22) Patient Home Medication List Home Medication List Reviewed: Yes Insulin Aspart (Novolog Flexpen) 100 Unit/Ml (3 Ml) Solution, UNIT SC AC, (Reported) Entered as Reported by: SANTI MATSON on 01/06/21 1006 Insulin Detemir (Levemir Flexpen) 100 Unit/Ml (3 Ml) Insuln.pen, 30 UNITS SC DAILY, (Reported) Entered as Reported by: PITO WALL on 08/12/22 1518 Ondansetron (Ondansetron Odt) 4 Mg Tab.rapdis, 4 MG SL Q4H PRN for NAUSEA/VOMITING Prescribed by: CLAU WONG on 09/27/221943 Pantoprazole Sodium (Pantoprazole Sodium) 40 Mg Tablet.dr, 40 MG PO DAILY, (Reported) Entered as Reported by: PITO WALL on 08/12/22 151 Sucralfate (Sucralfate) 1 Gram Tablet, 1 GM PO TIDAC, (Reported) Entered as Reported by: PITO WALL on 08/12/22 1518 Review of Systems Review of Systems Constitutional: no symptoms reported EENTM: no symptoms reported Respiratory: no symptoms reported Cardiovascular: see HPI Gastrointestinal: see HPI Genitourinary: no symptoms reported Musculoskeletal: no symptoms reported Skin: no symptoms reported Psychiatric/Neurological: No Symptoms Reported Hematologic/Lymphatic: No Symptoms Reported Immunological/Allergic: no symptoms reported Past Lgqrosq-Mkbakw-Mjahij Hx Patient Social History Tobacco Use?: No Use of E-Cig and/or Vaping dev: Yes E-Cig or Vaping type used: Nicotine Substance use?: Yes Substance type: Marijuana Alcohol Use?: Yes Alcohol Frequency: Rarely Immunizations Up To Date Tetanus Booster (TDap): Less than 5yrs PED Vaccines UTD: Yes First/Initial COVID19 Vaccinat: declined Second COVID19 Vaccination Irving: declined Third COVID19 Vaccination Date: declined Seasonal Allergies Seasonal Allergies: No Past Medical History Surgery/Hospitalization HX: IDDM DENIES SX HX Surgeries: Yes Abdominal (EGD) Respiratory: No Cardiac: No Neurological: No Genitourinary: No Gastrointestinal: Yes (Celiac disease) Ulcer (Gastric) Musculoskeletal: No Endocrine: Yes (POORLY CONTROLLED TYPE 1 DIABETES;NON-COMPLIANT; DKA MULT TIMES) Diabetes, Insulin dep HEENT: No Cancer: No Psychosocial: No Integumentary: No Blood Disorders: No Family Medical History Cancer, Diabetes, Stroke Physical Exam Vital Signs Vital Signs - First Documented 09/27/22 18:00 Temp 36.4 Pulse 108 Resp 16 B/P (MAP) 111/81 (91) Pulse Ox 99 O2 Delivery Room Air Capillary Refill : Less Than 3 Seconds Height, Weight, BMI Height: 5'8.00" Weight: 124lbs. 4.8oz. [id number]; 16.00 BMI Method:Stated General Appearance: No Apparent Distress, WD/WN, Thin HEENT: PERRL/EOMI, Normal ENT Inspection, Other (Oropharynx dry) Neck: Normal Inspection Respiratory: Lungs Clear, Normal Breath Sounds, No Accessory Muscle Use Cardiovascular: No Edema, No Murmur, Tachycardia (Regular) Gastrointestinal: Soft, Abnormal Bowel Sounds (Decreased); No Distended; Tenderness (Mild in the epigastrium) Extremity: Normal Inspection, No Pedal Edema Neurologic/Psychiatric: Alert, Oriented x3, No Motor/Sensory Deficits, Normal Mood/Affect Skin: Normal Color, Warm/Dry Progress/Results/Core Measures Suspected Sepsis SIRS Temperature: Pulse: 108 Respiratory Rate: 16 Laboratory Tests 09/27/22 18:15: White Blood Count 22.1H Blood Pressure 111 /81 Mean: 91 Laboratory Tests 09/27/22 18:15: Creatinine 1.38H, Platelet Count 305, Total Bilirubin 0.7 Results/Orders Lab Results Laboratory Tests Test 09/27/22 18:14 09/27/22 18:15 09/27/22 18:30 09/27/22 18:50 Range/Units Glucometer 290 H 70-110 MG/DL White Blood Count 22.1 H 4.3-11.0 10^3/uL Red Blood Count 5.26 4.30-5.52 10^6/uL Hemoglobin 15.3 13.3-17.7 g/dL Hematocrit 46 40-54 % Mean Corpuscular Volume 87 80-99 fL Mean Corpuscular Hemoglobin 29 25-34 pg Mean Corpuscular Hemoglobin Concent 34 32-36 g/dL Red Cell Distribution Width 12.9 10.0-14.5 % Platelet Count 305 130-400 10^3/uL Mean Platelet Volume 11.8 9.0-12.2 fL Immature Granulocyte % (Auto) 4 % Neutrophils (%) (Auto) 74 42-75 % Lymphocytes (%) (Auto) 15 12-44 % Monocytes (%) (Auto) 6 0-12 % Eosinophils (%) (Auto) 0 0-10 % Basophils (%) (Auto) 1 0-10 % Neutrophils # (Auto) 16.3 H 1.8-7.8 10^3/uL Lymphocytes # (Auto) 3.4 1.0-4.0 10^3/uL Monocytes # (Auto) 1.3 H 0.0-1.0 10^3/uL Eosinophils # (Auto) 0.0 0.0-0.3 10^3/uL Basophils # (Auto) 0.2 H 0.0-0.1 10^3/uL Immature Granulocyte # (Auto) 0.9 H 0.0-0.1 10^3/uL Neutrophils % (Manual) 77 % Lymphocytes % (Manual) 15 % Monocytes % (Manual) 6 % Band Neutrophils 2 % Blood Morphology Comment NORMAL Sodium Level 133 L 135-145 MMOL/L Potassium Level 4.7 3.6-5.0 MMOL/L Chloride Level 95 L 98-107 MMOL/L Carbon Dioxide Level 18 L 21-32 MMOL/L Anion Gap 20 H 5-14 MMOL/L Blood Urea Nitrogen 17 7-18 MG/DL Creatinine 1.38 H 0.60-1.30 MG/DL Estimat Glomerular Filtration Rate 75 BUN/Creatinine Ratio 12 Glucose Level 327 H 70-105 MG/DL Calcium Level 10.4 H 8.5-10.1 MG/DL Corrected Calcium 8.5-10.1 MG/DL Magnesium Level 2.0 1.6-2.4 MG/DL Total Bilirubin 0.7 0.1-1.0 MG/DL Aspartate Amino Transf (AST/SGOT) 20 5-34 U/L Alanine Aminotransferase (ALT/SGPT) 34 0-55 U/L Alkaline Phosphatase 140 H 40-136 U/L Total Protein 8.2 6.4-8.2 GM/DL Albumin 5.1 H 3.2-4.5 GM/DL Lipase < 4 L 8-78 U/L Urine Color YELLOW Urine Clarity SL CLOUDY Urine pH 6.0 5-9 Urine Specific [place] >=1.030 1.016-1.022 Urine Protein 1+ H NEGATIVE Urine Glucose (UA) 2+ H NEGATIVE Urine Ketones 2+ H NEGATIVE Urine Nitrite NEGATIVE NEGATIVE Urine Bilirubin 2+ H NEGATIVE Urine Urobilinogen 0.2 < = 1.0 MG/DL Urine Leukocyte Esterase NEGATIVE NEGATIVE Urine RBC (Auto) NEGATIVE NEGATIVE Urine RBC NONE /HPF Urine WBC 5-10 H /HPF Urine Squamous Epithelial Cells 2-5 /HPF Urine Crystals NONE /LPF Urine Bacteria TRACE /HPF Urine Casts PRESENT /LPF Urine Hyaline Casts 25-50 H /LPF Urine Mucus NEGATIVE /LPF Urine Culture Indicated YES Test 09/27/22 20:33 Range/Units Glucometer 176 H 70-110 MG/DL My Orders Orders - CLAU WASSERMAN MD Cbc With Automated Diff (09/27/22 18:06) Comprehensive Metabolic Panel (09/27/22 18:06) Magnesium (09/27/22 18:06) Ua Culture If Indicated (09/27/22 18:06) Accucheck Stat ONCE (09/27/22 18:06) Ed Iv/Invasive Line Start (09/27/22 18:06) Lipase (09/27/22 18:27) Ondansetron Injection (Zofran Injectio (09/27/22 18:30) Pantoprazole Injection (Protonix Injecti (09/27/22 18:30) Ns Iv 1000 Ml (Sodium Chloride 0.9%) (09/27/22 18:30) Manual Differential (09/27/22 18:15) Urine Culture (09/27/22 18:50) Ns Iv 1000 Ml (Sodium Chloride 0.9%) (09/27/22 19:30) Accucheck Stat ONCE (09/27/22 19:24) Ondansetron Injection (Zofran Injectio (09/27/22 20:45) Medications Given in ED Current Medications Medications Dose Ordered Sig/Francisco Javier Route Start Time Stop Time Status Last Admin Dose Admin Ondansetron HCl 8 mg ONCE ONCE IVP 09/27/22 18:30 09/27/22 18:31 DC 09/27/22 18:45 8 MG Pantoprazole 40 mg ONCE ONCE IV 09/27/22 18:30 09/27/22 18:31 DC 09/27/22 18:45 40 MG Sodium Chloride 1,000 ml @ 0 mls/hr Q0M ONCE IV 09/27/22 19:30 09/27/22 19:31 DC 09/27/22 19:39 0 MLS/HR Vital Signs/I&O 09/27/22 18:00 Temp 36.4 Pulse 108 Resp 16 B/P (MAP) 111/81 (91) Pulse Ox 99 O2 Delivery Room Air Capillary Refill : Less Than 3 Seconds Blood Pressure Mean: 91 Point of Care Testing Finger Stick Blood Glucose: 290 Progress Note #1: Time: 18:33 Progress Note Patient was interviewed and examined. Labs have been obtained and results are pending. He will be hydrated with a liter of normal saline. Nausea will be treated with Zofran. Epigastric pain will be treated with Protonix. Progress Note #2: Time: 19:40 Progress Note Patient is feeling much improved with treatment. Labs have been reviewed. CBC was remarkable for WBC of 22,000 likely secondary to persistent vomiting. Patient has had no further vomiting since arrival to the ER. Chemistry was remarkable for sodium of 133, creatinine of 1.38, and CO2 of 18. Because CO2 is 18, he does not meet criteria for DKA. Lipase was low. Urinalysis demonstrated high specific gravity, 2+ ketones, and 25-50 hyaline casts. These labs are consistent with hypovolemia and dehydration. A second liter of normal saline is infusing. Patient strongly desires discharge home as soon as possible. As long as blood sugar is improved and he is feeling okay after the second liter of IV fluid, he will be discharged home. See discharge instructions for further discussion. Progress Note #3: Time: 20:37 Progress Note Blood sugar trended down appropriately. Patient requested an additional Zofran before discharge which was ordered. He is being dismissed in improved condition. See discharge instructions for further discussion. He exhibited no further vomiting in the ER. Departure Impression Primary Impression: Nausea and vomiting Qualified Codes: R11.2 - Nausea with vomiting, unspecified Additional Impressions: Epigastric pain Dehydration Diabetes type I Qualified Codes: E10.69 - Type 1 diabetes mellitus with other specified complication Disposition: 01 HOME, SELF-CARE Condition: Improved Departure-Patient Inst. Decision time for Depature: 19:42 Referrals: [facility] [place]/Family) Primary Care Physician Patient Instructions: Abdominal Pain, Adult ED, Diabetes Type 1, Adult (DC) Add. Discharge Instructions: Start with a low sugar clear liquid diet and gradually advance your diet with small quantities of gluten-free bland food. Continue with your long-acting insulin and gradually advance your short acting insulin as you are able to consume carbohydrates. Monitor your blood sugars closely during this process and adjust insulin accordingly. Use Zofran as prescribed for nausea or vomiting. Follow-up with your primary care provider as soon as possible. Return to the ER if you have worsening symptoms despite following these instructions. All discharge instructions reviewed with patient and/or family. Voiced understanding. Scripts Ondansetron (Ondansetron Odt) 4 Mg Tab.rapdis 4 MG SL Q4H PRN for NAUSEA/VOMITING, #10 TAB Prov: CLAU WASSERMAN MD 09/27/22 Copy Copies To 1: [facility]/CLAU COY MD Sep 27, 2022 18:34
[2022-09-27 18:35] LABS: CALCIUM 10.4 MG/DL (8.5-10.1)
[2022-09-27 18:36] LABS: GLUCOSE 327 MG/DL (70-105); TOTAL PROTEIN 8.2 GM/DL (6.4-8.2)
[2022-09-27 18:37] LABS: CARBON DIOXIDE 18 MMOL/L (21-32)
[2022-09-27 18:38] LABS: BILIRUBIN,TOTAL 0.7 MG/DL (0.1-1.0)
[2022-09-27 18:39] LABS: ALKALINE PHOSPHATASE 140 U/L (40-136)
[2022-09-27 18:40] LABS: CREATININE SERUM 1.38 MG/DL (0.60-1.30); GFR ESTIMATED 75
[2022-09-27 18:41] LABS: BUN/CREATININE RATIO 12
[2022-09-27 18:42] LABS: ALANINE AMINOTRANSFERASE 34 U/L (0-55)
[2022-09-27 18:55] LABS: CLARITY,URINE SL CLOUDY; COLOR,URINE YELLOW; GLUCOSE, URINE (UA) 2+ (NEGATIVE); KETONES,URINE 2+ (NEGATIVE); LEUKOCYTE ESTERASE ,URINE NEGATIVE (NEGATIVE); NITRITE,URINE NEGATIVE (NEGATIVE); PROTEIN,URINE 1+ (NEGATIVE)
[2022-09-27 19:06] LABS: BACTERIA,URINE TRACE /HPF; BILIRUBIN,URINE 2+ (NEGATIVE); HYALINE CASTS, URINE 25-50 /LPF
[2022-09-27 19:15] LABS: BAND NEUTROPHILS 2 %; LYMPHOCYTES % (MANUAL) 15 %; MONOCYTES % (MANUAL) 6 %; NEUTROPHILS % (MANUAL) 77 %; RBC MORPH NORMAL
[2022-09-27] MEDS ORDERED: NS IV 1000 ML 1,000 ML IV ONE (19:30)
[2022-09-27] MEDS ORDERED: ONDA4TAB11 SL (19:44)
[2022-09-27 20:42] VITALS: BP 123/80
== END 2022-09-27 20:43 | disposition home or self-care (01) ==
LOC: EDUNIT# 18:00 → ER 18:01
DX: E10.9 Type 1 diabetes mellitus without complications (principal); E86.0 Dehydration; R10.13 Epigastric pain; F17.290 Nicotine dependence, other tobacco product, uncomplicated; Z28.310 Unvaccinated for COVID-19
CPT/HCPCS: 36415; 80053; 81000; 82947; 83690; 83735; 85007; 85027; 87088

== ENCOUNTER 2022-11-05 13:16 | Observation (INO) | payer MEDICAID, OTHER ==
[2022-11-05 13:16] VITALS: BP 122/65
[2022-11-05] MEDS ORDERED: LACTATED RINGERS 1,000 ML IV STA ×2 (13:21)
--- NOTE | 2022-11-05 13:26 | ED General ---
General Chief Complaint: Glucose Problems Stated Complaint: KETOACIDOSIS Source of Information: Patient, Old Records Exam Limitations: No Limitations History of Present Illness Date Seen by Provider: Nov 05, 2022 Time Seen by Provider: 13:19 Initial Comments 22-year-old male with poorly controlled type 1 diabetes coming in stating he believes he is in DKA. He believes he started to get into it last night. He has missed doses of his insulin and has not had any long-acting in the past 24 hours. EMS reports his glucose read "high" and they detected ketones on their instruments. He has had a lot of nausea and nonbloody nonbilious vomiting. Allergies and Home Medications Allergies Coded Allergies: gluten (Verified Adverse Reaction, Unknown, 09/27/22) Patient Home Medication List Home Medication List Reviewed: Yes Insulin Aspart (Novolog Flexpen) 100 Unit/Ml (3 Ml) Solution, UNIT SC AC, (Reported) Entered as Reported by: SANTI MATSON on 01/06/21 1006 Insulin Detemir (Levemir Flexpen) 100 Unit/Ml (3 Ml) Insuln.pen, 30 UNITS SC DAILY, (Reported) Entered as Reported by: PITO WALL on 08/12/22 1518 Ondansetron (Ondansetron Odt) 4 Mg Tab.rapdis, 4 MG SL Q4H PRN for NAUSEA/VOMITING Prescribed by: CLAU WONG on 09/27/221943 Pantoprazole Sodium (Pantoprazole Sodium) 40 Mg Tablet.dr, 40 MG PO DAILY, (Reported) Entered as Reported by: PITO WALL on 08/12/22 151 Sucralfate (Sucralfate) 1 Gram Tablet, 1 GM PO TIDAC, (Reported) Entered as Reported by: PITO WALL on 08/12/22 1518 Review of Systems Review of Systems Constitutional: No fever EENTM: no symptoms reported Respiratory: no symptoms reported Cardiovascular: no symptoms reported Gastrointestinal: see HPI Genitourinary: no symptoms reported Musculoskeletal: no symptoms reported Skin: no symptoms reported Psychiatric/Neurological: No Symptoms Reported Past Lernvqi-Rtsaoa-Ugoevf Hx Immunizations Up To Date Tetanus Booster (TDap): Less than 5yrs PED Vaccines UTD: Yes First/Initial COVID19 Vaccinat: declined Second COVID19 Vaccination [place]: declined Third COVID19 Vaccination Date: declined Seasonal Allergies Seasonal Allergies: No Past Medical History Surgery/Hospitalization HX: IDDM DENIES SX HX Surgeries: Yes Abdominal Respiratory: No Cardiac: No Neurological: No Genitourinary: No Gastrointestinal: Yes (Celiac disease) Ulcer Musculoskeletal: No Endocrine: Yes (POORLY CONTROLLED TYPE 1 DIABETES;NON-COMPLIANT; DKA MULT TIMES) Diabetes, Insulin dep HEENT: No Cancer: No Psychosocial: No Integumentary: No Blood Disorders: No Family Medical History Cancer, Diabetes, Stroke Physical Exam Vital Signs Capillary Refill : Height, Weight, BMI Height: 5'8.00" Weight: 124lbs. 4.8oz. 56.246522qg; 16.00 BMI Method:Stated General Appearance: Mild Distress, Thin Eyes: Bilateral Eye Normal Inspection HEENT: PERRL/EOMI, Normal ENT Inspection, Pharynx Normal Neck: Full Range of Motion, Normal Inspection, Non Tender, Supple Respiratory: Chest Non Tender, Lungs Clear, Normal Breath Sounds, No Accessory Muscle Use, No Respiratory Distress Cardiovascular: No Edema, Normal Peripheral Pulses, Tachycardia Gastrointestinal: Normal Bowel Sounds, Non Tender, Soft Back: Normal Inspection, No CVA Tenderness Extremity: Normal Capillary Refill, Normal Inspection, Normal Range of Motion, Non Tender, No Calf Tenderness, No Pedal Edema Neurologic/Psychiatric: Alert, Oriented x3, No Motor/Sensory Deficits, Normal Mood/Affect Skin: Normal Color, Warm/Dry Progress/Results/Core Measures Suspected Sepsis SIRS Temperature: Pulse: Respiratory Rate: Laboratory Tests 11/05/22 13:24: White Blood Count 34.1*H Blood Pressure / Mean: Laboratory Tests 11/05/22 13:24: Creatinine 1.39H, Platelet Count 362, Total Bilirubin 0.5 Results/Orders Lab Results Laboratory Tests Test 11/05/22 13:23 11/05/22 13:24 Range/Units Glucometer 578 *H 70-110 MG/DL White Blood Count 34.1 *H 4.3-11.0 10^3/uL Red Blood Count 4.88 4.30-5.52 10^6/uL Hemoglobin 14.3 13.3-17.7 g/dL Hematocrit 46 40-54 % Mean Corpuscular Volume 94 80-99 fL Mean Corpuscular Hemoglobin 29 25-34 pg Mean Corpuscular Hemoglobin Concent 31 L 32-36 g/dL Red Cell Distribution Width 12.6 10.0-14.5 % Platelet Count 362 130-400 10^3/uL Mean Platelet Volume 11.9 9.0-12.2 fL Immature Granulocyte % (Auto) 7 % Neutrophils (%) (Auto) 77 H 42-75 % Lymphocytes (%) (Auto) 8 L 12-44 % Monocytes (%) (Auto) 7 0-12 % Eosinophils (%) (Auto) 0 0-10 % Basophils (%) (Auto) 1 0-10 % Neutrophils # (Auto) 26.1 H 1.8-7.8 10^3/uL Lymphocytes # (Auto) 2.8 1.0-4.0 10^3/uL Monocytes # (Auto) 2.4 H 0.0-1.0 10^3/uL Eosinophils # (Auto) 0.1 0.0-0.3 10^3/uL Basophils # (Auto) 0.4 H 0.0-0.1 10^3/uL Immature Granulocyte # (Auto) 2.3 H 0.0-0.1 10^3/uL Venous Blood pH 7.07 L 7.31-7.41 Venous Blood Partial Pressure CO2 18 L 40-52 MMHG Venous Blood HCO3 5 L 22-28 MMOL/L Sodium Level 129 L 135-145 MMOL/L Potassium Level 6.0 H 3.6-5.0 MMOL/L Chloride Level 96 L 98-107 MMOL/L Carbon Dioxide Level < 5 *L 21-32 MMOL/L Anion Gap 28 H 5-14 MMOL/L Blood Urea Nitrogen 16 7-18 MG/DL Creatinine 1.39 H 0.60-1.30 MG/DL Estimat Glomerular Filtration Rate 74 BUN/Creatinine Ratio 12 Glucose Level 618 *H 70-105 MG/DL Calcium Level 10.3 H 8.5-10.1 MG/DL Corrected Calcium 8.5-10.1 MG/DL Total Bilirubin 0.5 0.1-1.0 MG/DL Aspartate Amino Transf (AST/SGOT) 31 5-34 U/L Alanine Aminotransferase (ALT/SGPT) 25 0-55 U/L Alkaline Phosphatase 152 H 40-136 U/L Total Protein 8.4 H 6.4-8.2 GM/DL Albumin 5.0 H 3.2-4.5 GM/DL Lipase < 4 L 8-78 U/L My Orders Orders - NEENA GUAJARDO MD Cbc With Automated Diff (11/05/22 13:21) Comprehensive Metabolic Panel (11/05/22 13:21) Lipase (11/05/22 13:21) Ua Culture If Indicated (11/05/22 13:21) Accucheck Stat ONCE (11/05/22 13:21) Ed Iv/Invasive Line Start (11/05/22 13:21) Monitor-Rhythm Ecg Trace Only (11/05/22 13:21) Beta Hydroxybutyrate (11/05/22 13:21) Venous Blood Gas (11/05/22 13:) Lactated Ringers (Lr 1000 Ml Iv Solution (11/05/22 13:21) Lactated Ringers (Lr 1000 Ml Iv Solution (11/05/22 13:21) Ondansetron Injection (Zofran Injectio (11/05/22 13:30) Manual Differential (11/05/22 13:24) Insulin (Regular) Per Unit (Insulin (Reg (11/05/22 14:15) Ed Admission (Communication) (11/05/22 14:18) Medications Given in ED Current Medications Medications Dose Ordered Sig/Francisco Javier Route Start Time Stop Time Status Last Admin Dose Admin Ondansetron HCl 4 mg ONCE ONCE IVP 11/05/22 13:30 11/05/22 13:31 DC 11/05/22 13:54 4 MG Vital Signs/I&O Capillary Refill : Progress Note : Progress Note 22-year-old male with above history coming in due to concerns for being in DKA. Glucose around 600 on arrival here. An IV is placed and basic labs were obtained. His labs were significant for a leukocytosis which is pretty typical of him when he is in DKA, elevated glucose, elevated anion gap, low bicarb, low pH, mild HAY all consistent with prior episodes. He was given 2 L of IV fluids and a bolus of IV insulin. I contacted Dr. Costello who will admit him to the intensive care unit for further evaluation and management under observation status. I then contacted the ICU physician and give signout. This is likely due to lack of insulin which is his typical story. Departure Impression Primary Impression: Diabetic ketoacidosis Qualified Codes: E10.10 - Type 1 diabetes mellitus with ketoacidosis without coma Additional Impression: HAY (acute kidney injury) Disposition: ADMITTED INPATIENT Condition: Critical Admissions Decision to Admit Reason: Admit from ER (General) Decision to Admit/Date: Nov 05, 2022 Time/Decision to Admit Time: 14:15 Departure-Patient Inst. Referrals: [facility] (PCP/Family) Primary Care Physician NEENA GUAJARDO MD Nov 05, 2022 13:26
[2022-11-05 13:30] LABS: BASOPHILS # (AUTO) 0.4 10^3/uL (0.0-0.1); BASOPHILS % (AUTO) 1 % (0-10); EOSINOPHILS # (AUTO) 0.1 10^3/uL (0.0-0.3); EOSINOPHILS % (AUTO) 0 % (0-10); HEMATOCRIT 46 % (40-54); HEMOGLOBIN 14.3 g/dL (13.3-17.7); LYMPHOCYTES # (AUTO) 2.8 10^3/uL (1.0-4.0); LYMPHOCYTES % (AUTO) 8 % (12-44); MEAN CORPUSCULAR HEMOGLOBIN 29 pg (25-34); MEAN CORPUSCULAR HGB CONC 31 g/dL (32-36); MEAN CORPUSCULAR VOLUME 94 fL (80-99); MEAN PLATELET VOLUME 11.9 fL (9.0-12.2); MONOCYTES # (AUTO) 2.4 10^3/uL (0.0-1.0); MONOCYTES % (AUTO) 7 % (0-12); NEUTROPHILS # (AUTO) 26.1 10^3/uL (1.8-7.8); NEUTROPHILS % (AUTO) 77 % (42-75); PLATELET COUNT 362 10^3/uL (130-400)
[2022-11-05] MEDS ORDERED: ONDANSETRON 4 MG/2 ML (SDV) Z0FRAN IVP ONE (13:30)
[2022-11-05 13:33] LABS: WHITE BLOOD COUNT 34.1 10^3/uL (4.3-11.0)
[2022-11-05 13:42] LABS: CHLORIDE 96 MMOL/L (98-107); SODIUM 129 MMOL/L (135-145)
[2022-11-05 13:43] LABS: CALCIUM 10.3 MG/DL (8.5-10.1)
[2022-11-05 13:44] LABS: TOTAL PROTEIN 8.4 GM/DL (6.4-8.2)
[2022-11-05 13:46] LABS: BILIRUBIN,TOTAL 0.5 MG/DL (0.1-1.0)
[2022-11-05 13:48] LABS: ALKALINE PHOSPHATASE 152 U/L (40-136); CREATININE SERUM 1.39 MG/DL (0.60-1.30); GFR ESTIMATED 74
[2022-11-05 13:49] LABS: BUN/CREATININE RATIO 12
[2022-11-05 13:51] LABS: ALANINE AMINOTRANSFERASE 25 U/L (0-55); CARBON DIOXIDE < 5 MMOL/L (21-32); GLUCOSE 618 MG/DL (70-105); LIPASE < 4 U/L (8-78)
[2022-11-05] MEDS ORDERED: inSUlin (REGULAR) HUMAN 1 UNIT/0.01 ML (CHARGE PER UNIT) IV ONE (14:15)
[2022-11-05 14:22] LABS: BAND NEUTROPHILS 4 %; BASOPHILS % (MANUAL) 1 %; LYMPHOCYTES % (MANUAL) 12 %; METAMYELOCYTES % 2 %; MONOCYTES % (MANUAL) 6 %; MYELOCYTES % 2 %; NEUTROPHILS % (MANUAL) 73 %; RBC MORPH NORMAL
[2022-11-05 14:39] LABS: CLARITY,URINE CLEAR; COLOR,URINE YELLOW
[2022-11-05 14:40] LABS: BILIRUBIN,URINE NEGATIVE (NEGATIVE); GLUCOSE, URINE (UA) 2+ (NEGATIVE); KETONES,URINE 4+ (NEGATIVE); LEUKOCYTE ESTERASE ,URINE NEGATIVE (NEGATIVE); NITRITE,URINE NEGATIVE (NEGATIVE); PROTEIN,URINE 1+ (NEGATIVE)
[2022-11-05 14:50] LABS: BACTERIA,URINE TRACE /HPF; RBC,URINE RARE /HPF; SQUAMOUS EPITHELIAL CELL,UR RARE /HPF
[2022-11-05 14:51] LABS: AMORPHOUS SEDIMENT,UR RARE AMOR URATES /LPF
--- NOTE | 2022-11-05 15:37 | History & Physical ---
[facility] 11/05/22 1537: History of Present Illness History of Present Illness Reason for visit/HPI CC: nausea vomiting headache HPI: 22 y/o male presented to the ED with nausea vomiting and headaches for the past 3 days. He has poorly controlled type 1 diabetes and has had multiple episodes of DKA in the past just like this. He has not had any insulin for the past 24 hours which was about the time he said his DKA set in. He arrived in EMS with his glucose in the 600's. He reports pain on urination when laying down but no other pain or weakness. His vomit is non bloody and nonbillous, no abdominal symptoms, and also reports no fever, weakness, or pain. Date of Admission 11/05/22 Date Seen by a Provider: Nov 05, 2022 Time Seen by a Provider: 15:30 I consulted on this patient on 11/05/22 15:32 Attending Physician [place] Admitting Physician Admitting Physician: Attending Physician: Consult Allergies and Home Medications Allergies Coded Allergies: gluten (Verified Adverse Reaction, Unknown, 09/27/22) Patient Home Medication List Home Medication List Reviewed: Yes Insulin Aspart (Novolog Flexpen) 100 Unit/Ml (3 Ml) Solution, UNIT SC AC, (Reported) Entered as Reported by: SANTI MATSON on 01/06/21 1006 Insulin Detemir (Levemir Flexpen) 100 Unit/Ml (3 Ml) Insuln.pen, 30 UNITS SC DAILY, (Reported) Entered as Reported by: PITO WALL on 08/12/221517 Ondansetron (Ondansetron Odt) 4 Mg Tab.rapdis, 4 MG SL Q4H PRN for NAUSEA/VOMITING Prescribed by: CLAU WONG on 09/27/221943 Pantoprazole Sodium (Pantoprazole Sodium) 40 Mg Tablet.dr, 40 MG PO DAILY, (Reported) Entered as Reported by: PITO WALL on 08/12/221517 Sucralfate (Sucralfate) 1 Gram Tablet, 1 GM PO TIDAC, (Reported) Entered as Reported by: PITO WALL on 08/12/221517 Past Vtovhgz-Ekajyd-Sqclxz Hx Patient Social History Tobacco Use?: No Use of E-Cig and/or Vaping dev: Yes E-Cig or Vaping type used: Nicotine Substance use?: Yes Substance type: Marijuana Alcohol Use?: No Pt feels they are or have been: No Immunizations Up To Date Date of Influenza Vaccine: Jan 29, 2020 First/Initial COVID19 Vaccinat: declined Second COVID19 Vaccination Irving: declined Tetanus Booster (TDap): Unknown Hepatitis A: No Hepatitis B: No PED Vaccines UTD: Yes Seasonal Allergies Seasonal Allergies: No Current Status Communicates: Verbally Primary Language: Kiswahili Preferred Spoken Language: Kiswahili Implanted or Applied Medical D: None Past Medical History Surgeries: Abdominal Ulcer Diabetes, Insulin dep Blood Disorders: No PMHx: DMI SurgHx: Denies Family Medical History Cancer, Diabetes, Stroke Review of Systems Constitutional: no symptoms reported Respiratory: short of breath Gastrointestinal: nausea, vomiting Genitourinary: dysuria Musculoskeletal: no symptoms reported Skin: no symptoms reported Physical Exam Vital Signs Vital Signs - First Documented 11/05/22 13:16 Temp 36.7 Pulse 130 Resp 27 B/P (MAP) 145/83 (103) Capillary Refill : Height, Weight, BMI Height: 5'8.00" Weight: 124lbs. 4.8oz. 56.725863mx; 16.00 BMI Method:Stated General Appearance: No Apparent Distress HEENT: No Moist Mucous Membranes Respiratory: Chest Non Tender, Lungs Clear, Normal Breath Sounds, No Accessory Muscle Use, No Respiratory Distress Cardiovascular: No Edema Gastrointestinal: Normal Bowel Sounds, No Organomegaly, No Pulsatile Mass, Non Tender, Soft Extremity: Normal Capillary Refill Neurologic/Psychiatric: Alert, Oriented x3, No Motor/Sensory Deficits, Normal Mood/Affect Skin: Normal Color, Warm/Dry Assessment/Plan Assessment and Plan Assessment: DKA poorly controlled Type 1 DM celiacs disease Plan: monitor glucose in ICU continue insulin and IV fluids follow labs and vitals Admission Diagnosis DKA Admission Status: Inpatient Order (span 2 midnights) Reason for Inpatient Admission: DKA- poorly controlled T1DM PEPPER HUFF DO 11/06/22 0513: Allergies and Home Medications Allergies Coded Allergies: gluten (Verified Adverse Reaction, Unknown, 09/27/22) Patient Home Medication List Insulin Aspart (Novolog Flexpen) 100 Unit/Ml (3 Ml) Solution, UNIT SC AC, (Reported) Entered as Reported by: SANTI MATSON on 01/06/21 1006 Insulin Detemir (Levemir Flexpen) 100 Unit/Ml (3 Ml) Insuln.pen, 30 UNITS SC DAILY, (Reported) Entered as Reported by: PITO WALL on 08/12/221517 Ondansetron (Ondansetron Odt) 4 Mg Tab.rapdis, 4 MG SL Q4H PRN for NAUSEA/VOMITING Prescribed by: CLAU WONG on 09/27/221943 Pantoprazole Sodium (Pantoprazole Sodium) 40 Mg Tablet.dr, 40 MG PO DAILY, (Reported) Entered as Reported by: PITO WALL on 08/12/221517 Sucralfate (Sucralfate) 1 Gram Tablet, 1 GM PO TIDAC, (Reported) Entered as Reported by: PITO WALL on 08/12/221517 Physical Exam General Appearance: No Apparent Distress, WD/WN, Chronically ill Respiratory: Lungs Clear Cardiovascular: Regular Rate, Rhythm Neurologic/Psychiatric: Alert, Oriented x3 Assessment/Plan Admission Diagnosis Admission Status: Inpatient Order (span 2 midnights) Reason for Inpatient Admission: dka Supervisory-Addendum Brief Verification & Attestation Participated in pt care: history, MDM, physical Personally performed: exam, history, MDM, supervision of care Care discussed with: Medical Student Procedures: n/a Results interpretation: Verified all documentation Verification and Attestation of Medical Student E/M Service A medical student performed and documented this service in my presence. I review ed and verified all information documented by the medical student and made modifications to such information, when appropriate. I personally performed the physical exam and medical decision making. Pepper Huff, Nov 06, 2022,05:13 [place] Nov 05, 2022 15:37 PEPPER HUFF DO Nov 06, 2022 05:13
[2022-11-05] MEDS ORDERED: HYDROmorphone INJECTION 2 MG/ML VIAL IV PRN (16:30)
[2022-11-05] MEDS ORDERED: ANTACID SUSPENSION 30 ML UDC PO PRN (16:30)
[2022-11-05] MEDS ORDERED: LACTULOSE SYRUP 10GM/15ML 30ML UDC PO PRN (16:30)
[2022-11-05] MEDS ORDERED: PROMETHAZINE INJ 25 MG/ML (PHENERGAN) AMP IM PRN (16:30)
[2022-11-05] MEDS ORDERED: NS IV 1000 ML 1,000 ML IV SCH (16:30)
[2022-11-05] MEDS ORDERED: ACETAMINOPHEN 325 MG TABLET PO PRN (16:30)
[2022-11-05] MEDS ORDERED: POTASSIUM CL 10MEQ/50ML IVPB 50 ML IV SCH (16:30)
[2022-11-05] MEDS ORDERED: NS IV 500 ML 500 ML IV PRN (16:30)
[2022-11-05] MEDS ORDERED: ENOXAPARIN 40 MG/0.4 ML SYRINGE SC SCH (16:30)
[2022-11-05] MEDS ORDERED: oxyCODONE IMMEDIATE RELEASE 5 MG TABLET PO PRN (16:30)
[2022-11-05] MEDS ORDERED: diphenhydrAMINE 25 MG TABLET PO PRN (16:30)
[2022-11-05] MEDS ORDERED: diphenhydrAMINE INJ 50 MG/ML VIAL IVP PRN (16:30)
[2022-11-05] MEDS ORDERED: CALCIUM CARBONATE 500 MG CHEW TABLET PO PRN (16:30)
[2022-11-05] MEDS ORDERED: LORazepam 0.5 MG TABLET PO PRN (16:30)
[2022-11-05] MEDS ORDERED: MILK OF MAGNESIA 400 MG/5 ML 30 ML UDC PO PRN (16:30)
[2022-11-05] MEDS ORDERED: BISACODYL 10 MG SUPPOSITORY PR PRN (16:30)
[2022-11-05] MEDS ORDERED: ONDANSETRON 4 MG/2 ML (SDV) Z0FRAN IV PRN (16:30)
[2022-11-05] MEDS ORDERED: MELATONIN 3 MG TABLET PO PRN (16:30)
[2022-11-05] MEDS ORDERED: ONDANSETRON 4 MG (ZOFRAN) ORAL DISSOLVE TAB PO PRN (16:30)
[2022-11-05] MEDS ORDERED: polyethylene glycoL POWDER 17 GM (MIRALAX) PACK PO PRN (16:30)
[2022-11-05] MEDS ORDERED: SCOPOLAMINE 1.5 MG (TRANSDERM-SCOP) PATCH TD NR (16:45)
[2022-11-05 17:15] LABS: POTASSIUM 5.1 MMOL/L (3.6-5.0)
[2022-11-05 17:16] LABS: CALCIUM 9.7 MG/DL (8.5-10.1)
[2022-11-05 17:20] LABS: CREATININE SERUM 1.15 MG/DL (0.60-1.30)
[2022-11-05] MEDS: 1/2 NS IV SOLUTION 1000 ML 1,000 ML IV SCH ×2 (17:25→20:40)
--- NOTE | 2022-11-05 17:38 | Tele-ICU Consult ---
History of Present Illness History of Present Illness Date Seen by Provider: Nov 05, 2022 Time Seen by Provider: 17:37 History of Present Illness (Tele-ICU Physician , consultation as per request of PCP Service provided via interactive audio and video telecommun[facility]ARE system to a patient admitted to ICU bed in [facility]. Available chart/ vitals / labs / Images reviewed H&P is from ER notes Patient's information available about PMH, Shx, Fhx allergy reviewed inEMR. ROS as per chart and RN report Now in ICU, hemodynamically stable Video assessment done using teleICU camera, rest of exam as per RN Discussed with RN. Hospital course: (11/05) 22M Admitted for DKA--poorly controlled. Celiac disease A/P DKA ( with DM t 1- reports last dose of Levemir > 24 h ago *Insulin drip DM type I HAY mild - dehydration - cont IVF - follow closely Leukocytosis - suspect reactive, , UA unremarkable >off ABX +cannabioids in pst , not checked tox screen now VTE Prophylaxis: tristian 40 Stress Ulcer Prophylaxis: Plans in collaboration with bedside consultants and IM MDs. Discussed with RN to reach out if any questions or concerns A total of 15 minutes of critical care time was devoted to this patient today, required to treat and/or prevent further deterioration of critical care condition ( as above ) . I am remotely monitoring this patient from another state. I am unable to do the bedside exam, and history/physical and pertinent information is taken from other notes in the computer and bedside staff. . Allergies and Home Medications Allergies Coded Allergies: gluten (Verified Adverse Reaction, Unknown, 09/27/22) Home Medications Insulin Aspart 100 Unit/Ml (3 Ml) Solution, UNIT SC AC, (Reported) Insulin Detemir 100 Unit/Ml (3 Ml) Insuln.pen, 30 UNITS SC DAILY, (Reported) Ondansetron 4 Mg Tab.rapdis, 4 MG SL Q4H PRN for NAUSEA/VOMITING Prescribed by: CLAU WONG on 09/27/221943 Pantoprazole Sodium 40 Mg Tablet.dr, 40 MG PO DAILY, (Reported) Sucralfate 1 Gram Tablet, 1 GM PO TIDAC, (Reported) Past Medical/Social/Family Hx Patient Social History Tobacco Use?: No Use of E-Cig and/or Vaping dev: Yes E-Cig or Vaping type used: Nicotine Substance use?: Yes Substance type: Marijuana Alcohol Use?: No Pt stated abuse/neglect: No Immunizations Up To Date First/Initial COVID19 Vaccinat: declined Second COVID19 Vaccination Irving: declined Tetanus Booster (TDap): Unknown Hepatitis A: No Hepatitis B: No TB Skin Test: None Current Status Communicates: Verbally Primary Language: Tamazight Preferred Spoken Language: Tamazight Implanted or Applied Medical D: None Past Medical History PMHx: DMI SurgHx: Denies Review of Systems Constitutional: other Focused Exam Height, Weight, BMI Height: 5'8.00" Weight: 124lbs. 4.8oz. 56.894821ti; 16.00 BMI Method:Stated Exam Exam Patient acknowledged, consented, and participated in this virtual visit which was conducted using real time audio/video Vital Signs Date Time Temp Pulse Resp B/P (MAP) Pulse Ox O2 Delivery O2 Flow Rate FiO2 11/05/22 13:16 36.7 118 21 122/65 97 Room Air 11/05/22 13:16 36.7 130 27 145/83 (103) Height & Weight Height: 5'8.00" Weight: 124lbs. 4.8oz. 56.362668px; 16.00 BMI Method:Stated General Appearance: No Apparent Distress, Other HEENT: No Moist Mucous Membranes Neck: Full Range of Motion, Normal Inspection, Non Tender, Supple Respiratory: Chest Non Tender, Lungs Clear, Normal Breath Sounds, No Accessory Muscle Use, No Respiratory Distress Cardiovascular: No Edema Extremity: Normal Capillary Refill Neurologic/Psychiatric: Alert, Oriented x3, No Motor/Sensory Deficits, Normal Mood/Affect Skin: Normal Color, Warm/Dry Results Lab Laboratory Tests 11/05/22 13:24 11/05/22 16:56 Assessment/Plan Assessment/Plan 1 JOSE G LOPES MD Nov 05, 2022 17:38
[2022-11-05] MEDS: METOCLOPRAMIDE INJ 10 MG/2 ML IVP SCH (19:07)
[2022-11-05 20:04] LABS: CALCIUM 9.4 MG/DL (8.5-10.1); CREATININE SERUM 1.13 MG/DL (0.60-1.30); POTASSIUM 4.9 MMOL/L (3.6-5.0)
[2022-11-05] MEDS: POTASSIUM CL 10MEQ/50ML IVPB 50 ML IV SCH ×2 (20:40→22:20)
[2022-11-05] MEDS: DOCUSATE SODIUM 100 MG CAPSULE PO SCH (20:41)
[2022-11-05] MEDS: SENNOSIDES 8.6 MG (SENOKOT) TAB PO SCH (20:41)
[2022-11-06] MEDS: METOCLOPRAMIDE INJ 10 MG/2 ML IVP SCH ×3 (00:04→12:00)
[2022-11-06] MEDS: D5 1/2 NS 1,000 ML IV 1,000 ML IV SCH ×3 (00:16→08:03)
[2022-11-06] MEDS: 1/2 NS IV SOLUTION 1000 ML 1,000 ML IV SCH ×4 (00:35→12:30)
[2022-11-06] MEDS: POTASSIUM CL 10MEQ/50ML IVPB 50 ML IV SCH ×4 (00:56→08:04)
[2022-11-06 04:23] LABS: BASOPHILS # (AUTO) 0.1 10^3/uL (0.0-0.1); BASOPHILS % (AUTO) 0 % (0-10); EOSINOPHILS # (AUTO) 0.1 10^3/uL (0.0-0.3); EOSINOPHILS % (AUTO) 0 % (0-10); HEMATOCRIT 38 % (40-54); HEMOGLOBIN 12.9 g/dL (13.3-17.7); LYMPHOCYTES # (AUTO) 1.6 10^3/uL (1.0-4.0); LYMPHOCYTES % (AUTO) 7 % (12-44); MEAN CORPUSCULAR HEMOGLOBIN 30 pg (25-34); MEAN CORPUSCULAR HGB CONC 34 g/dL (32-36); MEAN CORPUSCULAR VOLUME 86 fL (80-99); MONOCYTES # (AUTO) 1.9 10^3/uL (0.0-1.0); MONOCYTES % (AUTO) 8 % (0-12); NEUTROPHILS # (AUTO) 17.9 10^3/uL (1.8-7.8); NEUTROPHILS % (AUTO) 80 % (42-75); PLATELET COUNT 239 10^3/uL (130-400); WHITE BLOOD COUNT 22.3 10^3/uL (4.3-11.0)
[2022-11-06 04:40] LABS: POTASSIUM 4.1 MMOL/L (3.6-5.0)
[2022-11-06 04:41] LABS: CALCIUM 9.3 MG/DL (8.5-10.1)
[2022-11-06 04:43] LABS: TOTAL PROTEIN 6.4 GM/DL (6.4-8.2)
[2022-11-06 04:44] LABS: BILIRUBIN,TOTAL 0.6 MG/DL (0.1-1.0)
[2022-11-06 04:46] LABS: CREATININE SERUM 0.98 MG/DL (0.60-1.30); PHOSPHORUS 1.8 MG/DL (2.3-4.7)
[2022-11-06 04:49] LABS: MAGNESIUM 1.8 MG/DL (1.6-2.4)
[2022-11-06] MEDS ORDERED: POTASSIUM CL 10MEQ/50ML IVPB 50 ML IV SCH (06:00)
[2022-11-06] MEDS ORDERED: MAGNESIUM 1 GM/100 ML IVPB 100 ML IV SCH (06:00)
[2022-11-06] MEDS ORDERED: POTASSIUM CHLORIDE 20 MEQ TABLET PO SCH (06:00)
[2022-11-06] MEDS: DOCUSATE SODIUM 100 MG CAPSULE PO SCH (08:06)
[2022-11-06] MEDS: SENNOSIDES 8.6 MG (SENOKOT) TAB PO SCH (08:06)
[2022-11-06 08:49] LABS: POTASSIUM 3.8 MMOL/L (3.6-5.0)
[2022-11-06 08:51] LABS: CALCIUM 9.2 MG/DL (8.5-10.1)
[2022-11-06 08:55] LABS: CREATININE SERUM 0.84 MG/DL (0.60-1.30)
[2022-11-06] MEDS ORDERED: inSUlin DETERMIR 1 UNIT/0.01 ML (CHARGE PER UNIT) SQ ONE (10:30)
[2022-11-06] MEDS ORDERED: NEED-474 MC (12:30)
[2022-11-06] MEDS ORDERED: INSU100I14 SC (12:30)
[2022-11-06] MEDS ORDERED: INSU100I88 SC (12:30)
--- NOTE | 2022-11-06 12:30 | Discharge Summary ---
Discharge Summary Hospital Course Was the Problem List Reviewed?: Yes Problems/Dx: (1) DKA, type 1 Status: Resolved Hospital Course Date of Admission: Nov 05, 2022 at 16:24 Admission Diagnosis : Family Physician/Provider: [facility] Date of Discharge: 11/06/22 Discharge Diagnosis: [ ] Hospital Course: Hospital Course: 22 y/o male with a history of celiacs disease and poorly controlled type 1 DM presented to the ED with DKA. His glucose was above 600 and he had a mild HAY when EMS brought him in. He reported nausea, vomiting, some pain with urination and a headache upon his arrival and it was noted that he has had multiple previous episodes of DKA just like this one because he had not taken any of his long acting insulin. His labs showed leukocytosis which is also consistent with his previous episodes and he was moved to the ICU with insulin drip and IVF for further management. During his 2 day stay he felt better with his glucose returning to baseline and no longer reported any N/V, dysuria or headache. Patient still had the ongoing mild abdominal pain from his celiac disease, but had no other complaints or concerns before his discharge. Labs and Pending Lab Test: Laboratory Tests 11/05/22 13:23: Glucometer 578*H 11/05/22 13:24: White Blood Count 34.1*H, Red Blood Count 4.88, Hemoglobin 14.3, Hematocrit 46, Mean Corpuscular Volume 94, Mean Corpuscular Hemoglobin 29, Mean Corpuscular Hemoglobin Concent 31L, Red Cell Distribution Width 12.6, Platelet Count 362, Mean Platelet Volume 11.9, Immature Granulocyte % (Auto) 7, Neutrophils (%) (Auto) 77H, Lymphocytes (%) (Auto) 8L, Monocytes (%) (Auto) 7, Eosinophils (%) (Auto) 0, Basophils (%) (Auto) 1, Neutrophils # (Auto) 26.1H, Lymphocytes # (Auto) 2.8, Monocytes # (Auto) 2.4H, Eosinophils # (Auto) 0.1, Basophils # (Auto) 0.4H, Immature Granulocyte # (Auto) 2.3H, Neutrophils % (Manual) 73, Lymphocytes % (Manual) 12, Monocytes % (Manual) 6, Basophils % (Manual) 1, Metamyelocytes % 2, Myelocytes % 2, Band Neutrophils 4, Blood Morphology Comment NORMAL, Venous Blood pH 7.07L, Venous Blood Partial Pressure CO2 18L, Venous Blood HCO3 5L, Sodium Level 129L, Potassium Level 6.0H, Chloride Level 96L, Carbon Dioxide Level < 5*L, Anion Gap 28H, Blood Urea Nitrogen 16, Creatinine 1.39H, Estimat Glomerular Filtration Rate 74, BUN/Creatinine Ratio 12, Glucose Level 618*H, Calcium Level 10.3H, Corrected Calcium , Total Bilirubin 0.5, Aspartate Amino Transf (AST/SGOT) 31, Alanine Aminotransferase (ALT/SGPT) 25, Alkaline Phosphatase 152H, Total Protein 8.4H, Albumin 5.0H, Lipase < 4L, Beta- Hydroxybutyrate (Chem panel) 9.52H 11/05/22 14:22: Urine Color YELLOW, Urine Clarity CLEAR, Urine pH 5.0, Urine Specific Nice >=1.030, Urine Protein 1+H, Urine Glucose (UA) 2+H, Urine Ketones 4+H, Urine Nitrite NEGATIVE, Urine Bilirubin NEGATIVE, Urine Urobilinogen 0.2, Urine Leukocyte Esterase NEGATIVE, Urine RBC (Auto) 2+H, Urine RBC RARE, Urine WBC NONE, Urine Squamous Epithelial Cells RARE, Urine Crystals PRESENTH, Urine Amorp hous Sediment RARE LILIANA URATESH, Urine Bacteria TRACE, Urine Casts NONE, Urine Mucus SMALLH, Urine Culture Indicated NO 11/05/22 16:31: Glucometer 402*H 11/05/22 16:56: Sodium Level 132L, Potassium Level 5.1H, Chloride Level 103, Carbon Dioxide Level 6*L, Anion Gap 23H, Blood Urea Nitrogen 14, Creatinine 1.15, Estimat Glomerular Filtration Rate 93, BUN/Creatinine Ratio 12, Glucose Level 444*H, Calcium Level 9.7, Beta-Hydroxybutyrate (Chem panel) 9.03H 11/05/22 17:02: Glucometer 413*H 11/05/22 18:02: Glucometer 404*H 11/05/22 19:02: Glucometer 300H 11/05/22 19:39: Glucometer 291H 11/05/22 19:40: Sodium Level 131L, Potassium Level 4.9, Chloride Level 107, Carbon Dioxide Level 9*L, Anion Gap 15H, Blood Urea Nitrogen 13, Creatinine 1.13, Estimat Glomerular Filtration Rate 95, BUN/Creatinine Ratio 12, Glucose Level 284H, Calcium Level 9.4 11/05/22 20:31: Glucometer 230H 11/05/22 21:37: Glucometer 165H 11/05/22 22:05: Glucometer 135H 11/05/22 23:00: Glucometer 176H 11/06/22 00:09: Glucometer 72 11/06/22 00:58: Glucometer 121H 11/06/22 01:50: Glucometer 162H 11/06/22 03:07: Glucometer 156H 11/06/22 04:05: Glucometer 156H 11/06/22 04:06: White Blood Count 22.3H, Red Blood Count 4.38, Hemoglobin 12.9L, Hematocrit 38L, Mean Corpuscular Volume 86, Mean Corpuscular Hemoglobin 30, Mean Corpuscular Hemoglobin Concent 34, Red Cell Distribution Width 12.8, Platelet Count 239, Mean Platelet Volume 11.0, Immature Granulocyte % (Auto) 4, Neutrophils (%) (Auto) 80H, Lymphocytes (%) (Auto) 7L, Monocytes (%) (Auto) 8, Eosinophils (%) (Auto) 0, Basophils (%) (Auto) 0, Neutrophils # (Auto) 17.9H, Lymphocytes # (Auto) 1.6, Monocytes # (Auto) 1.9H, Eosinophils # (Auto) 0.1, Basophils # (Auto) 0.1, Immature Granulocyte # (Auto) 0.9H, Sodium Level 136, Potassium Level 4.1, Chloride Level 110H, Carbon Dioxide Level 19L, Anion Gap 7, Blood Urea Nitrogen 8, Creatinine 0.98, Estimat Glomerular Filtration Rate 113, BUN/Creatinine Ratio 8, Glucose Level 152H, Calcium Level 9.3, Corrected Calcium 9.3, Phosphorus Level 1.8L, Magnesium Level 1.8, Total Bilirubin 0.6, Aspartate Amino Transf (AST/SGOT) 17, Alanine Aminotransferase (ALT/SGPT) 18, Alkaline Phosphatase 98, Total Protein 6.4, Albumin 4.0, Beta-Hydroxybutyrate (Chem panel) 0.36H 11/06/22 06:29: Glucometer 125H 11/06/22 07:33: Glucometer 150H 11/06/22 08:31: Glucometer 89 11/06/22 08:32: Sodium Level 136, Potassium Level 3.8, Chloride Level 109H, Carbon Dioxide Level 20L, Anion Gap 7, Blood Urea Nitrogen 6L, Creatinine 0.84, Estimat Glomerular Filtration Rate 127, BUN/Creatinine Ratio 7, Glucose Level 90, Calcium Level 9.2 11/06/22 09:32: Glucometer 142H 11/06/22 10:33: Glucometer 150H 11/06/22 11:30: Glucometer 144H Home Meds Active Reported Levemir Flexpen (Insulin Detemir) 100 Unit/Ml (3 Ml) Insuln.pen 30 Units SC DAILY LAST FILLED 06-21-2022 #3 PENS/30 DAY SUPPLY Pantoprazole Sodium 40 Mg Tablet.dr 40 Mg PO DAILY Sucralfate 1 Gram Tablet 1 Gm PO TIDAC Novolog Flexpen (Insulin Aspart) 100 Unit/Ml (3 Ml) Solution Unit SC AC Assessment/Pt Instructions PCP in 1 week Discharge Planning: <30 minutes discharge planning Discharge Physical Examination Vital Signs Vital Signs Date Time Temp Pulse Resp B/P (MAP) Pulse Ox O2 Delivery O2 Flow Rate FiO2 11/06/22 12:00 36.7 11/06/22 12:00 81 15 123/85 (95) 96 Room Air General Appearance: No Apparent Distress, WD/WN, Chronically ill Allergies: Coded Allergies: gluten (Verified Adverse Reaction, Unknown, 09/27/22) Discharge Summary Date of Admission Nov 05, 2022 at 16:24 Date of Discharge Discharge Date: Nov 06, 2022 ANDREW HUFF DO Nov 06, 2022 12:30
--- NOTE | 2022-11-06 13:12 | Progress Note ---
[place] 11/06/22 1312: Progress Note Hospital Course: 22 y/o male with a history of celiacs disease and poorly controlled type 1 DM presented to the ED with DKA. His glucose was above 600 and he had a mild HAY when EMS brought him in. He reported nausea, vomiting, some pain with urination and a headache upon his arrival and it was noted that he has had multiple previous episodes of DKA just like this one because he had not taken any of his long acting insulin. His labs showed leukocytosis which is also consistent with his previous episodes and he was moved to the ICU with insulin drip and IVF for further management. During his 2 day stay he felt better with his glucose returning to baseline and no longer reported any N/V, dysuria or headache. Patient still had the ongoing mild abdominal pain from his celiac disease, but had no other complaints or concerns before his discharge. PEPPER HUFF DO 11/07/22 0627: Supervisory-Addendum Brief Verification & Attestation Participated in pt care: history, MDM, physical Personally performed: exam, history, MDM, supervision of care Care discussed with: Medical Student Procedures: n/a Results interpretation: Verified all documentation Verification and Attestation of Medical Student E/M Service A medical student performed and documented this service in my presence. I re viewed and verified all information documented by the medical student and made modifications to such information, when appropriate. I personally performed the physical exam and medical decision making. Pepper Huff, Nov 07, 2022,06:27 [place] Nov 06, 2022 13:12 PEPPER HUFF DO Nov 07, 2022 06:27
[2022-11-08] MEDS ORDERED: SCOPOLAMINE PATCH REMOVAL TP NR (16:44)
== END 2022-11-06 14:00 | disposition home or self-care (01) ==
LOC: EDUNIT# 13:18 → ER 13:19 → ICU 16:24 → UNDOADMOB 16:24 → ICU 16:28 → UNDODISOB 11-06 14:00
PROVIDERS: ADMIT Internal Medicine; ATTEND Internal Medicine
DX: E10.10 Type 1 diabetes mellitus with ketoacidosis without coma (principal); K90.0 Celiac disease; N17.9 Acute kidney failure, unspecified; E86.0 Dehydration; D72.829 Elevated white blood cell count, unspecified; Z28.310 Unvaccinated for COVID-19
CPT/HCPCS: 36415; 80048; 80053; 81000; 82010; 82805; 82947; 83690; 83735; 84100; 85007; 85025; 85027; 87081; 93041; 96361; 96366; 96372; 96375; 96376; G0378

== ENCOUNTER 2022-12-02 10:33 | Inpatient (IN) | payer SELFPAY ==
[~2022-12-02] VITALS: Ht 170 cm; Wt 52.0 kg
[~2022-12-02 10:33] MED LIST changes: +NEED-474 MC
[2022-12-02] MEDS ORDERED: NS IV 1000 ML 1,000 ML IV STA (10:41)
[2022-12-02 10:48] LABS: BASOPHILS # (AUTO) 0.4 10^3/uL (0.0-0.1); BASOPHILS % (AUTO) 1 % (0-10); EOSINOPHILS # (AUTO) 0.1 10^3/uL (0.0-0.3); EOSINOPHILS % (AUTO) 0 % (0-10); HEMATOCRIT 40 % (40-54); HEMOGLOBIN 12.7 g/dL (13.3-17.7); LYMPHOCYTES # (AUTO) 3.4 10^3/uL (1.0-4.0); LYMPHOCYTES % (AUTO) 9 % (12-44); MEAN CORPUSCULAR HEMOGLOBIN 29 pg (25-34); MEAN CORPUSCULAR HGB CONC 32 g/dL (32-36); MEAN CORPUSCULAR VOLUME 92 fL (80-99); MEAN PLATELET VOLUME 12.3 fL (9.0-12.2); MONOCYTES % (AUTO) 10 % (0-12); NEUTROPHILS # (AUTO) 27.3 10^3/uL (1.8-7.8); NEUTROPHILS % (AUTO) 72 % (42-75); PLATELET COUNT 354 10^3/uL (130-400)
[2022-12-02 10:50] LABS: WHITE BLOOD COUNT 38.1 10^3/uL (4.3-11.0)
[2022-12-02 11:06] LABS: ALBUMIN 4.1 GM/DL (3.2-4.5); BILIRUBIN,TOTAL 0.6 MG/DL (0.1-1.0); CALCIUM 8.1 MG/DL (8.5-10.1); CREATININE SERUM 2.4 MG/DL (0.60-1.30); POTASSIUM 5.7 MMOL/L (3.6-5.0); TOTAL PROTEIN 6.6 GM/DL (6.4-8.2)
[2022-12-02 11:08] LABS: BAND NEUTROPHILS 9 %; BASOPHILS % (MANUAL) 0 %; EOSINOPHILS % (MANUAL) 0 %; LYMPHOCYTES % (MANUAL) 6 %; METAMYELOCYTES % 6 %; MONOCYTES % (MANUAL) 8 %; MYELOCYTES % 1 %; NEUTROPHILS % (MANUAL) 70 %; RBC MORPH NORMAL
[2022-12-02] MEDS ORDERED: inSUlin (REGULAR) HUMAN 1 UNIT/0.01 ML (CHARGE PER UNIT) SC SCH (11:30)
[2022-12-02] MEDS ORDERED: inSUlin (REGULAR) HUMAN 1 UNIT/0.01 ML (CHARGE PER UNIT) IV ONE (11:30)
[2022-12-02] MEDS ORDERED: ONDANSETRON INJECTION 4 MG/2 ML (SDV) IVP ONE (11:30)
--- NOTE | 2022-12-02 11:33 | ED General ---
General Chief Complaint: Glucose Problems Stated Complaint: HIGH BLOOD SUGAR Nursing Triage Note: PT ARRIVED PER EMS, PT HAS ELEVATED BS TOO HIGH TO READ ON HOME MONITOR. PT HAS SL INL AC #20 NS 300CC INFUSED. PT IS AWAKE AND ALERT. EMS REPORTS START FEELING BAD YESTERDAY. PT CO OF KAZROAT AND SON WHO HAS FLU B. DENIES FEVERS AT THIS X Source of Information: Patient Exam Limitations: No Limitations (DAVID NARVAEZ) History of Present Illness Date Seen by Provider: Dec 02, 2022 Time Seen by Provider: 11:17 Initial Comments 22yo M with h/o IDDM presents to the ED via EMS for elevated blood sugar. History limited due to pt cooperation. Pt states that he hasn't taken his in sulin for the past 1.5 days due to his feeling ill around that time. Says that he had been taking his insulin as prescribed prior to this. Pt states that he has been experiencing nausea, vomiting, and sore throat. Pt states that he has vomited "too many times to count" and says that he has not eaten anything since onset of his symptoms. Pt states that he checked his blood sugar today and it was "600s", prompting him to call EMS. In room, pt is laying in bed with covers over his body and face. Pt denies CALDERÓN but states that he "doesn't like the light". States son was diagnosed with Flu B last week but has had no other sick contacts and hasn't been tested for COVID or flu. Pt states that he has had good urinary output, stating he's been "peeing almost too much". Pt denies diarrhea, fever, cough, rhinorrhea, abd pain, SOA, and CP. Timing/Duration: 1-2 Days Associated Systoms: No Chest Pain, No Cough, No Fever/Chills, No Headaches; Loss of Appetite, Nausea/Vomiting; No Shortness of Air (DAVID NARVAEZ) Allergies and Home Medications Allergies Coded Allergies: gluten (Verified Adverse Reaction, Unknown, 09/27/22) Patient Home Medication List Home Medication List Reviewed: Yes (DAVID NARVAEZ) Home Medication List Reviewed: Yes (REMA LIU MD) Acetaminophen (Tylenol Extra Strength) 500 Mg Tablet, 1,000 MG PO Q8H PRN for PAIN-MILD (1-4), (Reported) Entered as Reported by: PITO WALL on 12/03/221231 Last Action: Reviewed Insulin Detemir (Levemir Flexpen) 100 Unit/Ml (3 Ml) Insuln.pen, 30 UNIT SQ DAILY, (Reported) Entered as Reported by: PITO WALL on 12/03/221231 Last Action: Reviewed Insulin Lispro (Insulin Lispro Kwikpen U-100) 100 Unit/Ml Insuln.pen, 5 UNITS SC AC, (Reported) Entered as Reported by: PITO WALL on 12/03/221231 Last Action: Reviewed Pantoprazole Sodium (Pantoprazole Sodium) 40 Mg Tablet.dr, 40 MG PO DAILY, (Reported) Entered as Reported by: PITO WALL on 08/12/221517 Last Action: Reviewed Sucralfate (Sucralfate) 1 Gram Tablet, 1 GM PO TIDAC, (Reported) Entered as Reported by: PITO WALL on 08/12/221517 Last Action: Reviewed Discontinued Medications Insulin Aspart (Novolog Flexpen) 100 Unit/Ml (3 Ml) Solution, 5 UNIT SC AC Discontinued Reason: No Longer Taking Prescribed by: ANDREW HUFF on 11/06/221229 Last Action: Discontinued Insulin Detemir (Levemir Flexpen) 100 Unit/Ml (3 Ml) Insuln.pen, 30 UNITS SC DAILY Discontinued Reason: No Longer Taking Prescribed by: ANDREW HUFF on 11/06/221229 Last Action: Discontinued [place], Insulin Disposable (Advocate Pen [place]) 31 Gauge X 5/16" Dis.needle, EACH AC, (DME) Discontinued Reason: No Longer Taking Prescribed by: ANDREW HUFF on 11/06/221229 Last Action: Discontinued Review of Systems Review of Systems Constitutional: no symptoms reported; No chills, No fever EENTM: no symptoms reported Respiratory: no symptoms reported; No cough, No short of breath Cardiovascular: no symptoms reported; No chest pain Gastrointestinal: No abdominal pain, No diarrhea; loss of appetite, nausea, vomiting Genitourinary: no symptoms reported; No decreased output Musculoskeletal: no symptoms reported Skin: no symptoms reported Psychiatric/Neurological: No Symptoms Reported Hematologic/Lymphatic: No Symptoms Reported Immunological/Allergic: no symptoms reported (DAVID NARVAEZ) Past Gbruifz-Ybkddd-Raqybt Hx Patient Social History Tobacco Use?: No Use of E-Cig and/or Vaping dev: Yes E-Cig or Vaping type used: Nicotine, Marijuana Substance use?: Yes Substance type: Marijuana Substance frequency: Daily Alcohol Use?: No Pt feels they are or have been: No (DAVID NARVAEZ) Immunizations Up To Date Tetanus Booster (TDap): Less than 5yrs PED Vaccines UTD: Yes First/Initial COVID19 Vaccinat: declined Second COVID19 Vaccination [place]: declined Third COVID19 Vaccination Date: declined (DAVID NARVAEZ) Seasonal Allergies Seasonal Allergies: No (DAVID NARVAEZ) Past Medical History Surgery/Hospitalization HX: IDDM DENIES SX HX Surgeries: No Respiratory: No Cardiac: No Neurological: No Genitourinary: No Gastrointestinal: Yes (Celiac disease) Ulcer Musculoskeletal: No Endocrine: Yes (POORLY CONTROLLED TYPE 1 DIABETES;NON-COMPLIANT; DKA MULT TIMES) Diabetes, Insulin dep HEENT: No Cancer: No Psychosocial: No Integumentary: No Blood Disorders: No (DAVID NARVAEZ) Family Medical History Cancer, Diabetes, Stroke (DAVID NARVAEZ) Physical Exam Vital Signs Vital Signs - First Documented 12/02/22 10:35 Temp 37.7 Pulse 119 Resp 20 B/P (MAP) 107/58 (74) Pulse Ox 100 (REMA LIU MD) Vital Signs Capillary Refill : Less Than 3 Seconds (DAVID NARVAEZ) Height, Weight, BMI Height: 5'8.00" Weight: 124lbs. 4.8oz. 56.404191rq; 20.00 BMI Method:Stated General Appearance: No Apparent Distress (laying in bed with covers over head ), WD/WN HEENT: PERRL/EOMI, TMs Normal, Normal ENT Inspection Respiratory: Lungs Clear, Normal Breath Sounds, No Accessory Muscle Use, No Respiratory Distress Cardiovascular: No Murmur, Tachycardia Gastrointestinal: Non Tender, Soft Neurologic/Psychiatric: Alert, Oriented x3, Normal Mood/Affect Skin: Normal Color, Warm/Dry Lymphatic: No Adenopathy (DAVID NARVAEZ) Progress/Results/Core Measures Suspected Sepsis SIRS Temperature: Pulse: 119 Respiratory Rate: 20 Laboratory Tests 12/02/22 10:40: White Blood Count 38.1*H Blood Pressure 107 /58 Mean: 74 Laboratory Tests 12/02/22 10:40: Creatinine 2.40H, Platelet Count 354, Total Bilirubin 0.6 (DAVID NARVAEZ) Results/Orders Lab Results Laboratory Tests Test 12/02/22 10:38 12/02/22 10:40 12/02/22 10:53 12/02/22 12:16 Range/Units Glucometer > 600 *H 70-110 MG/DL White Blood Count 38.1 *H 4.3-11.0 10^3/uL Red Blood Count 4.32 4.30-5.52 10^6/uL Hemoglobin 12.7 L 13.3-17.7 g/dL Hematocrit 40 40-54 % Mean Corpuscular Volume 92 80-99 fL Mean Corpuscular Hemoglobin 29 25-34 pg Mean Corpuscular Hemoglobin Concent 32 32-36 g/dL Red Cell Distribution Width 12.4 10.0-14.5 % Platelet Count 354 130-400 10^3/uL Mean Platelet Volume 12.3 H 9.0-12.2 fL Immature Granulocyte % (Auto) 8 % Neutrophils (%) (Auto) 72 42-75 % Lymphocytes (%) (Auto) 9 L 12-44 % Monocytes (%) (Auto) 10 0-12 % Eosinophils (%) (Auto) 0 0-10 % Basophils (%) (Auto) 1 0-10 % Neutrophils # (Auto) 27.3 H 1.8-7.8 10^3/uL Lymphocytes # (Auto) 3.4 1.0-4.0 10^3/uL Monocytes # (Auto) 4.0 H 0.0-1.0 10^3/uL Eosinophils # (Auto) 0.1 0.0-0.3 10^3/uL Basophils # (Auto) 0.4 H 0.0-0.1 10^3/uL Immature Granulocyte # (Auto) 2.9 H 0.0-0.1 10^3/uL Neutrophils % (Manual) 70 % Lymphocytes % (Manual) 6 % Monocytes % (Manual) 8 % Eosinophils % (Manual) 0 % Basophils % (Manual) 0 % Metamyelocytes % 6 % Myelocytes % 1 % Band Neutrophils 9 % Blood Morphology Comment NORMAL Sodium Level 112 *L 135-145 MMOL/L Potassium Level 5.7 H 3.6-5.0 MMOL/L Chloride Level 69 L 98-107 MMOL/L Carbon Dioxide Level 6 *L 21-32 MMOL/L Anion Gap 37 H 5-14 MMOL/L Blood Urea Nitrogen 38 H 7-18 MG/DL Creatinine 2.40 H 0.60-1.30 MG/DL Estimat Glomerular Filtration Rate 38 BUN/Creatinine Ratio 16 Glucose Level 1110 *H 70-105 MG/DL Mean Blood Glucose 258 H <=126 mg/dL Hemoglobin A1c 10.6 H 4.0-5.6 % Calcium Level 8.1 L 8.5-10.1 MG/DL Corrected Calcium 8.0 L 8.5-10.1 MG/DL Total Bilirubin 0.6 0.1-1.0 MG/DL Aspartate Amino Transf (AST/SGOT) 22 5-34 U/L Alanine Aminotransferase (ALT/SGPT) 24 0-55 U/L Alkaline Phosphatase 160 H 40-136 U/L Total Protein 6.6 6.4-8.2 GM/DL Albumin 4.1 3.2-4.5 GM/DL Influenza Type A (RT-PCR) Not Detected Not Detecte Influenza Type B (RT-PCR) Not Detected Not Detecte SARS-CoV-2 RNA (RT-PCR) Not Detected Not Detecte Venous Blood pH 7.21 L 7.31-7.41 Venous Blood Partial Pressure CO2 22 L 40-52 MMHG Venous Blood HCO3 9 L 22-28 MMOL/L Urine Color YELLOW Urine Clarity CLEAR Urine pH 5.0 5-9 Urine Specific [place] 1.010 L 1.016-1.022 Urine Protein NEGATIVE NEGATIVE Urine Glucose (UA) 3+ H NEGATIVE Urine Ketones 3+ H NEGATIVE Urine Nitrite NEGATIVE NEGATIVE Urine Bilirubin 1+ H NEGATIVE Urine Urobilinogen 0.2 < = 1.0 MG/DL Urine Leukocyte Esterase NEGATIVE NEGATIVE Urine RBC (Auto) NEGATIVE NEGATIVE Urine RBC NONE /HPF Urine WBC NONE /HPF Urine Squamous Epithelial Cells NONE /HPF Urine Crystals NONE /LPF Urine Bacteria NEGATIVE /HPF Urine Casts NONE /LPF Urine Mucus NEGATIVE /LPF Urine Culture Indicated NO (REMA LIU MD) Micro Results Microbiology 12/02/22 MRSA Screen - Final, Complete MRSA not isolated (REMA LIU MD) My Orders Orders - REMA LIU MD Ed Iv/Invasive Line Start (12/02/22 10:41) Cbc With Automated Diff (12/02/22 10:41) Comprehensive Metabolic Panel (12/02/22 10:41) Covid 19 Inhouse Test (12/02/22 10:41) Ua Culture If Indicated (12/02/22 10:41) Venous Blood Gas (12/02/22 10:41) Influenza A And B By Pcr (12/02/22 10:41) Ns Iv 1000 Ml (Ns Iv 1000 Ml) (12/02/22 10:41) Accucheck Stat ONCE (12/02/22 10:41) Manual Differential (12/02/22 10:40) Insulin (Regular) Per Unit (Insulin (Reg (12/02/22 11:30) Insulin (Regular) Per Unit (Insulin (Reg (12/02/22 11:30) Ekg Tracing (12/02/22 11:28) Ondansetron Injection (Ondansetron Inj (12/02/22 11:30) Calcium Gluconate 1gm Ivpb (Calcium Gluc (12/02/22 11:45) Sodium Polystyrene Powder (Sodium Polys (12/02/22 11:45) Ed Admission (Communication) (12/02/22 12:25) (REMA LIU MD) Medications Given in ED (REMA LIU MD) Vital Signs/I&O 12/02/22 12/02/22 10:35 12:25 Temp 37.7 Pulse 119 110 Resp 20 18 B/P (MAP) 107/58 (74) 115/65 Pulse Ox 100 100 (REMA LIU MD) Vital Signs/I&O Capillary Refill : Less Than 3 Seconds (DAVID NARVAEZ) Blood Pressure Mean: 74 Point of Care Testing Blood Glucose Action Taken: HI- RN NOTIFIED (DAVID NARVAEZ) Progress Note : Time: 12:30 Progress Note Patient seen and evaluated by me. I have reviewed and agree with the medical student's documentation. My evaluation today includes physical exam, lab studies including CBC, CMP, VBG, UA and covid/flu testing. Pertinent PE findings include thin, dehydrated appearing young male in NAD - but has his head covered with a blanket when I enter the room. He is not very agreeable with exam. His lips are dry, he is tachycardic. Heart is regular, Lungs are clear. He complains of abdominal tenderness diffusely with palpation. No obvious wounds to skin. He is mentating appropriately. DDx based on H&P includes DKA, uti, covid Labs independently reviewed and interpreted by me. His initial accu check read greater than 600. 2 IV's were established and NS x2 liters started. He was given zofran for nausea. Patient's CBC showed a total WBC of 38.1 with hgb 12.7 and Hct 40. Platelets normal. HIs chem revealed hyponatremia with a serum sodium 112 - corrected in the 120's. His potassium was elevated at 5.7, chloride low at 69, CO2 low at 6, BUN of 38 and creatinine of 2.4. Serum glucose of 1110. His pH was 7.21, negative Covid test. Urine not infected. Patient was given 1gm of calcium gluconate and 15gm of kayexalate for his elevated potassium . He did have NSR with prominent T waves on EKG. Given insulin 5u SQ and 5u IV. Case was discussed with Dr Mcdonald for admission and the eICU. No evidence of infection - suspect the elevated WBC due to demargination from the DKA. Patient with history of chronic noncompliance - I suspect this is the etiology. (REMA LIU MD) ECG Initial ECG Impression Date: Dec 02, 2022 Initial ECG Impression Time: 11:32 Initial ECG Rate: 129 Initial ECG Rhythm: S.Tach Initial ECG Intervals: Normal Initial ECG Impression: Normal (REMA LIU MD) Critical Care Note Critical Care Start Time: 11:17 Stop Time: 12:30 Total Time (minutes) 30 min critical care time in the eval and management of this patient with DKA. Time includes initial eval with treatment of suspected DKA with fluid resuscitation, administration of insulin, monitoring, medical record review, discussion with admitting provider for ICU, serial re-evaluations (REMA LIU MD) Departure Communication (Admissions) Time/Spoke to Admitting Phy: 11:[address] Mcdonald (Hospitalist) accepts to ICU (REMA LIU MD) Impression Primary Impression: Diabetic ketoacidosis Qualified Codes: E10.10 - Type 1 diabetes mellitus with ketoacidosis without coma Disposition: ADMITTED INPATIENT Condition: Critical Admissions Decision to Admit Reason: Admit from ER (General) Decision to Admit/Date: Dec 02, 2022 Time/Decision to Admit Time: 12:25 (REMA LIU MD) Departure-Patient Inst. Referrals: [facility] (PCP/Family) Primary Care Physician Verification and Attestation of Medical Student E/M Service A medical student performed and documented this service in my presence. I reviewed and verified all information documented by the medical student and made modifications to such information, when appropriate. I personally performed the physical exam and medical decision making. Rema Liu, Dec 06, 2022,07:15 (REMA LIU MD) Copy Copies To 1: LYUDMILA KAUR TAYLOR Dec 02, 2022 11:33 REMA LIU MD Dec 02, 2022 12:25
[2022-12-02] MEDS ORDERED: SODIUM POLYSTYRENE POWDER 15 GM BOTTLE PO ONE (11:45)
[2022-12-02] MEDS ORDERED: CALCIUM GLUCONATE 1GM IVPB 100 ML IV ONE (11:45)
[2022-12-02 12:47] LABS: BILIRUBIN,URINE 1+ (NEGATIVE); CLARITY,URINE CLEAR; COLOR,URINE YELLOW; GLUCOSE, URINE (UA) 3+ (NEGATIVE); KETONES,URINE 3+ (NEGATIVE); NITRITE,URINE NEGATIVE (NEGATIVE); PROTEIN,URINE NEGATIVE (NEGATIVE)
[2022-12-02 12:48] LABS: BACTERIA,URINE NEGATIVE /HPF; LEUKOCYTE ESTERASE ,URINE NEGATIVE (NEGATIVE)
[2022-12-02] MEDS ORDERED: NS IV 1000 ML 1,000 ML IV SCH (13:00)
[2022-12-02] MEDS ORDERED: POTASSIUM CL 10MEQ/50ML IVPB 50 ML IV SCH (13:00)
[2022-12-02] MEDS: 1/2 NS IV SOLUTION 1000 ML 1,000 ML IV SCH ×3 (13:07→22:16)
[2022-12-02 13:22] LABS: HEMATOCRIT 36 % (40-54); HEMOGLOBIN 12.6 g/dL (13.3-17.7); MEAN CORPUSCULAR HEMOGLOBIN 29 pg (25-34); MEAN CORPUSCULAR HGB CONC 35 g/dL (32-36); MEAN CORPUSCULAR VOLUME 85 fL (80-99); MEAN PLATELET VOLUME 11.3 fL (9.0-12.2); PLATELET COUNT 354 10^3/uL (130-400)
[2022-12-02 13:25] LABS: WHITE BLOOD COUNT 34.1 10^3/uL (4.3-11.0)
[2022-12-02 13:44] LABS: CALCIUM 8.1 MG/DL (8.5-10.1); POTASSIUM 4.2 MMOL/L (3.6-5.0)
--- NOTE | 2022-12-02 14:01 | Tele-ICU Progress Note ---
Subjective Date Seen by a Provider: Dec 02, 2022 Subjective/Events-last exam This virtual visit was conducted using real time audio/video. Thank you for asking us to see this patient for DKA PE: VSS. O2 sat 100% on RA HEENT: No obvious masses, adenopathy or JVD. Chest: clear to auscultation. CV: RRR S1 S2 No murmur or added sounds. Abd: Non-tender. Bowel sounds Y. : Unremarkable. [place] N. 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 No obvious focal findings. Extremities: No edema. Capillary refill < 3 seconds. Skin: unremarkable. Results: Elevated BG 769, WCC 34.1 better, AG 26 better. Decreased Hb 12.6. Available chart/ vitals / labs / images reviewed. Video assessment done using teleICU camera, rest of exam as per RN. A/P: Critical Care: critically ill patient. Cont. IVF, IN Insulin Discussed with VIRGILIO Fitzpatrick. Asked RN to reach out to eICU if any questions or concerns later. Time spent with patient/coordination of care with other health professionals (mins): 15 Sepsis Event Evaluation Height, Weight, BMI Height: 5'8.00" Weight: 124lbs. 4.8oz. 56.787760dh; 20.00 BMI Method:Stated Exam Exam Patient acknowledged, consented, and participated in this virtual visit which was conducted using real time audio/video Vital Signs Date Time Temp Pulse Resp B/P (MAP) Pulse Ox O2 Delivery O2 Flow Rate FiO2 12/02/22 12:25 110 18 115/65 100 12/02/22 10:35 37.7 119 20 107/58 (74) 100 Height & Weight Height: 5'8.00" Weight: 124lbs. 4.8oz. 56.786627uf; 20.00 BMI Method:Stated General Appearance: No Apparent Distress (laying in bed with covers over head ), WD/WN HEENT: PERRL/EOMI, TMs Normal, Normal ENT Inspection Respiratory: Lungs Clear, Normal Breath Sounds, No Accessory Muscle Use, No Respiratory Distress Cardiovascular: No Murmur, Tachycardia Capillary Refill: Less Than 3 Seconds Neurologic/Psychiatric: Alert, Oriented x3, Normal Mood/Affect Skin: Normal Color, Warm/Dry Lymphatic: No Adenopathy Results Lab Laboratory Tests 12/02/22 10:40 12/02/22 13:12 Assessment/Plan Assessment/Plan See free text. Critical Care: Critically Ill Patient KEN DUMONT MD Dec 02, 2022 14:01
--- NOTE | 2022-12-02 14:19 | History & Physical-Hospitalist ---
History of Present Illness HPI/Chief Complaint Patient is a 22-year-old male with past medical history of type 1 diabetes who presented to the emergency department due to elevated blood sugars. He reports he has not been feeling well for the past day or 2 and his son has been sick with influenza B. He has had nausea and vomiting overall feels "terrible." He did not take his insulin during this time. Because he was not feeling well. He reports he normally takes 5 units of NovoLog with his meals and 30 of Levemir daily. He reports his last A1c was 12.8. Before that his A1c was 8 and his average blood sugars around 1 50-300 per his report. In the emergency department he was found to be in DKA with a blood sugar of over 1100 and a bicarb of 6 and 3+ ketones in his urine. He was admitted to the ICU for insulin drip. Source: patient Exam Limitations: clinical condition Date Seen 12/02/22 Time Seen by a Provider: 14:06 Attending Physician [facility] PCP Admitting Physician: Monse Mcdonald MD Attending Physician: Monse Mcdonald MD Referring Physician Date of Admission Dec 02, 2022 at 12:40 Home Medications & Allergies Home Medications Reviewed patient Home Medication Reconciliation performed by pharmacy medication reconciliations it technician and/or nursing. Patients Allergies have been reviewed. Allergies Allergies Coded Allergies gluten (Verified Adverse Reaction, Unknown, 09/27/22) Past Lvqjsxv-Fjgkhe-Kflykl Hx Patient Social History Marrital Status: Tobacco Use?: No Use of E-Cig and/or Vaping dev: Yes E-Cig or Vaping type used: Nicotine, Marijuana Substance use?: Yes Substance type: Marijuana Substance frequency: Daily Alcohol Use?: No Pt feels they are or have been: No Immunizations Up To Date Date of Influenza Vaccine: Jan 29, 2020 First/Initial COVID19 Vaccinat: declined Second COVID19 Vaccination [place]: declined Tetanus Booster (TDap): Unknown Hepatitis A: No Hepatitis B: No PED Vaccines UTD: Yes Seasonal Allergies Seasonal Allergies: No Current Status Advance Directives: No Communicates: Verbally Primary Language: Welsh Preferred Spoken Language: Welsh Implanted or Applied Medical D: None Past Medical History Ulcer Diabetes, Insulin dep Blood Disorders: No PMHx: DMI SurgHx: Denies Family Medical History Cancer, Diabetes, Stroke Review of Systems Constitutional: see HPI Physical Exam Physical Exam Vital Signs Vital Signs - First Documented 12/02/22 12/02/22 10:35 12:45 Temp 37.7 Pulse 119 Resp 20 B/P (MAP) 107/58 (74) Pulse Ox 100 O2 Delivery Room Air Capillary Refill : Less Than 3 Seconds Height, Weight, BMI Height: 5'8.00" Weight: 124lbs. 4.8oz. 56.807623kl; 20.76 BMI Method:Stated General Appearance: Other (appears to not feel well, laying in bed with covers over his face) Respiratory: Lungs Clear, No Accessory Muscle Use Cardiovascular: No Murmur, Tachycardia Gastrointestinal: Normal Bowel Sounds, Soft Extremity: No Calf Tenderness, No Pedal Edema Neurologic/Psychiatric: Alert, Oriented x3 Results Results/Procedures Labs Laboratory Tests 12/02/22 10:40 12/02/22 13:12 12/02/22 15:16 12/02/22 22:06 12/03/22 08:05 Patient resulted labs reviewed. Assessment/Plan Admission Diagnosis DKA Admission Status: Inpatient Order (span 2 midnights) Reason for Inpatient Admission: see below Assessment and Plan DKA Pseudohyponatremia HAY Leukocytosis BS 1110 with bicarb of 6 and beta hydroxybutyrate of 11.5 Start on insulin gtt IVF Repeat BMP per protocol K already improved on repeat BMP Creatinine 2.4 from 0.9 last month Leukocytosis likely reactive, trend Diagnosis/Problems Diagnosis/Problems (1) DKA, type 1 Status: Resolved Resolution Date/Time: 04/02/22 @ 15:17 (2) Uncontrolled type 1 diabetes mellitus Status: Acute (3) Acute renal failure Status: Acute (4) HAY (acute kidney injury) Status: Resolved Resolution Date/Time: 01/05/21 @ 13:54 MONSE MCDONALD MD Dec 02, 2022 14:19
[2022-12-02 15:45] LABS: CREATININE SERUM 1.64 MG/DL (0.60-1.30); POTASSIUM 3.8 MMOL/L (3.6-5.0)
[2022-12-02] MEDS: POTASSIUM CL 10MEQ/50ML IVPB 50 ML IV SCH ×4 (16:10→22:16)
[2022-12-02] MEDS: BENZOCAINE LOZENGES 1 EACH PO PRN (17:19)
[2022-12-02] MEDS: D5 1/2 NS 1,000 ML IV 1,000 ML IV SCH ×2 (18:28→22:29)
[2022-12-02 23:27] LABS: POTASSIUM 4.2 MMOL/L (3.6-5.0)
[2022-12-02 23:28] LABS: CALCIUM 8.2 MG/DL (8.5-10.1)
[2022-12-02 23:32] LABS: CREATININE SERUM 1.08 MG/DL (0.60-1.30)
[2022-12-03] MEDS: BENZOCAINE LOZENGES 1 EACH PO PRN ×2 (00:08→18:03)
[2022-12-03] MEDS: POTASSIUM CL 10MEQ/50ML IVPB 50 ML IV SCH ×2 (00:44→03:01)
[2022-12-03] MEDS: 1/2 NS IV SOLUTION 1000 ML 1,000 ML IV SCH ×3 (01:00→07:52)
[2022-12-03] MEDS ORDERED: inSUlin DETERMIR 1 UNIT/0.01 ML (CHARGE PER UNIT) SQ ONE ×2 (02:00→02:32)
[2022-12-03] MEDS: D5 1/2 NS 1,000 ML IV 1,000 ML IV SCH (02:45)
[2022-12-03] MEDS ORDERED: ACETAMINOPHEN 325 MG TABLET PO PRN (08:00)
[2022-12-03 08:13] LABS: BASOPHILS % (AUTO) 0 % (0-10); EOSINOPHILS % (AUTO) 0 % (0-10); HEMATOCRIT 36 % (40-54); HEMOGLOBIN 12.5 g/dL (13.3-17.7); LYMPHOCYTES # (AUTO) 1.3 10^3/uL (1.0-4.0); LYMPHOCYTES % (AUTO) 7 % (12-44); MEAN CORPUSCULAR HEMOGLOBIN 29 pg (25-34); MEAN CORPUSCULAR HGB CONC 35 g/dL (32-36); MEAN CORPUSCULAR VOLUME 84 fL (80-99); MEAN PLATELET VOLUME 11.2 fL (9.0-12.2); MONOCYTES # (AUTO) 1.8 10^3/uL (0.0-1.0); MONOCYTES % (AUTO) 10 % (0-12); NEUTROPHILS # (AUTO) 15.7 10^3/uL (1.8-7.8); NEUTROPHILS % (AUTO) 83 % (42-75); PLATELET COUNT 246 10^3/uL (130-400); WHITE BLOOD COUNT 19.1 10^3/uL (4.3-11.0)
[2022-12-03 08:21] LABS: POTASSIUM 4.1 MMOL/L (3.6-5.0)
[2022-12-03 08:22] LABS: CALCIUM 8.5 MG/DL (8.5-10.1)
[2022-12-03 08:27] LABS: CREATININE SERUM 0.83 MG/DL (0.60-1.30); PHOSPHORUS 2.3 MG/DL (2.3-4.7)
[2022-12-03 08:29] LABS: MAGNESIUM 1.9 MG/DL (1.6-2.4)
[2022-12-03] MEDS: inSUlin ASPART 1 UNIT/0.01 ML (PER UNIT) SC SCH ×6 (08:38→22:10)
[2022-12-03 10:00] VITALS: BP 126/86
--- NOTE | 2022-12-03 10:24 | Progress Note - Hospitalist ---
Subjective HPI/CC On Admission Date Seen by Provider: Dec 03, 2022 Patient is a 22-year-old male with past medical history of type 1 diabetes who presented to the emergency department due to elevated blood sugars. He reports he has not been feeling well for the past day or 2 and his son has been sick with influenza B. He has had nausea and vomiting overall feels "terrible." He did not take his insulin during this time. Because he was not feeling well. He reports he normally takes 5 units of NovoLog with his meals and 30 of Levemir daily. He reports his last A1c was 12.8. Before that his A1c was 8 and his average blood sugars around 1 50-300 per his report. In the emergency department he was found to be in DKA with a blood sugar of over 1100 and a bicarb of 6 and 3+ ketones in his urine. He was admitted to the ICU for insulin drip. Subjective/Events-last exam Pt reports feeling poorly. Would like to eat but tired. NO furhter nausea. States his back hurts. Has refused labs overnight. We discussed the importance of monitoring his labs and making sure his electrolytes are better and kidney function is improving. Objective Exam Vital Signs Vital Signs Date Time Temp Pulse Resp B/P (MAP) Pulse Ox O2 Delivery O2 Flow Rate FiO2 12/03/22 09:00 84 12 112/89 (97) 99 Room Air 12/02/22 20:00 37.1 Capillary Refill : Less Than 3 Seconds General Appearance: No Apparent Distress, Thin, Other (seems very frustrated, took some convincing to allow exam and labwork) Cardiovascular: No Murmur, Tachycardia Gastrointestinal: Normal Bowel Sounds, Soft Neurologic/Psychiatric: Alert, Oriented x3 Results/Procedures Lab Laboratory Tests 12/02/22 10:40 12/02/22 13:12 12/02/22 15:16 12/02/22 22:06 12/03/22 08:05 Patient resulted labs reviewed. 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
[2022-12-03] MEDS ORDERED: INSU100I64 SC (12:32)
[2022-12-03] MEDS ORDERED: ACET-2267 PO (12:32)
[2022-12-03] MEDS ORDERED: INSU100I88 SQ (12:32)
[2022-12-03 12:39] VITALS: BP 121/85
[2022-12-03 15:38] VITALS: BP 133/87
[2022-12-03 19:11] VITALS: BP 129/81
[2022-12-04 00:15] VITALS: BP 134/82
[2022-12-04 04:52] VITALS: BP 128/74
[2022-12-04 05:54] LABS: BASOPHILS # (AUTO) 0.1 10^3/uL (0.0-0.1); BASOPHILS % (AUTO) 1 % (0-10); EOSINOPHILS % (AUTO) 0 % (0-10); HEMATOCRIT 34 % (40-54); HEMOGLOBIN 11.5 g/dL (13.3-17.7); LYMPHOCYTES # (AUTO) 1.3 10^3/uL (1.0-4.0); LYMPHOCYTES % (AUTO) 13 % (12-44); MEAN CORPUSCULAR HEMOGLOBIN 29 pg (25-34); MEAN CORPUSCULAR HGB CONC 33 g/dL (32-36); MEAN CORPUSCULAR VOLUME 86 fL (80-99); MEAN PLATELET VOLUME 11.5 fL (9.0-12.2); MONOCYTES % (AUTO) 10 % (0-12); NEUTROPHILS # (AUTO) 7.4 10^3/uL (1.8-7.8); NEUTROPHILS % (AUTO) 75 % (42-75); PLATELET COUNT 207 10^3/uL (130-400); WHITE BLOOD COUNT 9.9 10^3/uL (4.3-11.0)
[2022-12-04 06:11] LABS: CALCIUM 8.7 MG/DL (8.5-10.1)
[2022-12-04 06:15] LABS: CREATININE SERUM 0.87 MG/DL (0.60-1.30); PHOSPHORUS 2.2 MG/DL (2.3-4.7)
[2022-12-04 06:17] LABS: MAGNESIUM 2.1 MG/DL (1.6-2.4)
[2022-12-04] MEDS: inSUlin ASPART 1 UNIT/0.01 ML (PER UNIT) SC SCH ×2 (06:40→07:42)
[2022-12-04] MEDS ORDERED: inSUlin DETERMIR 1 UNIT/0.01 ML (CHARGE PER UNIT) SQ ONE (07:30)
[2022-12-04 07:53] VITALS: BP 130/80
--- NOTE | 2022-12-04 10:05 | Discharge Inst-Simple/Standard ---
Discharge Inst-Standard Discharge Medications New, Converted or Re-Newed RX: Transmitted to Pharmacy Patient Instructions/Follow Up Plan of Care/Instructions/FU: Please continue to take your medications as written. Please follow up with your primary care doctor to follow up this hospital stay. Activity as Tolerated: Yes Discharge Diet: ADA Diet Return to The Hospital For: Chest pain, elevated blood sugars, confusion, abdominal pain, shortness of breath, fever, weakness, if you feel you are getting worse. CLEMENCIA LU MD Dec 04, 2022 10:05
--- NOTE | 2022-12-04 10:10 | Discharge Summary ---
Diagnosis/Chief Complaint Date of Admission Dec 02, 2022 at 12:40 Date of Discharge Discharge Date: Dec 04, 2022 Admission Diagnosis D[facility] Discharge Diagnosis (1) DKA, type 1 Status: Resolved (2) Uncontrolled type 1 diabetes mellitus Status: Acute (3) Acute renal failure Status: Acute (4) HAY (acute kidney injury) Status: Resolved Discharge Summary Discharge Physical Exam Allergies: Coded Allergies: gluten (Verified Adverse Reaction, Unknown, 09/27/22) Vitals & I&Os Vital Signs Date Time Temp Pulse Resp B/P (MAP) Pulse Ox O2 Delivery O2 Flow Rate FiO2 12/04/22 10:55 36.8 93 14 130/80 97 Room Air General Appearance: No Apparent Distress, Thin Respiratory: Lungs Clear Cardiovascular: Regular Rate, Rhythm Gastrointestinal: Normal Bowel Sounds, Soft Neurologic/Psychiatric: Alert, Oriented x3 Hospital Course Patient was admitted to the hospital secondary to DKA. His blood sugar was over 1100 on arrival and he was started insulin drip. He had not been taking his insulin at home for a few days because he was not feeling well and not eating. With the insulin drip his gap closed and his blood sugars improved. He was transition back to basal and bolus insulin. He reported that he had plenty of supplies at home and needed no refills. He was discharged home in stable and improved condition to follow-up with his primary care rider at [facility]. Labs (last 24 hrs) Microbiology 12/02/22 MRSA Screen - Final, Complete MRSA not isolated Patient resulted labs reviewed. Pending Labs Discussion & Recommendations Discharge Planning: >30 minutes discharge planning Discharge Home Medications: Active Scripts Active Reported Tylenol Extra Strength (Acetaminophen) 500 Mg Tablet 1,000 Mg PO Q8H PRN TAKES 2 (500MG) TABS Levemir Flexpen (Insulin Detemir) 100 Unit/Ml (3 Ml) Insuln.pen 30 Unit SQ DAILY Insulin Lispro Kwikpen U-100 (Insulin Lispro) 100 Unit/Ml Insuln.pen 5 Units SC AC Pantoprazole Sodium 40 Mg Tablet.dr 40 Mg PO DAILY Sucralfate 1 Gram Tablet 1 Gm PO TIDAC Instructions to patient/family Please see electronic discharge instructions given to patient. CLEMENCIA LU MD Dec 04, 2022 10:10
[2022-12-04 10:55] VITALS: BP 130/80
== END 2022-12-04 10:45 | disposition home or self-care (01) | DRG 638 ==
LOC: EDUNIT# 10:33 → ER 10:34 → EDLOC 12:40 → ICU 12:40 → 4TH 12-03 09:53
PROVIDERS: ADMIT Family Medicine; ATTEND Family Medicine
DX: E10.10 Type 1 diabetes mellitus with ketoacidosis without coma (principal); N17.9 Acute kidney failure, unspecified; K90.0 Celiac disease; T38.3X6A Underdosing of insulin and oral hypoglycemic [antidiabetic] drugs, initial encounter; Z91.128 Patient's intentional underdosing of medication regimen for other reason; F17.290 Nicotine dependence, other tobacco product, uncomplicated; Z20.822 Contact with and (suspected) exposure to COVID-19; Z28.310 Unvaccinated for COVID-19
CPT/HCPCS: 36415; 80048; 80053; 81000; 82010; 82805; 82947; 83036; 83735; 84100; 85007; 85025; 85027; 87081; 87636; 93005

== ENCOUNTER 2023-02-10 12:54 | Inpatient (IN) | payer OTHER ==
[~2023-02-10] VITALS: Ht 162 cm; Wt 54.6 kg
[~2023-02-10 12:54] MED LIST changes: +ACET-2267 PO; +INSU100I64 SC; +INSU100I88 SQ
--- NOTE | 2023-02-10 13:06 | ED General ---
General Stated Complaint: HIGH BLOOD SUGAR Source of Information: Patient, EMS Exam Limitations: No Limitations History of Present Illness Date Seen by Provider: Feb 10, 2023 Time Seen by Provider: 12:51 Initial Comments 22-year-old male type I diabetic presents to the emergency department today for vomiting, possible DKA. He states for the last couple of days he has not felt well and has not gotten out of bed. He has not taken his insulin in that time. I am told by paramedics that his girlfriend reported she tried to give him his medications but he refused to take them. On arrival he just states he has not felt well for the last couple days with nonbloody nonbilious vomiting. He typically takes Levemir and NovoLog but again has not had these in a couple of days. All other systems reviewed and negative except documented per HPI. Voice recognition software was used to help create this chart Allergies and Home Medications Allergies Coded Allergies: gluten (Verified Adverse Reaction, Unknown, 09/27/22) No Known Drug Allergies (Unverified , 02/10/23) Patient Home Medication List Home Medication List Reviewed: Yes Acetaminophen (Tylenol Extra Strength) 500 Mg Tablet, 1,000 MG PO Q8H PRN for PAIN-MILD (1-4), (Reported) Entered as Reported by: PITO WALL on 12/03/22 1232 Insulin Detemir (Levemir Flexpen) 100 Unit/Ml (3 Ml) Insuln.pen, 30 UNIT SQ DAILY, (Reported) Entered as Reported by: PITO WALL on 12/03/22 1232 Insulin Lispro (Insulin Lispro Kwikpen U-100) 100 Unit/Ml Insuln.pen, 5 UNITS SC AC, (Reported) Entered as Reported by: PITO WALL on 12/03/22 1232 Pantoprazole Sodium (Pantoprazole Sodium) 40 Mg Tablet.dr, 40 MG PO DAILY, (Re ported) Entered as Reported by: PITO WALL on 08/12/22 1518 Sucralfate (Sucralfate) 1 Gram Tablet, 1 GM PO TIDAC, (Reported) Entered as Reported by: PITO WALL on 08/12/22 1518 Review of Systems Review of Systems Constitutional: see HPI Past Dnqdazd-Ijfled-Pbjtwf Hx Patient Social History Tobacco Use?: No Use of E-Cig and/or Vaping dev: No Substance use?: No Alcohol Use?: No Immunizations Up To Date Tetanus Booster (TDap): Less than 5yrs PED Vaccines UTD: Yes First/Initial COVID19 Vaccinat: declined Second COVID19 Vaccination Irving: declined Third COVID19 Vaccination Date: declined Seasonal Allergies Seasonal Allergies: No Past Medical History Surgery/Hospitalization HX: IDDM DENIES SX HX Surgeries: No Respiratory: No Cardiac: No Neurological: No Genitourinary: No Gastrointestinal: Yes (Celiac disease) Ulcer Musculoskeletal: No Endocrine: Yes (POORLY CONTROLLED TYPE 1 DIABETES;NON-COMPLIANT; DKA MULT TIMES) Diabetes, Insulin dep HEENT: No Cancer: No Psychosocial: No Integumentary: No Blood Disorders: No Family Medical History Cancer, Diabetes, Stroke Physical Exam Vital Signs Vital Signs - First Documented 02/10/23 13:10 Temp 36.3 Pulse 118 Resp 22 B/P (MAP) 123/65 (84) Pulse Ox 100 Capillary Refill : Height, Weight, BMI Height: 5'8.00" Weight: 124lbs. 4.8oz. 56.395758ru; 18.40 BMI Method:Stated General Appearance: No Apparent Distress, WD/WN HEENT: Normal ENT Inspection, Pharynx Normal Neck: Normal Inspection, Non Tender, Supple Respiratory: Chest Non Tender, Lungs Clear, Normal Breath Sounds, No Accessory Muscle Use, No Respiratory Distress Cardiovascular: No Murmur, Normal Peripheral Pulses, Tachycardia Gastrointestinal: Normal Bowel Sounds, No Organomegaly, Non Tender, Soft Extremity: Normal Capillary Refill Neurologic/Psychiatric: Alert, Oriented x3 Skin: Normal Color, Warm/Dry Progress/Results/Core Measures Suspected Sepsis SIRS Temperature: Pulse: Respiratory Rate: Laboratory Tests 02/10/23 13:06: White Blood Count 36.4*H Blood Pressure / Mean: Laboratory Tests 02/10/23 13:06: Creatinine 1.69H, Platelet Count 305, Total Bilirubin 0.6 Results/Orders Lab Results Laboratory Tests Test 02/10/23 13:06 02/10/23 13:23 Range/Units White Blood Count 36.4 *H 4.3-11.0 10^3/uL Red Blood Count 4.57 4.30-5.52 10^6/uL Hemoglobin 13.3 13.3-17.7 g/dL Hematocrit 43 40-54 % Mean Corpuscular Volume 93 80-99 fL Mean Corpuscular Hemoglobin 29 25-34 pg Mean Corpuscular Hemoglobin Concent 31 L 32-36 g/dL Red Cell Distribution Width 12.8 10.0-14.5 % Platelet Count 305 130-400 10^3/uL Mean Platelet Volume 12.1 9.0-12.2 fL Immature Granulocyte % (Auto) 9 % Neutrophils (%) (Auto) 75 42-75 % Lymphocytes (%) (Auto) 6 L 12-44 % Monocytes (%) (Auto) 9 0-12 % Eosinophils (%) (Auto) 0 0-10 % Basophils (%) (Auto) 1 0-10 % Neutrophils # (Auto) 27.2 H 1.8-7.8 10^3/uL Lymphocytes # (Auto) 2.3 1.0-4.0 10^3/uL Monocytes # (Auto) 3.1 H 0.0-1.0 10^3/uL Eosinophils # (Auto) 0.0 0.0-0.3 10^3/uL Basophils # (Auto) 0.4 H 0.0-0.1 10^3/uL Immature Granulocyte # (Auto) 3.3 H 0.0-0.1 10^3/uL Neutrophils % (Manual) 79 % Lymphocytes % (Manual) 7 % Monocytes % (Manual) 1 % Eosinophils % (Manual) 0 % Basophils % (Manual) 1 % Metamyelocytes % 7 % Band Neutrophils 5 % Blood Morphology Comment NORMAL Urine Color YELLOW Urine Clarity CLEAR Urine pH 5.0 5-9 Urine Specific [place] 1.020 1.016-1.022 Urine Protein NEGATIVE NEGATIVE Urine Glucose (UA) 2+ H NEGATIVE Urine Ketones 4+ H NEGATIVE Urine Nitrite NEGATIVE NEGATIVE Urine Bilirubin NEGATIVE NEGATIVE Urine Urobilinogen 0.2 < = 1.0 MG/DL Urine Leukocyte Esterase NEGATIVE NEGATIVE Urine RBC (Auto) NEGATIVE NEGATIVE Urine RBC NONE /HPF Urine WBC NONE /HPF Urine Squamous Epithelial Cells NONE /HPF Urine Crystals NONE /LPF Urine Bacteria NEGATIVE /HPF Urine Casts NONE /LPF Urine Mucus NEGATIVE /LPF Urine Culture Indicated NO Sodium Level 121 *L 135-145 MMOL/L Potassium Level 5.2 H 3.6-5.0 MMOL/L Chloride Level 83 L 98-107 MMOL/L Carbon Dioxide Level 6 *L 21-32 MMOL/L Anion Gap 32 H 5-14 MMOL/L Blood Urea Nitrogen 27 H 7-18 MG/DL Creatinine 1.69 H 0.60-1.30 MG/DL Estimat Glomerular Filtration Rate 59 BUN/Creatinine Ratio 16 Glucose Level 849 *H 70-105 MG/DL Calcium Level 8.7 8.5-10.1 MG/DL Corrected Calcium 8.5 8.5-10.1 MG/DL Total Bilirubin 0.6 0.1-1.0 MG/DL Aspartate Amino Transf (AST/SGOT) 16 5-34 U/L Alanine Aminotransferase (ALT/SGPT) 13 0-55 U/L Alkaline Phosphatase 132 40-136 U/L Total Protein 6.9 6.4-8.2 GM/DL Albumin 4.2 3.2-4.5 GM/DL My Orders Orders - LIANNA WARREN DO Comprehensive Metabolic Panel (02/10/23 13:01) Beta Hydroxybutyrate (02/10/23 13:01) Ua Culture If Indicated (02/10/23 13:01) Cbc And Automated Diff (02/10/23 13:01) Ns Iv 1000 Ml (Ns Iv 1000 Ml) (02/10/23 13:15) Manual Differential (02/10/23 13:06) Covid 19 Inhouse Test (02/10/23 13:25) Influenza A And B By Pcr (02/10/23 13:25) Vital Signs/I&O 02/10/23 13:10 Temp 36.3 Pulse 118 Resp 22 B/P (MAP) 123/65 (84) Pulse Ox 100 Capillary Refill : Critical Care Note Critical Care Total Time (minutes) 60 Departure Communication (Admissions) Patient is tachycardic, appears dehydrated on exam. Given 2 L of IV fluids. Blood sugar in the 800s, he is significantly acidotic with an elevated anion gap consistent with DKA. Started on insulin drip. He slightly hyperkalemic with a potassium of 5.2. Pseudohyponatremia, corrects for glucose. Does have significant leukocytosis which is typically the case when he is here with DKA. I spoke with Dr. Costello request admission to the ICU. Impression Primary Impression: DKA (diabetic ketoacidosis) Qualified Codes: E13.10 - Other specified diabetes mellitus with ketoacidosis without coma Disposition: ADMITTED INPATIENT Condition: Stable Departure-Patient Inst. Referrals: [facility] (PCP/Family) Primary Care Physician LIANNA WARREN DO Feb 10, 2023 13:06
[2023-02-10 13:14] LABS: BASOPHILS # (AUTO) 0.4 10^3/uL (0.0-0.1); BASOPHILS % (AUTO) 1 % (0-10); EOSINOPHILS % (AUTO) 0 % (0-10); HEMATOCRIT 43 % (40-54); HEMOGLOBIN 13.3 g/dL (13.3-17.7); LYMPHOCYTES # (AUTO) 2.3 10^3/uL (1.0-4.0); LYMPHOCYTES % (AUTO) 6 % (12-44); MEAN CORPUSCULAR HEMOGLOBIN 29 pg (25-34); MEAN CORPUSCULAR HGB CONC 31 g/dL (32-36); MEAN CORPUSCULAR VOLUME 93 fL (80-99); MEAN PLATELET VOLUME 12.1 fL (9.0-12.2); MONOCYTES # (AUTO) 3.1 10^3/uL (0.0-1.0); MONOCYTES % (AUTO) 9 % (0-12); NEUTROPHILS # (AUTO) 27.2 10^3/uL (1.8-7.8); NEUTROPHILS % (AUTO) 75 % (42-75); PLATELET COUNT 305 10^3/uL (130-400)
[2023-02-10] MEDS ORDERED: NS IV 1000 ML 1,000 ML IV SCH ×2 (13:15→15:15)
[2023-02-10 13:16] LABS: WHITE BLOOD COUNT 36.4 10^3/uL (4.3-11.0)
[2023-02-10 13:25] LABS: ALBUMIN 4.2 GM/DL (3.2-4.5)
[2023-02-10 13:26] LABS: POTASSIUM 5.2 MMOL/L (3.6-5.0)
[2023-02-10 13:27] LABS: CALCIUM 8.7 MG/DL (8.5-10.1)
[2023-02-10 13:28] LABS: TOTAL PROTEIN 6.9 GM/DL (6.4-8.2)
[2023-02-10 13:30] LABS: BILIRUBIN,TOTAL 0.6 MG/DL (0.1-1.0)
--- NOTE | 2023-02-10 13:30 | History & Physical-Hospitalist ---
History of Present Illness HPI/Chief Complaint CC: DKA HPI: This is a 22yoWM with Type 1 DM and frequent DKA episodes who presents with DKA. Source: patient, RN/MD Date Seen 02/10/23 Time Seen by a Provider: 13:00 [facility] Phys[facility] [place] Admitting Physician: Attending Physician: Referring Physician Date of Admission Home Medications & Allergies Home Medications Reviewed patient Home Medication Reconciliation performed by pharmacy medication reconciliations cnc maintenance technician and/or nursing. Patients Allergies have been reviewed. Allergies Allergies Coded Allergies gluten (Verified Adverse Reaction, Unknown, 09/27/22) No Known Drug Allergies (Bjarcdjnyr61/15/23) Past Vetisis-Krjzke-Rkrkji Hx Patient Social History Marrital Status: single Employed/Student: unemployed Tobacco Use?: No Smoking Status: Current Someday Smoker Use of E-Cig and/or Vaping dev: Yes E-Cig or Vaping type used: Nicotine Use of E-Cig and/or Vaping John: Current Everyday User Substance use?: No Alcohol Use?: No Pt feels they are or have been: No Immunizations Up To Date Date of Influenza Vaccine: Jan 29, 2020 First/Initial COVID19 Vaccinat: declined Second COVID19 Vaccination Irving: declined Tetanus Booster (TDap): Unknown Hepatitis A: No Hepatitis B: No PED Vaccines UTD: Yes Seasonal Allergies Seasonal Allergies: No Current Status Advance Directives: No Primary Language: Beninese Preferred Spoken Language: Beninese Past Medical History Ulcer Diabetes, Insulin dep Blood Disorders: No PMHx: DMI SurgHx: Denies Family Medical History Cancer, Diabetes, Stroke Review of Systems Constitutional: see HPI Gastrointestinal: nausea, vomiting Physical Exam Physical Exam Vital Signs Vital Signs - First Documented 02/10/23 13:10 Temp 36.3 Pulse 118 Resp 22 B/P (MAP) 123/65 (84) Pulse Ox 100 Capillary Refill : Less Than 3 Seconds Height, Weight, BMI Height: 5'8.00" Weight: 124lbs. 4.8oz. 56.459205gn; 22.00 BMI Method:Stated General Appearance: No Apparent Distress, Anxious, Chronically ill Eyes: Right Eye Normal Inspection, Right Eye PERRL HEENT: PERRL/EOMI, Normal ENT Inspection, Pharynx Normal, Moist Mucous Membranes Neck: Full Range of Motion, Normal Inspection, Non Tender Respiratory: Chest Non Tender, Lungs Clear, Normal Breath Sounds, No Accessory Muscle Use, No Respiratory Distress Cardiovascular: Regular Rate, Rhythm, No Edema, No Gallop, No JVD, No Murmur, Normal Peripheral Pulses Gastrointestinal: Normal Bowel Sounds, No Organomegaly, No Pulsatile Mass, Non Tender, Soft Back: Normal Inspection, No CVA Tenderness, No Vertebral Tenderness Extremity: Normal Capillary Refill, Normal Inspection, Normal Range of Motion, Non Tender, No Calf Tenderness, No Pedal Edema Neurologic/Psychiatric: Alert, Oriented x3, No Motor/Sensory Deficits, Normal Mood/Affect Skin: Normal Color, Warm/Dry Lymphatic: No Adenopathy Results Results/Procedures Labs Laboratory Tests 02/10/23 13:06 02/10/23 15:21 02/10/23 17:39 02/10/23 23:00 02/11/23 03:00 Patient resulted labs reviewed. Assessment/Plan Admission Diagnosis DKA ICU Insulin drip Admission Status: Inpatient Order (span 2 midnights) Reason for Inpatient Admission: dka ANDREW HUFF DO Feb 10, 2023 13:29
[2023-02-10 13:32] LABS: CREATININE SERUM 1.69 MG/DL (0.60-1.30)
[2023-02-10 13:36] LABS: BAND NEUTROPHILS 5 %; BASOPHILS % (MANUAL) 1 %; EOSINOPHILS % (MANUAL) 0 %; LYMPHOCYTES % (MANUAL) 7 %; METAMYELOCYTES % 7 %; MONOCYTES % (MANUAL) 1 %; NEUTROPHILS % (MANUAL) 79 %; RBC MORPH NORMAL
[2023-02-10 13:37] LABS: CLARITY,URINE CLEAR; COLOR,URINE YELLOW; GLUCOSE, URINE (UA) 2+ (NEGATIVE); PROTEIN,URINE NEGATIVE (NEGATIVE)
[2023-02-10 13:38] LABS: BACTERIA,URINE NEGATIVE /HPF; BILIRUBIN,URINE NEGATIVE (NEGATIVE); KETONES,URINE 4+ (NEGATIVE); LEUKOCYTE ESTERASE ,URINE NEGATIVE (NEGATIVE); NITRITE,URINE NEGATIVE (NEGATIVE)
[2023-02-10] MEDS ORDERED: ONDANSETRON INJECTION 4 MG/2 ML (SDV) IVP ONE (14:30)
[2023-02-10 14:51] VITALS: BP 141/74
[2023-02-10] MEDS ORDERED: BISACODYL 10 MG SUPPOSITORY PR PRN (15:15)
[2023-02-10] MEDS ORDERED: diphenhydrAMINE INJ 50 MG/ML VIAL IVP PRN (15:15)
[2023-02-10] MEDS ORDERED: NS IV 500 ML 500 ML IV PRN (15:15)
[2023-02-10] MEDS ORDERED: diphenhydrAMINE 25 MG TABLET PO PRN (15:15)
[2023-02-10] MEDS ORDERED: ACETAMINOPHEN 325 MG TABLET PO PRN (15:15)
[2023-02-10] MEDS ORDERED: POTASSIUM CL 10MEQ/50ML IVPB 50 ML IV SCH (15:15)
[2023-02-10] MEDS ORDERED: LACTULOSE SYRUP 10GM/15ML 30ML UDC PO PRN (15:15)
[2023-02-10] MEDS ORDERED: CALCIUM CARBONATE 500 MG CHEW TABLET PO PRN (15:15)
[2023-02-10] MEDS ORDERED: MILK OF MAGNESIA 400 MG/5 ML 30 ML UDC PO PRN (15:15)
[2023-02-10] MEDS ORDERED: oxyCODONE IMMEDIATE RELEASE 5 MG TABLET PO PRN (15:15)
[2023-02-10] MEDS ORDERED: MELATONIN 3 MG TABLET PO PRN (15:15)
[2023-02-10] MEDS ORDERED: ONDANSETRON INJECTION 4 MG/2 ML (SDV) IV PRN (15:15)
[2023-02-10] MEDS ORDERED: HYDROmorphone INJECTION 2 MG/ML VIAL IV PRN (15:15)
[2023-02-10] MEDS ORDERED: ANTACID SUSPENSION 30 ML UDC PO PRN (15:15)
[2023-02-10] MEDS ORDERED: ONDANSETRON 4 MG ORAL DISSOLVE TABLET PO PRN (15:15)
[2023-02-10] MEDS: ENOXAPARIN 40 MG/0.4 ML SYRINGE SC SCH (15:34)
[2023-02-10 15:38] LABS: POTASSIUM 5.3 MMOL/L (3.6-5.0)
[2023-02-10 15:39] LABS: CALCIUM 8.6 MG/DL (8.5-10.1)
[2023-02-10 15:43] LABS: CREATININE SERUM 1.58 MG/DL (0.60-1.30)
[2023-02-10] MEDS: 1/2 NS IV SOLUTION 1000 ML 1,000 ML IV SCH ×3 (16:43→23:41)
[2023-02-10 18:03] LABS: POTASSIUM 4.7 MMOL/L (3.6-5.0)
[2023-02-10 18:09] LABS: CREATININE SERUM 1.32 MG/DL (0.60-1.30)
--- NOTE | 2023-02-10 18:34 | Tele-ICU Progress Note ---
Subjective Date Seen by a Provider: Feb 10, 2023 Time Seen by a Provider: 18:34 Subjective/Events-last exam (Tele-ICU Physician , consultation as per request of PCP Service provided via interactive audio and video telecommunications E-CARE system to a patient admitted to ICU bed in [facility]. Available chart/ vitals / labs / Images reviewed H&P is from ER notes Patient's information available about PMH, Shx, Fhx allergy reviewed inEMR. ROS as per chart and RN report Now in ICU, hemodynamically stable Video assessment done using teleICU camera, rest of exam as per RN Discussed with RN. Hospital course: 02/10 -22M Admitted for DKA--poorly controlled. Celiac disease A/P DKA ( with DM t 1- reports l not taken his levemit insulin for 24 h *Insulin drip nonbloody nonbilious vomiting - due to above DM type I HAY mild - dehydration - cont IVF - follow closely Leukocytosis - suspect reactive, , UA unremarkable >off ABX +cannabioids in pst , not checked tox screen now VTE Prophylaxis: tristian 40 Stress Ulcer Prophylaxis: Plans in collaboration with bedside consultants and IM MDs. Discussed with RN to reach out if any questions or concerns A total of 15 minutes of critical care time was devoted to this patient today, required to treat and/or prevent further deterioration of critical care condition ( as above ) . I am remotely monitoring this patient from another state. I am unable to do the bedside exam, and history/physical and pertinent information is taken from other notes in the computer and bedside staff. . Sepsis Event Evaluation Height, Weight, BMI Height: 5'8.00" Weight: 124lbs. 4.8oz. 56.519672md; 22.44 BMI Method:Stated Exam Exam Patient acknowledged, consented, and participated in this virtual visit which was conducted using real time audio/video Vital Signs Date Time Temp Pulse Resp B/P (MAP) Pulse Ox O2 Delivery O2 Flow Rate FiO2 02/10/23 18:00 118 19 143/111 (122) 97 Room Air 02/10/23 17:00 122 38 98 Room Air 02/10/23 16:30 36.8 Room Air 02/10/23 16:00 137 96 Room Air 02/10/23 15:05 131 02/10/23 15:05 131 02/10/23 15:00 133 133/69 (90) 95 Room Air 02/10/23 15:00 Room Air 02/10/23 14:51 125 18 141/74 99 02/10/23 13:10 36.3 118 22 123/65 (84) 100 Height & Weight Height: 5'8.00" Weight: 124lbs. 4.8oz. 56.822328nu; 22.44 BMI Method:Stated General Appearance: No Apparent Distress, WD/WN HEENT: Normal ENT Inspection, Pharynx Normal Neck: Normal Inspection, Non Tender, Supple Respiratory: Chest Non Tender, Lungs Clear, Normal Breath Sounds, No Accessory Muscle Use, No Respiratory Distress Cardiovascular: No Murmur, Normal Peripheral Pulses, Tachycardia Capillary Refill: Less Than 3 Seconds Extremity: Normal Capillary Refill Neurologic/Psychiatric: Alert, Oriented x3 Skin: Normal Color, Warm/Dry Results Lab Laboratory Tests 02/10/23 13:06 02/10/23 15:21 02/10/23 17:39 Assessment/Plan Assessment/Plan 1 JOSE G LOPES MD Feb 10, 2023 18:34
[2023-02-10] MEDS: POTASSIUM CL 10MEQ/50ML IVPB 50 ML IV SCH ×3 (18:44→22:32)
[2023-02-10] MEDS: SENNOSIDES 8.6 MG TABLET PO SCH (19:39)
[2023-02-10] MEDS: DOCUSATE SODIUM 100 MG CAPSULE PO SCH (19:39)
[2023-02-10 23:33] LABS: POTASSIUM 4.7 MMOL/L (3.6-5.0)
[2023-02-10 23:34] LABS: CALCIUM 8.7 MG/DL (8.5-10.1)
[2023-02-10 23:38] LABS: CREATININE SERUM 1.08 MG/DL (0.60-1.30)
[2023-02-11] MEDS: POTASSIUM CL 10MEQ/50ML IVPB 50 ML IV SCH ×8 (00:46→17:21)
[2023-02-11] MEDS: D5 1/2 NS 1,000 ML IV 1,000 ML IV SCH ×3 (01:46→12:12)
[2023-02-11 03:08] LABS: BASOPHILS # (AUTO) 0.1 10^3/uL (0.0-0.1); BASOPHILS % (AUTO) 0 % (0-10); EOSINOPHILS % (AUTO) 0 % (0-10); HEMATOCRIT 36 % (40-54); HEMOGLOBIN 12.4 g/dL (13.3-17.7); LYMPHOCYTES # (AUTO) 1.3 10^3/uL (1.0-4.0); LYMPHOCYTES % (AUTO) 6 % (12-44); MEAN CORPUSCULAR HEMOGLOBIN 29 pg (25-34); MEAN CORPUSCULAR HGB CONC 34 g/dL (32-36); MEAN CORPUSCULAR VOLUME 85 fL (80-99); MEAN PLATELET VOLUME 11.7 fL (9.0-12.2); MONOCYTES # (AUTO) 2.3 10^3/uL (0.0-1.0); MONOCYTES % (AUTO) 10 % (0-12); NEUTROPHILS # (AUTO) 18.8 10^3/uL (1.8-7.8); NEUTROPHILS % (AUTO) 81 % (42-75); PLATELET COUNT 248 10^3/uL (130-400); WHITE BLOOD COUNT 23.3 10^3/uL (4.3-11.0)
[2023-02-11] MEDS: 1/2 NS IV SOLUTION 1000 ML 1,000 ML IV SCH ×4 (03:16→14:16)
[2023-02-11 03:25] LABS: ALBUMIN 3.7 GM/DL (3.2-4.5); POTASSIUM 4.7 MMOL/L (3.6-5.0)
[2023-02-11 03:26] LABS: CALCIUM 8.6 MG/DL (8.5-10.1)
[2023-02-11 03:29] LABS: BILIRUBIN,TOTAL 0.5 MG/DL (0.1-1.0)
[2023-02-11 03:30] LABS: PHOSPHORUS 2.1 MG/DL (2.3-4.7)
[2023-02-11 03:31] LABS: CREATININE SERUM 0.93 MG/DL (0.60-1.30)
[2023-02-11 03:34] LABS: MAGNESIUM 1.8 MG/DL (1.6-2.4)
[2023-02-11] MEDS ORDERED: MAGNESIUM 1 GM/100 ML IVPB 100 ML IV SCH (06:00)
[2023-02-11] MEDS ORDERED: POTASSIUM CL 10MEQ/50ML IVPB 50 ML IV SCH (06:00)
[2023-02-11] MEDS ORDERED: POTASSIUM CHLORIDE 20 MEQ TABLET PO SCH (06:00)
[2023-02-11] MEDS: SENNOSIDES 8.6 MG TABLET PO SCH (08:25)
[2023-02-11] MEDS: DOCUSATE SODIUM 100 MG CAPSULE PO SCH (08:25)
--- NOTE | 2023-02-11 09:30 | Progress Note ---
MAYKEL BUTT MD, RESIDENT 02/11/23 0930: Subjective HPI/CC On Admission Date Seen by Provider: Feb 11, 2023 Time Seen by Provider: 07:30 CC: DKA HPI: This is a 22yoWM with Type 1 DM and frequent DKA episodes who presents with DKA. Subjective/Events-last exam Patient quite grumpy this morning and did not want to talk with me. States that he is feeling better overall. His home regimen is Levemir 30 units daily and NovoLog 8 units with meals. He otherwise has no concerns this morning. Review of Systems General: No Fatigue Pulmonary: No Dyspnea, No Cough Cardiovascular: No: Chest Pain, Palpitations, Edema Gastrointestinal: No: Nausea, Vomiting, Diarrhea, Constipation Genitourinary: No Dysuria Objective Exam Vital Signs Vital Signs Date Time Temp Pulse Resp B/P (MAP) Pulse Ox O2 Delivery O2 Flow Rate FiO2 02/11/23 07:00 110 02/11/23 06:00 29 122/74 (90) 93 Room Air 02/11/23 05:59 36.5 Capillary Refill : Less Than 3 Seconds General Appearance: No Apparent Distress HEENT: Normal ENT Inspection Neck: Full Range of Motion, Non Tender Respiratory: Chest Non Tender, Lungs Clear, Normal Breath Sounds, No Accessory Muscle Use, No Respiratory Distress Cardiovascular: Regular Rate, Rhythm, No Edema, No Murmur Gastrointestinal: Normal Bowel Sounds, Non Tender, Soft Extremity: No Pedal Edema Neurologic/Psychiatric: Alert, Oriented x3 Skin: Normal Color, Warm/Dry Results/Procedures Lab Laboratory Tests 02/10/23 13:06 02/10/23 15:21 02/10/23 17:39 02/10/23 23:00 02/11/23 03:00 Patient resulted labs reviewed. Assessment/Plan Assessment and Plan Assess & Plan/Chief Complaint 30-year-old male with type 1 diabetes presenting with DKA. Diagnosis/Problems Diagnosis/Problems (1) DKA (diabetic ketoacidosis) Status: Acute Assessment & Plan: States he has been out of his medications for a while. Home regimen is Levemir 30 units daily and NovoLog 8 units with meals Plan: Continue insulin drip Monitor daily CMP and beta hydroxybutyrate We will transition to subcutaneous insulin once patient is out of DKA Advance diet as tolerated Qualifiers: Qualified Codes: E13.10 - Other specified diabetes mellitus with ketoacidosis without coma ANDREW HUFF DO 02/12/23 0449: Subjective Subjective/Events-last exam Patient doing better maintain on Drip Less nausea Objective Exam General Appearance: No Apparent Distress, WD/WN, Chronically ill Assessment/Plan Assessment and Plan Assess & Plan/Chief Complaint Continue insulin drip I personally performed the mota portions of the visit, discussed case with resident and concur with resident documentation of history, physical exam, assessment and treatment plan unless otherwise noted. MAYKEL BUTT MD, RESIDENT Feb 11, 2023 09:30 ANDREW HUFF DO Feb 12, 2023 04:49
--- NOTE | 2023-02-11 11:00 | Tele-ICU Progress Note ---
Subjective Date Seen by a Provider: Feb 11, 2023 Time Seen by a Provider: 11:00 Subjective/Events-last exam (Tele-ICU Physician , Progress Note ) Service provided via interactive audio and video telecommunications E-CARE system to a patient admitted to ICU bed in [facility]. Patient is seen today due to persistent need of ICU care Available chart/ vitals / labs / Images reviewed Video assessment done using teleICU camera, rest of exam as per RN Discussed with RN Events overnight : Afebrile hemodynamically stable Hospital course: 02/10 -M Admitted for DKA--poorly controlled. Celiac disease A/P DKA ( with DM t 1- reports l not taken his levemit insulin for 24 h *Insulin drip expected to be stop today nonbloody nonbilious vomiting - due to above DM type I HAY mild - dehydration - cont IVF - follow closely Leukocytosis - suspect reactive, , UA unremarkable >off ABX +cannabioids in pst , not checked tox screen now VTE Prophylaxis: tristian 40 Stress Ulcer Prophylaxis: Plans in collaboration with bedside consultants and IM MDs. Discussed with RN to reach out if any questions or concerns A total of 15 minutes of critical care time was devoted to this patient today, required to treat and/or prevent further deterioration of critical care condition ( as above ) . I am remotely monitoring this patient from another state. I am unable to do the bedside exam, and history/physical and pertinent information is taken from other notes in the computer and bedside staff. . Sepsis Event Evaluation Height, Weight, BMI Height: 5'8.00" Weight: 124lbs. 4.8oz. 56.882299ae; 20.80 BMI Method:Stated Exam Exam Patient acknowledged, consented, and participated in this virtual visit which was conducted using real time audio/video Vital Signs Date Time Temp Pulse Resp B/P (MAP) Pulse Ox O2 Delivery O2 Flow Rate FiO2 02/11/23 10:00 110 18 135/83 (104) 98 02/11/23 09:00 100 17 115/70 (83) 96 02/11/23 08:26 Room Air 02/11/23 08:00 131 15 129/80 (95) 92 02/11/23 07:00 110 02/11/23 07:00 101 34 123/85 (94) 94 02/11/23 06:00 114 29 122/74 (90) 93 Room Air 02/11/23 05:59 36.5 02/11/23 05:00 106 13 121/79 (93) 95 Room Air 02/11/23 04:30 95 Room Air 02/11/23 04:00 105 16 122/78 (93) 94 Room Air 02/11/23 03:00 110 9 127/86 (100) 100 Room Air 02/11/23 02:00 107 15 103/66 (78) 96 Room Air 02/11/23 01:40 36.7 02/11/23 01:00 106 17 119/81 (94) 97 Room Air 02/11/23 00:02 126 02/11/23 00:00 111 14 138/98 (111) 100 Room Air 02/11/23 00:00 100 Room Air 02/10/23 23:00 116 6 135/91 (106) 97 Room Air 02/10/23 22:00 117 20 128/85 (99) 97 Room Air 02/10/23 21:00 117 18 122/87 (99) 98 Room Air 02/10/23 20:35 97 Room Air 02/10/23 20:00 120 19 119/69 (86) 97 Room Air 02/10/23 20:00 36.8 Room Air 02/10/23 19:30 137 17 131/70 (90) 97 Room Air 02/10/23 19:10 125 02/10/23 18:00 118 19 143/111 (122) 97 Room Air 02/10/23 17:00 122 38 98 Room Air 02/10/23 16:30 36.8 Room Air 02/10/23 16:00 137 96 Room Air 02/10/23 16:00 97 Room Air 02/10/23 15:05 131 02/10/23 15:05 131 02/10/23 15:00 133 133/69 (90) 95 Room Air 02/10/23 15:00 Room Air 02/10/23 14:51 125 18 141/74 99 02/10/23 13:10 36.3 118 22 123/65 (84) 100 I & O 02/11/23 06:59 Intake Total 9340 ml Output Total 6900 ml Balance 2440 ml Height & Weight Height: 5'8.00" Weight: 124lbs. 4.8oz. 56.483592ce; 20.80 BMI Method:Stated General Appearance: No Apparent Distress HEENT: Normal ENT Inspection Neck: Full Range of Motion, Non Tender Respiratory: Chest Non Tender, Lungs Clear, Normal Breath Sounds, No Accessory Muscle Use, No Respiratory Distress Cardiovascular: Regular Rate, Rhythm, No Edema, No Murmur Capillary Refill: Less Than 3 Seconds Extremity: No Pedal Edema Neurologic/Psychiatric: Alert, Oriented x3 Skin: Normal Color, Warm/Dry Lymphatic: No Adenopathy Results Lab Laboratory Tests 02/10/23 13:06 02/10/23 15:21 02/10/23 17:39 02/10/23 23:00 02/11/23 03:00 Assessment/Plan Assessment/Plan 1 JOSE G LOPES MD Feb 11, 2023 11:00
[2023-02-11 11:11] LABS: CALCIUM 8.9 MG/DL (8.5-10.1)
[2023-02-11 11:15] LABS: CREATININE SERUM 0.83 MG/DL (0.60-1.30)
[2023-02-11] MEDS ORDERED: PHENOL THROAT SPRAY 177 ML LIQUID MC PRN (11:15)
[2023-02-11] MEDS: ENOXAPARIN 40 MG/0.4 ML SYRINGE SC SCH (15:09)
[2023-02-11 17:43] LABS: POTASSIUM 4.1 MMOL/L (3.6-5.0)
[2023-02-11 17:44] LABS: CALCIUM 8.7 MG/DL (8.5-10.1)
[2023-02-11 17:48] LABS: CREATININE SERUM 0.81 MG/DL (0.60-1.30)
--- NOTE | 2023-02-11 18:49 | Discharge Summary ---
MAYKEL BUTT MD, RESIDENT 02/11/23 7659: Discharge Summary Hospital Course Problems/Dx: (1) DKA (diabetic ketoacidosis) Status: Acute Assessment & Plan: States he has been out of his medications for a while. Home regimen is Levemir 30 units daily and NovoLog 8 units with meals Plan: Continue insulin drip Monitor daily CMP and beta hydroxybutyrate We will transition to subcutaneous insulin once patient is out of DKA Advance diet as tolerated Qualifiers: Qualified Codes: E13.10 - Other specified diabetes mellitus with ketoacidosis without coma Hospital Course Date of Admission: Feb 10, 2023 at 14:58 Admission Diagnosis : Family Physician/Provider: [place] Date of Discharge: 02/11/23 Discharge Diagnosis: DKA Hospital Course: Patient is a 22yo M with PMHx of type 1 DM who presents to the hospital in DKA after being out of insulin. We treated patient on an insulin drip and continued to monitor in the ICU. He continued to be in DKA however, on 02/11, he decided to leave AMA despite discussion that he could present again in DKA. Patient insists he has insulin at home and does not require a refill. Labs and Pending Lab Test: Laboratory Tests 02/10/23 19:33: Glucometer 385H 02/10/23 20:29: Glucometer 340H 02/10/23 21:48: Glucometer 299H 02/10/23 22:33: Glucometer 297H 02/10/23 23:00: Sodium Level 131L, Potassium Level 4.7, Chloride Level 103, Carbon Dioxide Level 13L, Anion Gap 15H, Blood Urea Nitrogen 14, Creatinine 1.08, Estimat Glomerular Filtration Rate 100, BUN/Creatinine Ratio 13, Glucose Level 264H, Calcium Level 8.7 02/10/23 23:29: Glucometer 262H 02/11/23 00:32: Glucometer 273H 02/11/23 01:41: Glucometer 167H 02/11/23 02:33: Glucometer 195H 02/11/23 03:00: White Blood Count 23.3H, Red Blood Count 4.25L, Hemoglobin 12.4L, Hematocrit 36L , Mean Corpuscular Volume 85, Mean Corpuscular Hemoglobin 29, Mean Corpuscular Hemoglobin Concent 34, Red Cell Distribution Width 13.0, Platelet Count 248, Mean Platelet Volume 11.7, Immature Granulocyte % (Auto) 3, Neutrophils (%) (Auto) 81H, Lymphocytes (%) (Auto) 6L, Monocytes (%) (Auto) 10, Eosinophils (%) (Auto) 0, Basophils (%) (Auto) 0, Neutrophils # (Auto) 18.8H, Lymphocytes # (Auto) 1.3, Monocytes # (Auto) 2.3H, Eosinophils # (Auto) 0.0, Basophils # (Auto) 0.1, Immature Granulocyte # (Auto) 0.8H, Sodium Level 132L, Potassium Level 4.7, Chloride Level 103, Carbon Dioxide Level 16L, Anion Gap 13, Blood Urea Nitrogen 11, Creatinine 0.93, Estimat Glomerular Filtration Rate 120, BUN/Creatinine Ratio 12, Glucose Level 234H, Calcium Level 8.6, Corrected Calcium 8.8, Phosphorus Level 2.1L, Magnesium Level 1.8, Total Bilirubin 0.5, Aspartate Amino Transf (AST/SGOT) 19, Alanine Aminotransferase (ALT/SGPT) 13, Alkaline Phosphatase 103, Total Protein 6.0L, Albumin 3.7 02/11/23 03:44: Glucometer 266H 02/11/23 04:34: Glucometer 184H 02/11/23 05:41: Glucometer 230H 02/11/23 06:34: Glucometer 231H 02/11/23 07:33: Glucometer 253H 02/11/23 08:00: Beta-Hydroxybutyrate (Chem panel) 2.48H 02/11/23 08:28: Glucometer 223H 02/11/23 09:29: Glucometer 181H 02/11/23 10:28: Glucometer 118H 02/11/23 10:55: Sodium Level 136, Potassium Level 4.0, Chloride Level 105, Carbon Dioxide Level 25, Anion Gap 6, Blood Urea Nitrogen 6L, Creatinine 0.83, Estimat Glomerular Filtration Rate 128, BUN/Creatinine Ratio 7, Glucose Level 131H, Calcium Level 8.9 02/11/23 11:29: Glucometer 123H 02/11/23 12:29: Glucometer 97 02/11/23 12:59: Glucometer 87 02/11/23 14:08: Glucometer 135H 02/11/23 15:07: Glucometer 202H 02/11/23 16:00: Glucometer 222H 02/11/23 17:11: Glucometer 268H 02/11/23 17:18: Sodium Level 133L, Potassium Level 4.1, Chloride Level 102, Carbon Dioxide Level 23, Anion Gap 8, Blood Urea Nitrogen 4L, Creatinine 0.81, Estimat Glomerular Filtration Rate 129, BUN/Creatinine Ratio 5, Glucose Level 280H, Calcium Level 8.7, Beta-Hydroxybutyrate (Chem panel) 1.15H Home Meds Active Reported Tylenol Extra Strength (Acetaminophen) 500 Mg Tablet 1,000 Mg PO Q8H PRN TAKES 2 (500MG) TABS Levemir Flexpen (Insulin Detemir) 100 Unit/Ml (3 Ml) Insuln.pen 30 Unit SQ DAILY Insulin Lispro Kwikpen U-100 (Insulin Lispro) 100 Unit/Ml Insuln.pen 8 Units SC AC Pantoprazole Sodium 40 Mg Tablet.dr 40 Mg PO DAILY LAST FILLED 10-15-2022 #30/30 DAY SUPPLY Sucralfate 1 Gram Tablet 1 Gm PO TIDAC LAST FILLED 10-15-2022 #90/30 DAY SUPPLY Assessment/Pt Instructions Please see electronic discharge instructions given to patient. Discharge Instructions Discharge Diet: No Restrictions Activity as Tolerated: Yes Discharge Physical Examination Vital Signs Vital Signs Date Time Temp Pulse Resp B/P (MAP) Pulse Ox O2 Delivery O2 Flow Rate FiO2 02/11/23 18:00 132/90 (100) 98 Room Air 02/11/23 17:00 94 18 02/11/23 11:12 36.7 General Appearance: No Apparent Distress HEENT: Normal ENT Inspection Respiratory: Chest Non Tender, Lungs Clear, No Accessory Muscle Use Cardiovascular: Regular Rate, Rhythm, No Edema, No Murmur Gastrointestinal: Normal Bowel Sounds, Non Tender, Soft Extremity: No Pedal Edema Skin: Normal Color, Warm/Dry Neurologic/Psychiatric: Alert, Oriented x3 Allergies: Coded Allergies: gluten (Verified Adverse Reaction, Unknown, 09/27/22) No Known Drug Allergies (Unverified , 02/10/23) Discharge Summary Date of Admission Feb 10, 2023 at 14:58 Date of Discharge Admission Diagnosis DKA ICU Insulin drip Discharge Diagnosis 30-year-old male with type 1 diabetes presenting with DKA. (1) DKA (diabetic ketoacidosis) Status: Acute Assessment & Plan: States he has been out of his medications for a while. Home regimen is Levemir 30 units daily and NovoLog 8 units with meals Plan: Continue insulin drip Monitor daily CMP and beta hydroxybutyrate We will transition to subcutaneous insulin once patient is out of DKA Advance diet as tolerated Qualifiers: Qualified Codes: E13.10 - Other specified diabetes mellitus with ketoacidosis without coma ANDREW HUFF DO 02/12/23 0519: Discharge Summary Hospital Course Was the Problem List Reviewed?: Yes Assessment/Pt Instructions lLeft AMA Discharge Planning: <30 minutes discharge planning Discharge Instructions Discharge Diet: No Restrictions Discharge Physical Examination Allergies: Coded Allergies: gluten (Verified Adverse Reaction, Unknown, 09/27/22) No Known Drug Allergies (Unverified , 02/10/23) MAYKEL BUTT MD, RESIDENT Feb 11, 2023 18:49 ANDREW HUFF DO Feb 12, 2023 05:19
== END 2023-02-11 18:45 | disposition left against medical advice (07) | DRG 638 ==
LOC: EDUNIT# 12:54 → ER 13:01 → ICU 14:58
PROVIDERS: ADMIT Internal Medicine; ATTEND Internal Medicine
DX: E10.10 Type 1 diabetes mellitus with ketoacidosis without coma (principal); N17.9 Acute kidney failure, unspecified; Z79.4 Long term (current) use of insulin; K90.0 Celiac disease; E86.0 Dehydration; D72.829 Elevated white blood cell count, unspecified; Z11.52 Encounter for screening for COVID-19
CPT/HCPCS: 36415; 80048; 80053; 81000; 82010; 82947; 83735; 84100; 85007; 85025; 85027; 87636; 96361; 96374